=== PATIENT | female | born 1960 | race Two or more races ===

== ENCOUNTER 2020-04-14 13:29 | Outpatient (REF) | payer OTHER, SELFPAY ==
--- NOTE | 2020-04-14 13:35 | XR_ITS ---
EXAMINATION: XR LUMBOSACRAL SPINE WITH OBLIQUES CLINICAL INFORMATION: Low back pain COMPARISON: None TECHNIQUE: AP, both oblique, and lateral views of the lumbar spine. Lateral view of the lumbosacral junction. FINDINGS: There is mild 3 mm anterior subluxation of L4 with respect L5. Bone alignment is otherwise normal. No fracture or dislocation is seen. Disc spaces are normal. There is lower lumbar spine facet arthritis. No pars defect is seen. There is a gastric lap band. There is a 4 x 5 mm calcification that projects to the right of the L1 vertebral body superior endplate. This is superior to the right kidney. XR/XR lumbar spine 4V min IMPRESSION: Mild anterior subluxation of L4 with respect L5 and lower lumbar spine facet arthritis.
== END 2020-04-14 13:30 | disposition home or self-care (01) ==
LOC: HO.XRAY 13:29
PROVIDERS: PCP Internal Medicine Geriatric Medicine; Visit Provider Internal Medicine Geriatric Medicine
DX: M54.5 Low back pain (principal)
CPT/HCPCS: 72110

== ENCOUNTER 2020-04-14 14:25 | Outpatient (REF) | payer OTHER, SELFPAY | END 2020-04-14 14:26 | disposition home or self-care (01) | LOC: HO.LAB 14:25 | PROVIDERS: Visit Provider Internal Medicine | DX: Z20.828 Contact with and (suspected) exposure to other viral communicable diseases (principal) | CPT/HCPCS: 87635 ==

== ENCOUNTER 2020-10-12 12:47 | Emergency (ER) | payer BC, SELFPAY ==
--- NOTE | 2020-10-12 | ECG_ITS ---
Test Reason : DISSINESS Blood Pressure : / mmHG Vent. Rate : 075 BPM Atrial Rate : 075 BPM P-R Int : 174 ms QRS Dur : 100 ms QT Int : 432 ms P-R-T Axes : 027 020 017 degrees QTc Int : 482 ms Normal sinus rhythm Nonspecific ST abnormality Prolonged QT Abnormal ECG When compared with ECG of 16-DEC-2009 13:25, No significant change was found Referred By: Generic ED Physician Electronically Signed By:CYNDI EASLEY MD
--- NOTE | ~2020-10-12 | CT_ITS ---
EXAMINATION: CT HEAD WITHOUT CONTRAST CLINICAL INFORMATION: Sudden onset of dizziness. Rule out stroke. COMPARISON: None TECHNIQUE: Contiguous axial imaging was performed from the skull base to vertex without intravenous administration of contrast. This CT examination was performed using dose optimization techniques as appropriate, variously including the following: *Automated exposure control *Adjustment of mA and/or kV according to patient size (this includes techniques or standardized protocols for targeted exams where dose is matched to indication/reason for exam; i.e. extremities or head) *Use of iterative reconstruction technique DLP: 627 mGy-cm FINDINGS: There is no evidence of acute intracranial hemorrhage or territorial infarction. No abnormal mass effect or midline shift is seen. Moore to white matter differentiation is well preserved. No extra-axial fluid collections are identified. The ventricles are normal in size. There is no abnormal attenuation within the brain parenchyma. The osseous structures and soft tissues are normal. The mastoid air cells and visualized portions of the paranasal sinuses are well aerated. There is a small 1.3 cm polyp or retention cyst right nasal cavity. There are bilateral paradoxical middle turbinates CT/CT head/brain wo con IMPRESSION: Small polyp or retention cyst right nasal cavity. No acute intracranial process seen
--- NOTE | ~2020-10-12 | XR_ITS ---
EXAMINATION: XR CHEST CLINICAL INFORMATION: Hypoxia COMPARISON: June 19, 2018 TECHNIQUE: AP portable view of the chest was obtained. FINDINGS: There are small lung volumes. There is elevation of the right hemidiaphragm. There is some increased markings bilaterally but likely related to small lung volume rather than confluent disease. Heart normal size. No evidence of pulmonary edema. No pneumothorax or significant pleural effusion Lap band in place. XR/XR chest 1V IMPRESSION: Small lung volumes without definite confluent parenchymal disease.
[2020-10-12 12:58] VITALS: BP 149/77; PULSE 79; RESP 24; TEMP 36.5; O2SAT 92; BMI 32.5
[2020-10-12 13:08] VITALS: O2SAT 96
--- NOTE | 2020-10-12 13:09 | PC.NURSE ---
Pt diaphoretic, minimally verbally responsive, spo2 91-92% on room air, placed on 2.5L via NC. No arm drift or facial droop noted, PERRL, pt able to follow commands. EKG and POC obtained.
[2020-10-12 13:10] LABS: Glucose, Whole Blood 205 mg/dL (60-115)
[2020-10-12 13:35] LABS: MANUAL DIFF FLAG NO
[2020-10-12] MEDS: ondansetron HCL 4 MG/2 ML VIAL IVPUSH (13:37)
[2020-10-12] MEDS: 0.9 % Sodium Chloride 1,000 ML 999 ML IV (13:37)
[2020-10-12] MEDS: LORazepam 2 MG/ML VIAL 1 MG IVPUSH (13:37)
[2020-10-12 13:42] LABS: INTERNATIONAL NORM RATIO 1.1 (0.9-1.1); Prothrombin Time 13.5 SEC (10.8-13.0)
[2020-10-12 13:43] LABS: Basophils Absolute Auto 0.1 X10*3/uL (0.0-0.2); Basophils Percent Auto 0.5 % (0-2); Eosinophils Absolute Auto 0.3 X10*3/uL (0.0-0.4); Eosinophils Percent Auto 2.1 % (0-4); Hematocrit 45.1 % (37-47); Hemoglobin 14.3 g/dl (12.0-16.0); Imm Gran Abs Auto 0.09 X10*3/uL (0.00-0.03); Imm Gran Pct Auto 0.8 % (0.0-0.4); Lymphocytes Absolute Auto 1.8 X10*3/uL (1.2-4.9); Lymphocytes Percent Auto 15.7 % (20-40); Mean Corpuscular HGB Conc 31.7 g/dl (31.0-35.0); Mean Corpuscular Hemoglobin 27.8 pg (27.0-33.0); Mean Corpuscular Volume 87.6 fL (80-98); Mean Platelet Volume 11.8 fL (9.4-12.3); Monocytes Absolute Auto 0.7 X10*3/uL (0.1-1.2); Monocytes Percent Auto 6.1 % (2-11); Neutrophils Absolute Auto 8.7 X10*3/uL (2.0-8.3); Neutrophils Percent Auto 74.8 % (45-73); Platelet Count 210 X10*3/uL (160-400); Red Blood Count 5.15 X10*6/uL (4.20-5.50); Red Cell Distribution Width 12.6 % (11.0-16.0); White Blood Count 11.6 X10*3/uL (4.8-10.8)
[2020-10-12 13:45] LABS: Partial Thromboplastin Time 29.4 SEC (24.1-38.0)
[2020-10-12 14:09] LABS: Alanine Aminotransferase 36 U/L (0-31); Albumin Level 4.5 g/dL (3.5-5.0); Alkaline Phosphatase 106 U/L (39-117); Anion Gap 16 (12-20); Aspartate Amino Transferase 44 U/L (5-31); Bilirubin Total 0.4 mg/dL (0.0-1.0); Blood Urea Nitrogen 12 mg/dL (9-16); Calcium 9.7 mg/dL (8.4-10.2); Carbon Dioxide 24 mmol/L (22-29); Chloride 103 mmol/L (96-108); Creatinine Clr Calc Pharmacy 72.8; Estimated Glomerular Filt Rate > 60; Glucose Random 239 mg/dL (60-115); Potassium 3.2 mmol/L (3.3-5.1); Sodium 140 mmol/L (135-145); Total Protein 7.8 g/dL (6.5-8.0)
[2020-10-12 14:14] LABS: Troponin-I High Sensitivity < 3.5 ng/L (<3.5-17.0)
[2020-10-12] MEDS: Meclizine HCl 25 MG TABLET PO (14:50)
--- NOTE | 2020-10-12 14:51 | PC.NURSE ---
Pt reports she feels better, no longer diaphoretic. Medicated with meclizine as charted. Oxygen shut off to eval spo2 on room air.
[2020-10-12 14:52] VITALS: BP 110/66; PULSE 89; RESP 20; O2SAT 93
--- NOTE | 2020-10-12 14:54 | PC.NURSE ---
Spo2 dropped to 91-92% on room air. Oxygen increased to 1.5 liters with no change, oxygen adjusted to 2.5L with good effect, spo2 up to 94-95%
--- NOTE | 2020-10-12 15:01 | PC.NURSE ---
MD aware of pt inability to maintain spo2 on room air. Plan for Covid swab and CXR.
--- NOTE | 2020-10-12 15:04 | PC.NURSE ---
Pt getting a CXR done at this time
--- NOTE | 2020-10-12 15:29 | PC.NURSE ---
COVID swab was obtained and sent to the lab. Patient reports the dizziness has improved.
[2020-10-12 15:48] LABS: COVID-19 Test Negative (Negative); IDNOW Serial# 9DD0AD1C
--- NOTE | 2020-10-12 16:44 | ED.GENADULT ---
HPI - General Adult General Chief complaint: Dizziness Stated complaint: mult complaints Time Seen by Provider: 10/12/20 13:10 Source: patient and family (Daughter, Rae) Mode of arrival: EMS Limitations: language barrier (Patient speaks St Helenian and Nauruan) History of Present Illness HPI narrative: 59-year-old female who presents emergency department for evaluation of sudden onset of dizziness. The patient was driving to [employer] to visit her sister. She states that she had a sudden onset of dizziness. She describes the sensation as a room spinning sensation. She states that it was worse any time she moved her head. She had nausea and vomiting. She denied headache, change in her vision, numbness or weakness, difficulty talking. According to her daughter, patient had a similar presentation 2 years prior. At that time, it was felt to be secondary to dehydration or Lyme disease. Patient denied being ill in any way prior to the onset of her dizziness. She denied fever, chills, chest pain, shortness of breath, abdominal pain, change in bowel movements, frequency, urgency, dysuria or increased thirst. Related Data Previous Rx's Medication Instructions Recorded meclizine [Dramamine Less Drowsy] 25 mg PO TID PRN #30 tab 10/12/20 ondansetron 4 mg PO Q6-8H PRN #14 tab 10/12/20 Allergies Allergy/AdvReac Type Severity Reaction Status Date / Time No Known Allergies Allergy Mild NOT Unverified 03/03/20 15:08 [No Known Allergies*] APPLICABLE Review of Systems Review of Systems: Yes all other systems are reviewed and are negative [facility] Past Medical History [facility] Narrative: Patient has a history of hypertension, anxiety, obstructive sleep apnea and wears CPAP at night, history of seizures. Patient denies tobacco use, she rarely drinks alcohol, she does not use drugs. Social History Social History Alcohol intake: never Smoking Status: Never smoker Use of substances other than those prescribed or required for medical reasons: No Advance Directives: No Advance Directives Information Provided: Yes Physical Exam Vital Signs: Vital Signs: Last Vital Signs Temp 97.7 F 10/12/20 12:58 Pulse 89 10/12/20 14:52 Resp 20 10/12/20 14:52 BP 110/66 10/12/20 14:52 Pulse Ox 93 10/12/20 14:52 Body Mass Index 32.5 Const: General: cooperative Orientation/consciousness: oriented to person and oriented to place Limitations: no limitations HENMT: Head: Yes normal to inspection, Yes normocephalic and Yes atraumatic Ears: external ears normal General nose exam: Normal external nose present Face and sinus: Yes normal facial exam Mouth: Normal oral and palatal mucosa present Throat: Yes posterior oropharynx normal Eyes: Periorbital: periorbital findings normal Eyelids: Yes eyelids normal Conjunctivae: conjunctivae normal Sclerae: sclerae normal Corneas: corneas normal Pupils: Equal, round and reactive pupils present EOM: EOMs intact bilaterally and Nystagmus present Direct Ophthalmoscopy: normal light reflex Neck: Neck: Yes full ROM, Yes no lymphadenopathy, Yes no meningeal signs, Yes trachea midline and Yes supple Chest: Chest palpation & inspection: normal inspection of the chest and normal palpation of entire chest wall Resp: Effort & Inspection: normal respiratory effort and able to speak in complete sentences Auscultation: clear to auscultation bilaterally Cardio: Rate: regular rate Rhythm: regular rhythm Heart sounds: S1 normal heart sound present, S2 normal heart sound present and no murmurs GI: Inspection: Yes normal to inspection Palpation (GI): Soft to palpation, nontender, no guarding, not rigid and No hepatosplenomegaly present : General: Yes no CVA tenderness Back/Spine/Pelvis: Back: no CVA tenderness Cervical Spine: normal cervical lordosis Thoracic/Lumbar Spine: thoracic and lumbar spine normal to inspection Skin: Lesions: no lesions Rashes: no rashes Wounds: no wounds Neuro: General: oriented to person, oriented to place and no meningeal signs Cranial nerves: Yes CN's II-XII intact bilaterally, Yes Equal, round and reactive pupils present and Yes Nystagmus present Cognition (Neuro): normal cognition Motor exam (neuro): 5/5 motor strength present throughout Sensory Exam: other (Normal light touch bilaterally) Extrem: General: Yes normal to inspection and Yes full ROM Psych: Appearance: well kempt Mental Status: mental status grossly normal Speech and movement: Normal speech and movement present Affect: normal affect Attitude: cooperative Thought process: Normal thought process present Thought content: Normal thought content present Course Course Course Narrative: 59-year-old female who presents emergency department for evaluation of sudden onset of dizziness. Vital signs revealed an elevated blood pressure of 149/77, elevated respiratory rate of 24 . O2 saturation was 92% on room air. Physical examination did reveal lateral nystagmus with a nonfocal neurologic exam. The patient was treated with Ativan 1 mg IV, Zofran 4 mg IV and meclizine 25 mg IV. She also received normal saline IV x1 L. 1650: Patient's laboratory evaluation revealed slightly low potassium at 3.2. Patient has an elevated glucose of 239, she does not have history of diabetes mellitus. The patient's COVID-19 test was negative. Chest x-ray was unremarkable. CT scan of the head revealed no acute process to explain her dizziness. At this time, I suspect that her dizziness is secondary to positional vertigo. She did feel significantly better after the above treatment. I did discuss the elevated glucose with the patient, she has not been symptomatic-no increased thirst, increased frequency or visual change. It is possible at this increased glucose may be a stress reaction secondary to the sudden onset of vertigo. The patient will need to follow-up with PCP for further evaluation for possible diabetes mellitus splint further treatment of her positional vertigo. She was discharged home with a prescription for meclizine and Zofran. She was given verbal and printed instructions prior to discharge. Medical Decision Making Lab Data Result diagrams: 10/12/20 13:31 10/12/20 13:31 Labs: Lab Results 10/12/20 10/12/20 10/12/20 Range/Units 13:05 13:31 13:31 WBC 11.6 H (4.8-10.8) X10*3/uL RBC 5.15 (4.20-5.50) X10*6/uL Hgb 14.3 (12.0-16.0) g/dl Hct 45.1 (37-47) % MCV 87.6 (80-98) fL MCH 27.8 (27.0-33.0) pg MCHC 31.7 (31.0-35.0) g/dl RDW 12.6 (11.0-16.0) % Plt Count 210 (160-400) X10*3/uL MPV 11.8 (9.4-12.3) fL Immature Gran % (Auto) 0.8 H (0.0-0.4) % Neut % (Auto) 74.8 H (45-73) % Lymph % (Auto) 15.7 L (20-40) % Cascade % (Auto) 6.1 (2-11) % Eos % (Auto) 2.1 (0-4) % Baso % (Auto) 0.5 (0-2) % Lymph # (Auto) 1.8 (1.2-4.9) X10*3/uL Cascade # (Auto) 0.7 (0.1-1.2) X10*3/uL Eos # (Auto) 0.3 (0.0-0.4) X10*3/uL Baso # (Auto) 0.1 (0.0-0.2) X10*3/uL Abs Immat Gran (auto) 0.09 H (0.00-0.03) X10*3/uL Absolute Neuts (auto) 8.7 H (2.0-8.3) X10*3/uL Absolute Nucleated RBC 0.000 (0.0-0.012) X10*3/uL Nucleated RBC % (auto) 0.0 (0.0-0.2) /100WBC PT 13.5 H (10.8-13.0) SEC INR 1.1 (0.9-1.1) APTT 29.4 (24.1-38.0) SEC Sodium (135-145) mmol/L Potassium (3.3-5.1) mmol/L Chloride (96-108) mmol/L Carbon Dioxide (22-29) mmol/L Anion Gap (12-20) BUN (9-16) mg/dL Creatinine (0.5-1.4) mg/dL Estim Creat Clear Calc Estimated GFR POC Glucose 205 H (60-115) mg/dL Random Glucose (60-115) mg/dL Calcium (8.4-10.2) mg/dL Total Bilirubin (0.0-1.0) mg/dL AST (5-31) U/L ALT (0-31) U/L Alkaline Phosphatase (39-117) U/L Troponin I High Sens (<3.5-17.0) ng/L Total Protein (6.5-8.0) g/dL Albumin (3.5-5.0) g/dL COVID-19 (JULIA) (Negative) COVID-19 Clin Com 10/12/20 10/12/20 10/12/20 Range/Units 13:31 13:31 15:25 WBC (4.8-10.8) X10*3/uL RBC (4.20-5.50) X10*6/uL Hgb (12.0-16.0) g/dl Hct (37-47) % MCV (80-98) fL MCH (27.0-33.0) pg MCHC (31.0-35.0) g/dl RDW (11.0-16.0) % Plt Count (160-400) X10*3/uL MPV (9.4-12.3) fL Immature Gran % (Auto) (0.0-0.4) % Neut % (Auto) (45-73) % Lymph % (Auto) (20-40) % Cascade % (Auto) (2-11) % Eos % (Auto) (0-4) % Baso % (Auto) (0-2) % Lymph # (Auto) (1.2-4.9) X10*3/uL Cascade # (Auto) (0.1-1.2) X10*3/uL Eos # (Auto) (0.0-0.4) X10*3/uL Baso # (Auto) (0.0-0.2) X10*3/uL Abs Immat Gran (auto) (0.00-0.03) X10*3/uL Absolute Neuts (auto) (2.0-8.3) X10*3/uL Absolute Nucleated RBC (0.0-0.012) X10*3/uL Nucleated RBC % (auto) (0.0-0.2) /100WBC PT (10.8-13.0) SEC INR (0.9-1.1) APTT (24.1-38.0) SEC Sodium 140 (135-145) mmol/L Potassium 3.2 L (3.3-5.1) mmol/L Chloride 103 (96-108) mmol/L Carbon Dioxide 24 (22-29) mmol/L Anion Gap 16 (12-20) BUN 12 (9-16) mg/dL Creatinine 0.84 (0.5-1.4) mg/dL Estim Creat Clear Calc 72.8 Estimated GFR > 60 POC Glucose (60-115) mg/dL Random Glucose 239 H (60-115) mg/dL Calcium 9.7 (8.4-10.2) mg/dL Total Bilirubin 0.4 (0.0-1.0) mg/dL AST 44 H (5-31) U/L ALT 36 H (0-31) U/L Alkaline Phosphatase 106 (39-117) U/L Troponin I High Sens < 3.5 (<3.5-17.0) ng/L Total Protein 7.8 (6.5-8.0) g/dL Albumin 4.5 (3.5-5.0) g/dL COVID-19 (JULIA) Negative (Negative) COVID-19 Clin Com See Note ECG Data Attestation: I personally reviewed and interpreted this ECG as follows: Interpretation: 1655: Normal sinus rhythm rate of 75, normal NH, prolonged QRS of 100 milliseconds, prolonged QTC of 482 milliseconds, no ST segment elevation, no ST segment depression, no significant T-wave abnormalities, no old EKG for comparison Discharge Plan Discharge Clinical Impression: Acute hyperglycemia Benign paroxysmal positional vertigo Qualifiers: Laterality: unspecified laterality Qualified Code(s): H81.10 - Benign paroxysmal vertigo, unspecified ear Patient Disposition: Home, Self-Care Instructions: Benign Paroxysmal Positional Vertigo (ED) Additional Instructions: Your laboratory evaluation did reveal an elevated glucose (sugar) of 239, normal is 60-115. Sometimes and elevated glucose can be secondary to a stressful illness like vertigo. You will need to follow-up with your doctor to have a repeat fasting blood sugar and further testing for possible diabetes. Increase your fluid intake to prevent dehydration. Cut sugar out of your diet. Your CT scan of the head revealed no evidence of bleeding in the brain, stroke or large tumors. Your chest x-ray was normal with no evidence of pneumonia Your COVID-19 test was negative. Your dizziness is consistent with benign positional vertigo most likely caused by dysfunction of your balance mechanism in the inner ear. Take meclizine 25 mg 3 times a day for the next 4 days then as needed for dizziness. Take Zofran (ondansetron) oral dissolvable tablets, 4 mg 1 tablet dissolved in your mouth every 6-8 hours as needed for nausea and vomiting. Follow-up with your doctor in 2 days. Please return to the emergency department if your symptoms get worse or if you develop any symptoms that are concerning to you. Prescriptions: New meclizine [Dramamine Less Drowsy] 25 mg tablet 25 mg PO TID PRN (Reason: dizziness) Qty: 30 RF: 0 ondansetron 4 mg tablet,disintegrating 4 mg PO Q6-8H PRN (Reason: nausea and vomiting) Qty: 14 RF: 0 Interventions: ED Discharge Assessment Last Done: 10/12/20 16:45 Print Language: [place]ian
== END 2020-10-12 17:06 | disposition home or self-care (01) ==
PROVIDERS: Emergency Provider Emergency Medicine Emergency Medical Services
DX: H81.10 Benign paroxysmal vertigo, unspecified ear (principal); R73.9 Hyperglycemia, unspecified; R09.02 Hypoxemia; Z20.822 Contact with and (suspected) exposure to COVID-19; Z79.899 Other long term (current) drug therapy
CPT/HCPCS: 36415; 70450; 71045; 80053; 82947; 84484; 85025; 85610; 85730; 87635; 93005; 96365; 96375; 99285; J2060; J2405

== ENCOUNTER 2021-02-02 14:51 | Outpatient (REF) | payer BC, SELFPAY ==
--- NOTE | ~2021-02-02 | MM_ITS ---
EXAMINATION: MM SCREENING DIGITAL BREAST TOMOSYNTHESIS, BILATERAL CLINICAL INFORMATION: Screening. Asymptomatic. The lifetime risk of breast cancer based on the Tyrer-Cuzick Model is 6%. COMPARISON: Mammography: 07/09/2019, 07/02/2018, 06/19/2018, 12/10/2016; outside mammography 01/25/2016 ([facility]). TECHNIQUE: Digital breast tomosynthesis is performed in both the craniocaudal and mediolateral oblique views along with computer-aided detection (CAD). Synthesized 2D images are generated from the tomosynthesis. FINDINGS: There are scattered areas of fibroglandular density (ACR BI-RADS breast composition Category b). Breast tissue composition borders on heterogeneously dense. Parenchymal pattern is similar to prior studies. There is no interval mass or architectural abnormality. The axilla and skin contours are unremarkable. The right MLO view has oval parenchymal asymmetry just superior to posterior nipple line, 12 cm from nipple, identical to prior MLO view 2016 and suggesting shifting fibroglandular tissue. Again, there are numerous bilateral scattered punctate round calcifications. MM/MM tomosynthesis screening BI IMPRESSION: No significant changes from prior exams. ASSESSMENT: BI-RADS 2: Benign RECOMMENDATION: Routine annual mammography screening. This patient's information was entered into a reminder system with a target due date for their next mammogram.
== END 2021-02-02 14:52 | disposition home or self-care (01) ==
LOC: HO.MAMMO 14:51
PROVIDERS: Visit Provider Internal Medicine Geriatric Medicine
DX: Z12.31 Encounter for screening mammogram for malignant neoplasm of breast (principal)
CPT/HCPCS: 77063; 77067

== ENCOUNTER → 2021-02-07 12:32 | Outpatient (BNVA) | payer BC, SELFPAY | PROVIDERS: Visit Provider Dietitian, Registered | DX: E66.9 Obesity, unspecified (principal); Z68.35 Body mass index [BMI] 35.0-35.9, adult; Z71.3 Dietary counseling and surveillance | CPT/HCPCS: 97802 ==

== ENCOUNTER → 2021-03-21 13:50 | Outpatient (BNVA) | payer BC, SELFPAY | PROVIDERS: PCP Internal Medicine Geriatric Medicine; Visit Provider Dietitian, Registered | DX: E66.9 Obesity, unspecified (principal); Z68.34 Body mass index [BMI] 34.0-34.9, adult; Z71.3 Dietary counseling and surveillance; Z98.84 Bariatric surgery status | CPT/HCPCS: 97803 ==

== ENCOUNTER 2021-05-02 13:22 | Outpatient (REF) | payer BC, SELFPAY ==
--- NOTE | ~2021-05-02 | XR_ITS ---
EXAMINATION: XR LUMBOSACRAL SPINE CLINICAL INFORMATION: Low back pain. Pain in the right leg. COMPARISON: Lumbar spine 04/14/2020 TECHNIQUE: Three views of the lumbosacral spine. FINDINGS: Lumbar vertebrae have normal height and alignment. No fracture or bone destruction. Minor degenerative lipping at the anterior endplates of lumbar vertebrae. There are moderate bone spurs at the anterior endplates of lower thoracic vertebral bodies. Lumbar disc heights are maintained. There is moderate facet joint arthrosis at the lower 3 lumbar discs levels, most significant at the lumbosacral junction. Stable mild anterolisthesis of L4 and L5. Sacroiliac joint is normal. Gastric banding in place. XR/XR lumbar spine 2-3V IMPRESSION: 1. No acute abnormality. No change since prior study 04/14/2020. 2. Mild degenerative changes of lumbar spine. Stable minimal anterolisthesis of L4 on L5 due to facet joint disease. No spondylolysis.
== END 2021-05-02 13:23 | disposition home or self-care (01) ==
LOC: HO.XRAY 13:22
PROVIDERS: PCP Internal Medicine Geriatric Medicine; Visit Provider Internal Medicine Geriatric Medicine
DX: M54.50 Low back pain, unspecified (principal); M79.604 Pain in right leg
CPT/HCPCS: 72100

== ENCOUNTER → 2021-05-25 10:50 | Outpatient (BNVA) | payer BC, SELFPAY | PROVIDERS: PCP Internal Medicine Geriatric Medicine; Visit Provider Dietitian, Registered | DX: E66.9 Obesity, unspecified (principal); Z68.35 Body mass index [BMI] 35.0-35.9, adult; Z98.84 Bariatric surgery status; Z71.3 Dietary counseling and surveillance | CPT/HCPCS: 97803 ==

== ENCOUNTER 2021-10-05 14:43 | Outpatient (REF) | payer BC, SELFPAY ==
--- NOTE | ~2021-10-05 | MM_ITS ---
EXAMINATION: BONE DENSITOMETRY CLINICAL INDICATION: Encounter for screening for osteoporosis. Postmenopausal. COMPARISON: This is the patient's baseline examination. TECHNIQUE: Using a [employer] DXA System (software version: 13.1) manufactured by [employer], dual-energy x-ray absorptiometry was performed of the lumbar spine and left hip. The images are of good technical quality. Summary results are attached. FINDINGS: AP SPINE L1-L4: BMD 0.945 g/cm2, Z-score -1.6, T-score -2.0, osteopenia. LEFT FEMUR, NECK: BMD 0.788 g/cm2, Z-score -1.1, T-score -1.8, osteopenia. LEFT FEMUR, TOTAL: BMD 0.914 g/cm2, Z-score -0.4, T-score -0.7, normal. IDENTIFIED RISK FACTORS: Menopause. Secondary osteoporosis, (intestinal or bowel disease). HISTORY OF FRACTURE: None listed. MEDICATIONS: None listed. MM/XR DEXA axial skeleton IMPRESSION: 1. DIAGNOSIS: Osteopenia based on the lowest T-score value of -2.0 in the lumbar spine applying World Health Organization criteria. 2. 10-YEAR FRACTURE RISK PREDICTION, FRAX: Major osteoporotic fracture (clinical spine, forearm, hip or shoulder) 4.3%. Hip fracture 0.4%. 3. Treatment Recommendations: NOF guidelines recommend consideration for treatment in postmenopausal women and men age 50 and older presenting with the following: -A hip or vertebral (clinical or morphometric) fracture. -T-score less than or equal to -2.5 at the femoral neck or spine after appropriate evaluation to exclude secondary causes. -Low bone mass at the hip or spine and a 10-year fracture probability by FRAX of greater than or equal to 3% for hip fracture or greater than or equal to 20% for major osteoporotic fracture based on the [place] adapted WHO algorithm. 4. Other Recommendations: All treatment decisions require clinical judgment and consideration of individual patient factors, including patient preferences, comorbidities, previous drug use, risk factors not captured in the FRAX model (e.g. frailty, falls, vitamin D deficiency, increased bone turnover, interval significant decline in bone density) and possible under or overestimation of fracture risk by FRAX. Additional medical evaluation for secondary cause of low bone mineral density may be appropriate. FUTURE SCAN RECOMMENDATION: People with diagnosed cases of osteoporosis or at high risk for fracture should have regular bone mineral density tests. For patients eligible for Medicare, routine testing is allowed once every 2 years. The testing frequency can be increased to one year for patients who have rapidly progressing disease, those who are receiving or discontinuing medical therapy to restore bone mass, or have additional risk factors.
== END 2021-10-05 14:44 | disposition home or self-care (01) ==
LOC: HO.MAMMO 14:43
PROVIDERS: PCP Internal Medicine Geriatric Medicine; Visit Provider Advanced Practice Midwife
DX: Z13.820 Encounter for screening for osteoporosis (principal); Z78.0 Asymptomatic menopausal state; M85.80 Other specified disorders of bone density and structure, unspecified site
CPT/HCPCS: 77080

== ENCOUNTER 2022-03-28 15:55 | Outpatient (REF) | payer BC, SELFPAY ==
--- NOTE | ~2022-03-28 | XR_ITS ---
EXAMINATION: XR CHEST CLINICAL INFORMATION: Chronic cough and wheezing COMPARISON: None TECHNIQUE: 2 views of the chest were obtained. FINDINGS: No significant abnormality is noted involving the heart, lungs, mediastinum, bony thorax or soft tissues. XR/XR chest 2V IMPRESSION: Unremarkable chest examination.
== END 2022-03-28 15:56 | disposition home or self-care (01) ==
LOC: HO.XRAY 15:55
PROVIDERS: PCP Internal Medicine Geriatric Medicine; Visit Provider Internal Medicine Geriatric Medicine
DX: R05.3 Chronic cough (principal); R06.2 Wheezing
CPT/HCPCS: 71046

== ENCOUNTER 2022-10-20 08:18 | Outpatient (REF) | payer OTHER, SELFPAY ==
--- NOTE | ~2022-10-20 | MM_ITS ---
EXAMINATION: MM SCREENING DIGITAL BREAST TOMOSYNTHESIS, BILATERAL CLINICAL INFORMATION: Screening. Asymptomatic. The lifetime risk of breast cancer based on the Tyrer-Cuzick Model is 6%. COMPARISON: Mammography: 02/02/2021, 07/09/2019, 07/02/2018, 06/19/2018, 12/10/2016; outside mammography 01/25/2016 ([facility]). TECHNIQUE: Digital breast tomosynthesis is performed in both the craniocaudal and mediolateral oblique views along with computer-aided detection (CAD). Synthesized 2D images are generated from the tomosynthesis. FINDINGS: There are scattered areas of fibroglandular density (ACR BI-RADS breast composition Category b). Breast tissue composition borders on heterogeneously dense. Parenchymal pattern is similar to prior studies and there is no developing density or interval mass or architectural abnormality. Parenchymal asymmetry posterior outer left breast on CC view is similar to decreased from multiple prior exams. Again, there are numerous random scattered punctate round calcifications in both breasts. The axilla and skin contours are unremarkable. No significant changes from prior studies. MM/MM tomosynthesis screening BI IMPRESSION: No mammographic evidence of malignancy. ASSESSMENT: BI-RADS 2: Benign RECOMMENDATION: Routine annual mammography screening. This patient's information was entered into a reminder system with a target due date for their next mammogram.
== END 2022-10-20 08:19 | disposition home or self-care (01) ==
LOC: HO.MAMMO 08:18
PROVIDERS: PCP Internal Medicine Geriatric Medicine; Visit Provider Internal Medicine Geriatric Medicine
DX: Z12.31 Encounter for screening mammogram for malignant neoplasm of breast (principal)
CPT/HCPCS: 77063; 77067

== ENCOUNTER → 2022-12-20 15:30 | Outpatient (BNVA) | payer OTHER, SELFPAY | PROVIDERS: PCP Internal Medicine Geriatric Medicine; Visit Provider Nurse Practitioner ==

== ENCOUNTER 2023-04-20 07:40 | Outpatient (REF) | payer OTHER, SELFPAY ==
[2023-04-20 09:16] LABS: Alanine Aminotransferase 48 U/L (0-31); Alkaline Phosphatase 98 U/L (39-117); Anion Gap 12 (12-20); Aspartate Amino Transferase 41 U/L (5-31); Bilirubin Total 0.4 mg/dL (0.0-1.0); Blood Urea Nitrogen 10 mg/dL (9-16); Carbon Dioxide 29 mmol/L (22-29); Chloride 106 mmol/L (96-108); Cholesterol 140 mg/dL (<200); Estimated Glomerular Filt Rate > 60; Glucose Random 99 mg/dL (60-115); HDL Cholesterol 31 mg/dL (>40); LDL Cholesterol Calculated 91 mg/dL (<100); Potassium 4.5 mmol/L (3.3-5.1); Sodium 142 mmol/L (135-145); Total Protein 7.1 g/dL (6.5-8.0); Triglycerides 93 mg/dL (<150)
== END 2023-04-20 07:41 | disposition home or self-care (01) ==
LOC: HO.LAB 07:40
PROVIDERS: PCP Internal Medicine Geriatric Medicine; Visit Provider Internal Medicine Geriatric Medicine
DX: F51.01 Primary insomnia (principal); E78.00 Pure hypercholesterolemia, unspecified
CPT/HCPCS: 36415; 80053; 80061

== ENCOUNTER 2023-09-30 08:34 | Outpatient (REF) | payer OTHER, SELFPAY ==
[2023-09-30 09:04] LABS: MANUAL DIFF FLAG NO
[2023-09-30 09:13] LABS: Basophils Absolute Auto 0.1 X10*3/uL (0.0-0.2); Eosinophils Absolute Auto 0.2 X10*3/uL (0.0-0.4); Eosinophils Percent Auto 4.1 % (0-4); Hemoglobin 13.1 g/dl (12.0-16.0); Imm Gran Abs Auto 0.02 X10*3/uL (0.00-0.03); Imm Gran Pct Auto 0.3 % (0.0-0.4); Lymphocytes Absolute Auto 1.5 X10*3/uL (1.2-4.9); Lymphocytes Percent Auto 25.2 % (20-40); Mean Corpuscular HGB Conc 31.2 g/dl (31.0-35.0); Mean Corpuscular Hemoglobin 26.5 pg (27.0-33.0); Mean Corpuscular Volume 84.8 fL (80.0-98.0); Mean Platelet Volume 12.1 fL (9.4-12.3); Monocytes Absolute Auto 0.6 X10*3/uL (0.1-1.2); Monocytes Percent Auto 9.7 % (2-11); Neutrophils Absolute Auto 3.5 x10*3/uL (2.0-8.3); Neutrophils Percent Auto 59.7 % (45-73); Platelet Count 181 X10*3/uL (160-400); Red Blood Count 4.95 X10*6/uL (4.20-5.50); Red Cell Distribution Width 13.6 % (11.0-16.0); White Blood Count 5.8 X10*3/uL (4.8-10.8)
[2023-09-30 09:47] LABS: Alanine Aminotransferase 46 U/L (0-31); Alkaline Phosphatase 110 U/L (39-117); Anion Gap 12 (12-20); Aspartate Amino Transferase 44 U/L (5-31); Bilirubin Total 0.4 mg/dL (0.0-1.0); Blood Urea Nitrogen 16 mg/dL (9-16); Calcium 9.4 mg/dL (8.4-10.2); Carbon Dioxide 29 mmol/L (22-29); Chloride 106 mmol/L (96-108); Cholesterol 153 mg/dL (<200); Estimated Glomerular Filt Rate > 60; Glucose Random 106 mg/dL (60-115); HDL Cholesterol 37 mg/dL (>40); LDL Cholesterol Calculated 90 mg/dL (<100); Potassium 4.1 mmol/L (3.3-5.1); Sodium 143 mmol/L (135-145); Triglycerides 133 mg/dL (<150)
== END 2023-09-30 08:35 | disposition home or self-care (01) ==
LOC: HO.LAB 08:34
PROVIDERS: PCP Internal Medicine Geriatric Medicine; Visit Provider Internal Medicine Geriatric Medicine
DX: Z00.00 Encounter for general adult medical examination without abnormal findings (principal); Z13.6 Encounter for screening for cardiovascular disorders; G40.909 Epilepsy, unspecified, not intractable, without status epilepticus
CPT/HCPCS: 36415; 80053; 80061; 85025

== ENCOUNTER 2023-10-11 07:25 | Day surgery (SDC) | payer OTHER, SELFPAY ==
--- NOTE | 2023-10-11 07:09 | MHC.SHP ---
Pre-Procedural Eval Section A - 24 Hr Update-Section A only Date of Service: 10/11/23 The patient is an INPATIENT: No The patient has been examined within 24 hours of the surgical procedure. The History & Physical has been completed within 30 days and I have reviewed it.: No Section B - Complete if H&P > 30 days Chief Complaint: screening, FH of colon ca, rectal bleeding Relevant Family History (Specify if Yes): Yes Relevant Social History: None Present Medications: see Short Stay Collaborative assessment Medical History: Significant History (Obesity Hypertension Seizure disorder Depression Chronic low back pain with right-sided sciatica Family history of colon cancer-brother Tubular adenomas ) History of Previous Operations: Relevant previous surgery/procedure and date(s) (Lap band surgery Tubal ligation COlonoscopy 10 years ago) Allergies: Allergies Allergy/AdvReac Type Severity Reaction Status Date / Time No Known Allergies Allergy Mild NOT Verified 12/20/22 15:38 [No Known Allergies*] APPLICABLE Review of Systems Sugical H&P ROS: Negative: Constitution, Cardiovascular, Respiratory and Gastrointestinal Exam Surgical H&P Exam: Normal: Heart, Normal: Lungs, Normal: Extremities and Normal: Abdomen Plan Diagnosis/Plan: Unchanged I have reviewed the history and physical and performed a pertinent physical examination on my patient. No changes have occurred unless specified. Time Spent With Patient Time: Total time managing care of this patient today ____ minutes.
[2023-10-11 07:40] VITALS: BP 121/80; PULSE 93; RESP 18; TEMP 36.8; O2SAT 95; BMI 33.2
--- NOTE | 2023-10-11 07:59 | HO.ANESPROP2 ---
[facility] Active Problems Active Problems: All Active Problems Pre-op examination (Acute) Tubular adenoma of colon (Acute) Family history of colon cancer (Acute) Chronic low back pain with right-sided sciatica (Acute) Depression (Acute) Seizure disorder (Acute) Hypertension (Acute) Personal history of gastric banding (Acute) Obesity (Acute) Family History Family history of problems with anesthesia: No Surgical History Surgical History (Updated 12/20/22 @ 16:23 by LEATHA Romero) History of tubal ligation Personal history of gastric banding History of Problems with Anesthesia: No Social History Social History Alcohol intake: never Advance Directives: No Advance Directives Information Provided: Yes Meds Allergies Allergy/AdvReac Type Severity Reaction Status Date / Time No Known Allergies Allergy Mild NOT Verified 12/20/22 15:38 [No Known Allergies*] APPLICABLE Active Medications: Current Medications Lactated Ringer's (Lr) 1,000 mls @ 999 mls/hr IV .Q1H1M TORI Stop: 10/11/23 08:45 Home Medications ?Medication ?Instructions ?Recorded ?Confirmed ?Last Taken ?Type clobetasol 0.05 % topical ointment 1 appl topical BID 12/20/22 Unknown History divalproex 500 mg tablet,delayed 500 mg PO BID 12/20/22 Unknown History release gabapentin 100 mg capsule 100 mg PO DAILY 12/20/22 Unknown History lisinopril 20 1 tab PO DAILY 12/20/22 Unknown History mg-hydrochlorothiazide 25 mg tablet multivitamin 1 tab PO DAILY 12/20/22 Unknown History paroxetine HCl 25 mg 50 mg PO DAILY 12/20/22 Unknown History tablet,extended release 24 hr Exam Airway Mallampati Class: II (missing a couple, denies anythung loose) TM Dist: >3cm Neck ROM: Full Heart: rrr Lungs: cta Assessment and Plan Assessment Anesthesia Assessment: Anesthesia Plan Discussed and Chart Reviewed Final Anesthetic Review Family History of Problems with Anesthesia: No History of Problems with Anesthesia: No NPO: Yes ASA Class: II Final Preanesthetic Review: No Changes in Pt Med Stat, Meds/Allgs Chart Reviewed and Consent Obtained/Reviewed Patient Risk: Low Procedure Risk: Low Anesthetic Plan Anesthetic Plan: MAC: Disposition: Standard PACU
[2023-10-11] MEDS: Lactated Ringers 1,000 ML 999 ML IV (08:02)
--- NOTE | 2023-10-11 09:27 | P.OP_ITS ---
Operative Note Operative Note Date of Service: 10/11/23 Narrative: COLONOSCOPY TILL CECUM WITH SNARE POLYPECTOMY Pre-op diagnosis: Surveillance for colon polyps. Post-op diagnosis:? colon polyp, Diverticulosis, hemorrhoids Endoscopist:? Syed Irvin MD Anesthesia:?MAC Consent: Indications for the procedure and potential complications of bleeding, perforation, reaction to medications and missed diagnosis were discussed with the patient and informed consent was obtained. Instrument: Olympus PCF H 190 L variable stiffness pediatric colonoscope Monitoring: Vital signs and clinical assessment, intermittent blood pressure monitoring, continuous EKG monitoring, Pulse oximetry and Carbon Dioxide monitoring were done throughout the procedure. Please see anesthesia flowsheet. Colon withdrawl time was 20 minutes. Procedure: The patient was placed in the left lateral decubitis position and pre-procedure medications were administered. After a digital rectal examination of the ano-rectum, the video colonoscope was inserted into the rectum and advanced through the colon to the ICV. The colonoscope was slowly withdrawn in a retrograde panoramic fashion and the colon mucosa was carefully examined including a retroflexed view of the rectum. Findings and interventions are described below. Procedure Difficulty: Colon was long and tortuous and there was recurrent loop formation. Patient was placed in the supine position and LLQ pressure was applied to intubate the ascending colon Findings: Terminal Ileum: Not evaluated Cecum: Not evaluated Ascending Colon: Partially evaluated due to suboptimal prep Moderate diverticulosis throughout the entire colon Transverse Colon: Moderate diverticulosis throughout the entire colon Descending Colon: Moderate diverticulosis throughout the entire colon Sigmoid Colon: A 8-9 mm diminutive appearing polyp - removed with a cold snare. Moderate diverticulosis Rectum: Normal Ano-rectum: Moderate internal hemorrhoids Colon preparation: Fair after copious irrigation and poor in the right colon. [place] Bowel Preparation Scale Right colon; 1 Transverse colon: 2 Left colon; 2 (0 = Unprepared colon segment with mucosa not seen due to solid stool that cannot be cleared. 1 = Portion of mucosa of the colon segment seen, but other areas of the colon segment not well seen due to staining, residual stool and/or opaque liquid. 2 = Minor amount of residual staining, small fragments of stool and/or opaque liquid, but mucosa of colon segment seen well. 3 = Entire mucosa of colon segment seen well with no residual staining, small fragments of stool or opaque liquid) Impression and Post Procedure Diagnosis: Colonoscopy Findings: One small polyp was removed Moderate diverticulosis seen in the entire colon Moderate hemorrhoids on retroflexed exam. Plan: Repeat Colonoscopy in 1-2 years if polyp is adenomatous and due to suboptimal prep (Dulcolax 10 mg daily x 5 days before colon appt and adult colonoscope for future colonoscopies). Above findings were reviewed with the patient and relevant handouts were given and the discharge area.
[2023-10-11 09:30] VITALS: BP 100/58; PULSE 74; RESP 16; TEMP 36.1; O2SAT 100
[2023-10-11 09:45] VITALS: BP 119/68; PULSE 88; RESP 16; TEMP 36.1; O2SAT 99
== END 2023-10-11 10:17 | disposition home or self-care (01) ==
PROVIDERS: PCP Internal Medicine Geriatric Medicine; Visit Provider Internal Medicine Gastroenterology
PROC: 0DJD8ZZ Inspection of Lower Intestinal Tract, Via Natural or Artificial Opening Endoscopic (ICD-10-PCS; CPT 45378; principal; 2023-10-11 08:30)
DX: Z12.11 Encounter for screening for malignant neoplasm of colon (principal); Z80.0 Family history of malignant neoplasm of digestive organs; Z86.010 Personal history of colon polyps; K63.5 Polyp of colon; K57.30 Diverticulosis of large intestine without perforation or abscess without bleeding; K64.8 Other hemorrhoids; K59.04 Chronic idiopathic constipation; G40.909 Epilepsy, unspecified, not intractable, without status epilepticus; I10 Essential (primary) hypertension; F32.A Depression, unspecified; E66.9 Obesity, unspecified; Z68.33 Body mass index [BMI] 33.0-33.9, adult; Z79.899 Other long term (current) drug therapy; Z98.84 Bariatric surgery status; Z98.51 Tubal ligation status
CPT/HCPCS: 45385; 88305; J2704

== ENCOUNTER → 2023-10-11 07:25 | Outpatient (BNV) | payer OTHER, SELFPAY | PROVIDERS: PCP Internal Medicine Geriatric Medicine; Visit Provider Internal Medicine Gastroenterology | DX: Z12.11 Encounter for screening for malignant neoplasm of colon (principal); Z86.010 Personal history of colon polyps; K63.5 Polyp of colon; K57.90 Diverticulosis of intestine, part unspecified, without perforation or abscess without bleeding; Z91.199 Patient's noncompliance with other medical treatment and regimen due to unspecified reason; K64.8 Other hemorrhoids | CPT/HCPCS: 45385 ==

== ENCOUNTER 2023-10-11 19:15 | Emergency (ER) | payer OTHER, SELFPAY ==
--- NOTE | ~2023-10-11 | CT_ITS ---
EXAMINATION: CT ABDOMEN AND PELVIS WITHOUT CONTRAST CLINICAL INFORMATION: Abdominal pain post colonoscopy and biopsy COMPARISON: None available. TECHNIQUE: Multidetector volumetric imaging was performed from the superior aspect of the liver through the pubic symphysis. Sagittal and coronal reformatted images were obtained on the technologist's workstation. This CT examination was performed using dose optimization techniques as appropriate, variously including the following: *Automated exposure control *Adjustment of mA and/or kV according to patient size (this includes techniques or standardized protocols for targeted exams where dose is matched to indication/reason for exam; i.e. extremities or head) *Use of iterative reconstruction technique DLP: 692 mGy-cm FINDINGS: LUNG BASES: The visualized lung bases are unremarkable. LIVER, GALLBLADDER, AND BILIARY TREE: The liver is normal in size, shape, and attenuation. No focal hepatic lesion or biliary ductal dilatation is present. The gallbladder is unremarkable with no evidence of radiopaque gallstones, gallbladder wall thickening, or obvious pericholecystic inflammatory changes. PANCREAS: Unremarkable. SPLEEN: Unremarkable. ADRENAL GLANDS: Unremarkable. KIDNEYS AND URETERS: The kidneys are normal in size, shape, and attenuation. No hydronephrosis, hydroureter, or calculi seen. No perinephric stranding. BLADDER: Unremarkable. GASTROINTESTINAL TRACT: Status post gastric banding. There is associated dilatation of the distal esophagus. No acute abnormality of the bowel. There are a few diverticula of the sigmoid and descending colon but no evidence for diverticulitis. No bowel wall thickening or edema. No bowel obstruction. Small volume of stool scattered in the colon. The appendix is not identified. MESENTERY: Moderate volume of abdominal ascites. No free air. ABDOMINAL WALL: No significant hernia is appreciated. LYMPH NODES: Normal. VASCULAR: Unremarkable. PELVIC VISCERA: Unremarkable. OSSEOUS STRUCTURES: No acute osteoporotic. Multilevel degenerative spondylosis of the thoracolumbar spine. CT/CT abdomen pelvis wo IV con IMPRESSION: 1. Moderate volume of abdominal ascites. 2. Status post gastric banding. No acute abnormality of the bowel. 3. No free air. Fleischner guidelines were followed.
[2023-10-11 19:49] VITALS: BP 98/63; PULSE 106; RESP 20; TEMP 36.6; O2SAT 97; BMI 33.2
--- NOTE | 2023-10-11 19:52 | ED.GENADULT ---
HPI - General Adult General Chief complaint: General Medical Stated complaint: Disorientated post colonoscopy Time Seen by Provider: 10/11/23 20:23 Source: patient Mode of arrival: ambulatory Limitations: no limitations History of Present Illness HPI narrative: Patient had routine colonoscopy done earlier today discharge at 12:00 o'clock had a polyp removed came home since procedure done patient has been feeling uncomfortable upper abdominal pain wrapping up to the back with increased gas and nausea no vomiting no diarrhea at bowel movement prior to arrival no fever or chills patient's colonoscopy before but never had similar pain in the past no history of cirrhosis no alcohol use patient had near-syncope episode earlier prior to arrival Related Data Home Medications ?Medication ?Instructions ?Recorded ?Confirmed clobetasol 0.05 % topical ointment 1 appl topical BID 12/20/22 divalproex 500 mg tablet,delayed 500 mg PO BID 12/20/22 release gabapentin 100 mg capsule 100 mg PO DAILY 12/20/22 lisinopril 20 1 tab PO DAILY 12/20/22 mg-hydrochlorothiazide 25 mg tablet multivitamin 1 tab PO DAILY 12/20/22 paroxetine HCl 25 mg 50 mg PO DAILY 12/20/22 tablet,extended release 24 hr Previous Rx's ?Medication ?Instructions ?Recorded meclizine 25 mg tablet (Dramamine 25 mg PO TID PRN dizziness #30 tabs 10/12/20 Less Drowsy) ondansetron 4 mg disintegrating 4 mg PO Q6-8H PRN nausea and 10/12/20 tablet vomiting #14 tabs morphine 15 mg immediate release 15 mg PO Q8H PRN pain #15 tabs 10/12/23 tablet ondansetron 4 mg disintegrating 4 mg PO Q6-8H PRN nausea and 10/12/23 tablet vomiting #10 tabs pantoprazole 40 mg tablet,delayed 40 mg PO DAILY #30 tabs 10/12/23 release (Protonix) Allergies Allergy/AdvReac Type Severity Reaction Status Date / Time No Known Allergies Allergy Mild NOT Verified 10/11/23 19:51 [No Known Allergies*] APPLICABLE Review of Systems Review of Systems: Yes all other systems are reviewed and are negative PMFSH Past Medical History Surgical History History of tubal ligation Personal history of gastric banding Social History Social History Alcohol intake: never Patient Tobacco Use Status: Never used Tobacco Smoked in Last 30 Days: No Use of substances other than those prescribed or required for medical reasons: No Advance Directives: No Advance Directives Information Provided: No Do you have a plan to hurt others: No Plan Patient : No Physical Exam ED Vital Signs: Vital Signs - 24 hr 10/11/23 19:49 10/11/23 20:16 10/11/23 22:00 Temperature 97.9 F 97.7 F 98.1 F Pulse Rate 106 H 97 94 Respiratory Rate 20 20 16 Blood Pressure 98/63 152/74 H 101/57 L Pulse Oximetry 97 94 97 Oxygen Delivery Method Room Air Room Air Room Air 10/12/23 00:04 10/12/23 01:21 10/12/23 01:25 Temperature 98.7 F Pulse Rate 91 98 102 H Respiratory Rate 16 Blood Pressure 107/61 100/72 90/57 L Pulse Oximetry 97 Oxygen Delivery Method Room Air 10/12/23 01:25 10/12/23 01:27 10/12/23 01:49 Temperature 97.1 F 97.1 F Pulse Rate 109 H 95 95 Respiratory Rate 16 16 Blood Pressure 97/68 166/96 H 166/96 H Pulse Oximetry 95 95 Oxygen Delivery Method Room Air Room Air BMI result Body Mass Index 33.2 Appearance: Alert. Oriented X3. No acute distress. Eyes: PERRLA, No Nystagmus no icterus slightly pale+ ENT: Pharynx normal. Oral Mucosa moist Neck: Normal inspection. Neck supple. CVS: Normal heart rate and rhythm. Pulses normal. Respiratory: No respiratory distress. Equal air entry bilateral, no wheezing/rales/rhonchi Abdomen: Soft tenderness in epigastric and upper abdominal area bowel sounds are sluggish no rebound tenderness or guarding Bowel sounds are present, no mass palpable, no CVA tenderness Skin: Skin warm and dry. Normal skin color. Normal skin turgor. Extremities: No lower extremity edema. No calf tenderness Neuro: Oriented X 3. Course Course Course Narrative: RME performed by Jada Mar PA-C. Patient is a 62 year old assigned female at presenting to the emergency department with abdominal pain after her colonoscopy today and weakness. Detailed physical exam and review of systems are deferred to the tick eradicator. Labs, imaging, and swabs ordered. Charge nurse made aware. Medications Administered Discontinued Medications Generic Name Dose Route Start Last Admin Trade Name Kristine PRN Reason Stop Dose Admin Sodium Chloride 1,000 mls @ 999 mls/hr 10/11/23 20:48 10/11/23 23:51 Ns IV 10/11/23 21:48 Infused .Q1H1M ONE Infusion Morphine Sulfate 4 mg 10/11/23 20:51 10/11/23 21:22 Morphine Sulfate 4 Mg/Ml Cartridge IVPUSH 10/11/23 20:52 4 mg ONCE ONE Administration Protocol Ondansetron HCl 4 mg 10/11/23 20:51 10/11/23 21:22 Ondansetron Hcl 4 Mg/2 Ml Vial IVPUSH 10/11/23 20:52 4 mg ONCE ONE Administration Medical Decision Making Medical Decision Making [facility] Narrative: Patient with abdominal pain post colonoscopy on polyps CT scan done which showed ascites and cirrhotic liver does not have any history of cirrhosis in the past non alcoholic likely CLEMENTS no free air likely complication of colonoscopy patient had orthostatic hypotension responded to IV fluid was abdomen ambulatory without much discomfort Differential Diagnosis Differential Diagnoses: The differential diagnosis associated with the presentation includes Small bowel obstruction/perforation/earlier/bowel perforation Admission/Observation Consideration of admission/observation: Escalation of care including admission/observation considered Lab Data [facility] Lab Attestation statement: I reviewed the patient's lab results. 10/11/23 20:22 10/11/23 20:22 Labs: Lab Results 10/11/23 10/12/23 Range/Units 20:22 00:16 WBC 16.5 H (4.8-10.8) X10*3/uL RBC 3.94 L D (4.20-5.50) X10*6/uL Hgb 10.6 L (12.0-16.0) g/dl Hct 32.9 L D (37.0-47.0) % MCV 83.5 (80.0-98.0) fL MCH 26.9 L (27.0-33.0) pg MCHC 32.2 (31.0-35.0) g/dl RDW 13.5 (11.0-16.0) % Plt Count 261 D (160-400) X10*3/uL MPV 12.0 (9.4-12.3) fL Immature Gran % (Auto) 0.6 H (0.0-0.4) % Neut % (Auto) 86.6 H (45-73) % Lymph % (Auto) 8.7 L (20-40) % [place] % (Auto) 3.6 (2-11) % Eos % (Auto) 0.1 (0-4) % Baso % (Auto) 0.4 (0-2) % Lymph # (Auto) 1.4 (1.2-4.9) X10*3/uL [place] # (Auto) 0.6 (0.1-1.2) X10*3/uL Eos # (Auto) 0.0 (0.0-0.4) X10*3/uL Baso # (Auto) 0.1 (0.0-0.2) X10*3/uL Abs Immat Gran (auto) 0.10 H (0.00-0.03) X10*3/uL Absolute Neuts (auto) 14.3 H (2.0-8.3) x10*3/uL Absolute Nucleated RBC 0.000 (0.0-0.012) X10*3/uL Nucleated RBC % (auto) 0.0 (0.0-0.2) /100WBC PT 14.1 H (11.1-13.3) SEC INR 1.2 H (0.9-1.1) Sodium 141 (135-145) mmol/L Potassium 3.7 (3.3-5.1) mmol/L Chloride 102 (96-108) mmol/L Carbon Dioxide 25 (22-29) mmol/L Anion Gap 18 (12-20) BUN 17 H (9-16) mg/dL Creatinine 1.10 (0.5-1.4) mg/dL Estim Creat Clear Calc 49.9 Estimated GFR 51 Random Glucose 209 H (60-115) mg/dL Calcium 8.5 D (8.4-10.2) mg/dL Total Bilirubin 0.4 (0.0-1.0) mg/dL AST 45 H (5-31) U/L ALT 50 H (0-31) U/L Alkaline Phosphatase 103 (39-117) U/L Ammonia 39 (13-55) umol/L Total Protein 6.7 (6.5-8.0) g/dL Albumin 3.8 (3.5-5.0) g/dL Urine Color Yellow Urine Appearance Cloudy Urine pH 5.0 (5.0-9.0) Ur Specific [place] 1.025 (1.005-1.025) Urine Protein Trace (Neg-Trace) mg/dL Urine Glucose (UA) Negative (Negative) mg/dL Urine Ketones Negative (Negative) mg/dL Urine Blood Negative (Negative) Urine Nitrite Negative (Negative) Ur Leukocyte Esterase Negative (Negative) Discharge Plan Discharge Clinical Impression: 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 ondansetron 4 mg tablet,disintegrating 4 mg PO Q6-8H PRN (Reason: nausea and vomiting) Qty: 10 0RF No Action meclizine [Dramamine Less Drowsy] 25 mg tablet 25 mg PO TID PRN (Reason: dizziness) Qty: 30 0RF ondansetron 4 mg tablet,disintegrating 4 mg PO Q6-8H PRN (Reason: nausea and vomiting) Qty: 14 0RF paroxetine HCl 25 mg tablet extended release 24 hr 50 mg PO DAILY gabapentin 100 mg capsule 100 mg PO DAILY lisinopril-hydrochlorothiazide 20-25 mg tablet 1 tab PO DAILY clobetasol 0.05 % ointment 1 appl topical BID divalproex 500 mg tablet,delayed release (DR/EC) 500 mg PO BID multivitamin Tablet 1 tab PO DAILY Referrals: Syed Irvin MD [Physician] - Interventions: ED Discharge Assessment Last Done: 10/12/23 01:49 Discharge Date/Time: 10/12/23 01:50 Print Language: [place]
[2023-10-11 20:16] VITALS: BP 152/74; PULSE 97; RESP 20; TEMP 36.5; O2SAT 94
[2023-10-11 20:25] LABS: MANUAL DIFF FLAG NO
[2023-10-11 20:32] LABS: Basophils Absolute Auto 0.1 X10*3/uL (0.0-0.2); Basophils Percent Auto 0.4 % (0-2); Eosinophils Percent Auto 0.1 % (0-4); Hematocrit 32.9 % (37.0-47.0); Hemoglobin 10.6 g/dl (12.0-16.0); Imm Gran Pct Auto 0.6 % (0.0-0.4); Lymphocytes Absolute Auto 1.4 X10*3/uL (1.2-4.9); Lymphocytes Percent Auto 8.7 % (20-40); Mean Corpuscular HGB Conc 32.2 g/dl (31.0-35.0); Mean Corpuscular Hemoglobin 26.9 pg (27.0-33.0); Mean Corpuscular Volume 83.5 fL (80.0-98.0); Monocytes Absolute Auto 0.6 X10*3/uL (0.1-1.2); Monocytes Percent Auto 3.6 % (2-11); Neutrophils Absolute Auto 14.3 x10*3/uL (2.0-8.3); Neutrophils Percent Auto 86.6 % (45-73); Platelet Count 261 X10*3/uL (160-400); Red Blood Count 3.94 X10*6/uL (4.20-5.50); Red Cell Distribution Width 13.5 % (11.0-16.0); White Blood Count 16.5 X10*3/uL (4.8-10.8)
[2023-10-11 20:44] LABS: Alanine Aminotransferase 50 U/L (0-31); Albumin Level 3.8 g/dL (3.5-5.0); Alkaline Phosphatase 103 U/L (39-117); Anion Gap 18 (12-20); Aspartate Amino Transferase 45 U/L (5-31); Bilirubin Total 0.4 mg/dL (0.0-1.0); Blood Urea Nitrogen 17 mg/dL (9-16); Calcium 8.5 mg/dL (8.4-10.2); Carbon Dioxide 25 mmol/L (22-29); Chloride 102 mmol/L (96-108); Creatinine Clr Calc Pharmacy 49.9; Estimated Glomerular Filt Rate 51; Glucose Random 209 mg/dL (60-115); Potassium 3.7 mmol/L (3.3-5.1); Sodium 141 mmol/L (135-145); Total Protein 6.7 g/dL (6.5-8.0)
--- NOTE | 2023-10-11 20:53 | ED.ABDPAIN ---
HPI - Abdominal Pain General Chief Complaint: General Medical Stated Complaint: Disorientated post colonoscopy Time Seen by Provider: 10/11/23 20:23 Related Data Home Medications ?Medication ?Instructions ?Recorded ?Confirmed clobetasol 0.05 % topical ointment 1 appl topical BID 12/20/22 divalproex 500 mg tablet,delayed 500 mg PO BID 12/20/22 release gabapentin 100 mg capsule 100 mg PO DAILY 12/20/22 lisinopril 20 1 tab PO DAILY 12/20/22 mg-hydrochlorothiazide 25 mg tablet multivitamin 1 tab PO DAILY 12/20/22 paroxetine HCl 25 mg 50 mg PO DAILY 12/20/22 tablet,extended release 24 hr Previous Rx's ?Medication ?Instructions ?Recorded meclizine 25 mg tablet (Dramamine 25 mg PO TID PRN dizziness #30 tabs 10/12/20 Less Drowsy) ondansetron 4 mg disintegrating 4 mg PO Q6-8H PRN nausea and 10/12/20 tablet vomiting #14 tabs morphine 15 mg immediate release 15 mg PO Q8H PRN pain #15 tabs 10/12/23 tablet ondansetron 4 mg disintegrating 4 mg PO Q6-8H PRN nausea and 10/12/23 tablet vomiting #10 tabs pantoprazole 40 mg tablet,delayed 40 mg PO DAILY #30 tabs 10/12/23 release (Protonix) Allergies Allergy/AdvReac Type Severity Reaction Status Date / Time No Known Allergies Allergy Mild NOT Verified 10/11/23 19:51 [No Known Allergies*] APPLICABLE [facility] Past Medical History Surgical History (Updated 12/20/22 @ 16:23 by LEATHA Romero) History of tubal ligation Personal history of gastric banding Social History Social History Alcohol intake: never Patient Tobacco Use Status: Never used Tobacco Smoked in Last 30 Days: No Use of substances other than those prescribed or required for medical reasons: No Advance Directives: No Advance Directives Information Provided: No Do you have a plan to hurt others: No Plan Patient : No Physical Exam ED Vital Signs: Vital Signs - 24 hr 10/11/23 19:49 10/11/23 20:16 10/11/23 22:00 Temperature 97.9 F 97.7 F 98.1 F Pulse Rate 106 H 97 94 Respiratory Rate 20 20 16 Blood Pressure 98/63 152/74 H 101/57 L Pulse Oximetry 97 94 97 Oxygen Delivery Method Room Air Room Air Room Air 10/12/23 00:04 10/12/23 01:21 10/12/23 01:25 Temperature 98.7 F Pulse Rate 91 98 102 H Respiratory Rate 16 Blood Pressure 107/61 100/72 90/57 L Pulse Oximetry 97 Oxygen Delivery Method Room Air 10/12/23 01:25 10/12/23 01:27 10/12/23 01:49 Temperature 97.1 F 97.1 F Pulse Rate 109 H 95 95 Respiratory Rate 16 16 Blood Pressure 97/68 166/96 H 166/96 H Pulse Oximetry 95 95 Oxygen Delivery Method Room Air Room Air BMI result Body Mass Index 33.2 Medical Decision Making Lab Data 10/11/23 20:22 10/11/23 20:22 Labs: Lab Results 10/11/23 10/12/23 Range/Units 20:22 00:16 WBC 16.5 H (4.8-10.8) X10*3/uL RBC 3.94 L D (4.20-5.50) X10*6/uL Hgb 10.6 L (12.0-16.0) g/dl Hct 32.9 L D (37.0-47.0) % MCV 83.5 (80.0-98.0) fL MCH 26.9 L (27.0-33.0) pg MCHC 32.2 (31.0-35.0) g/dl RDW 13.5 (11.0-16.0) % Plt Count 261 D (160-400) X10*3/uL MPV 12.0 (9.4-12.3) fL Immature Gran % (Auto) 0.6 H (0.0-0.4) % Neut % (Auto) 86.6 H (45-73) % Lymph % (Auto) 8.7 L (20-40) % [place] % (Auto) 3.6 (2-11) % Eos % (Auto) 0.1 (0-4) % Baso % (Auto) 0.4 (0-2) % Lymph # (Auto) 1.4 (1.2-4.9) X10*3/uL [place] # (Auto) 0.6 (0.1-1.2) X10*3/uL Eos # (Auto) 0.0 (0.0-0.4) X10*3/uL Baso # (Auto) 0.1 (0.0-0.2) X10*3/uL Abs Immat Gran (auto) 0.10 H (0.00-0.03) X10*3/uL Absolute Neuts (auto) 14.3 H (2.0-8.3) x10*3/uL Absolute Nucleated RBC 0.000 (0.0-0.012) X10*3/uL Nucleated RBC % (auto) 0.0 (0.0-0.2) /100WBC PT 14.1 H (11.1-13.3) SEC INR 1.2 H (0.9-1.1) Sodium 141 (135-145) mmol/L Potassium 3.7 (3.3-5.1) mmol/L Chloride 102 (96-108) mmol/L Carbon Dioxide 25 (22-29) mmol/L Anion Gap 18 (12-20) BUN 17 H (9-16) mg/dL Creatinine 1.10 (0.5-1.4) mg/dL Estim Creat Clear Calc 49.9 Estimated GFR 51 Random Glucose 209 H (60-115) mg/dL Calcium 8.5 D (8.4-10.2) mg/dL Total Bilirubin 0.4 (0.0-1.0) mg/dL AST 45 H (5-31) U/L ALT 50 H (0-31) U/L Alkaline Phosphatase 103 (39-117) U/L Ammonia 39 (13-55) umol/L Total Protein 6.7 (6.5-8.0) g/dL Albumin 3.8 (3.5-5.0) g/dL Urine Color Yellow Urine Appearance Cloudy Urine pH 5.0 (5.0-9.0) Ur Specific [place] 1.025 (1.005-1.025) Urine Protein Trace (Neg-Trace) mg/dL Urine Glucose (UA) Negative (Negative) mg/dL Urine Ketones Negative (Negative) mg/dL Urine Blood Negative (Negative) Urine Nitrite Negative (Negative) Ur Leukocyte Esterase Negative (Negative) Medications Administered Discontinued Medications Generic Name Dose Route Start Last Admin Trade Name Freq PRN Reason Stop Dose Admin Sodium Chloride 1,000 mls @ 999 mls/hr 10/11/23 20:48 10/11/23 23:51 Ns IV 10/11/23 21:48 Infused .Q1H1M ONE Infusion Morphine Sulfate 4 mg 10/11/23 20:51 10/11/23 21:22 Morphine Sulfate 4 Mg/Ml Cartridge IVPUSH 10/11/23 20:52 4 mg ONCE ONE Administration Protocol Ondansetron HCl 4 mg 10/11/23 20:51 10/11/23 21:22 Ondansetron Hcl 4 Mg/2 Ml Vial IVPUSH 10/11/23 20:52 4 mg ONCE ONE Administration Discharge Plan Discharge Clinical Impression: 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 ondansetron 4 mg tablet,disintegrating 4 mg PO Q6-8H PRN (Reason: nausea and vomiting) Qty: 10 0RF No Action meclizine [Dramamine Less Drowsy] 25 mg tablet 25 mg PO TID PRN (Reason: dizziness) Qty: 30 0RF ondansetron 4 mg tablet,disintegrating 4 mg PO Q6-8H PRN (Reason: nausea and vomiting) Qty: 14 0RF paroxetine HCl 25 mg tablet extended release 24 hr 50 mg PO DAILY gabapentin 100 mg capsule 100 mg PO DAILY lisinopril-hydrochlorothiazide 20-25 mg tablet 1 tab PO DAILY clobetasol 0.05 % ointment 1 appl topical BID divalproex 500 mg tablet,delayed release (DR/EC) 500 mg PO BID multivitamin Tablet 1 tab PO DAILY Referrals: Syed Irvin MD [Physician] - Interventions: ED Discharge Assessment Last Done: 10/12/23 01:49 Discharge Date/Time: 10/12/23 01:50 Print Language: Citizen Of [place]
[2023-10-11] MEDS: ondansetron HCL 4 MG/2 ML VIAL IVPUSH (21:22)
[2023-10-11] MEDS: 0.9 % Sodium Chloride 1,000 ML 999 ML IV (21:22)
[2023-10-11] MEDS: Morphine Sulfate 4 MG/ML CARTRIDGE IVPUSH (21:22)
--- NOTE | 2023-10-11 21:23 | PC.NURSE ---
pt medicated per mar for 10/10 abdominal pain, pt tolerated well.
--- NOTE | 2023-10-11 21:36 | PC.NURSE ---
pt from home, a&ox4, respirations even and unlabored, reports getting colon[facility] this morning [place] [facility] and reports 10/10 abdominal pain and weakness. pt reports this is not her first colonoscopy and reports she has not felt like this before. pt denies blood in bowel movement but reports diarrhea. pt reports she has not passed gas. pt denies nausea and vomiting. pt normal sinus on tele 76-80bpm.
[2023-10-11 22:00] VITALS: BP 101/57; PULSE 94; RESP 16; TEMP 36.7; O2SAT 97
[2023-10-12 00:04] VITALS: BP 107/61; PULSE 91; RESP 16; TEMP 37.1; O2SAT 97
--- NOTE | 2023-10-12 00:19 | MHC.EDTECH ---
0000 ROUNDING DONE ,VITALS TAKEN ,BLOOD DRAWN AND SENT TO LAB ,PATIENT RESTING QUIETLY IN BED ,PATIENT DAUGHTER AT BEDSIDE .
[2023-10-12 00:22] LABS: Appearance Urine Cloudy; Color Urine Yellow; Glucose Urine UA Negative (Negative); Leukocyte Esterase Urine Negative (Negative); Nitrite Urine Negative (Negative); Specific Gravity - Urine 1.025 (1.005-1.025); Urine Blood Negative (Negative); Urine Ketones Negative (Negative); Urine Protein Trace mg/dL (Neg-Trace)
[2023-10-12 00:29] LABS: INTERNATIONAL NORM RATIO 1.2 (0.9-1.1); Prothrombin Time 14.1 SEC (11.1-13.3)
[2023-10-12 00:33] LABS: Ammonia 39 umol/L (13-55)
[2023-10-12 01:21] VITALS: BP 100/72; PULSE 98
[2023-10-12 01:25] VITALS: BP 90/57; BP 97/68; PULSE 102; PULSE 109
[2023-10-12 01:27] VITALS: BP 166/96; PULSE 95; RESP 16; TEMP 36.2; O2SAT 95
[2023-10-12 01:49] VITALS: BP 166/96; PULSE 95; RESP 16; TEMP 36.2; O2SAT 95
== END 2023-10-12 01:50 | disposition home or self-care (01) ==
PROVIDERS: Emergency Provider Internal Medicine; PCP Internal Medicine Geriatric Medicine
DX: K74.69 Other cirrhosis of liver (principal); K75.81 Nonalcoholic steatohepatitis (NASH); I10 Essential (primary) hypertension; Z98.84 Bariatric surgery status; Z79.899 Other long term (current) drug therapy
CPT/HCPCS: 36415; 74176; 80053; 81003; 82140; 85025; 85610; 96361; 96374; 96375; 99284; J2270; J2405

== ENCOUNTER 2023-10-14 13:52 | Inpatient (IN) | payer OTHER, SELFPAY ==
--- NOTE | ~2023-10-14 | CT_ITS ---
EXAMINATION: CT ABDOMEN AND PELVIS WITH AND WITHOUT CONTRAST: CT GI BLEEDING STUDY CLINICAL INFORMATION: Suspected injury with bleeding. COMPARISON: CT abdomen/pelvis 10/11/2023. TECHNIQUE: Multidetector volumetric imaging was performed from the lung bases to the pubic symphysis before and after the administration of: Intravenous contrast: 85 mL Omnipaque 350 No contrast reaction reported MIP coronal, sagittal and coronal reformatted images were obtained on the technologist workstation. This CT examination was performed using dose optimization techniques as appropriate, variously including the following: *Automated exposure control *Adjustment of mA and/or kV according to patient size (this includes techniques or standardized protocols for targeted exams where dose is matched to indication/reason for exam; i.e. extremities or head) *Use of iterative reconstruction technique Total exam dose-length product 476 and 467 mGy-cm FINDINGS: STOMACH: Gastric lap band with redemonstration of a patulous lower esophagus with wall thickening. Increased attenuation in the lumen of the lower esophagus, gastroesophageal junction in the stomach antrum that could represent blood products (for example image 68 series 5 in the stomach antrum). Complex fluid abutting the greater curvature of the stomach for example measuring 9 x 6.3 x 10.7 cm (4:29 and 8:55) with attenuation of 54 Hounsfield units on precontrast images, highly concerning for hemoperitoneum and hematoma. Additional complex fluid in the pelvis approximately 7.5 x 6.7 x 4 cm (4:67 and 8:122) measuring 49 Hounsfield units on precontrast images, highly suspicious for hemoperitoneum. Additional hemoperitoneum around the liver and a few smaller pockets of hemoperitoneum noted in the right paracolic gutter. SMALL BOWEL: No abnormal wall thickening or dilation. No intraluminal contrast accumulation to suggest hemorrhage. COLON: No intraluminal contrast accumulation to suggest hemorrhage. No colonic wall thickening or pericolonic inflammatory changes. Diverticulosis without evidence of diverticulitis. LUNG BASES: Bronchiectasis in the right lower lobe with bronchial wall thickening and scarring. No dense consolidation or pleural effusion. LIVER, GALLBLADDER, AND BILIARY TREE: The liver is normal in size, shape, and attenuation. No focal hepatic lesion or biliary ductal dilatation is present. The gallbladder is unremarkable with no evidence of radiopaque gallstones, gallbladder wall thickening, or obvious pericholecystic inflammatory changes. PANCREAS: Normal; no mass or surrounding fluid. SPLEEN: Normal size. No focal lesion. ADRENAL GLANDS: Normal; no mass. KIDNEYS AND URETERS: Cortical deformity and thinning the upper right kidney, possibly related with prior partial nephrectomy or sequela of scarring. No hydronephrosis or nephrolithiasis. No significant perinephric fat stranding. No solid renal lesion. ABDOMINAL WALL: No hernia seen. LYMPHOVASCULAR STRUCTURES: No lymphadenopathy. Atherosclerotic disease. Normal caliber of the abdominal aorta. BLADDER: No focal mass or wall thickening seen. No bladder calculi. PELVIC VISCERA: Suspect endometrial thickening, although the endometrium is not well delineated. The left ovary is not well visualized due to overlying loops of small bowel. Normal right ovary. OSSEOUS STRUCTURES: No acute or suspicious osseous abnormality. CT/CT gi bleed abd pel wo/w IVcon IMPRESSION: Large volume of hemoperitoneum, largest pockets centered adjacent to the greater curvature of the stomach and pelvis. On the initial postcontrast images, there is suggestion of high density material in the lumen of the stomach that could represent blood products. The esophagus is patulous and demonstrates wall thickening. The etiology of the hemoperitoneum could be of upper GI origin, recommend urgent GI evaluation. Colonic diverticulosis without significant inflammatory changes to suspect acute diverticulitis. Equivocal endometrial thickening, recommend evaluation with nonemergent pelvic ultrasound. Right lower lobe bronchiectasis with bronchial wall thickening and scarring. This critical result was discussed with Mell CHOWDARY at 10/15/2023 12:06 AM and it was ascertained that the content and urgency of the report was understood at the time of direct communication.
--- NOTE | 2023-10-14 14:06 | ED_ITS ---
HPI - General Adult General Chief complaint: Abdominal Pain Stated complaint: Fluid in abd Time Seen by Provider: 10/14/23 17:40 Source: patient Mode of arrival: ambulatory History of Present Illness HPI narrative: 63-year-old female with presentation for fluid within the abdomen, this is never happened previously, and she has no history liver cirrhosis to her knowledge and denies any history of alcohol use but underwent a colonoscopy on 10/10, denies any bowel movements that have been bloody but states she has not had any bowel movements and otherwise denies any nausea, vomiting, fever, chills and still has her gallbladder. Related Data Home Medications ?Medication ?Instructions ?Recorded ?Confirmed divalproex 500 mg tablet,delayed 500 mg PO BID 12/20/22 10/14/23 release lisinopril 20 1 tab PO DAILY 12/20/22 10/14/23 mg-hydrochlorothiazide 25 mg tablet multivitamin 1 tab PO DAILY 12/20/22 10/14/23 paroxetine HCl 25 mg 50 mg PO DAILY 12/20/22 10/14/23 tablet,extended release 24 hr atorvastatin 20 mg tablet 20 mg PO QAM 10/14/23 10/14/23 cyanocobalamin (vitamin B-12) 1,000 mcg PO DAILY 10/14/23 10/14/23 1,000 mcg tablet phentermine 30 mg capsule 30 mg PO QAM 10/14/23 10/14/23 Previous Rx's ?Medication ?Instructions ?Recorded ondansetron 4 mg disintegrating 4 mg PO Q6-8H PRN nausea and 10/12/23 tablet vomiting #10 tabs pantoprazole 40 mg tablet,delayed 40 mg PO DAILY #30 tabs 10/12/23 release (Protonix) Allergies Allergy/AdvReac Type Severity Reaction Status Date / Time No Known Allergies Allergy Mild NOT Verified 10/14/23 14:10 [No Known Allergies*] APPLICABLE Review of Systems 2 Review of Systems: Pertinent positives and negatives as stated in HPI [facility] Past Medical History Source: nursing notes reviewed Surgical History History of tubal ligation Personal history of gastric banding Social History Social History Alcohol intake: never Patient Tobacco Use Status: Never used Tobacco Smoked in Last 30 Days: No Use of substances other than those prescribed or required for medical reasons: No Advance Directives: No Advance Directives Information Provided: No Do you have a plan to hurt others: No Plan Physical Exam ED Vital Signs: Vital Signs - 24 hr 10/14/23 14:07 10/14/23 17:43 10/14/23 19:12 Temperature 97.2 F 97.5 F 98.1 F Pulse Rate 86 85 87 Respiratory Rate 16 16 18 Blood Pressure 100/43 L 141/77 H 125/66 Pulse Oximetry 97 99 97 Oxygen Delivery Method Room Air Room Air Room Air 10/14/23 21:39 10/14/23 21:55 10/14/23 22:24 Temperature 98.1 F 98.2 F 97.5 F Pulse Rate 82 82 89 Respiratory Rate 16 16 17 Blood Pressure 121/73 121/61 122/66 Pulse Oximetry 96 Oxygen Delivery Method Room Air BMI result Body Mass Index 34.2 VITAL SIGNS: Reviewed. GENERAL: Well developed, well nourished, in no acute distress. HEAD: Normocephalic/atraumatic EYES: PERRLA, EOMI EARS: Ext canals without abnormality NOSE: Nares patent bilateral OROPHARYNX: no oral lesions noted, posterior pharynx clear NECK: Supple, no adenopathy LUNGS: Normal breath sounds. No adventitious sounds or accessory muscle use. SpO2<99> CARDIOVASCULAR: Regular rate and rhythm without noted murmurs, no JVD or lower extremity edema. ABDOMEN: Soft, tenderness in right upper quadrant extending down into right lower quadrant, non-distended with bowel sounds. MUSCULOSKELETAL: No tenderness, deformities, or effusions noted on gross inspection. EXTREMITIES: No cyanosis, clubbing or edema. SKIN: Inspection of the skin reveals no rashes NEUROLOGIC: Alert and oriented x 4. Strength and sensation to light touch were grossly intact x 4. Course Course Course Narrative: This is an RME: Additional HPI, ROS, PE not included below will be deferred to primary provider. 63 yo f with pmhx of HTN presents with RUQ pain since Saturday. HAs been seen for this before, unclear what was causing pain. Denies nausea, vomiting, diarrhea. Colonoscopy was last Saturday. Reevaluation(s) Reevaluation #1: I have discussed findings on CT scan 1202 with radiology and currently VS stable no severe pain being transfused surgery is aware and plan is being put in place for further management pending final decision 107am Medications Administered Discontinued Medications Generic Name Dose Route Start Last Admin Trade Name Kristine PRN Reason Stop Dose Admin Sodium Chloride 100 mls @ 100 mls/hr 10/14/23 20:34 10/15/23 00:51 Ns IV 10/14/23 21:33 100 mls/hr ONCE ONE Administration Iohexol 100 ml 10/14/23 19:25 10/14/23 19:25 Iohexol 350 Mg/Ml 100 Ml Infus..Btl IV 10/14/23 19:26 80 ml ONCE ONE Administration Medical Decision Making Medical Decision Making MDM Narrative: 63-year-old female with history and clinical presentation, DDX: The ascites are inconsistent with patient's medical history and do not suspect liver cirrhosis in etiology especially given recent colonoscopy and patient having these symptoms starting afterwards. Will proceed with CT scan with GI bleeding protocol. I reviewed all investigations and hematologic indices are negative for leukocytosis there is a worsening anemia, no thrombocytopenia. Coagulation studies are within normal limits. Chemistry indices are negative for NOA/electrolyte derangements and transaminases are chronically detectable. Urinalysis negative for UTI or hematuria. CT scan for GI bleed is pending and patient remains stable. Patient receiving 1 unit of PRBCs. I discussed the case with Dr. Skelton who agrees with no p.o. contrast, patient is not a candidate for repeat endoscopy if suspicion for bowel injury. Agrees with blood transfusion and recommends consultation with General surgery in the event that patient becomes unstable. Differential Diagnosis Differential Diagnoses: The differential diagnosis associated with the presentation includes Please see the discussion above Admission/Observation Consideration of admission/observation: Escalation of care including admission/observation considered Please see the discussion above Consult Healthcare Provider Management of the patient was discussed with: Hospitalist and Pig Conveyor Operator Please see the discussion above Lab Data MDM Lab Attestation statement: I reviewed the patient's lab results. Please see the discussion above 10/14/23 16:22 10/14/23 16:22 Labs: Lab Results 10/14/23 10/14/23 10/14/23 Range/Units 16:22 18:19 22:26 WBC 6.8 (4.8-10.8) X10*3/uL RBC 2.81 L D (4.20-5.50) X10*6/uL Hgb 7.5 L D (12.0-16.0) g/dl Hct 23.8 L D (37.0-47.0) % MCV 84.7 (80.0-98.0) fL MCH 26.7 L (27.0-33.0) pg MCHC 31.5 (31.0-35.0) g/dl RDW 13.7 (11.0-16.0) % Plt Count 200 (160-400) X10*3/uL MPV 11.4 (9.4-12.3) fL Immature Gran % (Auto) 0.6 H (0.0-0.4) % Neut % (Auto) 61.7 (45-73) % Lymph % (Auto) 26.3 (20-40) % [place] % (Auto) 7.8 (2-11) % Eos % (Auto) 2.9 (0-4) % Baso % (Auto) 0.7 (0-2) % Lymph # (Auto) 1.8 (1.2-4.9) X10*3/uL [place] # (Auto) 0.5 (0.1-1.2) X10*3/uL Eos # (Auto) 0.2 (0.0-0.4) X10*3/uL Baso # (Auto) 0.1 (0.0-0.2) X10*3/uL Abs Immat Gran (auto) 0.04 H (0.00-0.03) X10*3/uL Absolute Neuts (auto) 4.2 (2.0-8.3) x10*3/uL Absolute Nucleated RBC 0.000 (0.0-0.012) X10*3/uL Nucleated RBC % (auto) 0.0 (0.0-0.2) /100WBC PT 12.3 (11.1-13.3) SEC INR 1.0 (0.9-1.1) Sodium 139 (135-145) mmol/L Potassium 3.9 (3.3-5.1) mmol/L Chloride 99 (96-108) mmol/L Carbon Dioxide 31 H (22-29) mmol/L Anion Gap 13 (12-20) BUN 13 (9-16) mg/dL Creatinine 0.85 (0.5-1.4) mg/dL Estim Creat Clear Calc 64.8 Estimated GFR > 60 Random Glucose 108 (60-115) mg/dL Calcium 9.3 D (8.4-10.2) mg/dL Magnesium 2.1 (1.6-2.6) mg/dL Total Bilirubin 0.5 (0.0-1.0) mg/dL AST 38 H (5-31) U/L ALT 36 H (0-31) U/L Alkaline Phosphatase 103 (39-117) U/L Total Protein 7.0 (6.5-8.0) g/dL Albumin 3.9 (3.5-5.0) g/dL Lipase 33 (8-78) U/L Urine Color Yellow Urine Appearance Clear Urine pH 8.0 (5.0-9.0) Ur Specific [place] >= 1.030 H (1.005-1.025) Urine Protein Negative (Neg-Trace) mg/dL Urine Glucose (UA) Negative (Negative) mg/dL Urine Ketones Negative (Negative) mg/dL Urine Blood Negative (Negative) Urine Nitrite Negative (Negative) Ur Leukocyte Esterase Negative (Negative) Blood Type O Positive Antibody Screen NEGATIVE Crossmatch See Detail Radiology Impression Discussion of test interpretation with radiology: I have reviewed the radiologist's reading. Radiologist Impression: Please see the discussion above External Record Review External record reviewed: Outpatient record, Prior outpatient labs and Prior outpatient radiology Chronic Conditions Patient?s care impacted by: Hypertension Critical Care Time Critical Care Time Critical Care Time: Yes Total Critical Care Time: 90 Attestation: I personally attest to this time spent taking care of the patient. Discharge Plan Discharge Clinical Impression: Abdominal pain, ABLA (acute blood loss anemia) Patient Disposition: Admitted As Inpatient Print Language: Togolese
[2023-10-14 14:07] VITALS: BP 100/43; PULSE 86; RESP 16; TEMP 36.2; O2SAT 97; BMI 34.2
[2023-10-14 16:32] LABS: MANUAL DIFF FLAG NO
[2023-10-14 16:41] LABS: Basophils Absolute Auto 0.1 X10*3/uL (0.0-0.2); Basophils Percent Auto 0.7 % (0-2); Eosinophils Absolute Auto 0.2 X10*3/uL (0.0-0.4); Eosinophils Percent Auto 2.9 % (0-4); Hematocrit 23.8 % (37.0-47.0); Hemoglobin 7.5 g/dl (12.0-16.0); Imm Gran Abs Auto 0.04 X10*3/uL (0.00-0.03); Imm Gran Pct Auto 0.6 % (0.0-0.4); Lymphocytes Absolute Auto 1.8 X10*3/uL (1.2-4.9); Lymphocytes Percent Auto 26.3 % (20-40); Mean Corpuscular HGB Conc 31.5 g/dl (31.0-35.0); Mean Corpuscular Hemoglobin 26.7 pg (27.0-33.0); Mean Corpuscular Volume 84.7 fL (80.0-98.0); Mean Platelet Volume 11.4 fL (9.4-12.3); Monocytes Absolute Auto 0.5 X10*3/uL (0.1-1.2); Monocytes Percent Auto 7.8 % (2-11); Neutrophils Absolute Auto 4.2 x10*3/uL (2.0-8.3); Neutrophils Percent Auto 61.7 % (45-73); Platelet Count 200 X10*3/uL (160-400); Red Blood Count 2.81 X10*6/uL (4.20-5.50); Red Cell Distribution Width 13.7 % (11.0-16.0); White Blood Count 6.8 X10*3/uL (4.8-10.8)
[2023-10-14 16:55] LABS: Alanine Aminotransferase 36 U/L (0-31); Albumin Level 3.9 g/dL (3.5-5.0); Alkaline Phosphatase 103 U/L (39-117); Anion Gap 13 (12-20); Aspartate Amino Transferase 38 U/L (5-31); Bilirubin Total 0.5 mg/dL (0.0-1.0); Blood Urea Nitrogen 13 mg/dL (9-16); Calcium 9.3 mg/dL (8.4-10.2); Carbon Dioxide 31 mmol/L (22-29); Chloride 99 mmol/L (96-108); Creatinine Clr Calc Pharmacy 64.8; Estimated Glomerular Filt Rate > 60; Glucose Random 108 mg/dL (60-115); Lipase 33 U/L (8-78); Magnesium 2.1 mg/dL (1.6-2.6); Potassium 3.9 mmol/L (3.3-5.1); Sodium 139 mmol/L (135-145)
[2023-10-14 17:43] VITALS: BP 141/77; PULSE 85; RESP 16; TEMP 36.4; O2SAT 99
[2023-10-14 18:31] LABS: Prothrombin Time 12.3 SEC (11.1-13.3)
--- NOTE | 2023-10-14 18:32 | PC.NURSE ---
Pt presents to ED from home, reports RUQ ABD pain since this past Saturday, describes as sharp, 03/26. Pt reports she had an outpatient routine colonscopy on Saturday and since then she has had this pain. Pt denies CP, SOB, N/V/D or trouble urinating. Pt is alert and oriented, breathing even and unlabored, skin slighly pale. VSS. Pt placed on bedside case monitor, NSR.
--- NOTE | 2023-10-14 18:59 | MHC.EDTECH ---
This tech took over care as PCT at 1900
[2023-10-14 19:12] VITALS: BP 125/66; PULSE 87; RESP 18; TEMP 36.7; O2SAT 97
[2023-10-14] MEDS: iohexoL 350 MG/ML 100 ML INFUS..BTL IV (19:25)
[2023-10-14 21:39] VITALS: BP 121/73; PULSE 82; RESP 16; TEMP 36.7
--- NOTE | 2023-10-14 21:44 | PC.NURSE ---
VSS, transfusion of 1 unit of PRBCs started and infusing w/o issues via 20 G IV line in R AC, patient tolerating transfusion well, no adverse reactions noted.
--- NOTE | 2023-10-14 21:46 | PHA.MEDREC ---
Pharmacy Consult ? Medication Reconciliation Pharmacy has completed the medication reconciliation. Patient confirmed medications based on claim history. Patient reports she has bupropion but does not take it. Patient reports not takign recently prescribed morphine or zofran. Esthela Roman, TomD
[2023-10-14 21:55] VITALS: BP 121/61; PULSE 82; RESP 16; TEMP 36.8
[2023-10-14 22:24] VITALS: BP 122/66; PULSE 89; RESP 17; TEMP 36.4; O2SAT 96
[2023-10-14 22:36] LABS: Appearance Urine Clear; Color Urine Yellow; Glucose Urine UA Negative (Negative); Leukocyte Esterase Urine Negative (Negative); Nitrite Urine Negative (Negative); Specific Gravity - Urine >= 1.030 (1.005-1.025); Urine Blood Negative (Negative); Urine Ketones Negative (Negative); Urine Protein Negative (Neg-Trace)
[2023-10-15] VITALS (9 sets, daily range): BP systolic 103–130; BP diastolic 38–80; PULSE 79–100; RESP 12–20; TEMP 36.2–36.9; O2SAT 95–98
[2023-10-15 01:18] LABS: Hematocrit 26.9 % (37.0-47.0); Hemoglobin 8.9 g/dl (12.0-16.0); Mean Corpuscular HGB Conc 33.1 g/dl (31.0-35.0); Mean Corpuscular Hemoglobin 27.1 pg (27.0-33.0); Mean Corpuscular Volume 81.8 fL (80.0-98.0); Mean Platelet Volume 10.8 fL (9.4-12.3); Platelet Count 180 X10*3/uL (160-400); Red Blood Count 3.29 X10*6/uL (4.20-5.50); Red Cell Distribution Width 13.7 % (11.0-16.0); White Blood Count 6.7 X10*3/uL (4.8-10.8)
--- NOTE | 2023-10-15 02:24 | P.HPGS_ITS ---
History of Present Illness History of Present Illness Date of Service: 10/15/23 Chief complaint: Fluid in abd Narrative: Leanne Carey is a 63 year old female who underwent colonoscopy 4 days ago with a difficult scope and this required getting the patient positioned under back and abdominal compression. One polyp was seen in the sigmoid colon and was removed. Postprocedure the patient was discharged but then returned to the emergency room with abdominal pain. She had a CT scan of her abdomen and pelvis which showed fluid in the peritoneal cavity no free air question ascites. Her hemoglobin had dropped somewhat. She was discharged home and over the course of the last few days started having more abdominal pain and as a result came in today. Today her hemoglobin hematocrit are lower than before she is little tachycardic in her blood pressure was lower. Her abdomen was tender. Repeat CT scan carried out revealed significant hematoma in the left upper quadrant with some dependent moderate hematoma as well down in the pelvic area. She has some scattered blood in areas around the liver as well. She denies any nausea vomiting she has not had a bowel movements in the colonoscopy in his not really sure if she has been passing gas or not. She has not lightheaded etc.. Secondary to the findings of the CT scan surgery was consulted. At this point her hemodynamics are stable. In the emergency room she received 1 unit of packed red blood cell. On Saturday her hemoglobin was 10.6, today in the emergency room was 7.5 and after the 1 unit of packed red blood cells it is 8.9 Review of Systems Review of Systems: Yes all other systems are reviewed and are negative [facility] Surgical History Surgical History History of tubal ligation Personal history of gastric banding Social History Social History Alcohol intake: never Patient Tobacco Use Status: Never used Tobacco Smoked in Last 30 Days: No Use of substances other than those prescribed or required for medical reasons: No Advance Directives: No Advance Directives Information Provided: No Do you have a plan to hurt others: No Plan Meds Allergies Allergy/AdvReac Type Severity Reaction Status Date / Time No Known Allergies Allergy Mild NOT Verified 10/14/23 14:10 [No Known Allergies*] APPLICABLE Home Medications ?Medication ?Instructions ?Recorded ?Confirmed ?Last Taken ?Type divalproex 500 mg tablet,delayed 500 mg PO BID 12/20/22 10/14/23 10/14/23 History release lisinopril 20 1 tab PO DAILY 12/20/22 10/14/23 10/14/23 History mg-hydrochlorothiazide 25 mg tablet multivitamin 1 tab PO DAILY 12/20/22 10/14/23 10/14/23 History paroxetine HCl 25 mg 50 mg PO DAILY 12/20/22 10/14/23 10/14/23 History tablet,extended release 24 hr atorvastatin 20 mg tablet 20 mg PO QAM 10/14/23 10/14/23 10/14/23 History cyanocobalamin (vitamin B-12) 1,000 mcg PO DAILY 10/14/23 10/14/23 10/14/23 History 1,000 mcg tablet phentermine 30 mg capsule 30 mg PO QAM 10/14/23 10/14/23 10/14/23 History Physical Exam Vital Signs: Vital Signs: Last Vital Signs Temp 98.3 F 10/15/23 01:05 Pulse 80 10/15/23 01:05 Resp 19 10/15/23 01:05 BP 111/66 10/15/23 01:05 Pulse Ox 96 10/14/23 22:24 O2 Del Method Room Air 10/14/23 22:24 BMI result Body Mass Index 34.2 Const: General: cooperative, healthy appearing, comfortable and no acute distress Orientation/consciousness: patient oriented x3 Resp: Effort & Inspection: normal respiratory effort Auscultation: clear to auscultation bilaterally Cardio: Rate: regular rate Rhythm: regular rhythm GI: Other: Abdomen is soft mildly distended tender more in the right upper quadrant epigastric area and maybe a little bit then in the left upper quadrant area mild guarding no rebound no peritoneal signs lower abdomen is okay. Neuro: General: patient oriented x3 Extrem: General: Yes normal to inspection Psych: Appearance: grossly normal Mental Status: mental status grossly normal Speech and movement: Normal speech and movement present Affect: normal affect Attitude: cooperative Thought process: Normal thought process present Thought content: Normal thought content present Insight: Good insight present (Psych) Judgement: Good judgement present (Psych) Results Results Labs: Short CBC 10/14/23 10/15/23 Range/Units 16:22 01:14 WBC 6.8 6.7 (4.8-10.8) X10*3/uL Hgb 7.5 L D 8.9 L (12.0-16.0) g/dl Hct 23.8 L D 26.9 L (37.0-47.0) % Plt Count 200 180 (160-400) X10*3/uL BMP 10/14/23 16:22 Sodium 139 Potassium 3.9 Chloride 99 Carbon Dioxide 31 H BUN 13 Creatinine 0.85 Calcium 9.3 D Liver Function 10/14/23 Range/Units 16:22 Total Bilirubin 0.5 (0.0-1.0) mg/dL AST 38 H (5-31) U/L ALT 36 H (0-31) U/L Alkaline Phosphatase 103 (39-117) U/L Albumin 3.9 (3.5-5.0) g/dL Urine 10/14/23 Range/Units 22:26 Urine Color Yellow Urine Appearance Clear Urine pH 8.0 (5.0-9.0) Ur Specific [place] >= 1.030 H (1.005-1.025) Urine Protein Negative (Neg-Trace) mg/dL Urine Glucose (UA) Negative (Negative) mg/dL Abdomen CT scan report/results: report reviewed and image reviewed CT scan - pelvis: report reviewed and image reviewed Additional studies: CT scan today showing large fluid collection in the left upper quadrant area adjacent to the greater curvature of the stomach that is separate from the spleen as well as in the pelvis and some in the right upper quadrant around the liver but no active extravasation and fluid somewhat similar as to CT scan on . No free air. No other significant pathology. XAMINATION: CT ABDOMEN AND PELVIS WITH AND WITHOUT CONTRAST: CT GI BLEEDING STUDY CLINICAL INFORMATION: Suspected injury with bleeding. COMPARISON: CT abdomen/pelvis 10/11/2023. TECHNIQUE: Multidetector volumetric imaging was performed from the lung bases to the pubic symphysis before and after the administration of: Intravenous contrast: 85 mL Omnipaque 350 No contrast reaction reported MIP coronal, sagittal and coronal reformatted images were obtained on the technologist workstation. This CT examination was performed using dose optimization techniques as appropriate, variously including the following: *Automated exposure control *Adjustment of mA and/or kV according to patient size (this includes techniques or standardized protocols for targeted exams where dose is matched to indication/reason for exam; i.e. extremities or head) *Use of iterative reconstruction technique Total exam dose-length product 476 and 467 mGy-cm FINDINGS: STOMACH: Gastric lap band with redemonstration of a patulous lower esophagus with wall thickening. Increased attenuation in the lumen of the lower esophagus, gastroesophageal junction in the stomach antrum that could represent blood products (for example image 68 series 5 in the stomach antrum). Complex fluid abutting the greater curvature of the stomach for example measuring 9 x 6.3 x 10.7 cm (4:29 and 8:55) with attenuation of 54 Hounsfield units on precontrast images, highly concerning for hemoperitoneum and hematoma. Additional complex fluid in the pelvis approximately 7.5 x 6.7 x 4 cm (4:67 and 8:122) measuring 49 Hounsfield units on precontrast images, highly suspicious for hemoperitoneum. Additional hemoperitoneum around the liver and a few smaller pockets of hemoperitoneum noted in the right paracolic gutter. SMALL BOWEL: No abnormal wall thickening or dilation. No intraluminal contrast accumulation to suggest hemorrhage. COLON: No intraluminal contrast accumulation to suggest hemorrhage. No colonic wall thickening or pericolonic inflammatory changes. Diverticulosis without evidence of diverticulitis. LUNG BASES: Bronchiectasis in the right lower lobe with bronchial wall thickening and scarring. No dense consolidation or pleural effusion. LIVER, GALLBLADDER, AND BILIARY TREE: The liver is normal in size, shape, and attenuation. No focal hepatic lesion or biliary ductal dilatation is present. The gallbladder is unremarkable with no evidence of radiopaque gallstones, gallbladder wall thickening, or obvious pericholecystic inflammatory changes. PANCREAS: Normal; no mass or surrounding fluid. SPLEEN: Normal size. No focal lesion. ADRENAL GLANDS: Normal; no mass. KIDNEYS AND URETERS: Cortical deformity and thinning the upper right kidney, possibly related with prior partial nephrectomy or sequela of scarring. No hydronephrosis or nephrolithiasis. No significant perinephric fat stranding. No solid renal lesion. ABDOMINAL WALL: No hernia seen. LYMPHOVASCULAR STRUCTURES: No lymphadenopathy. Atherosclerotic disease. Normal caliber of the abdominal aorta. BLADDER: No focal mass or wall thickening seen. No bladder calculi. PELVIC VISCERA: Suspect endometrial thickening, although the endometrium is not well delineated. The left ovary is not well visualized due to overlying loops of small bowel. Normal right ovary. OSSEOUS STRUCTURES: No acute or suspicious osseous abnormality. CT/CT gi bleed abd pel wo/w IVcon IMPRESSION: Large volume of hemoperitoneum, largest pockets centered adjacent to the greater curvature of the stomach and pelvis. On the initial postcontrast images, there is suggestion of high density material in the lumen of the stomach that could represent blood products. The esophagus is patulous and demonstrates wall thickening. The etiology of the hemoperitoneum could be of upper GI origin, recommend urgent GI evaluation. Colonic diverticulosis without significant inflammatory changes to suspect acute diverticulitis. Equivocal endometrial thickening, recommend evaluation with nonemergent pelvic ultrasound. Right lower lobe bronchiectasis with bronchial wall thickening and scarring. This critical result was discussed with Mell CHOWDARY at 10/15/2023 12:06 AM and it was ascertained that the content and urgency of the report was understood at the time of direct communication. Dictated By: Shannon Cee Assessment and Plan (1) ABLA (acute blood loss anemia): Status: Acute Plan Patient is a 63-year-old female who is status post colonoscopy 3 4 days ago probably had a difficult scope with looping in the abdominal compression and maybe some mesenteric tear of some vessels which created this bleeding and hematoma. I think that whatever bleeding happened mainly happened on Saturday and little bit over the weekend and there was no evidence of any active extravasation. She was w resuscitated with 1 unit of packed red blood cells with improvement of her vitals and her H&H responded appropriately. She has no peritoneal signs. This point there is no indication for any surgical intervention and would just evaluate conservatively. We will [place] [facility] [place] deeper NPO and have Gastroenterology see her tomorrow. Patient and her daughter understand plan and are agreement. Quality Stroke Does the patient have a stroke diagnosis?: No VTE Prior VTE?: No VTE Risk Level:: Medical - low VTE Device Contraindication: Procedure Contraindicated VTE Drug Contraindication: Treatment Not Indicated Procedures Date of Service Date of Service: 10/15/23
--- NOTE | 2023-10-15 02:32 | PC.NURSE ---
1 unit of PRBs transfused, VSS. Patient reports RUQ abdominal pain 08/24 at present. Patient assisted to bedside commode, voided approximately 350 mL of yellow, clear urine.
[2023-10-15] MEDS: Pantoprazole Sodium 40 MG/10 ML VIAL IVPUSH (03:02)
[2023-10-15] MEDS: 0.9 % Sodium Chloride 1,000 ML 50 ML IVCONT (03:02)
--- NOTE | 2023-10-15 07:39 | PC.NURSE ---
Pt reporting high level of pain, no orders for medication at this time. MD Cueto made aware, stated will order pain medication.
[2023-10-15] MEDS: 0.9 % Sodium Chloride Flush 3 ML SYRINGE IVFLUSH ×2 (07:43→16:22)
--- NOTE | 2023-10-15 08:23 | PM.PNGS ---
Subjective Subjective Date of Service: 10/15/23 Interval history: history reviewed currently she says she is comfortable hungry and wants to eat denies SOB, lightheadedness stable VS overnight Physical Exam Vital Signs: Vital Signs: Last Vital Signs Temp 98.4 F 10/15/23 06:16 Pulse 83 10/15/23 07:33 Resp 16 10/15/23 07:33 BP 123/38 L 10/15/23 07:33 Pulse Ox 98 10/15/23 07:33 O2 Del Method Room Air 10/15/23 07:33 BMI result Body Mass Index 34.2 Const: General: comfortable and no acute distress Resp: Effort & Inspection: normal respiratory effort Cardio: Rate: regular rate GI: Other: mild tenderness mostly on left side Palpation (GI): Soft to palpation, not firm and no guarding Extrem: Other: pulses palpable Objective Data Active Medications Sodium Chloride (Ns) 1,000 mls @ 50 mls/hr IVCONT .Q20H [facility] Last Admin: 10/15/23 03:02 Dose: 50 mls/hr Documented By: JEM Sodium Chloride (0.9 % Sodium Chloride Flush 3 Ml Syringe) 3 ml IVFLUSH QSHIFT [facility] Last Admin: 10/15/23 07:43 Dose: 3 ml Documented By: MARISOL Labs 10/15/23 12:02 10/14/23 16:22 Labs: Laboratory Results - last 24 hr 10/14/23 10/14/23 10/14/23 16:22 18:19 22:26 MCV 84.7 MCH 26.7 L MCHC 31.5 RDW 13.7 Plt Count 200 MPV 11.4 Immature Gran % (Auto) 0.6 H Neut % (Auto) 61.7 Lymph % (Auto) 26.3 [place] % (Auto) 7.8 Eos % (Auto) 2.9 Baso % (Auto) 0.7 Lymph # (Auto) 1.8 [place] # (Auto) 0.5 Eos # (Auto) 0.2 Baso # (Auto) 0.1 Abs Immat Gran (auto) 0.04 H Absolute Neuts (auto) 4.2 Absolute Nucleated RBC 0.000 Nucleated RBC % (auto) 0.0 PT 12.3 INR 1.0 Anion Gap 13 Estim Creat Clear Calc 64.8 Estimated GFR > 60 Random Glucose 108 Calcium 9.3 D Magnesium 2.1 Total Bilirubin 0.5 AST 38 H ALT 36 H Alkaline Phosphatase 103 Total Protein 7.0 Albumin 3.9 Lipase 33 Urine Color Yellow Urine Appearance Clear Urine pH 8.0 Ur Specific [place] >= 1.030 H Urine Protein Negative Urine Glucose (UA) Negative Urine Ketones Negative Urine Blood Negative Urine Nitrite Negative Ur Leukocyte Esterase Negative Blood Type O Positive Antibody Screen NEGATIVE Crossmatch See Detail 10/15/23 01:14 MCV 81.8 MCH 27.1 MCHC 33.1 RDW 13.7 Plt Count 180 MPV 10.8 Immature Gran % (Auto) Neut % (Auto) Lymph % (Auto) [place] % (Auto) Eos % (Auto) Baso % (Auto) Lymph # (Auto) [place] # (Auto) Eos # (Auto) Baso # (Auto) Abs Immat Gran (auto) Absolute Neuts (auto) Absolute Nucleated RBC 0.000 Nucleated RBC % (auto) 0.0 PT INR Anion Gap Estim Creat Clear Calc Estimated GFR Random Glucose Calcium Magnesium Total Bilirubin AST ALT Alkaline Phosphatase Total Protein Albumin Lipase Urine Color Urine Appearance Urine pH Ur Specific [place] Urine Protein Urine Glucose (UA) Urine Ketones Urine Blood Urine Nitrite Ur Leukocyte Esterase Blood Type Antibody Screen Crossmatch Procedures Date of Service Date of Service: 10/15/23 Progress Note: A&P Assessment and plan (1) Hemoperitoneum: Status: Acute Assessment and Plan: CT reviewed - pockets of hematoma in abdomen likely from vessel tears in mesentery or omentum with tractioning during colonoscopy last October 10 has been hemodynamically stable exam benign clinically looks well Hg 8.9 from 7.5 after 1 unit check Hg later today ok to start diet looks well explained plan to pt Time Spent With Patient Time: Total time managing care of this patient today ____ minutes. Quality Stroke Does the patient have a stroke diagnosis?: No VTE Prior VTE?: No VTE Risk Level:: Medical - low VTE Device Contraindication: Procedure Contraindicated VTE Drug Contraindication: Treatment Not Indicated
[2023-10-15] MEDS: Morphine Sulfate 4 MG/ML CARTRIDGE 3 MG IVPUSH (09:06)
[2023-10-15 09:42] LABS: MANUAL DIFF FLAG NO
[2023-10-15 09:44] LABS: Basophils Absolute Auto 0.1 X10*3/uL (0.0-0.2); Basophils Percent Auto 0.9 % (0-2); Eosinophils Absolute Auto 0.2 X10*3/uL (0.0-0.4); Eosinophils Percent Auto 3.4 % (0-4); Imm Gran Abs Auto 0.03 X10*3/uL (0.00-0.03); Imm Gran Pct Auto 0.5 % (0.0-0.4); Lymphocytes Absolute Auto 1.2 X10*3/uL (1.2-4.9); Lymphocytes Percent Auto 20.4 % (20-40); Mean Corpuscular HGB Conc 33.3 g/dl (31.0-35.0); Mean Corpuscular Hemoglobin 27.9 pg (27.0-33.0); Mean Corpuscular Volume 83.6 fL (80.0-98.0); Mean Platelet Volume 11.2 fL (9.4-12.3); Monocytes Absolute Auto 0.4 X10*3/uL (0.1-1.2); Monocytes Percent Auto 7.1 % (2-11); Neutrophils Absolute Auto 3.8 x10*3/uL (2.0-8.3); Neutrophils Percent Auto 67.7 % (45-73); Platelet Count 177 X10*3/uL (160-400); Red Blood Count 3.23 X10*6/uL (4.20-5.50); Red Cell Distribution Width 14.4 % (11.0-16.0); White Blood Count 5.6 X10*3/uL (4.8-10.8)
[2023-10-15 12:27] LABS: Hematocrit 29.3 % (37.0-47.0); Hemoglobin 9.6 g/dl (12.0-16.0)
--- NOTE | 2023-10-15 14:02 | MHC.CM.PN ---
Pt is independent, no home health services, for DME she has a CPAP machine. She is able to get transportation home at [place]. HCP was discussed, she would like the form with the information to review, CM will provide. CM will follow for DC needs.
--- NOTE | 2023-10-15 14:25 | PM.GICN ---
History of Present Illness Data of Consult Service Date: 10/15/23 Primary Care Provider: Erick Zhou MD HPI Reason for consult: post colonoscopy pain 63 year old female w/ hx of depression, seizure d/o, gastric band and HTn who I am seeing for assessment for pain Patient had a colonoscopy 5 d ago. The ccolon was noted to be tortuous and required compression for completion. After leaving the hospital the patient developed 10/10 abdominal pain and went to ED where she had CT revealing no free air but possible fluid in peritoneum. She went home but came back due to persisitent 10/10 general diffuse crampy abdominal pain mostly in the upper abdomen. denies nausea, no vomiting, not passed gas, but feels v hungry and been tolerating clears ok. She denies melena, rectal bleeding. She did have drop in HGB so given 1 unit of PRBC --HGB went from 7.5 g to 9 g/dl. Repeat Ct scan with fluid collections in mid and lower abdomen. Review of Systems Review of Systems: Constitutional : No Weight loss, No Fever, No Chills ENT/Mouth : No sore throat, No Rhinorrhea Eyes: No Swelling, No Redness Cardiovascular : No Chest Pain, No SOB, No Edema Respiratory : No Cough, No Sputum, No Wheezing Gastrointestinal : see HPI Genitourinary : NO Dysuria, No Urinary Frequency, No Hematuria, No Urgency Musculoskeletal :no joint pain, No Myalgias, No Joint Swelling Skin : No Skin Lesions, No rash Neuro : No Weakness, No Numbness, No Dizziness, No Headache Psych : No Anxiety/Panic, No Depression Heme/Lymph: No Bruising, No Lymphadenopathy Endocrine : No Polyuria, No Polydipsia All other systems reviewed and are negative. [facility] Past Medical History Medical History (Updated 10/15/23 @ 08:25 by Yaron Koch MD) Hemoperitoneum Family History Pertinent family history: no Fh of splenic disease pos FH of CRC Surgical History Surgical History History of tubal ligation Personal history of gastric banding Social History Social History Alcohol intake: never Patient Tobacco Use Status: Never used Tobacco Smoked in Last 30 Days: No Use of substances other than those prescribed or required for medical reasons: No Advance Directives: No Advance Directives Information Provided: No Do you have a plan to hurt others: No Plan service: No Meds Allergies Allergy/AdvReac Type Severity Reaction Status Date / Time No Known Allergies Allergy Mild NOT Verified 10/14/23 14:10 [No Known Allergies*] APPLICABLE Active Medications: Current Medications Sodium Chloride (Ns) 1,000 mls @ 50 mls/hr IVCONT .Q20H [facility] Last Admin: 10/15/23 03:02 Dose: 50 mls/hr Morphine Sulfate (Morphine Sulfate 4 Mg/Ml Cartridge) 3 mg IVPUSH Q3H PRN; Protocol PRN Reason: Pain, Severe (Pain Scale 7-10) Last Admin: 10/15/23 09:06 Dose: 3 mg Sodium Chloride (0.9 % Sodium Chloride Flush 3 Ml Syringe) 3 ml IVFLUSH QSHIFT [facility] Last Admin: 10/15/23 07:43 Dose: 3 ml Home Medications ?Medication ?Instructions ?Recorded ?Confirmed ?Last Taken ?Type divalproex 500 mg tablet,delayed 500 mg PO BID 12/20/22 10/14/23 10/14/23 History release lisinopril 20 1 tab PO DAILY 12/20/22 10/14/23 10/14/23 History mg-hydrochlorothiazide 25 mg tablet multivitamin 1 tab PO DAILY 12/20/22 10/14/23 10/14/23 History paroxetine HCl 25 mg 50 mg PO DAILY 12/20/22 10/14/23 10/14/23 History tablet,extended release 24 hr atorvastatin 20 mg tablet 20 mg PO QAM 10/14/23 10/14/23 10/14/23 History cyanocobalamin (vitamin B-12) 1,000 mcg PO DAILY 10/14/23 10/14/23 10/14/23 History 1,000 mcg tablet phentermine 30 mg capsule 30 mg PO QAM 10/14/23 10/14/23 10/14/23 History Physical Exam Vital Signs: Vital Signs: Last Vital Signs Temp 97.8 F 10/15/23 12:34 Pulse 81 10/15/23 12:34 Resp 13 10/15/23 12:34 BP 114/74 10/15/23 12:34 Pulse Ox 98 10/15/23 12:34 O2 Del Method Room Air 10/15/23 12:34 BMI result Body Mass Index 34.2 EXAM: GENERAL: The patient is well developed and nontoxic. VITAL SIGNS:see workflow HEENT: Nonicteric sclerae, PERRLA, EOMI. Oropharynx clear. Moist mucous membranes. Conjunctivae appear well perfused. No thyroid mass. CHEST: Chest wall is nontender. HEART: Regular rate and rhythm without murmurs. LUNGS: Clear to auscultation bilaterally. ABDOMEN: slightly tense, positive bowel sounds, mildly tender upper abdomen, no organomegaly.no flank tenderness SKIN: No rash, no excessive bruising, petechiae, or purpura. NEUROLOGIC: Cranial nerves II-XII intact without motor/sensory deficit. Psych: normal affect Results Labs 10/15/23 12:02 10/14/23 16:22 Labs: Short CBC 10/14/23 10/15/23 10/15/23 Range/Units 16:22 01:14 09:29 WBC 6.8 6.7 5.6 (4.8-10.8) X10*3/uL Hgb 7.5 L D 8.9 L 9.0 L (12.0-16.0) g/dl Hct 23.8 L D 26.9 L 27.0 L (37.0-47.0) % Plt Count 200 180 177 (160-400) X10*3/uL 10/15/23 Range/Units 12:02 WBC (4.8-10.8) X10*3/uL Hgb 9.6 L (12.0-16.0) g/dl Hct 29.3 L (37.0-47.0) % Plt Count (160-400) X10*3/uL BMP 10/14/23 16:22 Sodium 139 Potassium 3.9 Chloride 99 Carbon Dioxide 31 H BUN 13 Creatinine 0.85 Calcium 9.3 D Liver Function 10/14/23 Range/Units 16:22 Total Bilirubin 0.5 (0.0-1.0) mg/dL AST 38 H (5-31) U/L ALT 36 H (0-31) U/L Alkaline Phosphatase 103 (39-117) U/L Albumin 3.9 (3.5-5.0) g/dL Urine 10/14/23 Range/Units 22:26 Urine Color Yellow Urine Appearance Clear Urine pH 8.0 (5.0-9.0) Ur Specific [place] >= 1.030 H (1.005-1.025) Urine Protein Negative (Neg-Trace) mg/dL Urine Glucose (UA) Negative (Negative) mg/dL Imaging CT scan - abdomen: Attestation: I personally reviewed and interpreted this imaging study as follows: (hemoperitoneum noted ) Assessment and Plan (1) Hemoperitoneum: Status: Acute Plan 1/ hematoperitoneum s/p tortuous colonoscopy likely from splenic injury, which seems to have stabilized. PLAN: 1/ Agree with monitoring HGB, transfuse as needed for HGB<7 g/dl 2/ Surgery following, advance diet as tolerated Procedures Date of Service Date of Service: 10/15/23
--- NOTE | 2023-10-15 15:21 | PM.EVENT ---
Event Note Date of Service: 10/15/23 Event Note: Patient seen on afternoon rounds Follow-up hemoglobin has remained stable She is comfortable Abdomen remained soft and benign Stable vital signs Looks well Will advance diet Repeat H and H tomorrow possible DC home Daughter at bedside as well Time Spent With Patient Time: Total time managing care of this patient today ____ minutes.
--- NOTE | 2023-10-15 15:29 | PC.NURSE ---
pt resting quietly at this time, dtr at bedside- plan is for admission to [facility]
[2023-10-16 04:00] VITALS: BP 119/60; PULSE 80; RESP 19; TEMP 36.3; O2SAT 96
[2023-10-16] MEDS: 0.9 % Sodium Chloride 1,000 ML 50 ML IVCONT (04:48)
[2023-10-16] MEDS: 0.9 % Sodium Chloride Flush 3 ML SYRINGE IVFLUSH (04:52)
[2023-10-16 06:37] LABS: Hematocrit 28.4 % (37.0-47.0); Hemoglobin 9.3 g/dl (12.0-16.0)
[2023-10-16 07:53] VITALS: BP 162/88; PULSE 78; RESP 18; TEMP 36.1; O2SAT 99
--- NOTE | 2023-10-16 08:22 | PM.PNGS ---
Subjective Subjective Date of Service: 10/16/23 <Renee Rollins PA-C - Last Filed: 10/16/23 08:25> 10/16/23 <Yaron Koch MD - Last Filed: 10/16/23 08:27> Interval history: Feels well. Abdominal pain resolved. Tolerating diet. Wants to go home. <Renee Rollins PA-C - Last Filed: 10/16/23 08:25> Physical Exam Vital Signs: Vital Signs: Last Vital Signs Temp 96.9 F 10/16/23 07:53 Pulse 78 10/16/23 07:53 Resp 18 10/16/23 07:53 BP 162/88 H 10/16/23 07:53 Pulse Ox 99 10/16/23 07:53 O2 Del Method Room Air 10/16/23 07:53 BMI result Body Mass Index 34.2 <BEVERLY Shepard Last Filed: 10/16/23 08:25> Const: General: comfortable, no acute distress and alert <Renee Rollins PA-C - Last Filed: 10/16/23 08:25> Orientation/consciousness: patient oriented x3 <BEVERLY Shepard Last Filed: 10/16/23 08:25> Resp: Effort & Inspection: normal respiratory effort <BEVERLY Shepard Last Filed: 10/16/23 08:25> GI: Inspection: No distended <BEVERLY Shepard Last Filed: 10/16/23 08:25> Palpation (GI): Soft to palpation, Tenderness to palpation present (GI) (very mild upper abd discomfort to deep palpation) and no guarding <Renee Rollins PA-C - Last Filed: 10/16/23 08:25> Skin: General skin exam: no rashes or lesions noted <BEVERLY Shepard Last Filed: 10/16/23 08:25> Neuro: General: patient oriented x3 <BEVERLY Shepard Last Filed: 10/16/23 08:25> Objective Data Active Medications Acetaminophen (Acetaminophen 325 Mg Tablet) 650 mg PO Q4H PRN PRN Reason: Pain, Moderate(Pain Scale 4-6) Sodium Chloride (Ns) 1,000 mls @ 50 mls/hr IVCONT .Q20H [facility] Last Admin: 10/16/23 04:48 Dose: 50 mls/hr Documented By: FALLON Morphine Sulfate (Morphine Sulfate 4 Mg/Ml Cartridge) 3 mg IVPUSH Q3H PRN; Protocol PRN Reason: Pain, Severe (Pain Scale 7-10) Last Admin: 10/15/23 09:06 Dose: 3 mg Documented By: MARISOL Sodium Chloride (0.9 % Sodium Chloride Flush 3 Ml Syringe) 3 ml IVFLUSH QSHIFT [facility] Last Admin: 10/16/23 04:52 Dose: 3 ml Documented By: FALLON <Renee Rollins PA-C - Last Filed: 10/16/23 08:25> Labs CBC & Chem 7: 10/16/23 06:03 10/14/23 16:22 <Renee Rollins PA-C - Last Filed: 10/16/23 08:25> Labs: Laboratory Results - last 24 hr 10/15/23 09:29 MCV 83.6 MCH 27.9 MCHC 33.3 RDW 14.4 Plt Count 177 MPV 11.2 Immature Gran % (Auto) 0.5 H Neut % (Auto) 67.7 Lymph % (Auto) 20.4 [place] % (Auto) 7.1 Eos % (Auto) 3.4 Baso % (Auto) 0.9 Lymph # (Auto) 1.2 [place] # (Auto) 0.4 Eos # (Auto) 0.2 Baso # (Auto) 0.1 Abs Immat Gran (auto) 0.03 Absolute Neuts (auto) 3.8 Absolute Nucleated RBC 0.000 Nucleated RBC % (auto) 0.0 <Renee Rollins PA-C - Last Filed: 10/16/23 08:25> Procedures Date of Service Date of Service: 10/16/23 <Renee Rollins PA-C - Last Filed: 10/16/23 08:25> 10/16/23 <Yaron Koch MD - Last Filed: 10/16/23 08:27> Progress Note: A&P Assessment and plan (1) Hemoperitoneum: Status: Acute <Renee Rollins PA-C - Last Filed: 10/16/23 08:25> Assessment and Plan: Feels well Denies significant pain Tolerating diet Has BMs Hemoglobin stable She says she is ready to be discharged Follow-up with PCP Seen and examined independently <Yaron Koch MD - Last Filed: 10/16/23 08:27> (2) ABLA (acute blood loss anemia): Status: Acute <Renee Rollins PA-C - Last Filed: 10/16/23 08:25> Assessment and Plan: Admitted with hemoperitoneum following colonoscopy. She has remained hemodynamically stable and H/H virtually unchanged this morning. Abd very benign. Tolerating diet, abd pain resolved. Feels ready to go home. Stable for dc to home today. F/u with PCP. <Renee Rollins PA-C - Last Filed: 10/16/23 08:25> Time Spent With Patient Time: Total time managing care of this patient today ____ minutes. <Renee Rollins PA-C - Last Filed: 10/16/23 08:25> Quality Stroke Does the patient have a stroke diagnosis?: No <Renee Rollins PA-C - Last Filed: 10/16/23 08:25> VTE Prior VTE?: No <Renee Rollins PA-C - Last Filed: 10/16/23 08:25> VTE Risk Level:: Medical - low <Renee Rollins PA-C - Last Filed: 10/16/23 08:25> VTE Device Contraindication: Procedure Contraindicated <Renee Rollins PA-C - Last Filed: 10/16/23 08:25> VTE Drug Contraindication: Treatment Not Indicated <Renee Rollins PA-C - Last Filed: 10/16/23 08:25>
--- NOTE | 2023-10-16 08:49 | MHC.CM.PN ---
Patient has been medically cleared for dc to home today, self care.
--- NOTE | 2023-10-16 10:27 | PM.DS ---
DS: Providers Provider Date of Service: 10/16/23 Date of admission: 10/15/23 02:32 Date of discharge: 10/16/23 Primary care physician: Erick Zhou MD Attending physician on admission: Rach Cueto Attending physician on discharge: Yaron Koch DS: Diagnosis Discharge Diagnosis (1) Hemoperitoneum: Status: Acute (2) ABLA (acute blood loss anemia): Status: Acute DS: Summary Hospital Course Hospital Course: HPI AT ADMISSION: Leanne Carey is a 63 year old female who underwent colonoscopy 4 days ago with a difficult scope and this required getting the patient positioned under back and abdominal compression. One polyp was seen in the sigmoid colon and was removed. Postprocedure the patient was discharged but then returned to the emergency room with abdominal pain. She had a CT scan of her abdomen and pelvis which showed fluid in the peritoneal cavity no free air question ascites. Her hemoglobin had dropped somewhat. She was discharged home and over the course of the last few days started having more abdominal pain and as a result came in today. Today her hemoglobin hematocrit are lower than before she is little tachycardic in her blood pressure was lower. Her abdomen was tender. Repeat CT scan carried out revealed significant hematoma in the left upper quadrant with some dependent moderate hematoma as well down in the pelvic area. She has some scattered blood in areas around the liver as well. She denies any nausea vomiting she has not had a bowel movements in the colonoscopy in his not really sure if she has been passing gas or not. She has not lightheaded etc.. Secondary to the findings of the CT scan surgery was consulted. At this point her hemodynamics are stable. In the emergency room she received 1 unit of packed red blood cell. On Saturday her hemoglobin was 10.6, today in the emergency room was 7.5 and after the 1 unit of packed red blood cells it is 8.9. HOSPITAL COURSE: She was admitted to the surgical service for further observation of the hemoperitoneum. This was likely secondary to vessel tears in mesentery or omentum with traction during colonoscopy and majority of bleeding likely happened on Saturday and over the weekend as there was no evidence of any active extravasation. She was clinically appearing well with a benign abdomen and no peritoneal signs and was hemodynamically improved following transfusion so conservative measures were continued. She was kept NPO. Her H/H was serially monitored. It remained stable post transfusion and began to trend up. Her abdominal pain resolved. Her diet was advanced. On the day of discharge, she was asymptomatic without any abdominal pain and was tolerating a solid diet. Her vitals were stable. Her abdomen was benign. Her H/H remained stable. She was discharged to home on 10/16/23 in staBle condition. She is to follow up with her PCP. Status at Discharge Functional status at discharge: independent ambulation Overall status at discharge: patient is back to baseline Time Attestation Discharge Coordination Time (in mins): 30 Quality: Safe Use of Opioids Does Pt have an Active Cancer Diagnosis on the Problem List?: No Quality: Stroke Does the patient have a stroke diagnosis?: No Physical Exam Vital Signs: Vital Signs: Last Vital Signs Temp 96.9 F 10/16/23 07:53 Pulse 78 10/16/23 07:53 Resp 18 10/16/23 07:53 BP 162/88 H 10/16/23 07:53 Pulse Ox 99 10/16/23 07:53 O2 Del Method Room Air 10/16/23 07:53 BMI result Body Mass Index 34.2 Const: General: comfortable, no acute distress and alert Resp: Effort & Inspection: normal respiratory effort GI: Inspection: No distended Palpation (GI): Soft to palpation, Tenderness to palpation present (GI) (very mild upper abdominal discomfort ) and no guarding Skin: General skin exam: no rashes or lesions noted DS: Data Data Completed and Pending Labs on day of discharge: Laboratory Results - last 24 hr 10/15/23 10/16/23 12:02 06:03 Hgb 9.6 L 9.3 L Hct 29.3 L 28.4 L Discharge Plan Discharge Anticipated Discharge Date/Time: 10/16/23 08:25 Patient Disposition: Home, Self-Care Discharge Diagnosis: hemoperitoneum, anemia Referrals: Name,MD Erick [Primary Care Provider] - 1 Week Discharge Medications: Continued pantoprazole [Protonix] 40 mg tablet,delayed release (DR/EC) 40 mg PO DAILY Qty: 30 0RF ondansetron 4 mg tablet,disintegrating 4 mg PO Q6-8H PRN (Reason: nausea and vomiting) Qty: 10 0RF atorvastatin 20 mg tablet 20 mg PO QAM phentermine 30 mg capsule 30 mg PO QAM cyanocobalamin (vitamin B-12) 1,000 mcg Tablet 1,000 mcg PO DAILY paroxetine HCl 25 mg tablet extended release 24 hr 50 mg PO DAILY lisinopril-hydrochlorothiazide 20-25 mg tablet 1 tab PO DAILY divalproex 500 mg tablet,delayed release (DR/EC) 500 mg PO BID multivitamin Tablet 1 tab PO DAILY Discharge Orders: Discharge Order (Routine); Ordered 10/16/23 Ordered By: Renee Rollins Diet: Advance to usual diet Activity on Discharge: As tolerated Stand Alone Forms: Patient Portal Discharge page, Work/School Release Print Language: Hong Konger Activity Restrictions/Additional Instructions: Follow up with your primary care provider upon discharge. Call Your Doctor If: ? ? -Your temperature exceeds 101.5? F? ? ? -You experience excessive pain or swelling, chest pain, dizziness ? ? -You experience continued vomiting/nausea Care Plan Goals: Return to baseline health and resume normal activities. Health Concerns: hemoperitoneum following colonoscopy Plan of Treatment: transfused 1U PRBC observation, serial H/H Assessment: Improved
== END 2023-10-16 10:41 | disposition home or self-care (01) | DRG 810 ==
LOC: HO.ED 21:30 → HO.EDOVER 10-15 02:39 → HO.IMC 10-15 15:39
PROVIDERS: Emergency Medicine; Physician Assistant; Surgery; Admitting Provider Surgery; Emergency Provider Student in an Organized Health Care Education/Training Program; PCP Internal Medicine Geriatric Medicine; Visit Provider Surgery
DX: K91.840 Postprocedural hemorrhage of a digestive system organ or structure following a digestive system procedure (principal); K66.1 Hemoperitoneum; G40.909 Epilepsy, unspecified, not intractable, without status epilepticus; D62 Acute posthemorrhagic anemia; I10 Essential (primary) hypertension; Z98.84 Bariatric surgery status; Z79.899 Other long term (current) drug therapy
CPT/HCPCS: 36415; 74178; 80053; 81003; 83690; 83735; 85014; 85018; 85025; 85027; 85610; 86850; 86900; 86901; 86923; 99285; C9113; J2270; P9016; Q9967

== ENCOUNTER → 2023-10-14 16:17 | Outpatient (BNV) | payer OTHER, SELFPAY | PROVIDERS: Emergency Provider Student in an Organized Health Care Education/Training Program; PCP Internal Medicine Geriatric Medicine; Visit Provider Surgery | DX: K66.1 Hemoperitoneum (principal); D62 Acute posthemorrhagic anemia | CPT/HCPCS: 99024; 99222; 99238; 99499 ==

== ENCOUNTER → 2023-10-15 02:32 | Outpatient (BNV) | payer OTHER, SELFPAY | PROVIDERS: Admitting Provider Surgery; Emergency Provider Student in an Organized Health Care Education/Training Program; PCP Internal Medicine Geriatric Medicine; Visit Provider Internal Medicine Gastroenterology | DX: K66.1 Hemoperitoneum (principal) | CPT/HCPCS: 99222 ==

== ENCOUNTER 2023-10-24 16:03 | Outpatient (REF) | payer OTHER, SELFPAY | END 2023-10-24 16:04 | disposition home or self-care (01) | LOC: HO.HHCL 16:03 | PROVIDERS: Visit Provider Internal Medicine Geriatric Medicine | DX: Z13.89 Encounter for screening for other disorder (principal) ==

== ENCOUNTER 2023-10-25 13:51 | Outpatient (REF) | payer OTHER, SELFPAY ==
[2023-10-25 15:59] LABS: MANUAL DIFF FLAG NO
[2023-10-25 16:02] LABS: Basophils Absolute Auto 0.1 X10*3/uL (0.0-0.2); Basophils Percent Auto 0.7 % (0-2); Eosinophils Absolute Auto 0.2 X10*3/uL (0.0-0.4); Eosinophils Percent Auto 2.9 % (0-4); Hematocrit 36.2 % (37.0-47.0); Hemoglobin 11.4 g/dl (12.0-16.0); Imm Gran Abs Auto 0.05 X10*3/uL (0.00-0.03); Imm Gran Pct Auto 0.7 % (0.0-0.4); Lymphocytes Absolute Auto 0.9 X10*3/uL (1.2-4.9); Mean Corpuscular HGB Conc 31.5 g/dl (31.0-35.0); Mean Corpuscular Volume 85.8 fL (80.0-98.0); Mean Platelet Volume 11.7 fL (9.4-12.3); Monocytes Absolute Auto 0.6 X10*3/uL (0.1-1.2); Monocytes Percent Auto 8.8 % (2-11); Neutrophils Percent Auto 73.9 % (45-73); Platelet Count 255 X10*3/uL (160-400); Red Blood Count 4.22 X10*6/uL (4.20-5.50); Red Cell Distribution Width 15.4 % (11.0-16.0); White Blood Count 6.8 X10*3/uL (4.8-10.8)
[2023-10-25 16:20] LABS: Alanine Aminotransferase 28 U/L (0-31); Albumin Level 3.9 g/dL (3.5-5.0); Alkaline Phosphatase 116 U/L (39-117); Aspartate Amino Transferase 37 U/L (5-31); Bilirubin Direct 0.3 mg/dL (0.0-0.5); Bilirubin Total 0.6 mg/dL (0.0-1.0); Total Protein 7.3 g/dL (6.5-8.0)
[2023-10-26 10:23] LABS: Hepatitis B Surface Ab Qnt <5 mIU/mL (> OR = 10)
[2023-10-28 08:45] LABS: HBS Num1 1.54 mIU/mL (0-7.99); HBc Num1 0.18 S/CO (0.00-0.79); Hepatitis B Core Antibody Nonreactive (Nonreactive); ~HepC Num1 0.42 S/CO (0.00-0.79); ~Hepatitis B Surface Antibody NONREACTIVE (Nonreactive); ~Hepatitis C Antibody Nonreactive (Nonreactive)
[2023-11-06 18:14] LABS: FIB-ALT 25 U/L (6-29); FIB-Alpha-2-Macroglobulin 289 mg/dL (106-279); FIB-Apolipoprotein A1 92 mg/dL (101-198); FIB-GGT 45 U/L (3-65); FIB-Haptoglobin <8 mg/dL (43-212); FIB-Total Bilirubin 0.6 mg/dL (0.2-1.2); Liver Fibrosis Score 0.89; Liver Fibrosis Stage F4; Nec Inflam Act Grade A0-A1; Nec Inflam Act Score 0.24
== END 2023-10-25 13:52 | disposition home or self-care (01) ==
LOC: HO.HHCL 13:51
PROVIDERS: Visit Provider Internal Medicine Geriatric Medicine
DX: K74.69 Other cirrhosis of liver (principal); R18.8 Other ascites; D64.9 Anemia, unspecified
CPT/HCPCS: 36415; 80076; 81596; 85025; 86317; 86704; 86706; 86803

== ENCOUNTER 2023-11-22 15:37 | Outpatient (REF) | payer OTHER, SELFPAY ==
[2023-11-22 16:01] LABS: MANUAL DIFF FLAG NO
[2023-11-22 16:10] LABS: Basophils Absolute Auto 0.1 X10*3/uL (0.0-0.2); Basophils Percent Auto 1.1 % (0-2); Eosinophils Absolute Auto 0.2 X10*3/uL (0.0-0.4); Eosinophils Percent Auto 3.9 % (0-4); Hematocrit 40.2 % (37.0-47.0); Hemoglobin 12.6 g/dl (12.0-16.0); Imm Gran Abs Auto 0.01 X10*3/uL (0.00-0.03); Imm Gran Pct Auto 0.2 % (0.0-0.4); Lymphocytes Absolute Auto 1.5 X10*3/uL (1.2-4.9); Lymphocytes Percent Auto 24.6 % (20-40); Mean Corpuscular HGB Conc 31.3 g/dl (31.0-35.0); Mean Corpuscular Hemoglobin 26.8 pg (27.0-33.0); Mean Corpuscular Volume 85.5 fL (80.0-98.0); Mean Platelet Volume 11.5 fL (9.4-12.3); Monocytes Absolute Auto 0.5 X10*3/uL (0.1-1.2); Monocytes Percent Auto 8.5 % (2-11); Neutrophils Absolute Auto 3.8 x10*3/uL (2.0-8.3); Neutrophils Percent Auto 61.7 % (45-73); Platelet Count 227 X10*3/uL (160-400); Red Cell Distribution Width 14.9 % (11.0-16.0); White Blood Count 6.2 X10*3/uL (4.8-10.8)
== END 2023-11-22 15:38 | disposition home or self-care (01) ==
LOC: HO.HHCL 15:37
PROVIDERS: Visit Provider Nurse Practitioner Family
DX: D64.9 Anemia, unspecified (principal)
CPT/HCPCS: 36415; 85025

== ENCOUNTER 2024-08-24 17:06 | Outpatient (REF) | payer OTHER, SELFPAY ==
--- OUTSIDE RECORDS SUMMARY | 2024-08-24 18:24 | XMS_ITS | Encounter Summary ---
Author Organization [employer] Address [address] [facility] 7 [place] [address] Care Team Providers Care Bagging Machine Operator Name Role Phone Name, Erick CHOWDARY Primary Care Provider [phone] Reason for Visit * Reason Comments Med Refill Encounter Details Date Type Department Care Team ([facility] st Contact Info) Description 08/20/2024 Refill [facility] [address] [place] [address] Nasima Alaniz MD [address] [place] [address] Social History Tobacco Use Types Packs/Day Years Used Date Smoking Tobacco: Never Passive Smoke Exposure: Never Smokeless Tobacco: Never Alcohol Use Standard Drinks/Week Comments Never 0 (1 standard drink = 0.6 oz pur e alcohol) Alcohol Answer Date Recorded Frequency of Alcohol Consumption Not on file 01/22/2024 Average Number of Drinks Not on file 024 Frequency of Binge Drinking Not on file 12/2023 Score 0 01/22/2024 Depression Answer Date Recorded Patient Health Questionnaire-9 Score 18 09/16/2023 Patient Health Questionnaire-9 Score 18 09/16/2023 Last PHQ-9: Questionnaire Data Not on file 0 09/16/2023 Housing Stability Answer Date Recorded What is your housing situation today? I have sammy bingham 10/24/[address] you li ve. Do you have problems with any of the following? None of the above 10/24/2023 Food Insecurity Answer Date Recorded Within the past 12 months, y ou worried that your food would run out before you got money to buy more: Never True 10/24/2023 Within the past 12 months,th e food you bought just didn't last and you didn't have enough money to get more: Never True 02/2024 Transportation Answer Date Recorded In the past 12 months, has l ack of transportation kept you from medical appts, meetings, work or from getting things needed for daily living? No 10/24/2023 Utilities Answer Date Recorded In the past 12 months, has t he electric, gas, oil or water company threatened to shut off services in your home? No 10/24/2023 Depression Answer Date Recorded Patient Health Questionnaire-2 Score 3 09/16/2023 Comments Unknown Sex and Gender Information Value Date Recorded Sex Assigned at Female 04/16/2022 10:31 AM EDT Legal Sex Female 10:31 AM EDT Gender Identity Female 04/16/2022 10:31 AM EDT Sexual Orientation Straight 04/16/2022 10 :31 AM EDT documented as of this encounter Plan of Treatment Upcoming Encounters Date Type Department Care Team (Late st Contact Info) Description 10/15/2024 9:45 AM EDT Office Visit [facility] [address] [place] [address] Name, MD Erick [address] [place] [address] 01/13/2025 3:00 PM EDT Office Visit [facility] [address] [place] [address] Alejandro, Lucy, OD [address] [place] [address] documented as of this encounter Visit Diagnoses Not on filedocumented in this encounter Additional Health Concerns Assessment Noted Time PHQ-9 Depression Total Score: 18 024 2:25 PM EDT documented as of this encounter Care Teams Bagging Machine Operator Relationship Specialty Start Date End Date NameErick MD [address] [place] [address] PCP - General Family Medicine 11/29/16 documented as of this encounter
--- OUTSIDE RECORDS SUMMARY | 2024-08-24 18:24 | XMS_ITS | Encounter Summary ---
Author Organization [facility] Address [address] [place] [id number] Care Team Providers Care Grinding Machine Operator Portable Name Role Phone Name, Erick CHOWDARY Primary Care Provider [phone] Reason for Visit * Reason Comments Follow-up Encounter Details Date Type Department Care Team (Late st Contact Info) Description 07/28/2024 4:00 PM EST Office Visit Bariatric Surgery - [place] [address] [facility] [address] [place] [phone] Gonzalez Williamson MD [address] [facility] [address] [place] [address] Class 1 obesity due to excess calories with serious comorbidity and body mass index (BMI) of 33.0 to 33.9 in adult (Primary Dx) Social History Tobacco Use Types Packs/Day Years Used Date Smoking Tobacco: Never Smokeless Tobacco: Never Alcohol Use Standard Drinks/Week Comments Yes 0 (1 standard drink = 0.6 oz pur e alcohol) Comments Unknown Sex and Gender Information Value Date Recorded Sex Assigned at Not on file Legal Sex Female 12:52 PM EST Gender Identity Not on file Sexual Orientation Not on file documented as of this encounter Last Filed Vital Signs Vital Sign Reading Time Taken Comments Blood Pressure 113/57 07/28/2024 3:57 PM EST Pulse 96 07/28/2024 3:57 PM EST Temperature 36.8 ??C (98.2 ??F) 07/28/2024 3:57 PM ES T Respiratory Rate - - Oxygen Saturation - - Inhaled Oxygen Concentration - - Weight 76.7 kg (169 lb) 07/28/2024 3:57 PM EST Height 152.4 cm (5') 07/28/2024 3:57 PM EST Body Mass Index 33.01 07/28/2024 3:57 PM EST documented in this encounter Ordered Prescriptions Prescription Sig Dispense Quantity Refills Last Filled Start Date End Date tirzepatide, weight loss, (Zepbound) 2.5 mg/0.5 mL injectionIndicatio ns:Class 1 obesity due to excess calories with serious comorbidity and body mass index (BMI) of 33.0 to 33.9 in adult Inject 0.5 mL (2.5 mg total) under the skin every 7 (seven) days for 4 doses. 2 mL 07/28/2024 08/19/2024 documented in this encounter Progress Notes * Gonzalez Williamson MD - 07/28/2024 4:00 PM EST Ms. Carey is a 63 y.o. year old female who presents for surgical follow up regarding obesity. HPI: Ms. Carey has been using phentermine and topiramate. Has lost 10% of TBW since 2021. She has not lost weight since last year. HTN, on lisinopril. HLD, on atorvastatin. IVA. S/P Lap Band. BMI is 33.01. ROS: GENERAL: No malaise, significant unintentional weight loss, fever, chills or night sweats. HEENT: No changes in hearing or vision, no nose bleeds or other nasal problems. NECK: No lumps, goiter, pain or significant neck swelling RESPIRATORY: No cough, wheezing or shortness of breath CARDIOVASCULAR: No chest pain, leg swelling or palpitations. GI: No abdominal discomfort, nausea, vomiting, or change in bowel habits. : No dysuria, frequency or incontinence. SKIN: No lesions, rash or itching. HEMATOLOGY: No prolonged bleeding, easy bruisability. LYMPHOLOGY No swollen nodes. MUSCULOSKELETAL: No abnormalities. NEURO: No abnormalities. All other systems reviewed which are negative. PAST MEDICAL HISTORY: Patient Active Problem List Diagnosis Date Noted Date Diagnosed Other complications of gastric band procedure 08/13/2019 Shoulder pain, bilateral 02/12/2011 IVA (obstructive sleep apnea) 04/05/2010 Edema 11/30/2009 Hypercholesteremia 09/08/2008 Iron deficiency anemia 12/20/2006 Class 1 obesity with body mass index (BMI) of 33.0 to 33.9 in adult 12/20/2006 Essential hypertension, benign 10/22/2006 PAST SURGICAL HISTORY: Past Surgical History: Procedure Laterality Date LAPAROSCOPIC GASTRIC BANDING 02/2011 PROCEDURE: LAP ADJUSTABLE GASTRIC BAND; COMMENT: for weight loss ORTHOPEDIC SURGERY 2008 PROCEDURE: HISTORICAL ORTHOPEDIC SURGERY; COMMENT: rotator cuff surgery bilateral TUBAL LIGATION PROCEDURE: HISTORICAL TUBAL LIGATION SOCIAL HISTORY: Social History Tobacco Use Smoking status: Never Smokeless tobacco: Never Substance Use Topics Alcohol use: Yes FAMILY HISTORY: Family History Problem Relation Name Age of Onset Heart attack Mother Arthritis Sister Breast cancer Sister 56.00 diabetes Diabetes Sister Lung cancer Sister Dementia Sister Arthritis Brother ? RA, diabetes Stomach cancer Brother Diabetes Brother Uterine cancer Other niece 36.00 Other (Other: lupus) Other niece 3 nieces Colon cancer Neg Hx Ovarian cancer Neg Hx Prostate cancer Neg Hx Family Status Relation Name Status Mother diabetes Sister (Not Specified) Sister Alive Sister Sister Alive Brother Other niece Alive Neg Hx (Not Specified) Father Alive Sister Alive No partnership data on file MEDICATIONS: There are no discontinued medications. ACTIVE MEDICATIONS: No outpatient medications have been marked as taking for the 07/28/24 encounter (Office Visit) with Gonzalez Williamson MD. ALLERGIES: No Known Allergies PHYSICAL EXAM: Visit Vitals BP 113/57 Pulse 96 Temp 36.8 ??C (98.2 ??F) (Oral) Ht 1.524 m (60 ) Wt 76.7 kg (169 lb) BMI 33.01 kg/m?? Smoking Status Never BSA 1.74 m?? APPEARANCE: Alert and oriented and in no acute distress EYES: Conjunctiva normal and sclera normal and anicteric. NECK: Neck supple with no adenopathy. HEART: RRR with normal S 1 and S 2, no murmurs, no gallops. LUNG: Clear to auscultation LYMPH NODES: No gross cervical or clavicular lymphadenopathy. ABDOMEN: Bowel sounds normoactive, soft, non-tender, non-distended, EXTREMITIES: Extremities warm and well perfused without clubbing, cyanosis, or edema. SKIN: Skin color and texture normal. No rashes or lesions. NEUROLOGIC: Alert and oriented ??3. No motor or sensory deficits in the extremities. LABS/IMAGING: ASSESSMENT: 1. Class 1 obesity due to excess calories with serious comorbidity and body mass index (BMI) of 33.0 to 33.9 in adult PLAN: 1. The patient is a good candidate for medical weight management given a BMI of 33.01 and has been struggling with obesity for years. 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 The patient has the following comorbid conditions: essential hypertension, h yperlipidemia and obstructive sleep apnea. They remain dedicated to improving their health and quality of life as well as remaining physicallyactive. I have had a long discussion with the patient regarding medical weight management which includes both oral medications including stimulants/appetite suppressants versus injectable GLP-1 medications. At this time, patient does not qualify for oral medication due to the following reasons - Has not been effective residential. In addition to this, oral stimulant suppressants are meant to be used short-term and studies have shown that obesity needs to be treated as a chronic condition. We have decided to proceed with injectable GIP/GLP-1 medication - tirzepatide. The risks and benefits of this medication were discussed in length with the patient. Benefits include weight loss and overall healthier lifestyle with he hopes of improving any co morbid conditions. Risks include nausea/vomiting, diarrhea, injection site reaction, gastroparesis. We have also discussed the potential for thyroid cancer and multiple endocrine neoplasia; patient denies family history of either condition. We discussed that this medication should be used long-term and that obesity will be treated as a chronic condition. If and when patient stops this medication weight may come back. The patient will follow-up in the office every 4 weeks for a weight check and potential dose titration The patient will also continue to follow-up with the dietitian to ensure that they are working on proper eating habits in addition to using the medication. 2. The patient will let us know in few weeks if the medication is being effective or if the patientis having side effects. The dose will be adjusted depending upon the response and the presence of side effects. Follow-up in 4 months. 3. Will walk 30 min, 4-5 days a week. She walks a lot at work. 4. She will wean off the medications over a week once she gets tirzepatide. documented in this encounter Plan of Treatment Upcoming Encounters Date Type Department Care Team ([facility] st Contact Info) Description 11/26/2024 4:15 PM EDT Office Visit Bariatric Surgery - [address] [place] [phone] Gonzalez Williamson MD [address] [address] 01/05/2025 8:45 AM EDT Office Visit Obstetrics [facility]necology [place] [address] [place] [phone] Renee Hargrove, PETR [address] [place] [address] documented as of this encounter Visit Diagnoses Diagnosis Class 1 obesity due to excess calories with serious comorbidity and body mass index (BMI) of 33.0 to 33.9 in adult- Primary documented in this encounter Discontinued Medications Medication Sig Discontinue Reason Start Date End Da te phentermine 30 mg capsule TAKE 1 CAPSULE BY MOUTH EVERY DAY IN THE MORNING 03/18/2024 07/28/2024 documented as of this encounter Care Teams Grinding Machine Operator Portable Relationship Specialty Start Date End Date Name, MD Erick [address] [place], [place] PCP - General Internal Medicine 05/28/19 documented as of this encounter
--- OUTSIDE RECORDS SUMMARY | 2024-08-24 18:24 | XMS_ITS | Encounter Summary ---
Author Organization [employer] Address [address] [place] [address] [address] [place] [address] Care Team Providers Care Regional Office Coordinator Name Role Phone Name, Erick CHOWDARY Primary Care Provider [phone] Reason for Referral * Imaging (Routine) - Authorized Specialty Diagnoses / Procedures Referred By Contac t Referred To Contact Radiology Diagnoses Pain of upper abdomen Procedures CT Abdomen Pelvis w/ Contrast Delvis Leon MD [address] [place] [address] Phone: tel: fax: [address] Phone: tel: fax: Referral ID Status Reason Start Date Expiration Date V isits Requested Visits Authorized [id number] Authorized 08/24/2024 08/24/2025 1 1 Reason for Visit * Reason Comments uti symptoms Encounter Details Date Type Department Care Team (Late st Contact Info) Description 08/24/2024 11:20 AM EDT Office Visit [facility] [address] [place] [id number] Delvis Leon MD [address] [place] [address] [phone] UTI symptoms (Primary Dx); Pain of upper abdomen Social History Tobacco Use Types Packs/Day Years [...] AM EDT documented as of this encounter Last Filed Vital Signs Vital Sign Reading Time Taken Comments Blood Pressure 123/82 08/24/2024 11:00 AM EDT Pulse 92 08/24/2024 11:00 AM EDT Temperature 35.9 ??C (96.7 ??F) 08/24/2024 1 1:00 AM EDT Respiratory Rate 18 08/24/2024 11:0 0 AM EDT Oxygen Saturation 98% 08/24/2024 11: 00 AM EDT Inhaled Oxygen Concentration - - Weight 75.2 kg (165 lb 12.8 oz) 025 11:00 AM EDT Height - - Body Mass Index 32.38 06/12/2024 12:53 PM EST documented in this encounter Progress Notes * Delvis Leon MD - 08/24/2024 11:20 AM EDT Subjective Patient ID: Leanne Carey is a 63 y.o. female. HPI Leanne had onset this morning of burning on urination. Denies fever, chills, n/v/d, vaginal discharge, or flank pain. She also has 4-day history of pain across the upper abdomen that was initially intermittent and hasbecome constant over the past couple of days. Has never had similar pain in past. Denies reflux symptoms. Past abdominal surgery: gastric bypass. Lives with daughter. Works in [employer]. Never smoked. LMP= years ago. 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 Respiratory: Negative for shortness of breath. Cardiovascular: Negative for chest pain. Gastrointestinal: Positive for abdominal pain. Genitourinary: Positive for dysuria. Negative for flank pain. Skin: Negative for rash. Neurological: Negative for headaches. Objective Physical Exam Constitutional: Appearance: Normal appearance. HENT: Right Ear: Tympanic membrane, ear canal and external ear normal. Left Ear: Tympanic membrane, ear canal and external ear normal. Nose: Nose normal. Mouth/Throat: Mouth: Mucous membranes are moist. Pharynx: Oropharynx is clear. Eyes: Conjunctiva/sclera: Conjunctivae normal. Pupils: Pupils are equal, round, and reactive to light. Cardiovascular: Rate and Rhythm: Normal rate and regular rhythm. Heart sounds: No murmur heard. Pulmonary: Effort: Pulmonary effort is normal. Breath sounds: Normal breath sounds. Abdominal: General: Abdomen is flat. Palpations: Abdomen is soft. Tenderness: There is abdominal tenderness (of RUQ, epigastrium, LUQ). There is no right CVA tenderness, left CVA tenderness, guarding or rebound. Musculoskeletal: General: Normal range of motion. Cervical back: No tenderness. Skin: Findings: No rash. Neurological: Mental Status: She is alert. Gait: Gait is intact. Psychiatric: Mood and Affect: Mood normal. Behavior: Behavior normal. Procedures Assessment/Plan Diagnoses and all orders for this visit: UTI symptoms Urine C&S pending. Will call patient with results. Prescribed Macrobid. Return to clinic if not improving. - POCT urinalysis dipstick manually resulted - Culture, Urine, Routine Pain of upper abdomen Discussed going to the ED now for further evaluation, but patient declined. H. pylori stool antigenand CT scan of abdomen and pelvis ordered. Will call patient with results. Go to ED if pain persists or worsens. - Helicobacter pylori Antigen, EIA, Stool; Future Other orders - nitrofurantoin, macrocrystal-monohydrate, (Macrobid) 100 MG capsule; Take 1 capsule (100 mg) by mouth 2 times daily for 5 days. documented in this encounter Plan of Treatment Upcoming Encounters Date Type Department Care Team (Late st Contact Info) Description 10/15/2024 9:45 AM EDT Office Visit [facility] [address] [place] [address] Name, MD Erick [address] [place] [address] 01/13/2025 3:00 PM EDT Office Visit [facility] [address] [place] [address] Lucy Allen, OD [address] [place] [address] Scheduled Orders Name Type Priority Associated Diagnoses Orde r Schedule Helicobacter pylori??Antigen, EIA, Stool Lab Routine Pain of upper abdomen Expected: 08/24/2024 (Approximate), Expires: 08/24/2025 Culture, Urine, Routine Microbiology Routine UTI symptoms Ordered: 08/24/2024 CT Abdomen Pelvis w/ Contrast Imaging Routine Pain of upper abdomen Expected: 08/24/2024, Expires: 08/24/2025 documented as of this encounter Procedures Procedure Name Priority Date/Time Associated Diagnosis Comments POCT URINALYSIS DIPSTICK Routine 08/24/2024 11:18 AM EDT UTI symptoms documented in this encounter Results * (ABNORMAL) POCT urinalysis dipstick manually resulted (08/24/2024 11:18 AM EDT) Color, UA Yellow Clarity, UA Clear Glucose, UA Negative Bilirubin, UA Few 15 Comment:small Ketones, UA Positive Comment:15 mg/dL Spec Grav, UA 1.030 Blood, UA Negative Negative, None Detected pH, UA 5.5 Protein, UA Few 15 Comment:30 mg/dL Urobilinogen, UA 1.0 Leukocytes, UA Few 15(A) Negative, Rare, Trace Comment:small Nitrite, UA Negative Negative, None Detected Urine 08/24/2024 11:1 8 AM EDT Delvis Leon MD POINT OF CARE TEST ENTER/EDIT OR DERABLES Final Result documented in this encounter Visit Diagnoses Diagnosis UTI symptoms- Primary Pain of upper abdomen documented in this encounter Additional Health Concerns Assessment Noted Time PHQ-9 Depression Total Score: 18 024 2:25 PM EDT documented as of this encounter Care Teams Regional Office Coordinator Relationship Specialty Start Date End Date Name, MD Erick [address] [place] [address] PCP - General Family Medicine 11/29/16 documented as of this encounter
--- OUTSIDE RECORDS SUMMARY | 2024-08-24 18:24 | XMS_ITS | Continuity of Care Document ---
Author Organization [facility] Address [address] [place] [phone] Care Team Providers Care Corporate Account Executive Name Role Phone Name Erick CHOWDARY Primary Care Physician [phone] [id number] Date(s): 06/25/24 - 07/25/24 [facility] [address] [place] [address]- Attending Physician: Cassandra Hedrick Admitting Physician: Cassandra Hedrick Referring Physician: Cassandra Hedrick Encounter Type: Triage Allergies, Adverse Reactions, Alerts No Known Allergies Medications Adipex-P 37.5 mg oral capsule 1 capsule, By Mouth, Daily, 0 Refills, Maintenance, 02/08/11 1:16:50 PM EDT, Capsule Start Date: 02/08/11 Status: Ordered Repeat number: 1 Aleve Caplet = 220 mg, By Mouth, Every 8 hours, PRN as needed for pain, 0 Refills, Maintenance, 02/08/11 1:16:00 PM EDT Start Date: 02/08/11 Status: Ordered Repeat number: 1 buPROPion 150 mg/24 hours (XL) oral tablet, extended release TAKE 1 TABLET BY MOUTH EVERY DAY IN THE MORNING Start Date: 10/25/23 Status: Ordered Repeat number: 1 divalproex sodium 500 mg oral enteric coated tablet TAKE 1 TABLET BY MOUTH TWICE DAILY Start Date: 10/25/23 Status: Ordered Repeat number: 1 Ferrous Sulfate = 325 mg, By Mouth, Daily, 0 Refills, Maintenance, 02/08/11 1:16:11 PM EDT Start Date: 02/08/11 Status: Ordered Repeat number: 1 hydrochlorothiazide-lisinopril 25 mg-20 mg oral tablet TAKE 1 TABLET BY MOUTH EVERY DAY Start Date: 10/25/23 Status: Ordered Repeat number: 1 PARoxetine 25 mg oral tablet, extended release 1 tablet = 25 mg, By Mouth, Daily in AM, # 30 tablet, 0 Refills, Maintenance, 10/25/23 8:37:00 PM EDT, ER Tablet, Partial fill upon patient request if the prescription is for a schedule II opioid drug. Start Date: 10/25/23 Status: Ordered Quantity: 30.0 Unit: tablet Repeat number: 1 simvastatin 40 mg oral tablet 1 tablet, By Mouth, Daily at bedtime, # 30 tablet, 0 Refills, Maintenance, 02/08/11 1:16:25 PM EDT, Tablet Start Date: 02/08/11 Status: Ordered Quantity: 30.0 Unit: tablet Repeat number: 1 Problem List Condition Confirmation Course Effective Dates Status Health St [facility] Informant Obese class I Confirmed Active Syphilis titer test positive 1 Confirmed Active 1late latent syphilis, 3 weekly IM injections of sally PCN started 04/03/2011 Social History Social History Type Response Smoking Status Never (less than 100 in lifetime) entered on: 10/25/23 Sex Sex Representation Female (finding) Patient Care team information Care Team Personnel Name: Som PRICE, Clarissa Rodriguez Position: [facility] SN Wind Energy Technician Member Role: Primary Care Nurse Name: Erick Zhou MD Position: [facility] Outreach Member Role: PCP Address: [address] [place] [address] Telecom: Care Team Related Persons Name: KANE HARRINGTON Insurance Providers Guarantor name: BARBARA BOSS [facility] Plan Information #: 1 Payer: [employer] Member Number: NA Policy Number: NA Group Number: [id number]
--- OUTSIDE RECORDS SUMMARY | 2024-08-24 18:24 | XMS_ITS | Encounter Summary ---
Author Organization [employer] [facility] Address [address] [place] [id number] Care Team Providers Care Toppiece Cutter Name Role Phone Name, Erick CHOWDARY Primary Care Provider [phone] Encounter Details Date Type Department Care Team (Latest Contact Info) Description 12/20/2020 Abstract [facility] CONVERSION[facility] Dental, Provider, DDS Social History Tobacco Use Types Packs/Day Years Used Date Smoking Tobacco: Never Assessed Comments Unknown Sex and Gender Information Value Date Recorded Sex Assigned at Female 04/16/2022 10:31 AM EDT Legal Sex Female 10:31 AM EDT Gender Identity Female 04/16/2022 10:31 AM EDT Sexual Orientation Straight 04/16/2022 10 :31 AM EDT documented as of this encounter Plan of Treatment Upcoming Encounters Date Type Department Care Team ( st Contact Info) Description 10/15/2024 9:45 AM EDT Office Visit [facility] [address] [place] [address] Name, MD Erick [address] [place] [address] 01/13/2025 3:00 PM EDT Office Visit [facility] [address] [place] [address] Lucy Allen, OD [address] [place] [address] documented as of this encounter Visit Diagnoses Not on filedocumented in this encounter Care Teams Toppiece Cutter Relationship Specialty Start Date End Date Name, MD Erick [address] [place] [address] PCP - General Family Medicine 11/29/16 documented as of this encounter
--- OUTSIDE RECORDS SUMMARY | 2024-08-24 18:24 | XMS_ITS | Encounter Summary ---
Author Organization [facility] Address [address] [place] [id number] Care Team Providers Care Intellectual Property Counsel Name Role Phone Name, Erick CHOWDARY Primary Care Provider [phone] Reason for Visit * Reason Onset Date Comments prior auth 08/06/2024 Prior auth Encounter Details Date Type Department Care Team (Late Contact Info) Description 08/06/2024 Telephone Bariatric Surgery - [place] [address] [phone] Gonzalez Williamson MD [address] [address] prior auth (Prior auth) Social History Tobacco Use Types Packs/Day Years [...] on file documented as of this encounter Progress Notes * Caitlyn Trotter - 08/06/2024 3:43 PM EST Patient needs a PA documented in this encounter Plan of Treatment Upcoming Encounters Date Type Department Care Team (Late Contact Info) Description 11/26/2024 4:15 PM EDT Office Visit [facility] [place] [address] [phone] Gonzalez Williamson MD [address] [address] 01/05/2025 8:45 AM EDT Office Visit [facility] [place] [address] [place], [place] [phone] Renee Hargrove, JOSTIN [address] [place] [address] documented as of this encounter Visit Diagnoses Not on filedocumented in this encounter Care Teams Intellectual Property Counsel Relationship Specialty Start Date End Date Name, MD Erick [address] [place], [place] PCP - General Internal Medicine 05/28/19 documented as of this encounter
--- OUTSIDE RECORDS SUMMARY | 2024-08-24 18:24 | XMS_ITS | Encounter Summary ---
Author Organization [employer] Address [address] [facility] 7 [place] [address] Care Team Providers Care Interior Design Assistant Name Role Phone Name, Erick CHOWDARY Primary Care Provider [phone] Reason for Visit * Reason Comments Glaucoma Suspect Encounter Details Date Type Department Care Team ([facility] st Contact Info) Description 08/12/2024 3:30 PM EST Office Visit [facility] OPTOMETRY [address] [place] [address] Alejandro, Lucy, OD [address] [place] [address] 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 Dx) Social History Tobacco Use Types [...] the past 12 months, has t he [employer], gas, oil or water company threatened to [...] AM EDT documented as of this encounter Progress Notes * Lucy Allen, OD - 08/12/2024 3:30 PM EST Eye Care Progress Note Patient ID: Leanne Carey is a 63 y.o. female. Chief Complaint Glaucoma Suspect HPI Here for a repeat visual field test. She is a glaucoma suspect in the right eye secondary to asymmetric optic nerve cupping right eye (OD)>left eye (OS). Today she denies any new vision complaints. Her last visit was here in 04/2024. Last edited by Lucy Allen, OD on 08/13/2024 2:45 PM. Current Outpatient Medications Medication Sig Dispense Refill clotrimazole (Lotrimin) 1 % cream APPLY TO THE AFFECTED AREA(S) TWICE DAILY FOR 28 DAYS Zepbound 2.5 MG/0.5ML solution auto-injector Inject 2.5 mg under the skin every 7 (seven) days. albuterol 108 (90 Base) MCG/ACT inhaler Inhale 2 puffs every 4 (four) hours if needed for wheezing or shortness of breath. 18 g 3 atorvastatin (Lipitor) 20 MG tablet TAKE 1 TABLET BY MOUTH DAILY IN THE MORNING 30 tablet 11 azithromycin (Zithromax Z-Alejandro) 250 MG tablet Take 2 tablets once on day 1, then 1 tablet 1x/day for4 days. 6 tablet 0 baclofen (Lioresal) 20 MG tablet Take 1 tablet (20 mg) by mouth 2 times daily. 60 tablet 0 buPROPion XL (Wellbutrin XL) 150 MG 24 hr tablet Take 150 mg by mouth in the morning. clobetasol (Temovate) 0.05 % ointment Apply topically in the morning and at bedtime. 30 g 2 divalproex (Depakote) 500 MG EC tablet TAKE 1 TABLET BY MOUTH TWICE DAILY 60 tablet 5 ferrous sulfate (Fe Tabs) 325 (65 Fe) MG EC tablet Take 1 tablet (325 mg) by mouth with breakfast. Do not crush, chew, or split. 30 tablet 11 gabapentin (Neurontin) 100 MG capsule TAKE 1 CAPSULE BY MOUTH AT BEDTIME 30 capsule 0 GaviLyte-G 236 g solution DRINK 8 OUNCES OF LIQUID EVERY 10 MINUTES DIRECTED AFTER MIXING WITH WATER. DRINK UNTIL FECAL EFFLUENT IS CLEAR. DO NOT EXCEED 2,000 ML. lisinopril-hydroCHLOROthiazide 20-25 MG tablet Take 1 tablet by mouth Once per day. 30 tablet 3 melatonin 5 MG tablet TAKE 1 TABLET BY MOUTH IN THE EVENING NEEDED 30 tablet 3 mometasone (Elocon) 0.1 % ointment Apply topically Once per day. 45 g 2 Multiple Vitamin (multivitamin) capsule Take 1 capsule by mouth Once per day. 30 capsule 11 naltrexone (Depade) 50 MG tablet Take 25 mg by mouth in the morning. Nirmatrelvir&Ritonavir 300/100 (Paxlovid, 300/100,) 20 x 150 MG & 10 x 100MG tablet therapypack Take 1 Dose by mouth 2 times daily. Do not take atorvastatin while you are taking this medication. Resume taking atorvastatin 3 days after you finish this medication (around June 21, 2024.) 1 each 0 ondansetron ODT (Zofran-ODT) 4 MG disintegrating tablet TAKE 1 TAB ORALLY EVERY 6 TO 8 HOURS NEEDED FOR NAUSEA AND VOMITING pantoprazole (ProtoNix) 40 MG EC tablet Take 40 mg by mouth Once per day. PARoxetine CR (Paxil-CR) 25 MG 24 hr tablet TAKE 2 TABLETS BY MOUTH EVERY DAY 60 tablet 0 phentermine 30 MG capsule TAKE 1 CAPSULE BY MOUTH EVERY DAY IN THE MORNING Spacer/Aero-Holding Chambers (OptiChamber Randa) misc 1 each every 4 (four) hours if needed (asthma). 1 each 0 tacrolimus (Protopic) 0.1 % ointment Apply topically in the morning and at bedtime. 30 g 2 tiZANidine (Zanaflex) 2 MG tablet Take 1 tablet (2 mg) by mouth every 6 (six) hours if needed for muscle spasms for up to 10 days. 30 tablet 0 topiramate 50 MG tablet Take 1 tablet by mouth in the morning. No current facility-administered medications for this visit. 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) (CMS/HCC) 10/31/2023 Obstructive sleep apnea syndrome 02/04/2018 Other cirrhosis of liver (CMS/HCC) 10/24/2023 Seizure disorder (CMS/HCC) Past Surgical History: Procedure Laterality Date LAPAROSCOPIC GASTRIC BANDING LIPOSUCTION SHOULDER SURGERY Family History Problem Relation Name Age of Onset Diabetes Mother Diabetes Sister Glaucoma Sister Cancer Brother Gastric Cancer Social History Socioeconomic History Marital status: Spouse name: Not on file Number of children: Not on file Years of education: Not on file Highest education level: Not on file Occupational History Not on file Tobacco Use Smoking status: Never Passive exposure: Never Smokeless tobacco: Never Vaping Use Vaping status: Unknown Substance and Sexual Activity Alcohol use: Never Drug use: Never Sexual activity: Defer Other Topics Concern Not on file Social History Narrative Not on file Social Drivers of Health Food Insecurity: Low Risk (10/24/2023) Food Insecurity Within the past 12 months, you worried that your food would run out before you got money to buy more:: Never True Within the past 12 months,the food you bought just didn't last and you didn't have enough money to get more: : Never True Transportation Needs: Low Risk (10/24/2023) Transportation In the past 12 months, has lack of transportation kept you from medical appts, meetings, work or from getting things needed for daily living? : No Intimate Partner Violence: Not on file Housing Stability: Low Risk (10/24/2023) Housing Stability What is your housing situation today?: I have housing Think about the place you live. Do you have problems with any of the following? : None of the above No Known Allergies ROS Negative for: Constitutional, Gastrointestinal, Neurological, Skin, Genitourinary, Musculoskeletal,HENT, Endocrine, Cardiovascular, Eyes, Respiratory, Psychiatric, Allergic/Imm, Heme/Lymph Last edited by Lucy Allen, OD on 08/13/2024 2:45 PM. Base Eye Exam Visual Acuity (Snellen - Linear) Right Left Dist cc 20/20 -2 20/20 -1 Correction: Glasses Tonometry ([facility] , 3:50 PM) Right Left Pressure 14 13 Pachymetry (05/26/2020) Right Left Thickness 555 572 Pupils Pupils APD Right PERRL None Left PERRL None Visual Velazquez See visual field report Extraocular Movement Right Left Full Full Neuro/Psych Oriented x3: Yes Mood/Affect: Normal Dilation Not necessary for exam Slit Lamp and Fundus Exam External Exam Right Left External Normal Normal Slit Lamp Exam Right Left Lids/Lashes Normal Normal Conjunctiva/Sclera White and quiet White and quiet Cornea Clear Clear Anterior Chamber Deep and quiet Deep and quiet Iris Flat Flat Lens 1+ NS 1+ NS Refraction Wearing Rx Sphere Cylinder [place] Add Right Camino -1.75 030 +2.50 Left -1.00 -0.50 180 +2.50 Assessment/plan: Diagnoses and all orders for this visit: Glaucoma suspect of both eyes The patient is a glaucoma suspect right eye > left eye. She has asymmetric cupping, right eye > left eye. She has a history of fatiguing while performing visual field testing the second eye. Her over all findings will be dictated off of her 04/2024 right eye and today's left eye. Her right eye's visual field test showed no glaucomatous defects in the right eye. Today's visual field test showed no glaucomatous defects in the left eye. The patient was educated on the exam findings. I do notfeel she has glaucoma at this time. She was reeducated on the risk for glaucoma and that glaucoma can lead to permanent vision loss. She was educated we will monitor her vision frequently to determine whether she is developing glaucoma. Will have her return in 12/2024 for a complete, dilated eye exam and updated OCT. Last DFE: 01/10/2024 Last Gonio: 03/05/2019 Last Photos: 01/10/2024 Last optic nerve OCT: 01/10/2024 Last Visual Field: 08/13/2024 Max intraocular pressure (IOP): 21/22 Today's intraocular pressure (IOP): 14/13 Target intraocular pressure (IOP): N/A Pachymetry: 555/572 (05/26/2020) Today's Orders: - Automated Visual Field, Extended - OU - Both Eyes Lucy Allen, OD 08/13/2024, 2:46 PM Student Name: Marisol Donato I attest that I was physically present with the optometry student. I personally saw and evaluated the patient and performed my own history and examination. I have reviewed, verified, and revised the documented findings as necessary and agree with the content and plan as written. Client Manager Source: ___ None _X__ Bilingual Staff (Nayana Thomas) ___ Qualified Staff Supervisor [employer] ___ Telephone Client Manager; ID# ___ Client Manager brought by patient (family member, friend, BOAT AND PLANT UTILITY SUPERVISOR, etc) ___ In person industrial maintenance repairer helper ___ Ipad Client Manager; ID#: Language Spoken During Exam: __Spanish documented in this encounter Plan of Treatment Upcoming Encounters Date Type Department Care Team (Late st Contact Info) Description 10/15/2024 9:45 AM EDT Office Visit [facility] MEDICINE [address] [place], [place] [phone] Name, MD Erick [address] [place], [place] [phone] 01/13/2025 3:00 PM EDT Office Visit [facility] OPTOMETRY [address] [place], [place] [phone] Lucy Allen, OD [address] [place] [address] documented as of this encounter Procedures Procedure Name Priority Date/Time Associated Diagnosis Comments AUTOMATED VISUAL FIELD, EXTENDED - OU - BOTH EYES Routine 08/12/2024 3:30 PM EST Glaucoma suspect of both eyes documented in this encounter Results * Automated Visual Field, Extended - OU - Both Eyes (08/12/2024 3:30 PM EST) Lucy Dickinson, OD - 08/13/2024 2:59 PM EST VISUAL FIELD INTERPRETATION Visual Field Interpretation Test Details: Octopus: G P Pulsar/200/TOP Reliability Indices: False positive errors OD: 0/8 OS: 0/7 False negative errors OD: 0/8 OS: 0/7 Statistical Indices: MS [src]: OD: 15.2 OS: 18.7 MD [< 2.0 src]: OD: 6.4 OS: 3.0 sLV [< 2.5 src]: OD: 3.7 OS: 2.4 Impression: Reason for testing: Repeat field testing, glaucoma suspect right eye (OD)>left eye (OS), defects on previous field tests. Test Reliability: Reliable left eye (OS), borderline reliability due to fatigue observed left eye (OS) Impression: Right eye (OD): overall shallow depression, dense superior arcuate defect worse nasally Left eye (OS): Mild overall shallow depression, no glaucomatous defects Progression: Right eye (OD): New defects today secondary to fatigue. Left eye (OS): Improved from last exam. No glaucomatous defects today. Management Plan: Patient's eye that is tested first is most reliable. Overall findings are deduced from 04/2024 right eye test and today's left eye test. No suspicion for glaucoma today. Will monitor with a complete eye exam and updated OCT in 12/2024. Lucy Allen OD OPHTH VISUAL FIELD Edited Res ult - Final documented in this encounter Visit Diagnoses Diagnosis Glaucoma suspect of both eyes- Primary Unspecified preglaucoma documented in this encounter Additional Health Concerns Assessment Noted Time PHQ-9 Depression Total Score: 18 024 2:25 PM EDT documented as of this encounter Care Teams Interior Design Assistant Relationship Specialty Start Date End Date Name, MD Erick [address] [place] [address] PCP - General Family Medicine 11/29/16 documented as of this encounter
--- OUTSIDE RECORDS SUMMARY | 2024-08-24 18:24 | XMS_ITS | Clinical Summary ---
Author Organization [address] [place] [address] Address [address] [place] [address] Phone Care Team Providers Care Houseperson Name Role Phone Name, Erick CHOWDARY Primary Care Provider [phone] Allergies No known active allergies Medications atorvastatin (LIPITOR) 20 mg tablet TAKE 1 TABLET BY MOUTH DAILY IN THE MORNING 3 Active cholecalciferol (VITAMIN D-3) 50 mcg (2,000 unit) capsule TAKE 1 CAPSULE EVERY DAY 8 Active divalproex (DEPAKOTE) [address] tablet TAKE 1 TABLET BY MOUTH TWICE DAILY 1 Active ferrous sulfate 325 mg (65 mg elemental iron) tablet Take 1 tablet by mouth 2 times daily. 3 Active lisinopriL (PRINIVIL,ZESTR IL) 2.5 mg tablet Take 1 Tab by mouth daily. 3 Active lisinopril-hydr oCHLOROthiazide (PRINZIDE,ZESTO RETIC) 20-25 mg per tablet Take 1 tablet by mouth daily. 1 Active PARoxetine (PAXIL) 40 mg tablet TAKE 1 TABLET BY MOUTH AT BEDTIME 1 Active topiramate (TOPAMAX) 50 mg tablet TAKE 2 TABLETS BY MOUTH EVERY DAY 4 Active phentermine 30 mg capsule TAKE 1 CAPSULE BY MOUTH EVERY DAY IN THE MORNING 4 025 Discontinued tirzepatide, weight loss, (Zepbound) 2.5 mg/0.5 mL injectionIndica tions:Class 1 obesity due to excess calories with serious comorbidity and body mass index (BMI) of 33.0 to 33.9 in adult Inject 0.5 mL (2.5 mg total) under the skin every 7 (seven) days for 4 doses. 2 mL 5 025 Active Problems Problem Noted Date Diagnosed Date Other complications of gastric band procedure Shoulder pain, bilateral 02/12/2011 IVA (obstructive sleep apnea) 04/05/2010 Edema 11/30/2009 Hypercholesteremia 09/08/2008 Iron deficiency anemia 12/20/2006 Class 1 obesity with body ma ss index (BMI) of 33.0 to 33.9 in adult 12/20/2006 Essential hypertension, benign 10/22/2006 Encounters Date Type Department Care Team Description 08/06/2024 Telephone Bariatric Surgery - [address] [phone] Gonzalez Williamson MD prior auth (Prior auth) 07/28/2024 4:00 PM EST Office Visit Bariatric Surgery [address] [place] [phone] Gonzalez Williamson MD Class 1 obesity due to excess calories with serious comorbidity and body mass index (BMI) of 33.0 to 33.9 in adult (Primary Dx) from Last 3 Months Immunizations Name Administration Dates Next Due Hepatitis B (Vzsyuxf-S-Mmimj , Recombivax HB-Adult) 19yo and older 07/03/2017,02/26/2017,12/24/2016 Td Tetanus diptheria (Tdvax) 7yo and older 11/02 Surgical History Surgery Date Site/Laterality Comments ORTHOPEDIC SURGERY 2008 PROCEDURE: HISTORICAL ORTHOPEDIC SURGERY; COMMENT: rotator cuff surgery bilateral LAPAROSCOPIC GASTRIC BANDING 02/2011 PROCEDURE: LAP ADJUSTABLE GASTRIC BAND; COMMENT: for weight loss TUBAL LIGATION PROCEDURE: HISTORICAL TUBAL LIGATION Medical History Medical History Date Comments Obesity, unspecified 12/20/2006 DX:Obesity, unspecified Iron deficiency anemia, unspecified 12/20/2006 DX:Iron deficiency anemia, unspecified Anemia, unspecified 10/08/2006 DX:Anemia, u nspecified Heart disease, unspecified 10/08/2006 DX:He art disease, unspecified Essential hypertension, benign D X:Essential hypertension, benign Latent syphilis 11/15/2011 DX:Latent syphil is IVA (obstructive sleep apnea) 04/05/2010 DX :IVA (obstructive sleep apnea) Family History Medical History Relation Name Comments Arthritis Brother ? RA, diabetes Diabetes Brother Stomach cancer Brother Heart attack Mother Other: lupus Other niece 3 nieces Uterine cancer Other niece Arthritis Sister 1 Breast cancer Sister 2 diabetes Diabetes Sister 2 Lung cancer Sister 3 Dementia Sister 4 Colon cancer Neg Hx Ovarian cancer Neg Hx Prostate cancer Neg Hx Relation Name Status Comments Brother Father Alive Mother diabetes Other niece Alive Sister 1 Sister 2 Alive Sister 3 Sister 4 Alive Sister 5 Alive Social History Tobacco Use Types Packs/Day Years Used Date Smoking Tobacco: Never Smokeless Tobacco: Never Alcohol Use Standard Drinks/Week Comments Yes 0 (1 standard drink = 0.6 oz pur e alcohol) Comments Unknown Sex and Gender Information Value Date Recorded Sex Assigned at Not on file Legal Sex Female 12:52 PM EST Gender Identity Not on file Sexual Orientation Not on file Obstetrics History Last Filed Vital Signs Vital Sign Reading [...] Mass Index 33.01 07/28/2024 3:57 PM EST Plan of Treatment Upcoming Encounters Date Type Department Care Team (Late st Contact Info) Description 11/26/2024 4:15 PM EDT Office Visit Bariatric Surgery - [place] [address] [facility] [address] [place] [phone] Gonzalez Williamson MD [address] [address] 01/05/2025 8:45 AM EDT Office Visit Obstetrics and Gynecology - [facility] [address] [place] [phone] Renee Hargrove, CNM [address] [place] [address] Health Maintenance Due Date Last Done Comments Social Influencers of Health Screening 05/15/2022 Hypertension/CHF/CAD Annual BMP Blood Test 05/24/2022 02/16/2012 RSV Immunization Patients 60+ Years Old (1 - Risk 60-74 years 1-dose series) 2022 COVID-19 Vaccine (5 - season) 2024 06/05/2022, 05/03/2021, 07/23/2020, Additional history exists Hepatitis A Vaccines (2 of 2 - Risk 2-dose series) 07/24/2024 01/22/2024 Depression Screening 09/15/2024 09/16/2023, 06/27/19 Breast Cancer Screening 10/20/2024 10/20/2022 Cholesterol Screening (Lipid Panel) 09/29/2028 09/30/2023, 02/16/2012 Cervical Cancer Screening: HPV 12/15/2028 12/16/2023 DTaP,Tdap,and Td Vaccines (3 - Td or Tdap) 08/01/2031 08/01/2021, 11/02/2002 Colorectal Cancer Screening: Colonoscopy 10/10/2033 10/11/2023 HIV Screening Completed 12/17/2016 Zoster Vaccines Completed 10/12/2021, 08/01/2021 Hepatitis C Screening Completed 10/25/2023, 017 Hepatitis B Vaccines Completed 01/22/2024, 07/03/2017, 02/26/2017, Additional history exists Influenza Vaccine Completed 03/10/2024, , 04/25/2021, Additional history exists Pneumococcal Vaccine: 50+ Years Completed 04/22/2024 Pneumococcal Vaccine: Pediatrics (0 to 5 Years) and At-Risk Patients (6 to 64 Years) Aged Out 04/22/2024 No longer eligible based on patient's age to complete this topic HIB Vaccines Aged Out No longer eligi ble based on patient's age to complete this topic HPV Vaccines Aged Out No longer eligi ble based on patient's age to complete this topic IPV Vaccines Aged Out No longer eligi ble based on patient's age to complete this topic MMR Vaccines Aged Out No longer eligi ble based on patient's age to complete this topic Meningococcal ACWY Vaccine Aged Out N o longer eligible based on patient's age to complete this topic Meningococcal B Vacine Aged Out No lo nger eligible based on patient's age to complete this topic RSV Immunization Patients Under 20 months Aged Out No longer eligible based on patient's age to complete this topic Varicella Vaccines Aged Out No longer eligible based on patient's age to complete this topic Procedures Procedure Name Priority Date/Time Associated Diagnosis Comments HPV Routine 12/16/2023 COLONOSCOPY Routine 10/11/2023 DEPRESSION SCREENING Routine 06/27/2023 HEPATITIS C SCREENING Routine 12/17/2016 HIV SCREENING Routine 12/17/2016 ANNUAL BMP BLOOD TEST Routine 02/16/2012 LIPID PANEL Routine 02/16/2012 from Last 3 Months or Most Recently Relevant to Health Maintenance Results * Cervical Cancer Screening: HPV (12/16/2023) [facility] Cervical Cancer Screening: HPV Negative, Abstracted Result [facility] Provider HEALTH MAINTENANCE Final Result * Colonoscopy (10/11/2023) [facility] Colonoscopy No Interpretation , Abstracted Anatomical Region Laterality Modality Other [facility] Provider HEALTH MAINTENANCE Final Result * Depression Screening (06/27/2023) [facility] Depression Screening Abstracted [facility] Provider HEALTH MAINTENANCE Final Result * HIV Screening (12/17/2016) [facility] HIV Screening Abstracted [facility] Provider HEALTH MAINTENANCE Final Result * Hepatitis C Screening (12/17/2016) [facility] Hepatitis C Screening Abstracted [facility] Provider HEALTH MAINTENANCE Final Result * Annual BMP Blood Test (02/16/2012) [facility] Annual BMP Blood Test Abstracted Historical Provider HEALTH MAINTENANCE Final Result * (ABNORMAL) Lipid panel (02/16/2012) Pathologist [facility] LDL/HDL Ratio 4 0 - 4 Triglycerides 82 0 - 150 mg/dL Cholesterol 187 0 - 200 mg/dL HDL 53 >=40 mg/dL LDL Cholesterol 118(A) 0 - 100 mg/dL Blood Venous blood specimen / Unknown Historical Provider LAB BLOOD ORDERABLES Lorrei l Result from Last 3 Months or Most Recently Relevant to Health Maintenance Insurance [facility] Care Teams Houseperson Relationship Specialty Start Date End Date Name, MD Erick [address] [place], [place] PCP - General Internal Medicine 05/28/19
--- OUTSIDE RECORDS SUMMARY | 2024-08-24 18:24 | XMS_ITS | Encounter Summary ---
Author Organization [employer] [facility] Address [address] [place] [address] Care Team Providers Care Loan And Credit Manager Name Role Phone Name, Erick CHOWDARY Primary Care Provider [phone] Encounter Details Date Type Department Care Team (Late st Contact Info) Description 11/02/2022 Abstract [facility] MEDICINE [address] [place] [phone] NameErick MD [address] [place] [phone] Social History Tobacco Use Types Packs/Day Years Used Date Smoking Tobacco: Never Passive Smoke Exposure: Never Smokeless Tobacco: Never Depression Answer Date Recorded Patient Health Questionnaire-9 Score 14 09/05/2022 Depression Answer Date Recorded Patient Health Questionnaire-2 Score 3 09/05/2022 Comments Unknown Sex and Gender Information Value [...] Description 10/15/2024 9:45 AM EDT Office Visit [facility] MEDICINE [address] [place] [phone] NameErick MD [address] [place] [phone] 01/13/2025 3:00 PM EDT Office Visit [facility] OPTOMETRY [address] [place], [place] [phone] Alejandro, Lucy, OD [address] [place] [address] documented as of this encounter Procedures Procedure Name Priority Date/Time Associated Diagnosis Comments MAMMOGRAPHY Routine 10/20/2022 11:30 AM EDT COLONOSCOPY Routine 04/04/2016 10:44 AM EDT documented in this encounter Results * Mammography (10/20/2022 11:30 AM EDT) HM Mammogram Birads-2 Anatomical Region Laterality Modality Other Historical Provider HEALTH MAINTENANCE Final Result * Colonoscopy (04/04/2016 10:44 AM EDT) Colonoscopy Normal Normal Narrative Jyotsna Mann - 04/04/2016 10:44 AM EDT Recommended 7 year follow up Historical Provider HEALTH MAINTENANCE Final Result documented in this encounter Visit Diagnoses Not on filedocumented in this encounter Additional Health Concerns Assessment Noted Time PHQ-9 Depression Total Score: 14 023 9:49 AM EDT documented as of this encounter Care Teams Loan And Credit Manager Relationship Specialty Start Date End Date Name, MD Erick [address] [place] [address] PCP - General Family Medicine 11/29/16 documented as of this encounter
--- OUTSIDE RECORDS SUMMARY | 2024-08-24 18:24 | XMS_ITS | Encounter Summary ---
Author Organization [employer] [facility] Address [address] [place] [address] Care Team Providers Care Lead Developer Name Role Phone Name, Erick CHOWDARY Primary Care Provider [phone] Reason for Visit * Reason Comments Med Refill Encounter Details Date Type Department Care Team (Late st Contact Info) Description 03/17/2023 Refill [facility] MEDICINE [address] [place] [id number] NameErick MD [address] [place] [id number] Social History Tobacco Use Types Packs/Day Years Used Date Smoking Tobacco: Never Passive Smoke Exposure: Never Smokeless Tobacco: Never Alcohol Use Standard Drinks/Week Comments Never 0 (1 standard drink = 0.6 oz pur e alcohol) Depression Answer Date Recorded Patient Health Questionnaire-9 [...] Description 10/15/2024 9:45 AM EDT Office Visit [facility] MEDICINE [address] [place] [phone] Erick Zhou MD [address] [place] [id number] 01/13/2025 3:00 PM EDT Office Visit [facility] OPTOMETRY [address] [place], [place] [id number] Lucy Allen, OD [address] [place] [address] documented as of this encounter Visit Diagnoses Not on filedocumented in this encounter Additional Health Concerns Assessment Noted Time PHQ-9 Depression Total Score: 14 023 9:49 AM EDT documented as of this encounter Care Teams Lead Developer Relationship Specialty Start Date End Date Name, MD Erick [address] [place] [address] PCP - General Family Medicine 11/29/16 documented as of this encounter
--- OUTSIDE RECORDS SUMMARY | 2024-08-24 18:24 | XMS_ITS | Encounter Summary ---
Author Organization [employer] Address [address] [facility] [address] [place] [address] Care Team Providers Care Fuse Spooler Name Role Phone Name, Erick CHOWDARY Primary Care Provider [phone] Encounter Details Date Type Department Care Team (Latest Contact Info) Description 08/12/2024 Travel Social History Tobacco Use Types Packs/Day Years [...] Description 10/15/2024 9:45 AM EDT Office Visit [facility] MEDICINE [address] [place] [address] NameErick MD [address] [place] [address] 01/13/2025 3:00 PM EDT Office Visit [facility] OPTOMETRY [address] [place] [address] Alejandro, Lucy, OD [address] [place] [address] documented as of this encounter Visit Diagnoses Not on filedocumented in this encounter Additional Health Concerns Assessment Noted Time PHQ-9 Depression Total Score: 18 024 2:25 PM EDT documented as of this encounter Care Teams Fuse Spooler Relationship Specialty Start Date End Date NameErick MD [address] [place] [phone] PCP - General Family Medicine 11/29/16 documented as of this encounter
--- OUTSIDE RECORDS SUMMARY | 2024-08-24 18:24 | XMS_ITS | Clinical Summary ---
Author Organization [employer] Address [address] [place] [address] [place] [address] Care Team Providers Care Quality Analyst/Technical Writer Name Role Phone Name, Erick CHOWDARY Primary Care Provider [phone] Allergies No known active allergies Medications clobetasol (Temovate) 0.05 % ointmentIndicatio ns:Lichen sclerosus Apply topically in the morning and at bedtime. 30 g 2 022 Active tacrolimus (Protopic) 0.1 % ointmentIndicatio ns:Lichen sclerosus Apply topically in the morning and at bedtime. 30 g 2 022 Active gabapentin (Neurontin) 100 MG capsuleIndication s:Chronic back pain, unspecified back location, unspecified back pain laterality TAKE 1 CAPSULE BY MOUTH AT BEDTIME 30 capsule 023 Active GaviLyte-G 236 g solution DRINK 8 OUNCES OF LIQUID EVERY 10 MINUTES DIRECTED AFTER MIXING WITH WATER. DRINK UNTIL FECAL EFFLUENT IS CLEAR. DO NOT EXCEED 2,000 ML. 023 Active buPROPion XL (Wellbutrin XL) 150 MG 24 hr tablet Take 150 mg by mouth in the morning. 024 Active naltrexone (Depade) 50 MG tablet Take 25 mg by mouth in the morning. 024 Active phentermine 30 MG capsule TAKE 1 CAPSULE BY MOUTH EVERY DAY IN THE MORNING 024 Active topiramate 50 MG tablet Take 1 tablet by mouth in the morning. 024 Active ondansetron ODT (Zofran-ODT) 4 MG disintegrating tablet TAKE 1 TAB ORALLY EVERY 6 TO 8 HOURS NEEDED FOR NAUSEA AND VOMITING Active ferrous sulfate (Fe Tabs) 325 (65 Fe) MG EC tablet Take 1 tablet (325 mg) by mouth with breakfast. Do not crush, chew, or split. 30 tablet 11 024 2024 Active Multiple Vitamin (multivitamin) capsule Take 1 capsule by mouth Once per day. 30 capsule 024 2024 Active mometasone (Elocon) 0.1 % ointmentIndicatio ns:Allergic contact dermatitis due to other agents Apply topically Once per day. 45 g 2 024 2024 Active divalproex (Depakote) 500 MG EC tablet TAKE 1 TABLET BY MOUTH TWICE DAILY 60 tablet 5 024 Active melatonin 5 MG tablet TAKE 1 TABLET BY MOUTH IN THE EVENING NEEDED 30 tablet 3 024 Active atorvastatin (Lipitor) 20 MG tablet TAKE 1 TABLET BY MOUTH DAILY IN THE MORNING 30 tablet 024 Active tiZANidine (Zanaflex) 2 MG tabletIndications :Left sided sciatica Take 1 tablet (2 mg) by mouth every 6 (six) hours if needed for muscle spasms for up to 10 days. 30 tablet 024 Active baclofen (Lioresal) 20 MG tablet Take 1 tablet (20 mg) by mouth 2 times daily. 60 tablet 024 Active Nirmatrelvir&Trent navir 300/100 (Paxlovid, 300/100,) 20 x 150 MG & 10 x 100MG tablet therapy packIndications:Franklin wiley COVID-19 Take 1 Dose by mouth 2 times daily. Do not take atorvastatin while you are taking this medication. Resume taking atorvastatin 3 days after you finish this medication (around June 21, 2024.) 1 each 024 Active lisinopril-hydroC HLOROthiazide 20-25 MG tabletIndications :Essential hypertension Take 1 tablet by mouth Once per day. 30 tablet 3 025 Active albuterol 108 (90 Base) MCG/ACT inhaler Inhale 2 puffs every 4 (four) hours if needed for wheezing or shortness of breath. 18 g 3 01/22/2 025 Active Spacer/Aero-Holdi ng Chambers (OptiChamber Randa) misc 1 each every 4 (four) hours if needed (asthma). 1 each Active azithromycin (Zithromax Z-Alejandro) 250 MG tablet Take 2 tablets once on day 1, then 1 tablet 1x/day for 4 days. 6 tablet Active clotrimazole (Lotrimin) 1 % cream APPLY TO THE AFFECTED AREA(S) TWICE DAILY FOR 28 DAYS Active PARoxetine CR (Paxil-CR) 25 MG 24 hr tablet TAKE 2 TABLETS BY MOUTH EVERY DAY 60 tablet Active nitrofurantoin, macrocrystal-mono hydrate, (Macrobid) 100 MG capsule Take 1 capsule (100 mg) by mouth 2 times daily for 5 days. 10 capsule 025 2024 Active pantoprazole (ProtoNix) 40 MG EC tablet Take 40 mg by mouth Once per day. 024 2024 Discontinued(T herapy completed) PARoxetine CR (Paxil-CR) 25 MG 24 hr tablet TAKE 2 TABLETS BY MOUTH EVERY DAY 60 tablet 024 2024 Discontinued Zepbound 2.5 MG/0.5ML solution auto-injector Inject 2.5 mg under the skin every 7 (seven) days. 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, 3 weekly IM injections of sally PCN started 04/03/2011 Pre-op examination 10/31/2023 Tubular adenoma of colon 10/31/2023 Hypertension 10/31/2023 Liver cirrhosis secondary to CLEMENTS (nonalcoholic steatohepatitis) 10/31/2023 Other cirrhosis of liver 10/24/2023 High cholesterol 06/24/2023 Severe dental caries 09/13/2022 Dental abscess 09/13/2022 Seizure disorder 05/22/2022 Obstructive sleep apnea syndrome 02/04/2018 LFT elevation 10/16/2017 Essential hypertension 12/04/2016 Recurrent major depression in partial remission 12/04/2016 Resolved Problems Problem Noted Date Diagnosed Date Resolved Date ABLA (acute blood loss anemia) 10/31/2023 01/23/2024 Acute hyperglycemia 10/31/2023 01/23/20 Other ascites 10/24/2023 01/22/2024 Shoulder pain 02/07/2018 09/17/2023 Encounters Date Type Department Care Team Description 08/24/2024 11:20 AM EDT Office Visit [facility] [address] [place] [phone] Delvis Leon MD UTI symptoms (Primary Dx); Pain of upper abdomen 08/20/2024 Refill [facility] [address] [place] [phone] Nasima Alaniz MD 08/12/2024 3:30 PM EST Office Visit [facility] [address] [place] [address] Alejandro, Lucy, OD 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 Dx) 08/12/2024 Travel 07/08/2024 4:00 PM EST Office Visit [facility] [address] [address] Delvis Leon MD Subacute cough (Primary Dx); Essential hypertension; Viral URI 06/25/2024 Telephone [facility] [address] [place] [phone] Prince Liz MA feb recalls 06/12/2024 1:20 PM EST Office Visit [facility] [address] [place] [phone] Jenni Orr MD Acute COVID-19 (Primary Dx); Cough in adult patient from Last 3 Months Immunizations Name Administration Dates Next Due Hep A, Adult 01/22/2024 Hep B, adult 01/22/2024, 8,02/26/2017,2016 Influenza injectable quadriv alent preservative free 04/01/2023,04/25/2021,03/17/2020 Influenza, IIV3, injectable 03/24/2021 Influenza, seasonal, injecta ble, preservative free 03/10/2024 Influenza, trivalent, adjuvanted 03/24/2021 Moderna Covid-19 Vaccine 12+ 07/23/2020 Pfizer Covid-19 Vaccine 12+ 05/03/2021, Pfizer Covid-19 Vaccine 12+ Bivalent 06/05/2022 Pneumococcal Conjugate PCV 20 04/22/2024 TD (adult), 2 Lf tetanus tox oid, preservative free, adsorbed 11/02/2002 Td (adult), unspecified 11/02/2002 Tdap 08/01/2021 Zoster, Recombinant 10/12/2021,08/01/2021 Family History Medical History Relation Name Comments Cancer Brother Gastric Cancer Diabetes Mother Diabetes Sister Glaucoma Sister Relation Name Status Comments Brother Mother Sister Social History Tobacco Use Types Packs/Day Years Used Date Smoking Tobacco: Never Passive Smoke Exposure: Never Smokeless Tobacco: Never Tobacco Cessation:Counseling Given: Not Answered Alcohol Use Standard Drinks/Week Comments Never 0 [...] Orientation Straight 04/16/2022 10 :31 AM EDT Last Filed Vital Signs Vital Sign Reading [...] 12.8 oz) 025 11:00 AM EDT Height 152.4 cm (5') 06/12/2024 12:53 PM EST Body Mass Index 32.38 06/12/2024 12:53 PM EST Plan of Treatment Upcoming Encounters Date Type Department Care Team (Late st Contact Info) Description 10/15/2024 9:45 AM EDT Office Visit [facility] [address] [place] [address] Name, MD Erick [address] [place] [address] 01/13/2025 3:00 PM EDT Office Visit [facility] [address] [place] [address] Lucy Allen, OD [address] [place] [address] Health Maintenance Due Date Last Done Comments CT Colonography 1960 Dental X-Ray: Full Mouth 1960 FIT DNA/Cologuard 1960 FIT 1960 FOBT 1960 HIV Screening 1960 Sigmoidoscopy 1960 RSV Patients and Patients Aged 60 years or older (1 - Risk 60-74 years 1-dose series) 2022 COVID-19 Vaccine ( season) 2024 06/05/2022, 05/03/2021, 07/23/2020, Additional history exists Depression Monitoring (PHQ-9) 03/17/2024 09/16/2023, 09/16/2023 Dental Oral Exam 05/23/2024 11/21/2023 Dental Prophylaxis 05/23/2024 11/21/2023 Hepatitis A Vaccines (2 of 2 - Risk 2-dose series) 07/24/2024 01/22/2024 Depression Screening 09/15/2024 09/16/2023, 09/16/19 24 Colonoscopy 10/10/2024 10/11/2023, 04/04/2016 Colorectal Cancer Screening 10/10/2024 Mammogram 10/20/2024 10/20/2022, 11/2022, 02/02/2021, Additional history exists SDOH Screening 10/23/2024 10/24/2023 Dental X-Ray: Bitewings 11/21/2024 11/21/2023 Alcohol/Substance Use Screening 01/21/2025 01/22/2024 Tobacco Screening 08/24/2025 08/24/2024 Cervical Cancer Screening 08/23/2026 HPV/Cotest 08/23/2026 08/23/2021 Pap Smear 08/23/2026 08/23/2021, 08/23/2021 Lipid Panel 09/29/2028 09/30/2023, 11/0 09/2022, 09/10/2022, Additional history exists DTaP/Tdap/Td Vaccines (2 - Td or Tdap) 08/01/2031 08/01/2021, 11/02/2002, 11/02/2002 Zoster Vaccines Completed 10/12/2021, 08/01/2021 Hepatitis C Screening Completed 10/25/2023, 018 Hepatitis B Vaccines Completed 01/22/2024, 07/03/2017, 02/26/2017, Additional history exists Influenza Vaccine Completed 03/10/2024, , 04/25/2021, Additional history exists Pneumococcal Vaccine: 50+ Years Completed 04/22/2024 HIB Vaccines Aged Out No longer eligi ble based on patient's age to complete this topic HPV Vaccines Aged Out No longer eligi ble based on patient's age to complete this topic IPV Vaccines Aged Out No longer eligi ble based on patient's age to complete this topic Meningococcal Vaccine Aged Out No rashad jo ann eligible based on patient's age to complete this topic RSV under 20 months Aged Out No longe r eligible based on patient's age to complete this topic Rotavirus Vaccines Aged Out No longer eligible based on patient's age to complete this topic Procedures Procedure Name Priority Date/Time Associated Diagnosis Comments POCT URINALYSIS DIPSTICK Routine 08/24/2024 11:18 AM EDT UTI symptoms AUTOMATED VISUAL FIELD, EXTENDED - OU - BOTH EYES Routine 08/12/2024 3:30 PM EST Glaucoma suspect of both eyes POCT INFLUENZA B (ID NOW RAPID MOLECULAR) Routine 07/08/2024 4:04 PM EST Viral URI POCT INFLUENZA A (ID NOW RAPID MOLECULAR) Routine 07/08/2024 4:04 PM EST Viral URI POCT RAPID COVID ANTIGEN Routine 07/08/2024 4:04 PM EST Viral URI POCT INFLUENZA B (ID NOW RAPID MOLECULAR) Routine 06/12/2024 1:18 PM EST Cough in adult patient POCT INFLUENZA A (ID NOW RAPID MOLECULAR) Routine 06/12/2024 1:17 PM EST Cough in adult patient POCT COVID-19 AG ORR ID NOW Routine 06/12/2024 1:10 PM EST Cough in adult patient Full PROPHYLAXIS - ADULT Routine 11/21/2023 1:00 PM EDT Dental plaque Dental calculus BITEWINGS - 4 RADIOGRAPHIC IMAGES Routine 11/21/2023 1:00 PM EDT PERIODIC ORAL EVALUATION - ESTABLISHED PATIENT Routine 11/21/2023 1:00 PM EDT Dental plaque Dental calculus Encounter for dental examination Dental caries HEPATITIS C AB W/REFL TO HCV RNA, QN, PCR Routine 10/25/2023 2:05 PM EDT Other cirrhosis of liver (CMS/HCC) Other ascites Acute anemia COLONOSCOPY Routine 10/11/2023 LIPID PANEL, STANDARD Routine 09/30/2023 9:01 AM EDT PE (physical exam), annual BI MAMMOGRAM SCREENING TOMOSYNTHESIS BILATERAL Routine 10/20/2022 9:00 AM EDT THINPREP IMAGING PAP AND HPV MRNA E6/E7 WITH REFLEX TO HPV 16,18/45 Routine 08/23/2021 3:53 PM EST PAP/HPV Routine 08/23/2021 from Last 3 Months or Most Recently Relevant to Health Maintenance Results * (ABNORMAL) POCT urinalysis dipstick manually [...] CARE TEST ENTER/EDIT OR DERABLES Final Result * Automated Visual Field, Extended - OU - Both Eyes (08/12/2024 3:30 PM EST) Narrative Lucy Allen, OD - 08/13/2024 2:59 PM EST VISUAL [...] VISUAL FIELD Edited Res ult - Final * Influenza B (ID NOW Rapid Molecular) (07/08/2024 4:04 PM EST) Only the most recent of2 resultswithin the time period is included. Influenza B Negative Negative, Indeterminate [facility] Swab 07/08/2024 4:04 PM EST Delvis Leon MD POINT OF CARE TEST ENTER/EDIT OR DERABLES Final Result [facility] [address] [place] [phone] * Influenza A (ID NOW Rapid Molecular) (07/08/2024 4:04 PM EST) Only the most recent of2 resultswithin the time period is included. [facility] Influenza A Negative Negative, Indeterminate [facility] Swab 07/08/2024 4:04 PM EST Delvis Leon MD POINT OF CARE TEST ENTER/EDIT OR DERABLES Final Result Performing Organization Address [facility]/ZIP Co de Phone Number [facility] [address] [place] [address] [phone] * POCT Rapid COVID Ag (07/08/2024 4:04 PM EST) [facility] Rapid COVID Ag Negative [facility] Swab 07/08/2024 4:04 PM EST Delvis Leon MD POINT OF CARE TEST ENTER/EDIT OR DERABLES Final Result Performing Organization Address [facility] de Phone Number [facility] [address] [place] [address] [phone] * (ABNORMAL) POCT Rapid Covid-19 ORR ID NOW (06/12/2024 1:10 PM EST) [facility] Coronavirus Antigen PCR Positive (A) Negative, Indeterminate, None Detected, Invalid, Specimen unsatisfactory for evaluation, Weakly Positive QC Media Lot # [id number] Lot# Expiration Date 6 Swab 06/12/2024 1:10 PM EST Jenni Orr MD POINT OF CARE TEST ENTER/EDIT ORDERABLES Final Result * Hepatitis C Antibody with Reflex to HCV, RNA, Quantitative, Real-Time PCR (10/25/2023 2:05 PM EDT) [facility] Hepatitis C Antibody Nonreactive Nonreactive [facility] Comment:Antibodies to HCV no t detected; does not exclude early acuteHCV infection. Blood Venous blood specimen / Unknown 10/25/2023 2:05 PM EDT 10/25/2023 3:55 PM EDT us Erick Zhou MD LAB BLOOD ORDERABLES Final Resul t Performing Organization Address City/[facility]/ZIP Co de Phone Number [facility] [address] [place] [address] [phone] * (ABNORMAL) Hm Colonoscopy (10/11/2023) Colonoscopy Abnormal(A ) Normal us Erick Zhou MD HEALTH MAINTENANCE Final Result * (ABNORMAL) Lipid Panel, Standard (09/30/2023 9:01 AM EDT) Triglycerides 133 <150 mg/dL [facility] Comment:Desirable Triglyceri de: less than 150 mg/dLBorderline High Triglyceride 150-199 mg/dLHigh Triglyceride: 200-499 mg/dLVery High Triglyceride: greater than or equal to 5OO mg/dL Cholesterol 153 <200 mg/dL [facility] Comment:Desirable Cholestero l: less than 200 mg/dLBorderline High Cholesterol: 200-239 mg/dLHigh Cholesterol: greater than 239 mg/dL LDL Cholesterol Calculated 90 <100 mg/dL [facility] Comment:Desirable LDL: less than 100 mg/dLNear Optimal/Above Optimal LDL: 110- 129 mg/dLBorderline High LDL: 130-159 mg/dLHigh LDL: 160-189 mg/dLVery High LDL: greater than or equal to 190 mg/dL HDL Cholesterol 37(L) >40 mg/dL [facility] Comment:Desirable HDL: great er than 40 mg/dL Note: This HDL assay may give artificially low results in patients with liver disease. Blood Venous blood specimen / Unknown 09/30/2023 9:01 AM EDT 09/30/2023 9:01 AM EDT us Erick Zhou MD LAB BLOOD ORDERABLES Final Resul t [facility] [address] [place] [address] [phone] * BI Mammogram Screening Tomosynthesis Bilateral (10/20/2022 9:00 AM EDT) Anatomical Region Laterality Modality Breast Bilateral Mammography 10/20/2022 9:00 AM EDT Narrative 10/23/2022 12:44 PM EDT ? [facility] [place] ? [address] ?[place] [address] ? Mammography Report ? Signed ? Patient: Leanne Carey ?MR#: [id number] ?? [id number] ? : 1960 ?Acct:[id number] ? Age/Sex: 62 / F ?ADM Date: 10/20/22 ? Loc: HO.MAMMO ? Attending Dr: Erick Name MD ? Ordering Physician: Name,Erick MD ?Results: 2Benign Fi ?? ndings ? Date of Service: 10/20/22 ?Follow Up: 1 Year From Orig ?? inal Mammogram ? Procedure(s): MM tomosynthesis screening BI ?? Accession Number(s): [id number] ? cc: Name,Erick CHOWDARY ? EXAMINATION: ?? MM SCREENING DIGITAL BREAST TOMOSYNTHESIS, BILATERAL ? CLINICAL INFORMATION: ? Screening. Asymptomatic. ? The lifetime risk of breast cancer based on the Tyrer-Cuzick Model is ?? 6%. ? COMPARISON: ?? Mammography: 02/02/2021, 07/09/2019, 07/02/2018, 06/19/2018, ?? 12/10/2016; outside mammography 01/25/2016 ([facility]). ? TECHNIQUE: ?? Digital breast tomosynthesis is performed in both the craniocaudal and ?? mediolateral oblique views along with computer-aided detection (CAD). ?? Synthesized 2D images are generated from the tomosynthesis. ? FINDINGS: ?? There are scattered areas of fibroglandular density (ACR BI-RADS breast ?? composition Category b). ? Breast tissue composition borders on heterogeneously dense. Parenchymal ?? pattern is similar to prior studies and there is no developing density ?? or interval mass or architectural abnormality. Parenchymal asymmetry ?? posterior outer left breast on CC view is similar to decreased from ?? multiple prior exams. Again, there are numerous random scattered ?? punctate round calcifications in both breasts. The axilla and skin ?? contours are unremarkable. No significant changes from prior studies. ? MM/MM tomosynthesis screening BI ?? IMPRESSION: ?? No mammographic evidence of malignancy. ? ASSESSMENT: ? BI-RADS 2: Benign ? RECOMMENDATION: ?? Routine annual mammography screening. ? This patient's information was entered into a reminder system with a ?? target due date for their next mammogram. ? Dictated By: ?Devendra Stiles MD ? Signed By: ?<Electronically signed by Devendra Stiles MD in OV> ?10/23/22 1242 ? DD/ 0900 ? TD/TT: ? Florist Manager: ZAPATA ? Procedure Note Dez, Image - 12/13/2022 [facility] [address] [place] [address] [place] [address] Mammography Report Signed Patient: Leanne Carey [facility]#: [id number] : 1960Acct:[id number] Age/Sex: 62 / FADM Date: 10/20/22 Loc: [place] Attending Dr: Erick Zhou MD Ordering Physician: Erick Zhouesults: 2Benign Fi ndings Date of Service: 10/20/22Follow Up: 1 Year From Orig inal Mammogram Procedure(s): MM tomosynthesis screening BI Accession Number(s): [id number] cc: Erick Zhou MD EXAMINATION: MM SCREENING DIGITAL BREAST TOMOSYNTHESIS, BILATERAL CLINICAL INFORMATION: Screening. Asymptomatic. The lifetime risk of breast cancer based on the Tyrer-Cuzick Model is 6%. COMPARISON: Mammography: 02/02/2021, 07/09/2019, 07/02/2018, 06/19/2018, 12/10/2016; outside mammography 01/25/2016 ([facility]). TECHNIQUE: Digital breast tomosynthesis is performed in both the craniocaudal and mediolateral oblique views along with computer-aided detection (CAD). Synthesized 2D images are generated from the tomosynthesis. FINDINGS: There are scattered areas of fibroglandular density (ACR BI-RADS breast composition Category b). Breast tissue composition borders on heterogeneously dense. Parenchymal pattern is similar to prior studies and there is no developing density or interval mass or architectural abnormality. Parenchymal asymmetry posterior outer left breast on CC view is similar to decreased from multiple prior exams. Again, there are numerous random scattered punctate round calcifications in both breasts. The axilla and skin contours are unremarkable. No significant changes from prior studies. MM/MM tomosynthesis screening BI IMPRESSION: No mammographic evidence of malignancy. ASSESSMENT: BI-RADS 2: Benign RECOMMENDATION: Routine annual mammography screening. This patient's information was entered into a reminder system with a target due date for their next mammogram. Dictated By: Devendra Stiles MD Signed By: <Electronically signed by Devendra Stiles MD in OV> 10/23/22 1242 DD/ 0900 TD/TT: Florist Manager: ZAPATA [facility] External Provider IMG BI PROCEDURES Final Result * THINPREP TIS PAP AND HPV mRNA E6/E7 WITH REFLEX TO HPV 16,18/45 (08/23/2021 3:53 PM EST) Clinical Information: None given [facility] COMMENT SEE COMMENT [facility] Comment: EXPLANATORY NOTE: ? The Pap is a screening test for cervical cancer. It is ?? not a diagnostic test and is subject to false negative ?? and false positive results. It is most reliable when a ?? satisfactory sample, regularly obtained, is submitted ?? with relevant clinical findings and history, and when ?? the Pap result is evaluated along with historic and ?? current clinical information. ?? COMMENT: This Pap test has been evaluated with computer assisted technology. [facility] Correction Officer Head: SEE COMMENT [facility] Comment: YP, CT(ASCP) CT screening location: [address] ??[address] HPV nRNA E6/E7 Not Detected Not Detected [facility] Comment: Methodology: Building Trades Teacher-Mediated Amplification This assay detects E6/E7 viral messenger RNA (mRNA) from 14 high-risk HPV types (16,18,31,33,35,39,45,51,52,56,58,59,66,68). ? The analytical performance characteristics of this assay have been determined by [employer]. The modifications have not been cleared or approved by the FDA. This assay has been validated pursuant to the CLIA regulations and is used for clinical purposes. ?? For additional information, please refer to http://education.SocialThreader/faq/JGZ630d4 (This link if provided for information/ educational purposes only.) Infection Shift in vaginal gina suggestive of bacterial vaginosis. [facility] Interpretation/Re sult: Negative for intraepithelial lesion or malignancy. [facility] LMP: 50 YRS OLD [facility] Prev. BX: NONE GIVEN [facility] Prev. PAP: NONE GIVEN [facility] SOURCE: None given [facility] Statement Of Adequacy: SEE COMMENT [facility] Comment: Satisfactory for evaluation. Endocervical/transformation zone component absent. 08/23/2021 3:53 PM EST us Ashley Ogelsby CNM LAB PATHOLOGY ORDERABLES Final Result [facility] [address] * Hm Pap Smear (08/23/2021) HM Pap smear Preformed us Historical Provider HEALTH MAINTENANCE Final Result from Last 3 Months or Most Recently Relevant to Health Maintenance Insurance [facility] , [address] [place] [address] DENTAL - [facility] Care Teams Quality Analyst/Technical Writer Relationship Specialty Start Date End Date Name, MD Erick [address] [place] [phone] PCP - General Family Medicine 11/29/16
== END 2024-08-24 17:07 | disposition home or self-care (01) ==
LOC: HO.LNP 17:06
PROVIDERS: Visit Provider Emergency Medicine
DX: R39.9 Unspecified symptoms and signs involving the genitourinary system (principal)
CPT/HCPCS: 87086

== ENCOUNTER 2024-08-27 11:26 | Outpatient (REF) | payer OTHER, SELFPAY ==
[2024-08-27 13:54] LABS: Alanine Aminotransferase 42 U/L (0-31); Albumin Level 4.1 g/dL (3.5-5.0); Alkaline Phosphatase 125 U/L (39-117); Anion Gap 12 (12-20); Aspartate Amino Transferase 42 U/L (5-31); Bilirubin Total 0.3 mg/dL (0.0-1.0); Blood Urea Nitrogen 18 mg/dL (9-16); Carbon Dioxide 32 mmol/L (22-29); Chloride 101 mmol/L (96-108); Estimated Glomerular Filt Rate > 60; Glucose Random 120 mg/dL (60-115); Potassium 3.8 mmol/L (3.3-5.1); Sodium 141 mmol/L (135-145); Total Protein 7.3 g/dL (6.5-8.0)
--- OUTSIDE RECORDS SUMMARY | 2024-08-27 14:45 | XMS_ITS | Encounter Summary ---
Author Organization [employer] [facility] Address [address] [place] [address] Care Team Providers Care Bleach Plant Operator Name Role Phone Name, Erick CHOWDARY Primary Care Provider [phone] Reason for Visit * Reason Comments Med Refill Encounter Details Date Type Department Care Team (Late st Contact Info) Description 03/17/2023 Refill [facility] [address] [place] [address] NameErick MD [address] [place] [address] Social History Tobacco Use Types Packs/Day Years [...] Description 10/15/2024 9:45 AM EDT Office Visit [facility] [address] [place] [address] Erick Zhou MD [address] [place] [address] 01/13/2025 3:00 PM EDT Office Visit [facility] OPT[facility] [address] [place], [place] [phone] Lucy Allen, OD [address] [place] [address] documented as of this encounter Visit Diagnoses Not on filedocumented in this encounter Additional Health Concerns Assessment Noted Time PHQ-9 Depression Total Score: 14 023 9:49 AM EDT documented as of this encounter Care Teams Bleach Plant Operator Relationship Specialty Start Date End Date Name, MD Erick [address] [place] [address] PCP - General Family Medicine 11/29/16 documented as of this encounter
--- OUTSIDE RECORDS SUMMARY | 2024-08-27 14:45 | XMS_ITS | Encounter Summary ---
Author Organization [employer] Address [address] [facility] 7t [place] [address] Care Team Providers Care Kindergarten Aide Name Role Phone Name, Erick CHOWDARY Primary Care Provider [phone] Encounter Details Date Type Department Care Team [...] Description 10/15/2024 9:45 AM EDT Office Visit [facility] MED[facility] [address] [place] [address] NameErick MD [address] [place] [address] 01/13/2025 3:00 PM EDT Office Visit [facility] OPTOMETRY [address] [place] [address] Alejandro, Lucy, OD [address] [place] [address] documented as of this encounter Visit Diagnoses Not on filedocumented in this encounter Additional Health Concerns Assessment Noted Time PHQ-9 Depression Total Score: 18 024 2:25 PM EDT documented as of this encounter Care Teams Kindergarten Aide Relationship Specialty Start Date End Date NameErick MD [address] [place] [address] PCP - General Family Medicine 11/29/16 documented as of this encounter
--- OUTSIDE RECORDS SUMMARY | 2024-08-27 14:45 | XMS_ITS | Clinical Summary ---
Author Organization [employer] Address [address] [place] [address] [place] [address] Care Team Providers Care Handkerchief Folder Name Role Phone Name, Erick CHOWDARY Primary Care Provider [phone] Allergies No known active allergies Medications clobetasol [...] or shortness of breath. 18 g 3 025 Active Spacer/Aero-Holdi ng Chambers (OptiChamber Randa) [...] 5 days. 10 capsule 025 2024 Active barium sulfate (Readi-Cat 2) 2 % suspension Take 450 mL by mouth every 1 (one) hour. Take 1 bottle [address] scan and the 2nd bottle [address] scan. 900 mL Active pantoprazole (ProtoNix) 40 MG EC tablet [...] Encounters Date Type Department Care Team Description 08/27/2024 Orders Only [facility] [address] [place] [address] Delvis Leon MD 08/27/2024 Telephone [facility] [address] [place] [phone] Erick Zhou MD 08/26/2024 Orders Only [facility] [address] [address] Delvis Leon MD Pain of upper abdomen (Primary Dx) 08/24/2024 11:20 AM EDT Office Visit [facility] [address] [address] Delvis Leon MD UTI symptoms (Primary Dx); Pain of upper abdomen 08/20/2024 Refill [facility] [address] [place] [address] Nasima Alaniz MD 08/12/2024 3:30 PM EST Office Visit [facility] OPTOM[facility] [address] [place] [address] Alejandro, Lucy, OD 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 Dx) 08/12/2024 Travel 07/08/2024 4:00 PM EST Office Visit [facility] [address] [place] [address] Delvis Leon MD Subacute cough (Primary Dx); Essential hypertension; Viral URI 06/25/2024 Telephone [facility] [address] [place] [address] Prince Liz MA fe recalls 06/12/2024 1:20 PM EST Office Visit [facility] [address] [place] [address] Jenni Orr MD Acute COVID-19 (Primary Dx); [...] Description 10/15/2024 9:45 AM EDT Office Visit [facility] [address] [place], [place] [phone] Name, MD Erick [address] [place], [place] [phone] 01/13/2025 3:00 PM EDT Office Visit [facility] [address] [place], [place] [phone] Alejandro, Lucy, OD [address] [place], [place] [phone] Health Maintenance Due Date Last Done Comments [...] Colorectal Cancer Screening 10/10/2024 Mammogram 10/20/2024 10/20/2022, 05/0 11/2022, 02/02/2021, Additional history exists SDOH Screening 10/23/2024 10/24/2023 Dental X-Ray: Bitewings 11/21/2024 11/21/2023 Alcohol/Substance Use Screening 01/21/2025 01/22/2024 Tobacco Screening 08/24/2025 08/24/2024 Cervical Cancer Screening 08/23/2026 HPV/Cotest 08/23/2026 08/23/2021 Pap Smear 08/23/2026 08/23/2021, 08/23/2021 Lipid Panel 09/29/2028 09/30/2023, 1109/2022, 09/10/2022, Additional history exists DTaP/Tdap/Td Vaccines (2 [...] Procedure Name Priority Date/Time Associated Diagnosis Comments COMPREHENSIVE METABOLIC PANEL Routine 08/27/2024 11:28 AM EDT Other cirrhosis of liver (CMS/HCC) CULTURE, URINE, ROUTINE Routine 08/24/2024 12:42 PM EDT UTI symptoms POCT URINALYSIS DIPSTICK Routine 08/24/2024 11:18 AM [...] of liver (CMS/HCC) Other ascites Acute anemia HM COLONOSCOPY Routine 10/11/2023 LIPID PANEL, STANDARD Routine 09/30/2023 9:01 AM EDT PE (physical exam), annual BI MAMMOGRAM SCREENING TOMOSYNTHESIS BILATERAL Routine 10/20/2022 9:00 AM EDT THINPREP IMAGING PAP AND HPV MRNA E6/E7 WITH REFLEX TO HPV 16,18/45 Routine 08/23/2021 3:53 PM EST HM PAP/HPV Routine 08/23/2021 from Last 3 Months or Most Recently Relevant to Health Maintenance Results * (ABNORMAL) Comprehensive Metabolic Panel (08/27/2024 11:28 AM EDT) Sodium 141 135 - 145 mmol/L [facility] Potassium 3.8 3.3 - 5.1 mmol/L [facility] Chloride 101 96 - 108 mmol/L [facility] Carbon Dioxide 32(H) 22 - 29 mmol/L [facility] Anion Gap 12 12 - 20 [facility] Urea Nitrogen (BUN) 18(H) 9 - 16 mg/dL [facility] Creatinine, Serum 0.83 0.5 - 1.4 mg/dL [facility] Estimated Glomerular Filt Rate >60 [facility] Comment:Chronic Kidney Disea se: Estimated GFR < 60 mL/min/1.52c1Pxjdhm Kidney Disease: Estimated GFR < 15 mL/min/1.73m2 Glucose 120(H) 60 - 115 mg/dL [facility] Calcium 9.0 8.4 - 10.2 mg/dL [facility] Bilirubin, Total 0.3 0.0 - 1.0 mg/dL [facility] Aspartate Amino Transferase 42(H) 5 - 31 U/L [facility] Alanine Aminotransferase 42(H) 0 - 31 U/L [facility] Total Protein 7.3 6.5 - 8.0 g/dL [facility] Albumin Level 4.1 3.5 - 5.0 g/dL [facility] Alkaline Phosphatase 125(H) 39 - 117 U/L [facility] Blood Venous blood specimen / Unknown 08/27/2024 11:28 AM EDT 08/27/2024 1:25 PM EDT us Erick Zhou MD LAB BLOOD ORDERABLES Final Resul t [facility] [address] [place] [phone] * Culture, Urine, Routine (08/24/2024 12:42 PM EDT) Urine Urine specimen obtained by clean catch procedure / Unknown 08/24/2024 12:42 PM EDT 08/24/2024 5:07 PM EDT Comment:UACC Narrative [facility] - 08/26/2024 10:35 AM EDT Urine Culture Report Result Urine Culture 10,000 to 50,000 cfu/ml Urine Culture Mixed bacterial gina characteristic of Urine Culture urogenital contamination. Specimen Source: Urine clean catch us Delvis Leon MD LAB MICROBIOLOGY - GENERAL ORDER OMAR Final Result [facility] [address] [place] [phone] * (ABNORMAL) POCT urinalysis dipstick manually resulted [...] Detected Urine 08/24/2024 11:1 8 AM EDT us Delvis Leon MD POINT OF CARE TEST [...] eye exam and updated OCT in 12/2024. Result Isabella Allen OD OPHTH VISUAL FIELD Edited Res ult - Final * Influenza B (ID NOW Rapid Molecular) (07/08/2024 4:04 PM EST) Only the most recent of2 resultswithin the time period is included. Influenza B Negative Negative, Indeterminate [facility] Swab 07/08/2024 4:04 PM EST Result Isabella Leon MD POINT OF CARE TEST ENTER/EDIT OR DERABLES Final Result [facility] [address] [place] [phone] * Influenza A (ID NOW Rapid Molecular) (07/08/2024 4:04 PM EST) Only the most recent of2 resultswithin the time period is included. Influenza A Negative Negative, Indeterminate [facility] Swab 07/08/2024 4:04 PM EST Result Isabella Leon MD POINT OF CARE TEST ENTER/EDIT OR DERABLES Final Result Performing Organization Address [facility] [place] [facility]/ZIP Co de Phone Number [facility] [address] [place] [phone] * POCT Rapid COVID Ag (07/08/2024 4:04 PM EST) Rapid COVID Ag Negative [facility] Swab 07/08/2024 4:04 PM EST Delvis Leon MD POINT OF CARE TEST ENTER/EDIT OR DERABLES Final Result Performing Organization Address [facility] [place] [facility] Co de Phone Number [facility] [address] [place] [phone] * (ABNORMAL) POCT Rapid Covid-19 ORR ID NOW (06/12/2024 1:10 PM EST) [facility] Coronavirus Antigen PCR Positive (A) Negative, Indeterminate, None Detected, Invalid, Specimen unsatisfactory for evaluation, Weakly Positive QC Media Lot # [id number] Lot# Expiration Date Swab 06/12/2024 1:10 PM EST Jenni Orr MD POINT OF CARE TEST ENTER/EDIT ORDERABLES Final Result * Hepatitis C Antibody with Reflex to HCV, RNA, Quantitative, Real-Time PCR (10/25/2023 2:05 PM EDT) [facility] Hepatitis C Antibody Nonreactive Nonreactive [facility] Comment:Antibodies to HCV no t detected; does not exclude early acuteHCV infection. Blood Venous blood specimen / Unknown 10/25/2023 2:05 PM EDT 10/25/2023 3:55 PM EDT Erick Zhou MD LAB BLOOD ORDERABLES Final Resul t Performing Organization Address [facility] [place] [facility] Co de Phone Number [facility] [address] [place] [phone] * (ABNORMAL) Colonoscopy (10/11/2023) Colonoscopy Abnormal(A ) Normal us Erick Zhou MD HEALTH MAINTENANCE Final Result * (ABNORMAL) Lipid Panel, Standard (09/30/2023 9:01 AM EDT) Triglycerides 133 <150 mg/dL [facility] Comment:Desirable Triglyceri de: less than 150 mg/dLBorderline High Triglyceride 150-199 mg/dLHigh Triglyceride: 200-499 mg/dLVery High Triglyceride: greater than or equal to 5OO mg/dL Cholesterol 153 <200 mg/dL [facility] Comment:Desirable Cholestero l: less than 200 mg/dLBorderline High Cholesterol: 200-239 mg/dLHigh Cholesterol: greater than 239 mg/dL LDL Cholesterol Calculated 90 <100 mg/dL [facility] Comment:Desirable LDL: less than 100 mg/dLNear Optimal/Above Optimal LDL: 110- 129 mg/dLBorderline High LDL: 130-159 mg/dLHigh LDL: 160-189 mg/dLVery High LDL: greater than or equal to 190 mg/dL HDL Cholesterol 37(L) >40 mg/dL [facility] Comment:Desirable HDL: great er than 40 mg/dL Note: This HDL assay may give artificially low results in patients with liver disease. Blood Venous blood specimen / Unknown 09/30/2023 9:01 AM EDT 09/30/2023 9:01 AM EDT us Erick Zhou MD LAB BLOOD ORDERABLES Final Resul t [facility] [address] [place] [phone] * BI Mammogram Screening Tomosynthesis Bilateral (10/20/2022 9:00 AM EDT) Anatomical Region Laterality Modality Breast Bilateral Mammography 10/20/2022 9:00 AM EDT Narrative 10/23/2022 12:44 PM EDT ? [facility] ? [address] ?[place] [address] ? Mammography Report ? Signed ? Patient: Carey,Muriel ?MR#: [id number] ?? [id number] ? : 1960 ?Acct:[id number] ? Age/Sex: 62 / F ?ADM Date: 10/20/22 ? Loc: HO.MAMMO ? Attending Dr: Erick Zhou MD ? Ordering Physician: Erick Zhou MD ?Results: 2Benign Fi ?? ndings ? Date of Service: 10/20/22 ?Follow Up: 1 Year From Orig ?? inal Mammogram ? Procedure(s): MM tomosynthesis screening BI ?? Accession Number(s): [id number] ? cc: Erick Zhou MD ? EXAMINATION: ?? MM SCREENING DIGITAL BREAST TOMOSYNTHESIS, BILATERAL ? CLINICAL INFORMATION: ? Screening. Asymptomatic. ? The lifetime risk of breast cancer based on the Tyrer-Cuzick Model is ?? 6%. ? COMPARISON: ?? Mammography: 02/02/2021, 07/09/2019, 07/02/2018, 06/19/2018, ?? 12/10/2016; outside mammography 01/25/2016 ([facility]). ? TECHNIQUE: ?? Digital breast tomosynthesis is [...] 1242 ? DD/ 0900 ? TD/TT: ? Voicer: ZAPATA ? Procedure Note Dez, Image - 12/13/2022 [facility] [address] [place] [address] Mammography Report Signed Patient: Leanne Carey MMR#: [id number] : 1960Acct:[id number] Age/Sex: 62 / FADM Date: 10/20/22 Loc: [place] Attending Dr: Erick Zhou MD Ordering Physician: Erick Zhou MDResults: 2Benign Fi ndings Date of Service: 10/20/22Follow Up: 1 Year From Orig inal Mammogram Procedure(s): MM tomosynthesis screening BI Accession Number(s): [id number] cc: Erick Zhou MD EXAMINATION: MM SCREENING DIGITAL BREAST TOMOSYNTHESIS, BILATERAL CLINICAL INFORMATION: Screening. Asymptomatic. The lifetime risk of breast cancer based on the Tyrer-Cuzick Model is 6%. COMPARISON: Mammography: 02/02/2021, 07/09/2019, 07/02/2018, 06/19/2018, 12/10/2016; outside mammography 01/25/2016 ([facility]). TECHNIQUE: Digital breast tomosynthesis is performed in [...] in OV> 10/23/22 1242 DD/ 0900 TD/TT: Voicer: ZAPATA [facility] External Provider IMG BI PROCEDURES Final Result * THINPREP TIS PAP AND HPV mRNA E6/E7 WITH REFLEX TO HPV 16,18/45 (08/23/2021 3:53 PM EST) Clinical Information: None given [facility] COMMENT SEE COMMENT [facility] ON [...] has been evaluated with computer assisted technology. [facility] Laster Hand: SEE COMMENT [facility] Comment: YP, CT(ASCP) CT screening location: [address] ??[address] HPV nRNA E6/E7 Not Detected Not Detected [facility] Comment: Methodology: Supervisor Cold Rolling-Mediated Amplification This assay detects E6/E7 viral messenger RNA (mRNA) from 14 high-risk HPV types (16,18,31,33,35,39,45,51,52,56,58,59,66,68). ? The analytical performance characteristics of this assay have been determined by [employer]. The modifications have not been cleared or approved by the FDA. This assay has been validated pursuant to the CLIA regulations and is used for clinical purposes. ?? For additional information, please refer to http://education.testbirds/faq/TMU398l0 (This link if provided for information/ educational purposes only.) Infection Shift in vaginal gina suggestive of bacterial vaginosis. [facility] Interpretation/Re sult: Negative for intraepithelial lesion or malignancy. [facility] LMP: 48 YRS OLD [facility] Prev. BX: NONE GIVEN [facility] Prev. PAP: NONE GIVEN [facility] SOURCE: None given [facility] Statement Of Adequacy: SEE COMMENT [facility] Comment: Satisfactory for evaluation. Endocervical/transformation zone component absent. 08/23/2021 3:53 PM EST Ashley Oglesby CNM LAB PATHOLOGY ORDERABLES Final Result [facility] [address] * Pap Smear (08/23/2021) HM Pap smear Preformed Historical Provider HEALTH MAINTENANCE Final Result from Last 3 Months or Most Recently Relevant to Health Maintenance Insurance [facility] , [address] [place] [address] [place], [place] [facility] * Guarantor: Leanne Carey Account Type Relation to Patient Date of Phone Billing Address Personal/Family Self [place], [place] Care Teams Handkerchief Folder Relationship Specialty Start Date End Date Name, MD Erick [address] [place] [address] PCP - General Family Medicine 11/29/16
--- OUTSIDE RECORDS SUMMARY | 2024-08-27 14:45 | XMS_ITS | Encounter Summary ---
Author Organization [employer] Address [address] [facility] 7 [place] [address] Care Team Providers Care Physical Education Instructor Name Role Phone Name, Erick CHOWDARY Primary Care Provider [phone] Reason for Visit * Reason Comments Glaucoma Suspect Encounter Details Date Type Department Care Team ([facility] st Contact Info) Description 08/12/2024 3:30 PM EST Office Visit [facility] [address] [place] [address] Alejandro, Lucy, OD [address] [place] [address] 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 Dx) [...] the past 12 months, has t he [employer], gas, oil or water company threatened to [...] 1+ NS Refraction Wearing Rx Sphere Cylinder [place] Add Right Virgil -1.75 030 +2.50 Left -1.00 -0.50 180 [...] with the content and plan as written. Organizational Development Manager Source: ___ None _X__ Bilingual Staff (Nayana Thomas) ___ Qualified Staff Helper Coordinator ___ Telephone Organizational Development Manager; ID# ___ Organizational Development Manager brought by patient (family member, friend, PAVING MACHINE OPERATOR, etc) ___ In person deaf interpreter ___ Ipad Organizational Development Manager; ID#: Language Spoken During Exam: __Spanish documented in this encounter Plan of Treatment Upcoming Encounters Date Type Department Care Team (Late st Contact Info) Description 10/15/2024 9:45 AM EDT Office Visit [facility] [address] [place], [place] [phone] Name, MD Erick [address] [place], [place] [phone] 01/13/2025 3:00 PM EDT Office Visit [facility] [address] [place], [place] [phone] Lucy Allen, OD [address] [place] [address] documented as of this encounter Procedures Procedure [...] documented as of this encounter Care Teams Physical Education Instructor Relationship Specialty Start Date End Date Name, MD Erick [address] [place] [address] PCP - General Family Medicine 11/29/16 documented as of this encounter
--- OUTSIDE RECORDS SUMMARY | 2024-08-27 14:46 | XMS_ITS | Encounter Summary ---
Author Organization [employer] Address [address] [place] [address] 7 [place] [address] Care Team Providers Care General Service Technician Name Role Phone Name, Erick CHOWDARY Primary Care Provider [phone] Reason for Visit * Reason Comments uti symptoms Encounter Details Date Type Department Care Team ([facility] st Contact Info) Description 08/24/2024 11:20 AM EDT Office Visit [facility] [address] [place] [address] Delvis Leon MD [address] [place] [address] UTI symptoms (Primary Dx); Pain of upper [...] the past 12 months, has t he [employer], gas, oil or water company threatened to [...] gastric bypass. Lives with daughter. Works in [facility] [employer] [facility]. Never smoked. LMP= years [...] Description 10/15/2024 9:45 AM EDT Office Visit [facility] [address] [place] [address] Name, MD Erick [address] [place] [address] 01/13/2025 3:00 PM EDT Office Visit [facility] [address] [place] [address] Alejandro, Lucy, OD [address] [place] [address] Scheduled Orders Name Type Priority Associated Diagnoses Orde r Schedule Helicobacter pylori??Antigen, EIA, Stool Lab Routine Pain of upper abdomen Expected: 08/24/2024 (Approximate), Expires: 08/24/2025 documented as of this encounter Procedures Procedure Name Priority Date/Time Associated Diagnosis Comments CULTURE, URINE, ROUTINE Routine 08/24/2024 12:42 PM EDT UTI symptoms POCT URINALYSIS DIPSTICK Routine 08/24/2024 11:18 AM EDT UTI symptoms documented in this encounter Results * Culture, Urine, Routine (08/24/2024 12:42 PM EDT) Urine Urine specimen obtained by clean catch procedure / Unknown 08/24/2024 12:42 PM EDT 08/24/2024 5:07 PM EDT Comment:UACC Narrative [facility] - 08/26/2024 10:35 AM EDT Urine Culture Report Result Urine Culture 10,000 to 50,000 cfu/ml Urine Culture Mixed bacterial gina characteristic of Urine Culture urogenital contamination. Specimen Source: Urine clean catch us Delvis Leon MD LAB MICROBIOLOGY - GENERAL ORDER OMAR Final Result [facility] [address] [place] [address] [phone] * (ABNORMAL) POCT urinalysis dipstick manually [...] documented as of this encounter Care Teams General Service Technician Relationship Specialty Start Date End Date Name, MD Erick [address] [place] [phone] PCP - General Family Medicine 11/29/16 documented as of this encounter
--- OUTSIDE RECORDS SUMMARY | 2024-08-27 14:46 | XMS_ITS | Encounter Summary ---
Author Organization [employer] [facility] Address [address] [place] [address] Care Team Providers Care World Renowned Chef And Restaurant Owner Name Role Phone Name, Erick CHOWDARY Primary Care Provider [phone] Encounter Details Date Type Department Care Team (Latest Contact Info) Description 12/20/2020 Abstract [facility] Dental, Provider, DDS Social History Tobacco [...] Description 10/15/2024 9:45 AM EDT Office Visit [facility] [address] [place] [address] Name, MD Erick [address] [place] [address] 01/13/2025 3:00 PM EDT Office Visit [facility] [address] [place] [address] Lucy Allen, OD [address] [place] [address] documented as of this encounter Visit Diagnoses Not on filedocumented in this encounter Care Teams World Renowned Chef And Restaurant Owner Relationship Specialty Start Date End Date Name, MD Erick [address] [place] [address] PCP - General Family Medicine 11/29/16 documented as of this encounter
--- OUTSIDE RECORDS SUMMARY | 2024-08-27 14:46 | XMS_ITS | Encounter Summary ---
Author Organization [employer] [facility] Address [address] [place] [address] Care Team Providers Care Grip Boss Name Role Phone Name, Erick CHOWDARY Primary Care Provider [phone] Encounter Details Date Type Department Care Team (Late st Contact Info) Description 11/02/2022 Abstract [facility] [address] [place] [phone] NameErick MD [address] [place] [address] Social History Tobacco Use Types Packs/Day Years [...] Description 10/15/2024 9:45 AM EDT Office Visit [facility] [address] [place] [address] NameErick MD [address] [place] [address] 01/13/2025 3:00 PM EDT Office Visit [facility] [address] [place], [place] [phone] Alejandro, Lucy, OD [address] [place] [address] documented as of this encounter Procedures Procedure [...] documented as of this encounter Care Teams Grip Boss Relationship Specialty Start Date End Date Name, MD Erick [address] [place] [address] PCP - General Family Medicine 11/29/16 documented as of this encounter
--- OUTSIDE RECORDS SUMMARY | 2024-08-27 14:46 | XMS_ITS | Encounter Summary ---
Author Organization [facility] Address [address] [place] [phone] Care Team Providers Care Financial Manager Name Role Phone Name, Erick CHOWDARY Primary Care Provider [phone] Reason for Visit * Reason Comments Follow-up Encounter Details Date Type Department Care Team (Late st Contact Info) Description 07/28/2024 4:00 PM EST Office Visit Bariatric Surgery - [place] [address] [facility] [address] [place] [phone] Gonzalez Williamson MD [address] [facility] [address] 120 [place] [address] Class 1 obesity due to excess calories [...] 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 The patient has the following comorbid conditions: [...] following reasons - Has not been effective retirement. In addition to this, oral stimulant suppressants [...] Upcoming Encounters Date Type Department Care Team ([facility] st Contact Info) Description 11/26/2024 4:15 PM EDT Office Visit Bariatric Surgery - [address] 120 [place] [phone] Gonzalez Williamson MD [address] [address] 01/05/2025 8:45 AM EDT Office Visit Obstetrics and Gynecology - [place] [address] [place] [address] Renee Hargrove, PETR [address] [place] [address] documented as of this encounter Visit Diagnoses [...] documented as of this encounter Care Teams Financial Manager Relationship Specialty Start Date End Date Name, MD Erick [address] [place], [place] PCP - General Internal Medicine 05/28/19 documented as of this encounter
--- OUTSIDE RECORDS SUMMARY | 2024-08-27 14:46 | XMS_ITS | Encounter Summary ---
Author Organization [employer] Address [address] [place] [address] Care Team Providers Care Client Server Programmer Name Role Phone Name, Erick CHOWDARY Primary Care Provider [phone] Reason for Visit * Reason Comments Med Refill Encounter Details Date Type Department Care Team ([facility] st Contact Info) Description 08/20/2024 Refill [facility] [address] [place] [address] Nasima Alaniz MD 230 [place] [address] Social History Tobacco Use Types Packs/Day Years [...] Description 10/15/2024 9:45 AM EDT Office Visit [facility] MEDICINE 230 [place] [address] Name, MD Erick 230 [place] [address] 01/13/2025 3:00 PM EDT Office Visit [facility] OPTOMETRY [address] [place] [address] Alejandro, Lucy, OD 230 [place] [address] documented as of this encounter Visit Diagnoses Not on filedocumented in this encounter Additional Health Concerns Assessment Noted Time PHQ-9 Depression Total Score: 18 024 2:25 PM EDT documented as of this encounter Care Teams Client Server Programmer Relationship Specialty Start Date End Date NameErick MD 230 [place] [address] PCP - General Family Medicine 11/29/16 documented as of this encounter
--- OUTSIDE RECORDS SUMMARY | 2024-08-27 14:46 | XMS_ITS | Encounter Summary ---
Author Organization [facility] Address [address] [place] [address] Care Team Providers Care Firer Kiln Name Role Phone Name, Erick CHOWDARY Primary Care Provider [phone] Reason for Visit * Reason Onset Date Comments prior auth 08/06/2024 Prior auth Encounter Details Date Type Department Care Team (Late Contact Info) Description 08/06/2024 Telephone Bariatric Surgery - [place] [address] [phone] Gonzalez Williamson MD [address] [address] prior auth (Prior auth) Social History Tobacco [...] PM EDT Office Visit Bariatric Surgery - [place] [address] [phone] Gonzalez Williamson MD [address] [address] 01/05/2025 8:45 AM EDT Office Visit Obstetrics and Gynecology - [place] [address] [place], [place] [phone] Renee Hargrove, JOSTIN [address] [place] [address] documented as of this encounter Visit Diagnoses Not on filedocumented in this encounter Care Teams Firer Kiln Relationship Specialty Start Date End Date Name, MD Erick [address] [place], [place] PCP - General Internal Medicine 05/28/19 documented as of this encounter
--- OUTSIDE RECORDS SUMMARY | 2024-08-27 14:46 | XMS_ITS | Clinical Summary ---
Author Organization [address] [place] [address] Address 175 [place] [address] Phone Care Team Providers Care Digital Marketing Consultant Name Role Phone Name, Erick CHOWDARY Primary Care Provider [phone] Allergies No known active allergies Medications atorvastatin [...] mouth 2 times daily. 3 Active lisinopriL (PRINIVIL,ZESTRI L) 2.5 mg tablet Take 1 Tab by mouth daily. 3 Active lisinopril-hydro CHLOROthiazide (PRINZIDE,ZESTOR ETIC) 20-25 mg per tablet Take 1 tablet by mouth daily. 1 Active PARoxetine (PAXIL) 40 mg tablet TAKE 1 TABLET BY MOUTH AT BEDTIME 1 Active topiramate (TOPAMAX) 50 mg tablet TAKE 2 TABLETS BY MOUTH EVERY DAY 4 Active tirzepatide, weight loss, (Zepbound) 2.5 mg/0.5 mL injectionIndicat ions:Class 1 obesity due to excess calories with serious comorbidity and body mass index (BMI) of 33.0 to 33.9 in adult Inject 0.5 mL (2.5 mg total) under the skin every 7 (seven) days for 4 doses. 2 mL 5 08/20/19 25 Active Problems Problem Noted Date Diagnosed Date Other complications of gastric band procedure Shoulder pain, bilateral 02/12/2011 IVA (obstructive sleep apnea) 04/05/2010 Edema 11/30/2009 Hypercholesteremia 09/08/2008 Iron deficiency anemia 12/20/2006 Class 1 obesity with body ma ss index (BMI) of 33.0 to 33.9 in adult 12/20/2006 Essential hypertension, benign 10/22/2006 Encounters Date Type Department Care Team Description 08/06/2024 Telephone Bariatric Surgery - [address] 120 [place] [address] Gonzalez Williamson MD prior auth (Prior auth) 07/28/2024 4:00 PM EST Office Visit Bariatric Surgery [address] 120 [place] [address] Gonzalez Williamson MD Class 1 obesity due to excess calories with serious comorbidity and body mass index (BMI) of 33.0 to 33.9 in adult (Primary Dx) from Last 3 Months Immunizations Name Administration Dates Next Due Hepatitis B (Wcqmbqc-K-Agktk , Recombivax HB-Adult) 19yo and older 07/03/2017,02/26/2017,12/24/2016 [...] PM EDT Office Visit Bariatric Surgery - [place] [address] [phone] Gonzalez Williamson MD [address] [address] 01/05/2025 8:45 AM EDT Office Visit Obstetrics [facility]necology - [facility] [address] [place] [address] Renee Hargrove, CNM [address] [place] [address] Health Maintenance Due Date Last Done Comments [...] Results * Cervical Cancer Screening: HPV (12/16/2023) [facility] Cervical Cancer Screening: HPV Negative, Abstracted [facility] HEALTH MAINTENANCE Final Result * Colonoscopy (10/11/2023) [facility] Colonoscopy No Interpretation , Abstracted Anatomical Region Laterality Modality Other Result [facility] HEALTH MAINTENANCE Final Result * Depression Screening (06/27/2023) [facility] Depression Screening Abstracted [facility] Provider HEALTH MAINTENANCE Final Result * HIV Screening (12/17/2016) [facility] HIV Screening Abstracted Result [facility] Provider HEALTH MAINTENANCE Final Result * Hepatitis C Screening (12/17/2016) [facility] Hepatitis C Screening Abstracted Result [facility] Provider HEALTH MAINTENANCE Final Result * Annual BMP Blood Test (02/16/2012) [facility] Annual BMP Blood Test Abstracted [facility] Provider HEALTH MAINTENANCE Final Result * (ABNORMAL) Lipid panel (02/16/2012) LDL/HDL Ratio 4 0 - 4 Triglycerides 82 0 - 150 mg/dL Cholesterol 187 0 - 200 mg/dL HDL 53 >=40 mg/dL LDL Cholesterol 118(A) 0 - 100 mg/dL Blood Venous blood specimen / Unknown us Historical Provider LAB BLOOD ORDERABLES Lorrie l Result from Last 3 Months or Most Recently Relevant to Health Maintenance Insurance [facility] Care Teams Digital Marketing Consultant Relationship Specialty Start Date End Date Name, MD Erick [address] [place] [address] PCP - General Internal Medicine 05/28/19
--- OUTSIDE RECORDS SUMMARY | 2024-08-27 14:46 | XMS_ITS | Encounter Summary ---
Author Organization [employer] Address 75 [facility] 7t [place] [address] Care Team Providers Care Coremaker Floor Name Role Phone Name, Erick CHOWDARY Primary Care Provider [phone] Encounter Details Date Type Department Care Team ([facility] st Contact Info) Description 08/27/2024 Orders Only [facility] 230 [place] [address] Delvis Leon MD 230 [place] [address] Social History Tobacco Use Types Packs/Day Years [...] Description 10/15/2024 9:45 AM EDT Office Visit [facility] MEDICINE 230 [place] [address] NameErick MD 230 [place] [address] 01/13/2025 3:00 PM EDT Office Visit [facility] OPTOMETRY [address] [place] [address] Alejandro, Lucy, OD 230 [place] [address] documented as of this encounter Visit Diagnoses Not on filedocumented in this encounter Additional Health Concerns Assessment Noted Time PHQ-9 Depression Total Score: 18 024 2:25 PM EDT documented as of this encounter Care Teams Coremaker Floor Relationship Specialty Start Date End Date NameErick MD [address] [place] [address] PCP - General Family Medicine 11/29/16 documented as of this encounter
--- OUTSIDE RECORDS SUMMARY | 2024-08-27 14:46 | XMS_ITS | Encounter Summary ---
Author Organization [employer] Address [address] [place] [address] Care Team Providers Care Customs Brokerage Manager Name Role Phone Name, Erick CHOWDARY Primary Care Provider [phone] Encounter Details Date Type Department Care Team ([facility] st Contact Info) Description 08/27/2024 Telephone [facility] 230 [place] [address] Name, MD Erick 230 [place] [address] Social History Tobacco Use Types Packs/Day Years [...] AM EDT documented as of this encounter Miscellaneous Notes * Telephone Encounter - Tiffany Ly RN - 08/27/2024 11:32 AM EDT Call received from Dr. Leon who states he will order contrast for patient's CT. * Telephone Encounter - Gus Kathleen - 08/27/2024 10:42 AM EDT Patient has a Ct scan schedule for tomorrow at 8:00 am and the hospital is requesting for provider to prescribe Readi-CAT 2 oral contrast prior to patient exam. Please advise ! documented in this encounter Plan of Treatment Upcoming Encounters Date Type Department Care Team (Late st Contact Info) Description 10/15/2024 9:45 AM EDT Office Visit [facility] MEDICINE 230 [place] [address] Name, MD Erick 230 [place] [address] 01/13/2025 3:00 PM EDT Office Visit [facility] OPTOMETRY [address] [place] [address] Lucy Allen, OD 230 [place] [address] documented as of this encounter Visit Diagnoses Not on filedocumented in this encounter Additional Health Concerns Assessment Noted Time PHQ-9 Depression Total Score: 18 024 2:25 PM EDT documented as of this encounter Care Teams Customs Brokerage Manager Relationship Specialty Start Date End Date Name, MD Erick 230 [place] [address] PCP - General Family Medicine 11/29/16 documented as of this encounter
--- OUTSIDE RECORDS SUMMARY | 2024-08-27 14:46 | XMS_ITS | Encounter Summary ---
Author Organization [employer] Address [address] [place] [address] 7t [place] [address] Care Team Providers Care Supervisor Electronics Processing Name Role Phone Name, Erick CHOWDARY Primary Care Provider [phone] Reason for Referral * Imaging (STAT) - Authorized Specialty Diagnoses / Procedures Referred By Contac t Referred To Contact Radiology Diagnoses Pain of upper abdomen Procedures CT Abdomen Pelvis w/ Contrast Dlevis Leon MD [address] [place] [address] Phone: tel: fax: [address] Phone: tel: fax: Referral ID Status Reason Start Date Expiration Date V isits Requested Visits Authorized [id number] Authorized 08/26/2024 08/26/2025 1 1 Encounter Details Date Type Department Care Team (Late st Contact Info) Description 08/26/2024 Orders Only [facility] [address] [place] [address] Delvis Leon MD [address] [place] [phone] Pain of upper abdomen (Primary Dx) Social History Tobacco Use Types [...] your housing situation today? I have sammy otilia 10/24/[address] you li [...] Office Visit [facility] MEDICINE 230 [place] [address] Name, MD Erick 230 [place] [address] 01/13/2025 3:00 PM EDT Office Visit [facility] OPTOMETRY 267 [place] [address] Lucy Allen, OD 230 [place] [address] Scheduled Orders Name Type Priority Associated Diagnoses Orde r Schedule CT Abdomen Pelvis w/ Contrast Imaging STAT Pain of upper abdomen Expected: 08/26/2024, Expires: 08/26/2025 Basic Metabolic Panel Lab Routine Pain of upper abdomen Expected: 08/26/2024 (Approximate), Expires: 08/26/2025 documented as of this encounter Visit Diagnoses Diagnosis Pain of upper abdomen- Primary documented in this encounter Additional Health Concerns Assessment Noted Time PHQ-9 Depression Total Score: 18 024 2:25 PM EDT documented as of this encounter Care Teams Supervisor Electronics Processing Relationship Specialty Start Date End Date Name, MD Erick 230 [place] [address] PCP - General Family Medicine 11/29/16 documented as of this encounter
== END 2024-08-27 11:27 | disposition home or self-care (01) ==
LOC: HO.HHCL 11:26
PROVIDERS: Visit Provider Emergency Medicine
DX: K74.69 Other cirrhosis of liver (principal); R10.10 Upper abdominal pain, unspecified
CPT/HCPCS: 36415; 80053

== ENCOUNTER 2024-08-28 08:12 | Outpatient (REF) | payer OTHER, SELFPAY ==
--- NOTE | ~2024-08-28 | CT_ITS ---
EXAMINATION: CT ABDOMEN PELVIS WITH IV CONTRAST HISTORY: LUQ ABD PAIN COMPARISON: Comparison is made with the prior examination dated 10/14/2023. TECHNIQUE: CT scan of the abdomen and pelvis was performed following administration of 85 mL Omnipaque 350 using standard departmental protocol. Coronal and sagittal reformatted images were generated and reviewed. The patient received oral contrast material. This CT exam was performed with one or more of the following dose reduction techniques: automated exposure control, adjustment of the mA and/or kV according to patient size, use of iterative reconstruction technique. DLP: 395 mGy-cm FINDINGS: LOWER CHEST: There is mild bronchiectasis and scarring at the right lung base. The visualized left lung base is clear. There is no pleural effusion. CARDIOVASCULATURE: The heart is normal in size. There is no pericardial effusion. LIVER: The liver is normal in size and contour. No liver mass is identified. The hepatic and portal veins are patent. GALLBLADDER / BILE DUCTS: The gallbladder is unremarkable. There is no intra or extrahepatic biliary ductal dilatation. SPLEEN: The spleen is normal in size. No focal splenic lesion is identified. PANCREAS: The pancreas is unremarkable in appearance. ADRENAL GLANDS: Within normal limits. KIDNEYS/RETROPERITONEUM: Again seen is extensive right renal scarring. No renal calculi are identified. There is no hydronephrosis. No renal masses are identified. LYMPH NODES: No abdominal or pelvic lymphadenopathy. VASCULATURE: The abdominal aorta is normal in caliber. MESENTERY/PERITONEUM: No free fluid. No masses. There is no free intraperitoneal gas. STOMACH: The patient is status post laparoscopic gastric banding. There is a moderate hiatal hernia. There is a diverticulum off the gastric body. SMALL BOWEL: The small bowel is normal in caliber. COLON: There is a moderate amount of stool throughout the colon. There are scattered diverticuli of the sigmoid colon, without evidence of diverticulitis. APPENDIX: Normal. URINARY BLADDER/PELVIC ORGANS: The urinary bladder is collapsed, limiting evaluation. There are multiple uterine fibroids measuring up to 2.0 cm in size. BONES / SOFT TISSUES: No suspicious bony or soft tissue abnormalities. CT/CT abdomen pelvis w IV con IMPRESSION: 1. Diverticulosis of the sigmoid colon without evidence of diverticulitis. Moderate amount of stool throughout the colon. 2. Extensive right renal scarring. 3. Fibroid uterus. Electronically signed by: Toi Felipe MD 08/28/2024 09:20 AM EDT RP
--- OUTSIDE RECORDS SUMMARY | 2024-08-28 08:19 | XMS_ITS | Encounter Summary ---
Author Organization [facility] Address [address] [place] [address] Care Team Providers Care Copier Operator Name Role Phone Name, Erick CHOWDARY Primary Care Provider [phone] Reason for Visit * Reason Comments Med Refill Encounter Details Date Type Department Care Team (Late st Contact Info) Description 03/17/2023 Refill [facility] MEDICINE [address] [place] [address] NameErick MD [address] [place] [address] Social History Tobacco Use Types Packs/Day Years [...] Description 10/15/2024 9:45 AM EDT Office Visit [facility] MEDICINE [address] [place] [address] Erick Zhou MD [address] [place] [address] 01/13/2025 3:00 PM EDT Office Visit [facility] OPTOMETRY [address] [place], [place] [phone] Lucy Allen, OD 230 [place] [address] documented as of this encounter Visit Diagnoses Not on filedocumented in this encounter Additional Health Concerns Assessment Noted Time PHQ-9 Depression Total Score: 14 023 9:49 AM EDT documented as of this encounter Care Teams Copier Operator Relationship Specialty Start Date End Date Name, MD Erick 230 [place] [address] PCP - General Family Medicine 11/29/16 documented as of this encounter
--- OUTSIDE RECORDS SUMMARY | 2024-08-28 08:19 | XMS_ITS | Encounter Summary ---
Author Organization [employer] Address 75 [facility] 7 [place] [address] Care Team Providers Care Risk Management Director Name Role Phone Name, Erick CHOWDARY Primary Care Provider [phone] Reason for Visit * Reason Comments Glaucoma Suspect Encounter Details Date Type Department Care Team ([facility] st Contact Info) Description 08/12/2024 3:30 PM EST Office Visit [facility] OPTOMETRY [address] [place] [address] Alejandro, Lucy, OD [address] [place] [address] 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 Dx) [...] the past 12 months, has t he [employer], gas, oil or water company threatened to [...] 1+ NS Refraction Wearing Rx Sphere Cylinder [place] Add Right [place] -1.75 030 +2.50 Left -1.00 -0.50 180 [...] with the content and plan as written. Mds Coordinator Source: ___ None _X__ Bilingual Staff (Nayana Thomas) ___ Qualified Staff Transporter Radiology ___ Telephone Mds Coordinator; ID# ___ Mds Coordinator brought by patient (family member, friend, ALARM INVESTIGATOR, etc) ___ In person box hinge and lock attacher ___ Ipad Mds Coordinator; ID#: Language Spoken During Exam: __Spanish documented in this encounter Plan of Treatment Upcoming Encounters Date Type Department Care Team (Late st Contact Info) Description 10/15/2024 9:45 AM EDT Office Visit [facility] 230 [place], [place] [phone] Name, MD Erick 230 [place], [place] [phone] 01/13/2025 3:00 PM EDT Office Visit [facility] OPTOMETRY [address] [place], [place] [phone] Lucy Allen, OD 230 [place] [address] documented as of this encounter Procedures Procedure [...] documented as of this encounter Care Teams Risk Management Director Relationship Specialty Start Date End Date Name, MD Erick 230 [place] [address] PCP - General Family Medicine 11/29/16 documented as of this encounter
--- OUTSIDE RECORDS SUMMARY | 2024-08-28 08:20 | XMS_ITS | Encounter Summary ---
Author Organization [employer] Address 75 [facility] 7t [place] [address] Care Team Providers Care Clinical Systems Educator Name Role Phone Name, Erick CHOWDARY Primary Care Provider [phone] Encounter Details Date Type Department Care Team [...] Visit [facility] MEDICINE 230 [place] [address] NameErick MD 230 [place] [address] 01/13/2025 3:00 PM EDT Office Visit [facility] OPTOMETRY [address] [place] [address] Alejandro, Lucy, OD 230 [place] [address] documented as of this encounter Visit Diagnoses Not on filedocumented in this encounter Additional Health Concerns Assessment Noted Time PHQ-9 Depression Total Score: 18 024 2:25 PM EDT documented as of this encounter Care Teams Clinical Systems Educator Relationship Specialty Start Date End Date NameErick MD [address] [place] [address] PCP - General Family Medicine 11/29/16 documented as of this encounter
--- OUTSIDE RECORDS SUMMARY | 2024-08-28 08:20 | XMS_ITS | Encounter Summary ---
Author Organization [employer] Address [address] [place] [address] 7 [place] [address] Care Team Providers Care Freelance Interpreter/Translator Name Role Phone Name, Erick CHOWDARY Primary Care Provider [phone] Reason for Visit * Reason Comments uti symptoms Encounter Details Date Type Department Care Team ([facility] st Contact Info) Description 08/24/2024 11:20 AM EDT Office Visit [facility] [address] [place] [address] Delvis Leon MD 230 [place] [address] UTI symptoms (Primary Dx); Pain of upper [...] the past 12 months, has t he [employer], gas, oil or water company threatened to [...] gastric bypass. Lives with daughter. Works in [facility] [employer]. Never smoked. LMP= years ago. [...] Description 10/15/2024 9:45 AM EDT Office Visit [facility] MEDICINE 230 [place] [address] Name, MD Erick 230 [place] [address] 01/13/2025 3:00 PM EDT Office Visit [facility] OPTOMETRY [address] [place] [address] Alejandro, Lucy, OD 230 [place] [address] Scheduled Orders Name Type Priority Associated Diagnoses [...] EDT 08/24/2024 5:07 PM EDT Comment:UACC Narrative [facility] - 08/26/2024 10:35 AM EDT Urine Culture Report Result Urine Culture 10,000 to 50,000 cfu/ml Urine Culture Mixed bacterial gina characteristic of Urine Culture urogenital contamination. Specimen Source: Urine clean catch us Delvis Leon MD LAB MICROBIOLOGY - GENERAL ORDER OMAR Final Result [facility] [address] [place] [phone] [phone] * (ABNORMAL) POCT urinalysis dipstick manually [...] documented as of this encounter Care Teams Freelance Interpreter/Translator Relationship Specialty Start Date End Date Name, MD Erick [address] [place] [address] PCP - General Family Medicine 11/29/16 documented as of this encounter
--- OUTSIDE RECORDS SUMMARY | 2024-08-28 08:20 | XMS_ITS | Encounter Summary ---
Author Organization [employer] Address [address] [place] [address] Care Team Providers Care Relief Docking Master Name Role Phone Name, Erick CHOWDARY Primary Care Provider [phone] Reason for Visit * Reason Comments Med Refill Encounter Details Date Type Department Care Team ([facility] st Contact Info) Description 08/20/2024 Refill [facility] 230 [place] [address] Nasima Alaniz MD 230 [place] [address] Social History Tobacco Use Types Packs/Day Years [...] Description 10/15/2024 9:45 AM EDT Office Visit [facility] MEDICINE 230 [place] [address] Name, MD Erick [address] [place] [address] 01/13/2025 3:00 PM EDT Office Visit [facility] OPTOMETRY [address] [place] [address] Alejandro, Lucy, OD 230 [place] [address] documented as of this encounter Visit Diagnoses Not on filedocumented in this encounter Additional Health Concerns Assessment Noted Time PHQ-9 Depression Total Score: 18 024 2:25 PM EDT documented as of this encounter Care Teams Relief Docking Master Relationship Specialty Start Date End Date NameErick MD [address] [place] [address] PCP - General Family Medicine 11/29/16 documented as of this encounter
--- OUTSIDE RECORDS SUMMARY | 2024-08-28 08:20 | XMS_ITS | Encounter Summary ---
Author Organization [facility] Address [address] [place] [address] Care Team Providers Care Blocker And Sewer Name Role Phone Name, Erick CHOWDARY Primary Care Provider [phone] Reason for Visit * Reason Onset Date Comments prior auth 08/06/2024 Prior auth Encounter Details Date Type Department Care Team (Late Contact Info) Description 08/06/2024 Telephone Bariatric Surgery - [place] [address] [phone] Gonzalez Williamson MD [address] [address] prior auth (Prior auth) Social History Tobacco [...] PM EDT Office Visit Bariatric Surgery - [place] [address] [phone] Gonzalez Williamson MD [address] [address] 01/05/2025 8:45 AM EDT Office Visit [facility] [place] [address] [place], [place] [phone] Renee Hargrove, JOSTIN [address] [place] [address] documented as of this encounter Visit Diagnoses Not on filedocumented in this encounter Care Teams Blocker And Sewer Relationship Specialty Start Date End Date Name, MD Erick [address] [place], [place] PCP - General Internal Medicine 05/28/19 documented as of this encounter
--- OUTSIDE RECORDS SUMMARY | 2024-08-28 08:20 | XMS_ITS | Clinical Summary ---
Author Organization [employer] Address [address] [place] [address] [place] [address] Care Team Providers Care Trouble Locator Test Desk Name Role Phone Name, Erick CHOWDARY Primary Care Provider [phone] Allergies No known active allergies Medications clobetasol [...] Department Care Team Description 08/27/2024 Orders Only [facility] [address] [place] [address] Delvis Leon MD 08/27/2024 Telephone [facility] [address] [place] [address] Erick Zhou MD 08/26/2024 Orders Only [facility] [address] [address] Delvis Leon MD Pain of upper abdomen (Primary Dx) 08/24/2024 11:20 AM EDT Office Visit [facility] [address] [address] Delvis Leon MD UTI symptoms (Primary Dx); Pain of upper abdomen 08/20/2024 Refill [facility] [address] [place] [address] Nasima Alaniz MD 08/12/2024 3:30 PM EST Office Visit [facility] [address] [place] [address] Alejandro, Lucy, OD 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 Dx) 08/12/2024 Travel 07/08/2024 4:00 PM EST Office Visit [facility] [address] [place] [address] Delvis Leon MD Subacute cough (Primary Dx); Essential hypertension; Viral URI 06/25/2024 Telephone [facility] [address] [place] [address] Prince Liz MA fe recalls 06/12/2024 1:20 PM EST Office Visit [facility] [address] [place] [address] Jenni Orr MD Acute COVID-19 (Primary Dx); [...] Description 10/15/2024 9:45 AM EDT Office Visit [facility] [address] [place], [place] [phone] Name, MD Erick [address] [place], [place] [phone] 01/13/2025 3:00 PM EDT Office Visit [facility] [address] [place], [place] [phone] Alejandro, Lucy, OD [address] [place], [place] [phone] Health Maintenance Due Date Last Done Comments [...] EDT) Sodium 141 135 - 145 mmol/L [facility] Potassium 3.8 3.3 - 5.1 mmol/L [facility] Chloride 101 96 - 108 mmol/L [facility] Carbon Dioxide 32(H) 22 - 29 mmol/L [facility] Anion Gap 12 12 - 20 [facility] Urea Nitrogen (BUN) 18(H) 9 - 16 mg/dL [facility] Creatinine, Serum 0.83 0.5 - 1.4 mg/dL [facility] Estimated Glomerular Filt Rate >60 [facility] Comment:Chronic Kidney Disea se: Estimated GFR < 60 mL/min/[id number] Kidney Disease: Estimated GFR < 15 mL/min/1.73m2 Glucose 120(H) 60 - 115 mg/dL [facility] Calcium 9.0 8.4 - 10.2 mg/dL [facility] Bilirubin, Total 0.3 0.0 - 1.0 mg/dL [facility] Aspartate Amino Transferase 42(H) 5 - 31 U/L [facility] Alanine Aminotransferase 42(H) 0 - 31 U/L [facility] Total Protein 7.3 6.5 - 8.0 g/dL [facility] Albumin Level 4.1 3.5 - 5.0 g/dL [facility] Alkaline Phosphatase 125(H) 39 - 117 U/L [facility] Blood Venous blood specimen / Unknown 08/27/2024 11:28 AM EDT 08/27/2024 1:25 PM EDT us Erick Zhou MD LAB BLOOD ORDERABLES Final Resul t [facility] [address] [place] [phone] * Culture, Urine, Routine (08/24/2024 12:42 PM EDT) Urine Urine specimen obtained by clean catch procedure / Unknown 08/24/2024 12:42 PM EDT 08/24/2024 5:07 PM EDT Comment:UACC Narrative [facility] - 08/26/2024 10:35 AM EDT Urine Culture Report Result Urine Culture 10,000 to 50,000 cfu/ml Urine Culture Mixed bacterial gina characteristic of Urine Culture urogenital contamination. Specimen Source: Urine clean catch us Delvis Leon MD LAB MICROBIOLOGY - GENERAL ORDER OMAR Final Result [facility] [address] [place] [phone] * (ABNORMAL) POCT urinalysis dipstick manually [...] is included. Influenza B Negative Negative, Indeterminate [facility] Swab 07/08/2024 4:04 PM EST Result Isabella Leon MD POINT OF CARE TEST ENTER/EDIT OR DERABLES Final Result [facility] [address] [place] [phone] * Influenza A (ID NOW Rapid Molecular) (07/08/2024 4:04 PM EST) Only the most recent of2 resultswithin the time period is included. Influenza A Negative Negative, Indeterminate [facility] Swab 07/08/2024 4:04 PM EST Result Isabella Leon MD POINT OF CARE TEST ENTER/EDIT OR DERABLES Final Result Performing Organization Address [facility]/ZIP Co de Phone Number [facility] [address] [place] [phone] * POCT Rapid COVID Ag (07/08/2024 4:04 PM EST) Rapid COVID Ag Negative [facility] Swab 07/08/2024 4:04 PM EST Delvis Leon MD POINT OF CARE TEST ENTER/EDIT OR DERABLES Final Result Performing Organization Address [facility] Co de Phone Number [facility] [address] [place] [phone] * (ABNORMAL) POCT Rapid Covid-19 ORR ID NOW (06/12/2024 1:10 PM EST) [facility] Coronavirus Antigen PCR Positive (A) Negative, Indeterminate, None Detected, Invalid, Specimen unsatisfactory for evaluation, Weakly Positive QC Media Lot # [id number] Lot# Expiration Date Swab 06/12/2024 1:10 PM EST Jenni Orr MD POINT OF CARE TEST ENTER/EDIT ORDERABLES Final Result * Hepatitis C Antibody with Reflex to HCV, RNA, Quantitative, Real-Time PCR (10/25/2023 2:05 PM EDT) [facility] Hepatitis C Antibody Nonreactive Nonreactive [facility] Comment:Antibodies to HCV no t detected; does not exclude early acuteHCV infection. Blood Venous blood specimen / Unknown 10/25/2023 2:05 PM EDT 10/25/2023 3:55 PM EDT Erick Zhou MD LAB BLOOD ORDERABLES Final Resul t Performing Organization Address [facility] Co de Phone Number [facility] [address] [place] [phone] * (ABNORMAL) Colonoscopy (10/11/2023) Colonoscopy Abnormal(A ) Normal us Erick Zhou MD HEALTH MAINTENANCE Final Result * (ABNORMAL) Lipid Panel, Standard (09/30/2023 9:01 AM EDT) Triglycerides 133 <150 mg/dL [facility] Comment:Desirable Triglyceri de: less than 150 mg/dLBorderline High Triglyceride 150-199 mg/dLHigh Triglyceride: 200-499 mg/dLVery High Triglyceride: greater than or equal to 5OO mg/dL Cholesterol 153 <200 mg/dL [facility] Comment:Desirable Cholestero l: less than 200 mg/dLBorderline High Cholesterol: 200-239 mg/dLHigh Cholesterol: greater than 239 mg/dL LDL Cholesterol Calculated 90 <100 mg/dL [facility] Comment:Desirable LDL: less than 100 mg/dLNear Optimal/Above Optimal LDL: 110- 129 mg/dLBorderline High LDL: 130-159 mg/dLHigh LDL: 160-189 mg/dLVery High LDL: greater than or equal to 190 mg/dL HDL Cholesterol 37(L) >40 mg/dL [facility] Comment:Desirable HDL: great er than 40 mg/dL Note: This HDL assay may give artificially low results in patients with liver disease. Blood Venous blood specimen / Unknown 09/30/2023 9:01 AM EDT 09/30/2023 9:01 AM EDT us Erick Zhou MD LAB BLOOD ORDERABLES Final Resul t [facility] [address] [place] [phone] * BI Mammogram Screening Tomosynthesis Bilateral (10/20/2022 9:00 AM EDT) Anatomical Region Laterality Modality Breast Bilateral Mammography 10/20/2022 9:00 AM EDT Narrative 10/23/2022 12:44 PM EDT ? [facility] ? [address] ?[place] [address] ? Mammography Report ? Signed ? Patient: Carey,Muriel ?MR#: [id number] ?? [id number] ? : 1960 ?Acct:[id number] ? Age/Sex: 62 / F ?ADM Date: 10/20/22 ? Loc: HO.MAMMO ? Attending Dr: Erick Zhou MD ? Ordering Physician: Erick Zhou MD ?Results: 2Benign Fi ?? ndings ? Date of Service: 10/20/22 ?Follow Up: 1 Year From Orig ?? inal Mammogram ? Procedure(s): MM tomosynthesis screening BI ?? Accession Number(s): [id number] ? cc: Erick Zhou MD ? EXAMINATION: ?? MM SCREENING DIGITAL BREAST TOMOSYNTHESIS, BILATERAL ? CLINICAL INFORMATION: ? Screening. Asymptomatic. ? The lifetime risk of breast cancer based on the Tyrer-Cuzick Model is ?? 6%. ? COMPARISON: ?? Mammography: 02/02/2021, 07/09/2019, 07/02/2018, 06/19/2018, ?? 12/10/2016; outside mammography 01/25/2016 ([facility]). ? TECHNIQUE: ?? Digital breast tomosynthesis [...] 1242 ? DD/ 0900 ? TD/TT: ? Water Main Pipe Layer: ZAPATA ? Procedure Note Dez, Image - 12/13/2022 [facility] [address] [place] [address] Mammography Report Signed Patient: Leanne Carey MMR#: [id number] : 1960Acct:[id number] Age/Sex: 62 / FADM Date: 10/20/22 Loc: [place] Attending Dr: Erick Zhou MD Ordering Physician: Erick Zhou MDResults: 2Benign Fi ndings Date of Service: 10/20/22Follow Up: 1 Year From Orig inal Mammogram Procedure(s): MM tomosynthesis screening BI Accession Number(s): [id number] cc: Erick Zhou MD EXAMINATION: MM SCREENING DIGITAL BREAST TOMOSYNTHESIS, BILATERAL CLINICAL INFORMATION: Screening. Asymptomatic. The lifetime risk of breast cancer based on the Tyrer-Cuzick Model is 6%. COMPARISON: Mammography: 02/02/2021, 07/09/2019, 07/02/2018, 06/19/2018, 12/10/2016; outside mammography 01/25/2016 ([facility]). TECHNIQUE: Digital breast tomosynthesis is performed [...] in OV> 10/23/22 1242 DD/ 0900 TD/TT: Water Main Pipe Layer: ZAPATA [facility] External Provider IMG BI PROCEDURES Final Result * THINPREP TIS PAP AND HPV mRNA E6/E7 WITH REFLEX TO HPV 16,18/45 (08/23/2021 3:53 PM EST) Clinical Information: None given [facility] COMMENT SEE COMMENT FOUNDAT[facility] ON [...] has been evaluated with computer assisted technology. [facility] Director Statistical Programming: SEE COMMENT [facility] Comment: YP, CT(ASCP) CT screening location: [address] ??[address] HPV nRNA E6/E7 Not Detected Not Detected [facility] Comment: Methodology: Leather Heel Breaster-Mediated Amplification This assay detects E6/E7 viral messenger RNA (mRNA) from 14 high-risk HPV types (16,18,31,33,35,39,45,51,52,56,58,59,66,68). ? The analytical performance characteristics of this assay have been determined by [employer]. The modifications have not been cleared or approved by the FDA. This assay has been validated pursuant to the CLIA regulations and is used for clinical purposes. ?? For additional information, please refer to http://education.AwayFind/faq/INV334c0 (This link if provided for information/ educational purposes only.) Infection Shift in vaginal gina suggestive of bacterial vaginosis. [facility] Interpretation/Re sult: Negative for intraepithelial lesion or malignancy. [facility] LMP: 48 YRS OLD [facility] Prev. BX: NONE GIVEN [facility] Prev. PAP: NONE GIVEN [facility] SOURCE: None given [facility] Statement Of Adequacy: SEE COMMENT [facility] Comment: Satisfactory for evaluation. Endocervical/transformation zone component absent. 08/23/2021 3:53 PM EST Ashley Oglesby CNM LAB PATHOLOGY ORDERABLES Final Result [facility] [address] * Pap Smear (08/23/2021) HM Pap smear Preformed Historical Provider HEALTH MAINTENANCE Final Result from Last 3 Months or Most Recently Relevant to Health Maintenance Insurance [facility] , [address] [place] [address] [place], [place] DENTAL - [facility] * Guarantor: Leanne Carey Account Type Relation to Patient Date of Phone Billing Address Personal/Family Self [place], [place] Care Teams Trouble Locator Test Desk Relationship Specialty Start Date End Date Name, MD Erick [address] [place] [address] PCP - General Family Medicine 11/29/16
--- OUTSIDE RECORDS SUMMARY | 2024-08-28 08:21 | XMS_ITS | Clinical Summary ---
Author Organization [address] [place] [address] Address [address] [place] [address] Phone Care Team Providers Care Geomagnetist Name Role Phone Name, Erick CHOWDARY Primary Care Provider [phone] Allergies No known active allergies Medications atorvastatin [...] Team Description 08/06/2024 Telephone Bariatric Surgery - [address] [place] [address] Gonzalez Williamson MD prior auth (Prior auth) 07/28/2024 4:00 PM EST Office Visit Bariatric Surgery [address] [place] [address] Gonzalez Williamson MD Class 1 obesity due to excess calories with serious comorbidity and body mass index (BMI) of 33.0 to 33.9 in adult (Primary Dx) from Last 3 Months Immunizations Name Administration Dates Next Due Hepatitis B (Cvnkqbd-C-Mgmqv , Recombivax HB-Adult) 19yo and older 07/03/2017,02/26/2017,12/24/2016 [...] PM EDT Office Visit Bariatric Surgery - [place] [address] [phone] Gonzalez Williamson MD [address] [address] 01/05/2025 8:45 AM EDT [facility] [address] [place] [address] Renee Hargrove, CNM [address] [place] [address] Health Maintenance Due Date Last Done Comments [...] Results * Cervical Cancer Screening: HPV (12/16/2023) [facility] Cervical Cancer Screening: HPV Negative, Abstracted [facility] HEALTH MAINTENANCE Final Result * Colonoscopy (10/11/2023) [facility] Colonoscopy No Interpretation , Abstracted Anatomical Region Laterality Modality Other Result [facility] HEALTH MAINTENANCE Final Result * Depression Screening (06/27/2023) [facility] Depression Screening Abstracted [facility] Provider HEALTH MAINTENANCE Final Result * HIV Screening (12/17/2016) [facility] HIV Screening Abstracted Result [facility] Provider HEALTH MAINTENANCE Final Result * Hepatitis C Screening (12/17/2016) [facility] Hepatitis C Screening Abstracted Result [facility] Provider HEALTH MAINTENANCE Final Result * Annual BMP Blood Test (02/16/2012) [facility] Annual BMP Blood Test Abstracted [facility] Provider HEALTH MAINTENANCE Final Result [...] Recently Relevant to Health Maintenance Insurance [facility] Care Teams Geomagnetist Relationship Specialty Start Date End Date Name, MD Erick [address] [place] [address] PCP - General Internal Medicine 05/28/19
--- OUTSIDE RECORDS SUMMARY | 2024-08-28 08:21 | XMS_ITS | Encounter Summary ---
Author Organization [facility] Address [address] [place] [address] 7t [place] [address] Care Team Providers Care Sales Support Administrator Name Role Phone Name, Erick CHOWDARY Primary Care Provider [phone] Reason for Referral * Imaging (STAT) - Authorized Specialty Diagnoses / Procedures Referred By Contac t Referred To Contact Radiology Diagnoses Pain of upper abdomen Procedures CT Abdomen Pelvis w/ Contrast Delvis Leon MD [address] [place] [address] Phone: tel: fax: [address] Phone: tel: fax: Referral ID Status Reason Start Date Expiration Date V isits Requested Visits Authorized [id number] Authorized 08/26/2024 08/26/2025 1 1 Encounter Details Date Type Department Care Team (Late st Contact Info) Description 08/26/2024 Orders Only [facility] [address] [place] [phone] Delvis Leon MD [address] [place] [phone] Pain of upper abdomen (Primary Dx) Social [...] 9:45 AM EDT Office Visit [facility] MEDIC[facility] [address] [place] [address] Name, MD Erick [address] [place] [address] 01/13/2025 3:00 PM EDT Office Visit [facility] [address] [place] [address] Lucy Allen, OD [address] [place] [address] Scheduled Orders Name Type Priority Associated Diagnoses [...] documented as of this encounter Care Teams Sales Support Administrator Relationship Specialty Start Date End Date Name, MD Erick [address] [place] [address] PCP - General Family Medicine 11/29/16 documented as of this encounter
--- OUTSIDE RECORDS SUMMARY | 2024-08-28 08:21 | XMS_ITS | Encounter Summary ---
Author Organization [employer] Address [address] [place] [address] Care Team Providers Care Sap Bw Consultant Name Role Phone Name, Erick CHOWDARY Primary Care Provider [phone] Encounter Details Date Type Department Care Team ([facility] st Contact Info) Description 08/27/2024 Telephone [employer] [facility] [address] [place] [address] Name, MD Erick [address] [place] [address] Social History Tobacco Use Types Packs/Day Years [...] 10/15/2024 9:45 AM EDT Office Visit [facility] MEDIC[facility] [address] [place] [address] Name, MD Erick [address] [place] [address] 01/13/2025 3:00 PM EDT Office Visit [facility] OPT[facility] [address] [place] [address] Lucy Allen, OD [address] [place] [address] documented as of this encounter Visit Diagnoses Not on filedocumented in this encounter Additional Health Concerns Assessment Noted Time PHQ-9 Depression Total Score: 18 024 2:25 PM EDT documented as of this encounter Care Teams Sap Bw Consultant Relationship Specialty Start Date End Date Name, MD Erick [address] [place] [address] PCP - General Family Medicine 11/29/16 documented as of this encounter
--- OUTSIDE RECORDS SUMMARY | 2024-08-28 08:21 | XMS_ITS | Encounter Summary ---
Author Organization [employer] [facility] Address [address] [place] [address] Care Team Providers Care Human Resources Representative Name Role Phone Name, Erick CHOWDARY Primary Care Provider [phone] Encounter Details Date Type Department Care Team (Late st Contact Info) Description 11/02/2022 Abstract [facility] MEDICINE [address] [place] [phone] NameErick MD [address] [place] [address] Social History Tobacco Use Types Packs/Day Years [...] Office Visit [facility] [address] [place] [address] NameErick MD [address] [place] [address] 01/13/2025 3:00 PM EDT Office Visit [facility] [address] [place], [place] [phone] Alejandro, Lucy, OD [address] [place] [address] documented as of this encounter Procedures Procedure [...] documented as of this encounter Care Teams Human Resources Representative Relationship Specialty Start Date End Date Name, MD Erick [address] [place] [address] PCP - General Family Medicine 11/29/16 documented as of this encounter
--- OUTSIDE RECORDS SUMMARY | 2024-08-28 08:21 | XMS_ITS | Encounter Summary ---
Author Organization [employer] [facility] Address [address] [place] [address] Care Team Providers Care Cable Systems Installer Name Role Phone Name, Erick CHOWDARY Primary Care Provider [phone] Encounter Details Date Type Department Care Team (Latest Contact Info) Description 12/20/2020 Abstract [facility] CONVERSIONS Dental, Provider, DDS Social History [...] 9:45 AM EDT Office Visit [facility] MEDICINE [address] [place] [address] Name, MD Erick [address] [place] [address] 01/13/2025 3:00 PM EDT Office Visit [facility] OPT[facility] [address] [place] [address] Lucy Allen, OD [address] [place] [address] documented as of this encounter Visit Diagnoses Not on filedocumented in this encounter Care Teams Cable Systems Installer Relationship Specialty Start Date End Date Name, MD Erick [address] [place] [address] PCP - General Family Medicine 11/29/16 documented as of this encounter
--- OUTSIDE RECORDS SUMMARY | 2024-08-28 08:21 | XMS_ITS | Encounter Summary ---
Author Organization [employer] Address [address] [facility] 7t [place] [address] Care Team Providers Care Manager Dairy Name Role Phone Name, Erick CHOWDARY Primary Care Provider Encounter Details Date Type Department Care Team ([facility] st Contact Info) Description 08/27/2024 Orders Only [facility] [address] [place] [address] Delvis Leon MD [address] [place] [address] Social History Tobacco Use Types Packs/Day Years [...] Description 10/15/2024 9:45 AM EDT Office Visit [facility] MED[facility] [address] [place] [address] NameErick MD [address] [place] [address] 01/13/2025 3:00 PM EDT Office Visit [facility] OPT[facility] [address] [place] [address] Alejandro, Lucy, OD [address] [place] [address] documented as of this encounter Visit Diagnoses Not on filedocumented in this encounter Additional Health Concerns Assessment Noted Time PHQ-9 Depression Total Score: 18 024 2:25 PM EDT documented as of this encounter Care Teams Manager Dairy Relationship Specialty Start Date End Date NameErick MD [address] [place] [address] PCP - General Family Medicine 11/29/16 documented as of this encounter
[2024-08-28] MEDS: iohexoL 350 MG/ML 100 ML INFUS..BTL 85 ML IV (08:51)
== END 2024-08-28 08:13 | disposition home or self-care (01) ==
LOC: HO.CT 08:12
PROVIDERS: PCP Internal Medicine Geriatric Medicine; Visit Provider Emergency Medicine
DX: R10.10 Upper abdominal pain, unspecified (principal)
CPT/HCPCS: 74177; Q9967

== ENCOUNTER → 2024-08-28 08:14 | Outpatient (BNV) | payer OTHER, SELFPAY | PROVIDERS: PCP Internal Medicine Geriatric Medicine; Visit Provider Radiology Diagnostic Radiology | DX: K57.30 Diverticulosis of large intestine without perforation or abscess without bleeding (principal); D25.9 Leiomyoma of uterus, unspecified | CPT/HCPCS: 74177 ==

== ENCOUNTER 2024-09-01 16:27 | Outpatient (REF) | payer OTHER, SELFPAY | END 2024-09-01 16:28 | disposition home or self-care (01) | LOC: HO.HHCLNP 16:27 | PROVIDERS: Visit Provider Emergency Medicine | DX: R10.10 Upper abdominal pain, unspecified (principal) | CPT/HCPCS: 87338 ==

== ENCOUNTER 2024-09-09 15:28 | Outpatient (AMB) | payer OTHER, SELFPAY ==
--- NOTE | 2024-09-09 15:43 | HO.NEPHOV_ITS ---
Vital Signs 09/09/24 15:44 Height 5 ft Weight 170 lb 2 oz BMI 33.2 BP 100/70 Blood Pressure Location Lt brachial Position Sitting Pulse 74 Pulse Source Pulse Oximeter Pulse Oximetry (%) 97 Oxygen Delivery Method Room Air Intake Visit Reasons: ENP: Renal Scarring-Conf Direct Care Worker Required: No Accompanied by: Self / Same As Patient Allergies No Known Allergies [No Known Allergies*] Allergy (Mild, Verified 09/09/24 15:44) NOT APPLICABLE HPI Comments Details: I had the pleasure of seeing Leanne in consultation for extensive right renal scarring with a recent BUN of 18. She denied any childhood UTI's but had very frequent UTI as well pyelonephritis during her 2nd and 3rd decades of life. She developed hypertension during her fourth decade of life and has been on medication since. She has no H/O small kidney or proteinuria. She is not a diabetic but has CLEMENTS. She denies any hematuria, renal calculus, flank pain or any interventions. Her serum creatinine is normal and did not have any systemic complaints at the time of this office visit. [facility] Medical History (Updated 09/09/24 @ 22:02 by Paresh Fajardo MD) Liver cirrhosis secondary to CLEMENTS (nonalcoholic steatohepatitis) Tubular adenoma of colon Positive serological reaction for syphilis Obesity Family history of colon cancer Depression Chronic low back pain with right-sided sciatica Benign paroxysmal positional vertigo Abdominal pain Other cirrhosis of liver High cholesterol Dental abscess Severe dental caries Seizure disorder Recurrent major depression in partial remission Obstructive sleep apnea syndrome LFT elevation Hypertension Hemoperitoneum Surgical History History of tubal ligation Personal history of gastric banding Social History Household Members: Family Housing: House Do you presently have visiting nurse or other home services: No Alcohol intake: never Patient Tobacco Use Status: Never used Tobacco service: No Review of Systems Const All systems reviewed & are unremarkable except as noted in HPI and below Physical Exam Vital Signs: Last Vital Signs Pulse 74 09/09/24 15:44 BP 100/70 09/09/24 15:44 Pulse Ox 97 09/09/24 15:44 Oxygen Delivery Method Room Air 09/09/24 15:44 BMI result Body Mass Index 33.2 Const General: comfortable and no acute distress Orientation/consciousness: patient oriented x3 HEENT Head: Yes normocephalic Mouth: Normal oral and palatal mucosa present Eyes EOM: EOMs intact bilaterally Neck Neck: Yes supple Resp Auscultation: clear to auscultation bilaterally Cardio Jugular venous distension: no JVD Rate: regular rate GI Palpation (GI): Soft to palpation Auscultation: normal bowel sounds General: Yes no CVA tenderness Back/Spine/Pelvis Back: no CVA tenderness Skin General skin exam: no rashes or lesions noted Neuro General: patient oriented x3 and moves all extremities Results Reviewed Nephrology Results: Hgb 12.6 g/dl (12.0-16.0) 11/22/23 WBC 6.2 X10*3/uL (4.8-10.8) 11/22/23 Plt Count 227 X10*3/uL (160-400) 11/22/23 Sodium 141 mmol/L (135-145) 08/27/24 Potassium 3.8 mmol/L (3.3-5.1) 08/27/24 Chloride 101 mmol/L (96-108) 08/27/24 Carbon Dioxide 32 mmol/L (22-29) H 08/27/24 BUN 18 mg/dL (9-16) H 08/27/24 Creatinine 0.83 mg/dL (0.5-1.4) 08/27/24 Calcium 9.0 mg/dL (8.4-10.2) 08/27/24 Urine Protein Negative mg/dL (Neg-Trace) 10/14/23 Assessment & Plan Assessment & Plan (1) Hypertension: Code(s): I10 - Essential (primary) hypertension Category: Medical Qualifiers: Hypertension type: primary hypertension Qualified Code(s): I10 - Essential (primary) hypertension (2) Renal scarring: Code(s): N28.89 - Other specified disorders of kidney and ureter Category: Medical Plan Renal scarring likely from pyelonephritis in the past. Whether she had any mild reflux nephropathy as child needs to be thought of . Her renal function is normal but has hypertension. She probably has hypertension secondary to her renal insult in the past. She has no proteinuria or hematuria. She should maintain good hydration and avoid excessive NSAID's. She is tolerating ACEI. If her BUN rises, we need to cut back on HCTZ. I did not make any medication changes today but discussed all these possibilities with her. Ordered follow up labs and answered all questions. Orders: Orders Protein Creatinine Ratio, Ur 6 Months I10 - Essential (primary) hypertension UA and rflx microscopic 6 Months I10 - Essential (primary) hypertension Creatinine 6 Months I10 - Essential (primary) hypertension Blood Urea Nitrogen 6 Months I10 - Essential (primary) hypertension Electrolytes 6 Months I10 - Essential (primary) hypertension Calcium 6 Months I10 - Essential (primary) hypertension Uric Acid 6 Months I10 - Essential (primary) hypertension Coding Level of Care Code New Pt Level 4 (64574) Diagnoses Primary hypertension I10 Hypertension type: primary hypertension Renal scarring N28.89
[2024-09-09 15:44] VITALS: BP 100/70; PULSE 74; O2SAT 97; BMI 33.2
--- OUTSIDE RECORDS SUMMARY | 2024-09-09 18:33 | XMS_ITS | Encounter Summary ---
Author Organization [facility] Address [address] [place] [address] Care Team Providers Care Comic Illustrator Name Role Phone Name, Erick CHOWDARY Primary Care Provider [phone] Reason for Visit * Reason Comments Med Refill Encounter Details Date Type Department Care Team (Late st Contact Info) Description 03/17/2023 Refill [facility] [address] [place] [phone] NameErick MD [address] [place] [address] Social History Tobacco Use Types Packs/Day Years [...] Description 10/15/2024 9:45 AM EDT Office Visit [facility] [address] [place] [address] Erick Zhou MD [address] [place] [address] 12/22/2024 2:45 PM EDT Office Visit [facility] [address] [place] [address] Name, MD Erick [address] [place] [address] 01/13/2025 3:00 PM EDT Office Visit [facility] [address] [place], [place] [phone] Alejandro, Lucy, OD [address] [place] [address] documented as of this encounter Visit Diagnoses Not on filedocumented in this encounter Additional Health Concerns Assessment Noted Time PHQ-9 Depression Total Score: 14 023 9:49 AM EDT documented as of this encounter Care Teams Comic Illustrator Relationship Specialty Start Date End Date Name, MD Erick [address] [place] [address] PCP - General Family Medicine 11/29/16 documented as of this encounter
--- OUTSIDE RECORDS SUMMARY | 2024-09-09 18:33 | XMS_ITS | Encounter Summary ---
Author Organization [employer] Address [address] [place] [address] 7 [place] [address] Care Team Providers Care Alum Operator Name Role Phone Name, Erick CHOWDARY Primary Care Provider [phone] Reason for Referral * Imaging (STAT) - Closed Specialty Diagnoses / Procedures Referred By Contting t Referred To Contact Radiology Diagnoses Pain of upper abdomen Procedures CT Abdomen Pelvis w/ Contrast Delvis Lopez MD [address] [place] [address] Phone: tel: fax: [address] Phone: tel: fax: Referral ID Status Reason Start Date Expiration Date Visits Re quested Visits Authorized [id number] Closed 08/26/2024 08/26/2025 1 1 Encounter Details Date Type Department Care Team (Late st Contact Info) Description 08/26/2024 Orders Only [facility] [address] [place] [phone] Delvis Lopez MD [address] [place] [address] [phone] Pain of upper abdomen (Primary Dx) Social [...] AM EDT Office Visit [facility] [address] [place] [address] Name, MD Erick [address] [place] [address] 12/22/2024 2:45 PM EDT Office Visit [facility] [address] [place] [address] Name, MD Erick 230 [place] [address] 01/13/2025 3:00 PM EDT Office Visit [facility] [address] [place] [address] Alejandro, Lucy, OD [address] [facility] [place] [address] Scheduled Orders Name Type Priority Associated Diagnoses Orde r Schedule Basic Metabolic Panel Lab Routine Pain of upper abdomen Expected: 08/26/2024 (Approximate), Expires: 08/26/2025 documented as of this encounter Procedures Procedure Name Priority Date/Time Associated Diagnosis Comments CT ABDOMEN PELVIS W CONTRAST STAT 08/28/2024 8:30 AM EDT Pain of upper abdomen documented in this encounter Results * CT Abdomen Pelvis w/ Contrast (08/28/2024 8:30 AM EDT) Anatomical Region Laterality Modality Body, Pelvis, Abdomen Computed T omography 08/28/2024 8:30 AM EDT Narrative 08/28/2024 9:23 AM EDT ? [facility] ?[address] ?[place] [address] ? CT Scan Report ? Signed ? Patient: Carey,Rosa M ?MR#: [id number] ?? [id number] ? : 1960 ?Acct:[id number] ? Age/Sex: 63 / F ?ADM Date: 08/28/24 ? Loc: HO.CT ? Attending Dr: Delvis Lopez MD ? Ordering Physician: DELVIS LOPEZ MD ?? Date of Service: 08/28/24 ?? Procedure(s): CT abdomen pelvis w IV con ?? Accession Number(s): [id number] ? cc: DELVIS LOPEZ MD; Name,Erick CHOWDARY ? Report Number: ?? [id number]: Total DLP = ??395.00 mGy-cm ?? EXAMINATION: ??CT ABDOMEN PELVIS WITH IV CONTRAST ? HISTORY: LUQ ABD PAIN ? COMPARISON: Comparison is made with the prior examination dated ?? 10/14/2023. ? TECHNIQUE: CT scan of the abdomen and pelvis was performed following ?? administration of 85 mL Omnipaque 350 using standard departmental ?? protocol. ?? Coronal and sagittal reformatted images were generated and ?? reviewed. ??The patient received oral contrast material. ? This CT exam was performed with one or more of the following dose ?? reduction techniques: automated exposure control, adjustment of the mA ?? and/or kV according to patient size, use of iterative reconstruction ?? technique. ? DLP: 395 mGy-cm ? FINDINGS: ? LOWER CHEST: There is mild bronchiectasis and scarring at the right ?? lung base. The visualized left lung base is clear. There is no pleural ?? effusion. ? CARDIOVASCULATURE: The heart is normal in size. ??There is no ?? pericardial effusion. ? LIVER: ??The liver is normal in size and contour. ??No liver mass is ?? identified. ??The hepatic and portal veins are patent. ? GALLBLADDER / BILE DUCTS: ??The gallbladder is unremarkable. There is no ?? intra or extrahepatic biliary ductal dilatation. ? SPLEEN: The spleen is normal in size. No focal splenic lesion is ?? identified. ? PANCREAS: The pancreas is unremarkable in appearance. ? ADRENAL GLANDS: Within normal limits. ? KIDNEYS/RETROPERITONEUM: Again seen is extensive right renal scarring. ?? No renal calculi are identified. There is no hydronephrosis. ??No renal ?? masses are identified. ? LYMPH NODES: ??No abdominal or pelvic lymphadenopathy. ? VASCULATURE: ??The abdominal aorta is normal in caliber. ? MESENTERY/PERITONEUM: No free fluid. No masses. ??There is no free ?? intraperitoneal gas. ? STOMACH: ??The patient is status post laparoscopic gastric banding. ?? There is a moderate hiatal hernia. There is a diverticulum off the ?? gastric body. ? SMALL BOWEL: ?? The small bowel is normal in caliber. ? COLON: ??There is a moderate amount of stool throughout the colon. There ?? are scattered diverticuli of the sigmoid colon, without evidence of ?? diverticulitis. ? APPENDIX: ??Normal. ? URINARY BLADDER/PELVIC ORGANS: The urinary bladder is collapsed, ?? limiting evaluation. ??There are multiple uterine fibroids measuring up ?? to 2.0 cm in size. ? BONES / SOFT TISSUES: ??No suspicious bony or soft tissue abnormalities. ? CT/CT abdomen pelvis w IV con ?? IMPRESSION: ? 1. Diverticulosis of the sigmoid colon without evidence of ?? diverticulitis. Moderate amount of stool throughout the colon. ? 2. Extensive right renal scarring. ? 3. Fibroid uterus. ? Electronically signed by: ??Toi Felipe MD ??08/28/2024 09:20 AM EDT ? Dictated By: ?Toi Felipe MD ? Signed By: ?<Electronically signed by Toi Felipe MD in OV> ?08/28/24 0920 ? DD/ 0830 ? TD/TT: 08/28/24 0845 ? Regulatory Compliance Coordinator: ? Procedure Note Dez, Vida - 08/28/[address] [place] [id number] [address] Scan Report Signed Patient: Leanne Carey MMR#: [id number] : 1960Acct:[id number] Age/Sex: 63 / FADM Date: 08/28/24 Loc: HO.CT Attending Dr: Delvis Lopez MD Ordering Physician: DELVIS LOPEZ MD Date of Service: 08/28/24 Procedure(s): CT abdomen pelvis w IV con Accession Number(s): [id number] cc: DELVIS LOPEZ MD; Name,Erick CHOWDARY Report Number: [id number]: Total DLP = 395.00 mGy-cm EXAMINATION: CT ABDOMEN PELVIS WITH IV CONTRAST HISTORY: LUQ ABD PAIN COMPARISON: Comparison is made with the prior examination dated 10/14/2023. TECHNIQUE: CT scan of the abdomen and pelvis was performed following administration of 85 mL Omnipaque 350 using standard departmental protocol. Coronal and sagittal reformatted images were generated and reviewed. The patient received oral contrast material. This CT exam was performed with one or more of the following dose reduction techniques: automated exposure control, adjustment of the mA and/or kV according to patient size, use of iterative reconstruction technique. DLP: 395 mGy-cm FINDINGS: LOWER CHEST: There is mild bronchiectasis and scarring at the right lung base. The visualized left lung base is clear. There is no pleural effusion. CARDIOVASCULATURE: The heart is normal in size. There is no pericardial effusion. LIVER: The liver is normal in size and contour. No liver mass is identified. The hepatic and portal veins are patent. GALLBLADDER / BILE DUCTS: The gallbladder is unremarkable. There is no intra or extrahepatic biliary ductal dilatation. SPLEEN: The spleen is normal in size. No focal splenic lesion is identified. PANCREAS: The pancreas is unremarkable in appearance. ADRENAL GLANDS: Within normal limits. KIDNEYS/RETROPERITONEUM: Again seen is extensive right renal scarring. No renal calculi are identified. There is no hydronephrosis. No renal masses are identified. LYMPH NODES: No abdominal or pelvic lymphadenopathy. VASCULATURE: The abdominal aorta is normal in caliber. MESENTERY/PERITONEUM: No free fluid. No masses. There is no free intraperitoneal gas. STOMACH: The patient is status post laparoscopic gastric banding. There is a moderate hiatal hernia. There is a diverticulum off the gastric body. SMALL BOWEL: The small bowel is normal in caliber. COLON: There is a moderate amount of stool throughout the colon. There are scattered diverticuli of the sigmoid colon, without evidence of diverticulitis. APPENDIX: Normal. URINARY BLADDER/PELVIC ORGANS: The urinary bladder is collapsed, limiting evaluation. There are multiple uterine fibroids measuring up to 2.0 cm in size. BONES / SOFT TISSUES: No suspicious bony or soft tissue abnormalities. CT/CT abdomen pelvis w IV con IMPRESSION: 1. Diverticulosis of the sigmoid colon without evidence of diverticulitis. Moderate amount of stool throughout the colon. 2. Extensive right renal scarring. 3. Fibroid uterus. Electronically signed by: Toi Felipe MD 08/28/2024 09:20 AM EDT RP Dictated By: Toi Felipe MD Signed By: <Electronically signed by Toi Felipe MD in OV> 08/28/24919 DD/ 9 TD/TT: 08/28/24 0845 Regulatory Compliance Coordinator: Delvis Lopez MD IMG CT PROCEDURES Final Result documented in this encounter Visit Diagnoses Diagnosis Pain of upper abdomen- Primary documented in this encounter Additional Health Concerns Assessment Noted Time PHQ-9 Depression Total Score: 18 024 2:25 PM EDT documented as of this encounter Care Teams Alum Operator Relationship Specialty Start Date End Date Name, MD Erick [address] [place] [address] PCP - General Family Medicine 11/29/16 documented as of this encounter
--- OUTSIDE RECORDS SUMMARY | 2024-09-09 18:33 | XMS_ITS | Encounter Summary ---
Author Organization [employer] [facility] Address [address] [place] [address] Care Team Providers Care Mycologist Name Role Phone Name, Erick CHOWDARY Primary Care Provider [phone] Encounter Details Date Type Department Care Team (Late st Contact Info) Description 11/02/2022 Abstract [facility] [address] [place] [address] NameErick MD [address] [place] [address] Social History Tobacco Use Types Packs/Day Years [...] Office Visit [facility] [address] [place] [address] [phone] Erick Zhou MD [address] [place] [address] 12/22/2024 2:45 PM EDT Office Visit [facility] [address] [place] [address] Name, MD Erick [address] [place] [address] 01/13/2025 3:00 PM EDT Office Visit [facility] [address] [place] [address] Alejandro, Lucy, OD [address] [place] [address] documented as of this encounter Procedures Procedure Name Priority Date/Time Associated Diagnosis Comments MAMMOGRAPHY Routine 10/20/2022 11:30 AM EDT COLONOSCOPY Routine 04/04/2016 10:44 AM EDT documented in this encounter Results * Mammography (10/20/2022 11:30 AM EDT) Mammogram Birads-2 Anatomical Region Laterality Modality Other us Historical Provider HEALTH MAINTENANCE Final Result * Colonoscopy (04/04/2016 10:44 AM EDT) Colonoscopy Normal Normal Narrative Jyotsna Mann - 04/04/2016 10:44 AM EDT Recommended 7 year follow up us Historical Provider HEALTH MAINTENANCE Final Result documented in this encounter Visit Diagnoses Not on filedocumented in this encounter Additional Health Concerns Assessment Noted Time PHQ-9 Depression Total Score: 14 023 9:49 AM EDT documented as of this encounter Care Teams Mycologist Relationship Specialty Start Date End Date Name, MD Erick [address] [place], [place] [phone] PCP - General Family Medicine 11/29/16 documented as of this encounter
--- OUTSIDE RECORDS SUMMARY | 2024-09-09 18:33 | XMS_ITS | Encounter Summary ---
Author Organization [employer] Address [address] [place] [address] Care Team Providers Care Veneer Jointer Offbearer Name Role Phone Name, Erick CHOWDARY Primary Care Provider [phone] Reason for Visit * Reason Comments Med Refill Encounter Details Date Type Department Care Team ([facility] st Contact Info) Description 08/20/2024 Refill [facility] [address] [place] [address] Nasima Alaniz MD [address] [place] [address] Social History Tobacco Use Types Packs/Day Years [...] Description 10/15/2024 9:45 AM EDT Office Visit [facility] [address] [place] [address] Name, MD Erick [address] [place] [address] 12/22/2024 2:45 PM EDT Office Visit [facility] [address] [place] [address] Name, MD Erick [address] [place] [address] 01/13/2025 3:00 PM EDT Office Visit [facility] [address] [place] [address] Lucy Allen, OD [address] [place] [address] documented as of this encounter Visit Diagnoses Not on filedocumented in this encounter Additional Health Concerns Assessment Noted Time PHQ-9 Depression Total Score: 18 024 2:25 PM EDT documented as of this encounter Care Teams Veneer Jointer Offbearer Relationship Specialty Start Date End Date Name, MD Erick [address] [place] [address] PCP - General Family Medicine 11/29/16 documented as of this encounter
--- OUTSIDE RECORDS SUMMARY | 2024-09-09 18:33 | XMS_ITS | Clinical Summary ---
Author Organization [address] [place] [address] Address [address] [place] [address] Phone Care Team Providers Care Fisher Hoop Net Name Role Phone Name, Erick CHOWDARY Primary Care Provider [phone] Allergies No known active allergies Medications atorvastatin (LIPITOR) 20 mg tablet TAKE 1 TABLET BY MOUTH DAILY IN THE MORNING 023 Active cholecalcifero l (VITAMIN D-3) 50 mcg (2,000 unit) capsule TAKE 1 CAPSULE EVERY DAY 018 Active divalproex (DEPAKOTE) [address] tablet TAKE 1 TABLET BY MOUTH TWICE DAILY 021 Active ferrous sulfate 325 mg (65 mg elemental iron) tablet Take 1 tablet by mouth 2 times daily. 013 Active lisinopriL (PRINIVIL,ZEST RIL) 2.5 mg tablet Take 1 Tab by mouth daily. 013 Active lisinopril-hyd roCHLOROthiazi de (PRINZIDE,ZEST ORETIC) 20-25 mg per tablet Take 1 tablet by mouth daily. 021 Active PARoxetine (PAXIL) 40 mg tablet TAKE 1 TABLET BY MOUTH AT BEDTIME 021 Active topiramate (TOPAMAX) 50 mg tablet TAKE 2 TABLETS BY MOUTH EVERY DAY 024 Active Zepbound 2.5 mg/0.5 mL injectionIndic ations:Class 1 obesity due to excess calories with serious comorbidity and body mass index (BMI) of 33.0 to 33.9 in adult INJECT ONE PEN (=2.5MG) SUBCUTANEOUSLY ONCE A WEEK DIRECTED 2 mL 025 Active tirzepatide, weight loss, (Zepbound) 2.5 mg/0.5 mL injectionIndic ations:Class 1 obesity due to excess calories with serious comorbidity and body mass index (BMI) of 33.0 to 33.9 in adult Inject 0.5 mL (2.5 mg total) under the skin every 7 (seven) days for 4 doses. 2 mL 025 2024 Discontinued Active Problems Problem Noted Date Diagnosed Date Other complications of gastric band procedure Shoulder pain, bilateral 02/12/2011 IVA (obstructive sleep apnea) 04/05/2010 Edema 11/30/2009 Hypercholesteremia 09/08/2008 Iron deficiency anemia 12/20/2006 Class 1 obesity with body ma ss index (BMI) of 33.0 to 33.9 in adult 12/20/2006 Essential hypertension, benign 10/22/2006 Encounters Date Type Department Care Team Description 08/06/2024 Telephone Bariatric Surgery [address] [phone] Gonzalez Williamson MD prior auth (Prior auth) 07/28/2024 4:00 PM EST Office Visit Bariatric Surgery [address] [phone] Gonzalez Williamson MD Class 1 obesity due to excess calories with serious comorbidity and body mass index (BMI) of 33.0 to 33.9 in adult (Primary Dx) from Last 3 Months Immunizations Name Administration Dates Next Due Hepatitis B (Yvlqtse-T-Aulam , Recombivax HB-Adult) 19yo and older 07/03/2017,02/26/2017,12/24/2016 [...] PM EDT Office Visit Bariatric Surgery - [place] [address] [phone] Gonzalez Williamson MD 175 [facility] [address] [place] [address] 01/05/2025 8:45 AM EDT [facility] [address] [place] [address] Renee Hargrove, CNM [address] [place] [address] Health Maintenance Due Date Last Done Comments [...] Results * Cervical Cancer Screening: HPV (12/16/2023) [facility] Cervical Cancer Screening: HPV Negative, Abstracted [facility] Provider HEALTH MAINTENANCE Final Result * Colonoscopy (10/11/2023) [facility] Colonoscopy No Interpretation , Abstracted Anatomical Region Laterality Modality Other [facility] Provider HEALTH MAINTENANCE Final Result * Depression Screening (06/27/2023) [facility] Depression Screening Abstracted [facility] Provider HEALTH MAINTENANCE Final Result * HIV Screening (12/17/2016) [facility] HIV Screening Abstracted [facility] Provider HEALTH MAINTENANCE Final Result * Hepatitis C Screening (12/17/2016) [facility] Hepatitis C Screening Abstracted Historical Provider HEALTH MAINTENANCE Final Result * Annual BMP Blood Test (02/16/2012) Annual BMP Blood Test Abstracted Historical Provider HEALTH MAINTENANCE Final Result * (ABNORMAL) Lipid panel (02/16/2012) Pathologist [facility] LDL/HDL Ratio 4 0 - 4 Triglycerides 82 0 - 150 mg/dL Cholesterol 187 0 - 200 mg/dL HDL 53 >=40 mg/dL LDL Cholesterol 118(A) 0 - 100 mg/dL Blood Venous blood specimen / Unknown Historical Provider LAB BLOOD ORDERABLES Lorrie l Result from Last 3 Months or Most Recently Relevant to Health Maintenance Insurance [facility] Care Teams Fisher Hoop Net Relationship Specialty Start Date End Date Name, MD Erick [address] [place] [address] PCP - General Internal Medicine 05/28/19
--- OUTSIDE RECORDS SUMMARY | 2024-09-09 18:33 | XMS_ITS | Encounter Summary ---
Author Organization [employer] Address [address] [place] [address] 7 [place] [address] Care Team Providers Care Sales Specialist Name Role Phone Name, Erick CHOWDARY Primary Care Provider [phone] Reason for Visit * Reason Comments uti symptoms Encounter Details Date Type Department Care Team ([facility] st Contact Info) Description 08/24/2024 11:20 AM EDT Office Visit [facility] [address] [place] [id number] Delvis Leon MD [address] [place] [address] UTI symptoms (Primary Dx); Pain of upper [...] the past 12 months, has t he [employer], gas, oil or water company threatened to [...] gastric bypass. Lives with daughter. Works in [facility] [employer]. Never smoked. LMP= [...] Visit [facility] MEDICINE [address] [place] [phone] Name, MD Erick [address] [place] [address] 12/22/2024 2:45 PM EDT Office Visit [facility] MEDICINE [address] [place] [address] Name, MD Erick [address] [place] [address] 01/13/2025 3:00 PM EDT Office Visit [facility] OPTOMETRY [address] [place] [address] Alejandro, Lucy, OD [address] [place] [address] documented as of this encounter Procedures Procedure Name Priority Date/Time Associated Diagnosis Comments HELICOBACTER PYLORI AG, EIA, STOOL Routine 09/01/2024 3:05 PM EDT Pain of upper abdomen CULTURE, URINE, ROUTINE Routine 08/24/2024 12:42 PM EDT UTI symptoms POCT URINALYSIS DIPSTICK Routine 08/24/2024 11:18 AM EDT UTI symptoms documented in this encounter Results * Helicobacter pylori??Antigen, EIA, Stool (09/01/2024 3:05 PM EDT) H pylori Ag Stool SEE NOTE [facility] Comment:HELICOBACTER PYLORI AG, EIA, STOOL Micro Number: [id number] Test Status: Final Specimen Source: Stool Specimen Quality: Adequate H.pylori Ag: Not Detected Antimicrobials, proton pump inhibitors, and bismuth preparations inhibit H. pylori and ingestion up to two weeks prior to testing may cause false negative results. If clinically indicated the test should be repeated on a new specimen obtained two weeks after discontinuing treatment. Reference Range: Not DetectedTHIS TEST WAS PERFORMED AT:[facility] [place] [id number] PAZ MD Stool Rectal contents / Unknown 09/01/2024 3:05 PM EDT 09/01/2024 4:28 PM EDT us Delvis Leon MD LAB BODY FLUIDS AND STOOLS ORDER OMAR Final Result Performing Organization Address [facility]/ZIP Co de Phone Number [facility] [address] [place] [phone] * Culture, Urine, Routine (08/24/2024 12:42 PM EDT) Urine Urine specimen obtained by clean catch procedure / Unknown 08/24/2024 12:42 PM EDT 08/24/2024 5:07 PM EDT Comment:[facility] Narrative [facility] - 08/26/2024 10:35 AM EDT Urine Culture Report Result Urine Culture 10,000 to 50,000 cfu/ml Urine Culture Mixed bacterial gina characteristic of Urine Culture urogenital contamination. Specimen Source: Urine clean catch us Delvis Leon MD LAB MICROBIOLOGY - GENERAL ORDER OMAR Final Result Performing Organization Address [facility]/ZIP Co de Phone Number [facility] [address] [place] [phone] * (ABNORMAL) POCT urinalysis dipstick manually [...] Noted Time PHQ-9 Depression Total Score: 18 09/15/ 024 2:25 PM EDT documented as of this encounter Care Teams Sales Specialist Relationship Specialty Start Date End Date Name, MD Erick [address] [place] [address] PCP - General Family Medicine 11/29/16 documented as of this encounter
--- OUTSIDE RECORDS SUMMARY | 2024-09-09 18:33 | XMS_ITS | Encounter Summary ---
Author Organization [employer] Address [address] [place] [address] Care Team Providers Care Manager Story Name Role Phone Name, Erick CHOWDARY Primary Care Provider [phone] Reason for Referral * Consultation (Routine) - Authorized Specialty Diagnoses / Procedures Referred By Danisha pereyra Referred To Contact Nephrology Diagnoses Renal scarring Delvis Leon MD [address] [place], [place] Phone: tel: fax: [facility] [address], [address] [place], [place] Phone: tel: fax: Referral ID Status Reason Start Date Expiration Date Visits Requested Visits Authorized [id number] Authorized Specialty Services Required 08/28/2024 08/28/2025 1 1 * Consultation (Routine) - Authorized Specialty Diagnoses / Procedures Referred By Danisha pereyra Referred To Contact Gastroenterology Diagnoses Pain of upper abdomen Delvis Leon MD [address] [place] [address] Phone: tel: fax: [facility] [address] [place], [place] Phone: tel: fax: Referral ID Status Reason Start Date Expiration Date Visits Requested Visits Authorized [id number] Authorized Specialty Services Required 08/28/2024 08/28/2025 1 1 Encounter Details Date Type Department Care Team (Late st Contact Info) Description 08/28/2024 Telephone C W[facility] [address] [place] [address] Delvis Leon MD [address] [place] [address] Social History Tobacco Use Types Packs/Day Years [...] encounter Miscellaneous Notes * Telephone Encounter - Delvis Leon MD - 08/28/2024 12:21 PM EDT I notified Elanne of today's CT scan results. I referred her to GI and nephrology because of the renal scarring seen on CT. Prescribed Pepcid. She has not yet given stool specimen for H. pylori stool antigen [employer], and will sheepskin pickler the stool specimen cups at the lab today. documented in this encounter Plan of Treatment Upcoming Encounters Date Type Department Care Team (Late st Contact Info) Description 10/15/2024 9:45 AM EDT Office Visit [facility] MEDICINE [address] [place] [phone] Name, MD Erick [address] [place] [address] 12/22/2024 2:45 PM EDT Office Visit [facility] MEDICINE [address] [place] [address] Name, MD Erick [address] [place] [address] 01/13/2025 3:00 PM EDT Office Visit [facility] OPTOMETRY [address] [place] [address] Alejandro, Lucy, OD [address] [place] [address] Scheduled Referrals Name Type Priority Associated Diagnoses Order Schedule Referral to Gastroenterology Outpatient Referral Routine Pain of upper abdomen Expected: 08/28/2024 (Approximate), Expires: 08/28/2025 Referral to Nephrology Outpatient Referral Routine Renal scarring Expected: 08/28/2024 (Approximate), Expires: 08/28/2025 documented as of this encounter Visit Diagnoses Diagnosis Pain of upper abdomen- Primary Renal scarring Other specified disorder of kidney and ureter documented in this encounter Additional Health Concerns Assessment Noted Time PHQ-9 Depression Total Score: 18 024 2:25 PM EDT documented as of this encounter Care Teams Manager Story Relationship Specialty Start Date End Date Name, MD Erick [address] [place] [address] PCP - General Family Medicine 11/29/16 documented as of this encounter
--- OUTSIDE RECORDS SUMMARY | 2024-09-09 18:33 | XMS_ITS | Clinical Summary ---
Author Organization [employer] Address [address] [place] [address] [place] [address] Care Team Providers Care Charging Plug Placer Name Role Phone Name, Erick CHOWDARY Primary Care Provider [phone] Allergies No known active allergies Medications clobetasol [...] 150 mg by mouth in the morning. Active naltrexone (Depade) 50 MG tablet Take [...] BY MOUTH EVERY DAY 60 tablet Active barium sulfate (Readi-Cat 2) 2 % suspension Take 450 mL by mouth every 1 (one) hour. Take 1 bottle [address] scan and the 2nd bottle [address] scan. 900 mL Active famotidine (Pepcid) 20 MG tablet Take 1 tablet (20 mg) by mouth 2 times daily. 60 tablet 11 025 2025 Active pantoprazole (ProtoNix) 40 MG EC tablet Take 40 mg by mouth Once per day. 024 2024 Discontinued(T herapy completed) PARoxetine CR (Paxil-CR) 25 MG 24 hr tablet TAKE 2 TABLETS BY MOUTH EVERY DAY 60 tablet 024 2024 Discontinued Zepbound 2.5 MG/0.5ML solution auto-injector Inject 2.5 mg under the skin every 7 (seven) days. 025 2024 nitrofurantoin, macrocrystal-mono hydrate, (Macrobid) 100 MG capsule Take 1 capsule (100 mg) by mouth 2 times daily for 5 days. 10 capsule 025 2024 Active Problems Problem Noted Date [...] 09/13/2022 Dental abscess 09/13/2022 Seizure disorder 05/22/2022 Other complications of gastric band procedure Obstructive sleep apnea syndrome 02/04/2018 LFT elevation 10/16/2017 Essential hypertension 12/04/2016 Recurrent major depression in partial remission 12/04/2016 Shoulder pain, bilateral 02/12/2011 IVA (obstructive sleep apnea) 04/05/2010 Edema 11/30/2009 Hypercholesteremia 09/08/2008 Iron deficiency anemia 12/20/2006 Class 1 obesity with body ma ss index (BMI) of 33.0 to 33.9 in adult 12/20/2006 Essential hypertension, benign 10/22/2006 Resolved Problems Problem Noted Date Diagnosed Date Resolved Date ABLA (acute blood loss anemia) 10/31/2023 01/23/2024 Acute hyperglycemia 10/31/2023 01/23/20 Other ascites 10/24/2023 01/22/2024 Shoulder pain 02/07/2018 09/17/2023 Encounters Date Type Department Care Team Description 09/08/2024 Telephone [facility] [address] [place] [address] Prince Liz [place] November recalls 08/28/2024 Telephone [facility] [address] [place] [address] Delvis Leon MD 08/28/2024 Orders Only [facility] [address] [place] [address] Delvis Leon MD 08/27/2024 Orders Only [facility] [address] [place] [address] Delvis Leon MD 08/27/2024 Telephone [facility] [address] [place] [phone] Name, MD Erick 08/26/2024 Orders Only [facility] [address] [place] [address] Delvis Leon MD Pain of upper abdomen (Primary Dx) 08/24/2024 11:20 AM EDT Office [facility] [address] [address] Delvis Leon MD UTI symptoms (Primary Dx); Pain of upper abdomen 08/20/2024 Refill [facility] [address] [place] [address] Nasima Alaniz MD 08/12/2024 3:30 PM EST Office Visit [facility] [address] [place] [address] Alejandro, Lucy, OD 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 Dx) 08/12/2024 Travel 07/08/2024 4:00 PM EST Office Visit [facility] [address] [address] Delvis Leon MD Subacute cough (Primary Dx); Essential hypertension; Viral URI 06/25/2024 Telephone [facility] [address] [place] [address] Prince Liz [place] fe recalls 06/12/2024 1:20 PM EST Office Visit [facility] [address] [address] Jenni Orr MD Acute COVID-19 (Primary Dx); [...] Description 10/15/2024 9:45 AM EDT Office Visit [facility] [address] [place] [address] NameErick MD [address] [place] [address] 12/22/2024 2:45 PM EDT Office Visit [facility] [address] [place] [address] NameErick MD [address] [place] [address] 01/13/2025 3:00 PM EDT Office Visit [facility] [address] [place] [address] Alejandro, Lucy, OD [address] [place] [address] Health Maintenance Due Date Last Done Comments [...] 3:05 PM EDT Pain of upper abdomen CT ABDOMEN PELVIS W CONTRAST STAT 08/28/2024 8:30 AM EDT Pain of upper abdomen COMPREHENSIVE METABOLIC PANEL Routine 08/27/2024 11:28 AM [...] Recently Relevant to Health Maintenance Results * Helicobacter pylori??Antigen, EIA, Stool (09/01/2024 3:05 PM EDT) H pylori Ag Stool SEE NOTE [facility] Comment:HELICOBACTER PYLORI AG, EIA, STOOL Micro Number: [id number] Test Status: Final Specimen Source: Stool Specimen Quality: Adequate H.pylori Ag: Not Detected Antimicrobials, proton pump inhibitors, and bismuth preparations inhibit H. pylori and ingestion up to two weeks prior to testing may cause false negative results. If clinically indicated the test should be repeated on a new specimen obtained two weeks after discontinuing treatment. Reference Range: Not DetectedTHIS TEST WAS PERFORMED AT:[employer] [address] [phone] PAZ MD Stool Rectal contents / Unknown 09/01/2024 3:05 PM EDT 09/01/2024 4:28 PM EDT us Delvis Leon MD LAB BODY FLUIDS AND STOOLS ORDER OMAR Final Result [facility] [address] [place] [address] [phone] * CT Abdomen Pelvis w/ Contrast (08/28/2024 8:30 AM EDT) Anatomical Region Laterality Modality Body, Pelvis, Abdomen Computed T omography 08/28/2024 8:30 AM EDT Narrative 08/28/2024 9:23 AM EDT ? [facility] ?[address] ?[place] [address] ? CT Scan Report ? Signed ? Patient: Leanne Carey ?MR#: [id number] ?? [id number] ? : 1960 ?Acct:[id number] ? Age/Sex: 63 / F ?ADM Date: 08/28/24 ? Loc: HO.CT ? Attending Dr: Delvis Leon MD ? Ordering Physician: DELVIS LEON MD ?? Date of Service: 08/28/24 ?? Procedure(s): CT abdomen pelvis w IV con ?? Accession Number(s): [id number] ? cc: DELVIS LEON MD; Name,Erick CHOWDARY ? Report Number: ?? [id number]: Total DLP = ??395.00 mGy-cm ?? EXAMINATION: [...] ??Toi Felipe MD ??08/28/2024 09:20 AM EDT ?? RP ? Dictated By: ?Toi Felipe MD ? Signed By: ?<Electronically signed by Toi Felipe MD in OV> ?08/28/24 0920 ? DD/ 0830 ? TD/TT: 08/28/24 0845 ? Configuration Developer: ? Procedure Note Dez, Image - 08/28/[address] [place] [address] [address] Scan Report Signed Patient: Leanne Carey MMR#: [id number] : 1960Acct:[id number] Age/Sex: 63 / FADM Date: 08/28/24 Loc: HO.CT Attending Dr: Delvis Leon MD Ordering Physician: DELVIS LEON MD Date of Service: 08/28/24 Procedure(s): CT abdomen pelvis w IV con Accession Number(s): [id number] cc: DELVIS LEON MD; Name,Erick CHOWDARY Report Number: [id number]: Total DLP = 395.00 mGy-cm EXAMINATION: CT [...] MD in OV> 08/28/24919 DD/ 9 TD/TT: 08/28/24844 Configuration Developer: Delvis Leon MD IMG CT PROCEDURES Final Result * (ABNORMAL) Comprehensive Metabolic Panel (08/27/2024 11:28 AM EDT) Sodium 141 135 - 145 mmol/L [facility] Potassium 3.8 3.3 - 5.1 mmol/L [facility] Chloride 101 96 - 108 mmol/L [facility] Carbon Dioxide 32(H) 22 - 29 mmol/L [facility] Anion Gap 12 12 - 20 [facility] Urea Nitrogen (BUN) 18(H) 9 - 16 mg/dL [facility] Creatinine, Serum 0.83 0.5 - 1.4 mg/dL [facility] Estimated Glomerular Filt Rate >60 [facility] Comment:Chronic Kidney Disea se: Estimated GFR < 60 mL/min/1.58w8Genwwj Kidney Disease: Estimated GFR < 15 mL/min/1.73m2 Glucose 120(H) 60 - 115 mg/dL [facility] Calcium 9.0 8.4 - 10.2 mg/dL [facility] Bilirubin, Total 0.3 0.0 - 1.0 mg/dL [facility] Aspartate Amino Transferase 42(H) 5 - 31 U/L [facility] Alanine Aminotransferase 42(H) 0 - 31 U/L [facility] Total Protein 7.3 6.5 - 8.0 g/dL [facility] Albumin Level 4.1 3.5 - 5.0 g/dL [facility] Alkaline Phosphatase 125(H) 39 - 117 U/L [facility] Blood Venous blood specimen / Unknown 08/27/2024 11:28 AM EDT 08/27/2024 1:25 PM EDT us Erick Zhou MD LAB BLOOD ORDERABLES Final Resul t Performing Organization Address City/[facility]/ZIP Co de Phone Number [facility] [address] [place] [phone] * Culture, Urine, Routine (08/24/2024 12:42 PM EDT) Urine Urine specimen obtained by clean catch procedure / Unknown 08/24/2024 12:42 PM EDT 08/24/2024 5:07 PM EDT Comment:UACC Narrative [facility] - 08/26/2024 10:35 AM EDT Urine Culture Report Result Urine Culture 10,000 to 50,000 cfu/ml Urine Culture Mixed bacterial gina characteristic of Urine Culture urogenital contamination. Specimen Source: Urine clean catch us Delvis Leon MD LAB MICROBIOLOGY - GENERAL ORDER OMAR Final Result Performing Organization Address [facility] Co de Phone Number [facility] [address] [place] [phone] * (ABNORMAL) POCT urinalysis dipstick manually [...] is included. Influenza B Negative Negative, Indeterminate [facility] Swab 07/08/2024 4:04 PM EST Delvis Leon MD POINT OF CARE TEST ENTER/EDIT OR DERABLES Final Result [facility] [address] [place] [phone] * Influenza A (ID NOW Rapid Molecular) (07/08/2024 4:04 PM EST) Only the most recent of2 resultswithin the time period is included. Influenza A Negative Negative, Indeterminate [facility] Swab 07/08/2024 4:04 PM EST Delvis Leon MD POINT OF CARE TEST ENTER/EDIT OR DERABLES Final Result Performing Organization Address [facility] Co de Phone Number [facility] [address] [place] [phone] * POCT Rapid COVID Ag (07/08/2024 4:04 PM EST) Rapid COVID Ag Negative [facility] Swab 07/08/2024 4:04 PM EST Delvis Leon MD POINT OF CARE TEST ENTER/EDIT OR DERABLES Final Result Performing Organization Address [facility] Phone Number [facility] [address] [place] [phone] * (ABNORMAL) POCT Rapid Covid-19 ORR ID NOW (06/12/2024 1:10 PM EST) Pathologist [facility] Coronavirus Antigen PCR Positive (A) Negative, Indeterminate, None Detected, Invalid, Specimen unsatisfactory for evaluation, Weakly Positive QC Media Lot # [id number] Lot# Expiration Date Swab 06/12/2024 1:10 PM EST Jenni Orr MD POINT OF CARE TEST ENTER/EDIT ORDERABLES Final Result * Hepatitis C Antibody with Reflex to HCV, RNA, Quantitative, Real-Time PCR (10/25/2023 2:05 PM EDT) [facility] Hepatitis C Antibody Nonreactive Nonreactive [facility] Comment:Antibodies to HCV no t detected; does not exclude early acuteHCV infection. Blood Venous blood specimen / Unknown 10/25/2023 2:05 PM EDT 10/25/2023 3:55 PM EDT Erick Zhou MD LAB BLOOD ORDERABLES Final Resul t Performing Organization Address [facility] Phone Number [facility] [address] [place] [phone] [phone] * (ABNORMAL) Hm Colonoscopy (10/11/2023) Colonoscopy Abnormal(A ) Normal us Erick Zhou MD HEALTH MAINTENANCE Final Result * (ABNORMAL) Lipid Panel, Standard (09/30/2023 9:01 AM EDT) Triglycerides 133 <150 mg/dL [facility] Comment:Desirable Triglyceri de: less than 150 mg/dLBorderline High Triglyceride 150-199 mg/dLHigh Triglyceride: 200-499 mg/dLVery High Triglyceride: greater than or equal to 5OO mg/dL Cholesterol 153 <200 mg/dL [facility] Comment:Desirable Cholestero l: less than 200 mg/dLBorderline High Cholesterol: 200-239 mg/dLHigh Cholesterol: greater than 239 mg/dL LDL Cholesterol Calculated 90 <100 mg/dL [facility] Comment:Desirable LDL: less than 100 mg/dLNear Optimal/Above Optimal LDL: 110- 129 mg/dLBorderline High LDL: 130-159 mg/dLHigh LDL: 160-189 mg/dLVery High LDL: greater than or equal to 190 mg/dL HDL Cholesterol 37(L) >40 mg/dL [facility] Comment:Desirable HDL: great er than 40 mg/dL Note: This HDL assay may give artificially low results in patients with liver disease. Blood Venous blood specimen / Unknown 09/30/2023 9:01 AM EDT 09/30/2023 9:01 AM EDT us Erick Zhou MD LAB BLOOD ORDERABLES Final Resul t [facility] [address] [place] [phone] * BI Mammogram Screening Tomosynthesis Bilateral (10/20/2022 9:00 AM EDT) Anatomical Region Laterality Modality Breast Bilateral Mammography 10/20/2022 9:00 AM EDT Narrative 10/23/2022 12:44 PM EDT ? [facility] ? [address] ?[place] [address] ? Mammography Report ? Signed ? Patient: Carey,Muriel ?MR#: [id number] ?? [id number] ? : 1960 ?Acct:[id number] ? Age/Sex: 62 / F ?ADM Date: 10/20/22 ? Loc: HO.MAMMO ? Attending : Erick Zohu MD ? Ordering Physician: Name,Erick CHOWDARY ?Results: 2Benign Fi ?? ndings ? Date of Service: 10/20/22 ?Follow Up: 1 Year From Orig ?? inal Mammogram ? Procedure(s): MM tomosynthesis screening BI ?? Accession Number(s): [id number] ? cc: Name,Erick CHOWDARY ? EXAMINATION: ?? MM SCREENING DIGITAL BREAST TOMOSYNTHESIS, BILATERAL ? CLINICAL INFORMATION: ? Screening. Asymptomatic. ? The lifetime risk of breast cancer based on the Tyrer-Cuzick Model is ?? 6%. ? COMPARISON: ?? Mammography: 02/02/2021, 07/09/2019, 07/02/2018, 06/19/2018, ?? 12/10/2016; outside mammography 01/25/2016 ([facility]). ? TECHNIQUE: ?? Digital breast tomosynthesis is [...] 1242 ? DD/ 0900 ? TD/TT: ? Configuration Developer: ZPAATA ? Procedure Note Dondavidter, Image - 12/13/2022 [facility] [address] [place] [address] Mammography Report Signed Patient: Leanne Carey [facility]#: [id number] : 1960Acct:[id number] Age/Sex: 62 / FADM Date: 10/20/22 Loc: [place] Attending Dr: Erick Zhou MD Ordering Physician: Erick Zhouesults: 2Benign Fi ndings Date of Service: 10/20/22Follow Up: 1 Year From Orig inal Mammogram Procedure(s): MM tomosynthesis screening BI Accession Number(s): [id number] cc: Erick Zhou MD EXAMINATION: MM SCREENING DIGITAL BREAST TOMOSYNTHESIS, BILATERAL CLINICAL INFORMATION: Screening. Asymptomatic. The lifetime risk of breast cancer based on the Tyrer-Cuzick Model is 6%. COMPARISON: Mammography: 02/02/2021, 07/09/2019, 07/02/2018, 06/19/2018, 12/10/2016; outside mammography 01/25/2016 ([facility]). TECHNIQUE: Digital breast tomosynthesis is performed in [...] in OV> 10/23/22 1242 DD/ 0900 TD/TT: Configuration Developer: ZAPATA [facility] External Provider IMG BI PROCEDURES Final Result * THINPREP TIS PAP AND HPV mRNA E6/E7 WITH REFLEX TO HPV 16,18/45 (08/23/2021 3:53 PM EST) Clinical Information: None given [facility] COMMENT SEE COMMENT [facility] [...] has been evaluated with computer assisted technology. [facility] Case Manager Specialist: SEE COMMENT [facility] Comment: YP, CT(ASCP) CT screening location: [address] ??[address] HPV nRNA E6/E7 Not Detected Not Detected [facility] Comment: Methodology: Lot Associate-Mediated Amplification This assay detects E6/E7 viral messenger RNA (mRNA) from 14 high-risk HPV types (16,18,31,33,35,39,45,51,52,56,58,59,66,68). ? The analytical performance characteristics of this assay have been determined by [employer]. The modifications have not been cleared or approved by the FDA. This assay has been validated pursuant to the CLIA regulations and is used for clinical purposes. ?? For additional information, please refer to http://education.[employer]/faq/ZGX681s1 (This link if provided for information/ educational purposes only.) Infection Shift in vaginal gina suggestive of bacterial vaginosis. [facility] Interpretation/Re sult: Negative for intraepithelial lesion or malignancy. [facility] LMP: 48 YRS OLD [facility] Prev. BX: NONE GIVEN [facility] Prev. PAP: NONE GIVEN [facility] SOURCE: None given [facility] Statement Of Adequacy: SEE COMMENT [facility] Comment: Satisfactory for evaluation. Endocervical/transformation zone component absent. 08/23/2021 3:53 PM EST Ashley Oglesby CNM LAB PATHOLOGY ORDERABLES Final Result [facility] [address] * Pap Smear (08/23/2021) Pap smear Preformed Historical Provider MD HEALTH MAINTENANCE Final Result from Last 3 Months or Most Recently Relevant to Health Maintenance Insurance [place] [facility] , [address] [place] [address] [place] [facility] [place], [place] * Guarantor: Leanne Carey Account Type Relation to Patient Date of Phone Billing Address Personal/Family Self [place], [place] * Guarantor: Leanne Carey Account Type Relation to Patient Date of Phone Billing Address Personal/Family Self [place], [place] * Guarantor: Leanne Carey Account Type Relation to Patient Date of Phone Billing Address Personal/Family Self [place], [place] Care Teams Charging Plug Placer Relationship Specialty Start Date End Date Name, MD Erick [address] [place] [address] PCP - General Family Medicine 11/29/16
--- OUTSIDE RECORDS SUMMARY | 2024-09-09 18:33 | XMS_ITS | Encounter Summary ---
Author Organization [employer] Address [address] [facility] 7t [place] [address] Care Team Providers Care Asset Protection Assistant Name Role Phone Name, Erick CHOWDARY Primary Care Provider [phone] Encounter Details Date Type Department Care Team ([facility] st Contact Info) Description 08/28/2024 Orders Only [facility] [address] [place] [address] Delvis Leon MD [address] [place] [address] Social History Tobacco Use Types Packs/Day Years [...] Description 10/15/2024 9:45 AM EDT Office Visit [facility] [address] [place] [address] Erick Zhou MD [address] [place] [address] 12/22/2024 2:45 PM EDT Office Visit [facility] [address] [place] [address] Erick Zhou MD [address] [place] [address] 01/13/2025 3:00 PM EDT Office Visit [facility] [address] [place] [address] Alejandro, Lucy, OD [address] [place] [address] documented as of this encounter Visit Diagnoses Not on filedocumented in this encounter Additional Health Concerns Assessment Noted Time PHQ-9 Depression Total Score: 18 024 2:25 PM EDT documented as of this encounter Care Teams Asset Protection Assistant Relationship Specialty Start Date End Date Erick Zhou MD [address] [place] [address] PCP - General Family Medicine 11/29/16 documented as of this encounter
--- OUTSIDE RECORDS SUMMARY | 2024-09-09 18:33 | XMS_ITS | Encounter Summary ---
Author Organization [employer] Address [address] [facility] 7t [place] [address] Care Team Providers Care Caddymaster Name Role Phone Name, Erick CHOWDARY Primary Care Provider Encounter Details Date Type Department Care Team ([facility] st Contact Info) Description 08/27/2024 Orders Only [facility] [address] [place] [address] Delvis Leon MD [address] [place] [address] Social History Tobacco Use Types Packs/Day Years [...] Description 10/15/2024 9:45 AM EDT Office Visit [facility] [address] [place] [address] Erick Zhou MD [address] [place] [address] 12/22/2024 2:45 PM EDT Office Visit [facility] [address] [place] [address] Erick Zhou MD [address] [place] [address] 01/13/2025 3:00 PM EDT Office Visit [facility] [address] [place] [address] Alejandro, Lucy, OD [address] [place] [address] documented as of this encounter Visit Diagnoses Not on filedocumented in this encounter Additional Health Concerns Assessment Noted Time PHQ-9 Depression Total Score: 18 024 2:25 PM EDT documented as of this encounter Care Teams Caddymaster Relationship Specialty Start Date End Date Erick Zhou MD [address] [place] [address] PCP - General Family Medicine 11/29/16 documented as of this encounter
--- OUTSIDE RECORDS SUMMARY | 2024-09-09 18:33 | XMS_ITS | Encounter Summary ---
Author Organization [facility] Address [address] [place] [address] [place] [address] Care Team Providers Care Plant Operator Helper Name Role Phone Name, Erick CHOWDARY Primary Care Provider [phone] Encounter Details Date Type Department Care Team (Latest Contact Info) Description 12/20/2020 Abstract [facility] Dental, Provider, DDS Social History [...] 9:45 AM EDT Office Visit [facility] [address] [place] [address] Erick Zhou MD [address] [place] [address] 12/22/2024 2:45 PM EDT Office Visit [facility] [address] [place] [address] Erick Zhou MD [address] [place] [address] 01/13/2025 3:00 PM EDT Office Visit [facility] [address] [place] [address] Lucy Allen OD [address] [place] [address] documented as of this encounter Visit Diagnoses Not on filedocumented in this encounter Care Teams Plant Operator Helper Relationship Specialty Start Date End Date Name, MD Erick [address] [place] [address] PCP - General Family Medicine 11/29/16 documented as of this encounter
--- OUTSIDE RECORDS SUMMARY | 2024-09-09 18:33 | XMS_ITS | Encounter Summary ---
Author Organization [employer] Address [address] [facility] 7 [place] [address] Care Team Providers Care Race Board Attendant Name Role Phone Name, Erick CHOWDARY Primary Care Provider [phone] Reason for Visit * Reason Comments Glaucoma Suspect Encounter Details Date Type Department Care Team ([facility] st Contact Info) Description 08/12/2024 3:30 PM EST Office Visit [facility] [address] [place] [address] Alejandro, Lucy, OD [address] [place] [address] 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 Dx) [...] the past 12 months, has t he [employer], gas, oil or water company threatened to [...] THE MORNING 30 tablet 11 azithromycin (Zithromax Z-Aeljandro) 250 MG tablet Take 2 tablets once [...] 1+ NS Refraction Wearing Rx Sphere Cylinder Drexel Add Right Brashear -1.75 030 +2.50 Left -1.00 -0.50 180 [...] with the content and plan as written. On Site Nurse Source: ___ None _X__ Bilingual Staff (Nayana Thomas) ___ Qualified Staff Pipe Line Gauger ___ Telephone On Site Nurse; ID# ___ On Site Nurse brought by patient (family member, friend, [employer]AR[employer], etc) ___ In person president college or university ___ Ipad On Site Nurse; ID#: Language Spoken During Exam: __Spanish documented in this encounter Plan of Treatment Upcoming Encounters Date Type Department Care Team (Late st Contact Info) Description 10/15/2024 9:45 AM EDT Office Visit [address] [address] Name, MD Erick [address] [place] [address] 12/22/2024 2:45 PM EDT Office Visit [address] [address] Name, MD Erick [address] [place] [address] 01/13/2025 3:00 PM EDT Office Visit [facility] [address] [place] [address] Lucy Allen, OD [address] [place] [address] documented as of this encounter Procedures Procedure [...] documented as of this encounter Care Teams Race Board Attendant Relationship Specialty Start Date End Date Name, MD Erick [address] [place] [address] PCP - General Family Medicine 11/29/16 documented as of this encounter
--- OUTSIDE RECORDS SUMMARY | 2024-09-09 18:33 | XMS_ITS | Encounter Summary ---
Author Organization [facility] Address [address] [place] [address] Care Team Providers Care Steel Grinder Name Role Phone Name, Erick CHOWDARY Primary Care Provider [phone] Reason for Visit * Reason Onset Date Comments prior auth 08/06/2024 Prior auth Encounter Details Date Type Department Care Team (Late Contact Info) Description 08/06/2024 Telephone Bariatric Surgery - [place] [address] [phone] Gonzalez Williamson MD [address] [address] prior auth (Prior auth) Social History Tobacco [...] PM EDT Office Visit Bariatric Surgery - [place] [address] [phone] Gonzalez Williamson MD [address] [address] 01/05/2025 8:45 AM EDT Office Visit [facility] [place] [address] [place], [place] [phone] Renee Hargrove, JOSTIN [address] [place] [address] documented as of this encounter Visit Diagnoses Not on filedocumented in this encounter Care Teams Steel Grinder Relationship Specialty Start Date End Date Name, MD Erick [address] [place], [place] PCP - General Internal Medicine 05/28/19 documented as of this encounter
--- OUTSIDE RECORDS SUMMARY | 2024-09-09 18:33 | XMS_ITS | Encounter Summary ---
Author Organization [employer] Address [address] [address] Care Team Providers Care Drilling Superintendent Name Role Phone Name, Erick CHOWDARY Primary Care Provider [phone] Reason for Visit * Reason Onset Date Comments November recalls 09/08/2024 Encounter Details Date Type Department Care Team ([facility] st Contact Info) Description 09/08/2024 Telephone [facility] [address] [place] [address] Prince Liz NE November recalls Social History Tobacco Use Types Packs/Day Years [...] encounter Miscellaneous Notes * Telephone Encounter - Prince Liz MA - 09/08/2024 2:02 PM EDT Telephone call to patient to schedule the following recall: Visit type: Physical Appointment notes: Physical Patient agree to appointment on 12/22/24 at 2:45 PM with Name. documented in this encounter Plan of Treatment Upcoming Encounters Date Type Department Care Team ([facility] st Contact Info) Description 10/15/2024 9:45 AM EDT Office Visit [facility] [address] [place] [address] NameErick MD [address] [place] [address] 12/22/2024 2:45 PM EDT Office Visit [facility] [address] [place] [address] Erick Zhou MD [address] [place] [address] 01/13/2025 3:00 PM EDT Office Visit [facility] [address] [place] [address] Lucy Allen, OD [address] [place] [address] documented as of this encounter Visit Diagnoses Not on filedocumented in this encounter Additional Health Concerns Assessment Noted Time PHQ-9 Depression Total Score: 18 024 2:25 PM EDT documented as of this encounter Care Teams Drilling Superintendent Relationship Specialty Start Date End Date Name, MD Erick [address] [place] [address] PCP - General Family Medicine 11/29/16 documented as of this encounter
--- OUTSIDE RECORDS SUMMARY | 2024-09-09 18:33 | XMS_ITS | Encounter Summary ---
Author Organization [employer] Address 75 [facility] 7t [place] [address] Care Team Providers Care Auto Body Worker Name Role Phone Name, Erick CHOWDARY Primary Care Provider [phone] Encounter Details Date Type Department Care Team [...] Description 10/15/2024 9:45 AM EDT Office Visit [facility] MEDICINE [address] [place] [phone] NameErick MD [address] [place] [address] 12/22/2024 2:45 PM EDT Office Visit [facility] MEDICINE [address] [place] [address] Name, MD Erick [address] [place] [address] 01/13/2025 3:00 PM EDT Office Visit [facility] OPTOMETRY [address] [place] [address] Alejandro, Lucy, OD [address] [place] [address] documented as of this encounter Visit Diagnoses Not on filedocumented in this encounter Additional Health Concerns Assessment Noted Time PHQ-9 Depression Total Score: 18 024 2:25 PM EDT documented as of this encounter Care Teams Auto Body Worker Relationship Specialty Start Date End Date NameErick MD [address] [place] [address] PCP - General Family Medicine 11/29/16 documented as of this encounter
--- OUTSIDE RECORDS SUMMARY | 2024-09-09 18:33 | XMS_ITS | Encounter Summary ---
Author Organization [employer] Address [address] [address] Care Team Providers Care Lining Machine Tender Name Role Phone Name, Erick CHOWDARY Primary Care Provider [phone] Encounter Details Date Type Department Care Team ([facility] st Contact Info) Description 08/27/2024 Telephone [facility] [address] [place] [address] Name, MD Erick [address] [place] [address] Social History Tobacco Use Types Packs/Day Years [...] 10/15/2024 9:45 AM EDT Office Visit [facility] MEDICINE [address] [place] [address] Name, MD Erick [address] [place] [address] 12/22/2024 2:45 PM EDT Office Visit [facility] MED[facility]INE [address] [place] [address] Name, MD Erick [address] [place], [place] [phone] 01/13/2025 3:00 PM EDT Office Visit [facility] OPTOMETRY [address] [place], [place] [phone] Alejandro, Lucy, OD [address] [place], [place] [phone] documented as of this encounter Visit Diagnoses Not on filedocumented in this encounter Additional Health Concerns Assessment Noted Time PHQ-9 Depression Total Score: 18 024 2:25 PM EDT documented as of this encounter Care Teams Lining Machine Tender Relationship Specialty Start Date End Date Name, MD Erick [address] [place], [place] [phone] PCP - General Family Medicine 11/29/16 documented as of this encounter
== END 2024-09-09 16:10 | disposition home or self-care (01) ==
LOC: HO.HKA 15:29
PROVIDERS: PCP Internal Medicine Geriatric Medicine; Referring Provider Emergency Medicine; Visit Provider Internal Medicine Nephrology
DX: I10 Essential (primary) hypertension (principal); N28.89 Other specified disorders of kidney and ureter
CPT/HCPCS: 99204

== ENCOUNTER → 2024-09-09 15:28 | Outpatient (BNVA) | payer OTHER, SELFPAY | PROVIDERS: PCP Internal Medicine Geriatric Medicine; Referring Provider Emergency Medicine; Visit Provider Internal Medicine Nephrology ==

== ENCOUNTER 2024-10-15 16:07 | Outpatient (REF) | payer OTHER, SELFPAY ==
--- OUTSIDE RECORDS SUMMARY | 2024-10-15 17:29 | XMS_ITS | Encounter Summary ---
Author Organization [employer] [facility] Address [address] [place] [address] Care Team Providers Care Photoengraving Retoucher Name Role Phone Name, Erick CHOWDARY Primary Care Provider [phone] Encounter Details Date Type Department Care Team (Late Contact Info) Description 11/02/2022 Abstract [facility] MEDICINE [address] [place] [address] Name, MD Erick [address] [place] [address] Social History Tobacco Use Types Packs/Day Years [...] Care Team (Late st Contact Info) Description 01/13/2025 3:00 PM EDT Office Visit [facility] OPTOMETRY [address] [place] [address] AlejandroLucy dawson, OD [address] [place] [address] documented as of this encounter Procedures Procedure [...] Noted Time PHQ-9 Depression Total Score: 14 09/05/ 023 9:49 AM EDT documented as of this encounter Care Teams Photoengraving Retoucher Relationship Specialty Start Date End Date Name, MD Erick [address] [place] [address] PCP - General Family Medicine 11/29/16 documented as of this encounter
--- OUTSIDE RECORDS SUMMARY | 2024-10-15 17:29 | XMS_ITS | Clinical Summary ---
Author Organization [address] [facility] Address 175 [place] [address] Phone Care Team Providers Care Cuff Knitter Name Role Phone Name, Erick CHOWDARY Primary Care Provider [phone] Allergies No known active allergies Medications atorvastatin (LIPITOR) 20 mg tablet TAKE 1 TABLET BY MOUTH DAILY IN THE MORNING 06/14/20 23 Active cholecalciferol (VITAMIN D-3) 50 mcg (2,000 unit) capsule TAKE 1 CAPSULE EVERY DAY 01/15/20 18 Active divalproex (DEPAKOTE) [address] tablet TAKE 1 TABLET BY MOUTH TWICE DAILY 05/08/20 21 Active ferrous sulfate 325 mg (65 mg elemental iron) tablet Take 1 tablet by mouth 2 times daily. 09/03/19 13 Active lisinopriL (PRINIVIL,ZESTR IL) 2.5 mg tablet Take 1 Tab by mouth daily. 11/13/19 13 Active lisinopril-hydr oCHLOROthiazide (PRINZIDE,ZESTO RETIC) 20-25 mg per tablet Take 1 tablet by mouth daily. 05/08/20 21 Active PARoxetine (PAXIL) 40 mg tablet TAKE 1 TABLET BY MOUTH AT BEDTIME 05/08/20 21 Active topiramate (TOPAMAX) 50 mg tablet TAKE 2 TABLETS BY MOUTH EVERY DAY 02/24/20 24 Active Zepbound 2.5 mg/0.5 mL injectionIndica tions:Class 1 obesity due to excess calories with serious comorbidity and body mass index (BMI) of 33.0 to 33.9 in adult INJECT ONE PEN (=2.5MG) SUBCUTANEOUSLY ONCE A WEEK DIRECTED 2 mL 09/10/19 25 Active Active Problems Problem Noted Date Diagnosed Date Other complications of gastric band procedure Shoulder pain, bilateral 02/12/2011 IVA (obstructive sleep apnea) 04/05/2010 Edema 11/30/2009 Hypercholesteremia 09/08/2008 Iron deficiency anemia 12/20/2006 Class 1 obesity with body ma ss index (BMI) of 33.0 to 33.9 in adult 12/20/2006 Essential hypertension, benign 10/22/2006 Encounters Date Type Department Care Team Description 08/06/2024 Telephone Bariatric Surgery - [place] 175 [facility] [address] [place] [address] Gonzalez Williamson MD prior auth (Prior auth) 07/28/2024 4:00 PM EST Office Visit Bariatric Surgery - [place] [address] [facility] [address] [place] [address] Gonzalez Williamson MD Class 1 obesity due to excess calories with serious comorbidity and body mass index (BMI) of 33.0 to 33.9 in adult (Primary Dx) from Last 3 Months Immunizations Name Administration Dates Next Due Hepatitis B (Nyduhwg-F-Fxklw , Recombivax HB-Adult) 19yo and older 07/03/2017,02/26/2017,12/24/2016 [...] PM EDT Office Visit Bariatric Surgery - [place] 175 [facility] [address] [place] [phone] Gonzalez Williamson MD 175 [facility] [place] [address] [place] [address] 01/05/2025 8:45 AM EDT Office Visit Obstetrics [facility]necology [facility] [place] [address] [place] [address] Renee Hargrove, JOSTIN [address] [place] [address] Health Maintenance Due Date Last Done Comments Social Influencers of Health Screening 05/15/2022 Hypertension/CHF/CAD Annual BMP Blood Test 05/24/2022 02/16/2012 RSV Immunization Adult Patients (1 - Risk 60-74 years 1-dose series) [...] age to complete this topic Meningococcal B Vaccine Aged Out No l onger eligible based on patient's age to complete [...] Results * Cervical Cancer Screening: HPV (12/16/2023) [facility] Cervical Cancer Screening: HPV Negative, Abstracted Result [facility] Provider HEALTH MAINTENANCE Final Result * Colonoscopy (10/11/2023) [facility] Colonoscopy No Interpretation , Abstracted Anatomical Region Laterality Modality Other Result [facility] Provider HEALTH MAINTENANCE Final Result * Depression Screening (06/27/2023) [facility] Depression Screening Abstracted Result [facility] Provider HEALTH MAINTENANCE Final Result * HIV Screening (12/17/2016) [facility] HIV Screening Abstracted Result [facility] Provider HEALTH MAINTENANCE Final Result * Hepatitis C Screening (12/17/2016) [facility] Hepatitis C Screening Abstracted Result [facility] Provider HEALTH MAINTENANCE Final Result * Annual BMP Blood Test (02/16/2012) [facility] Annual BMP Blood Test Abstracted [facility] Provider HEALTH MAINTENANCE Final Result * (ABNORMAL) Lipid panel (02/16/2012) [facility] LDL/HDL Ratio 4 0 - 4 Triglycerides 82 0 - 150 mg/dL Cholesterol 187 0 - 200 mg/dL HDL 53 >=40 mg/dL LDL Cholesterol 118(A) 0 - 100 mg/dL Blood Venous blood specimen / Unknown us Historical Provider LAB BLOOD ORDERABLES Lorrie l Result from Last 3 Months or Most Recently Relevant to Health Maintenance Insurance [facility] Care Teams Cuff Knitter Relationship Specialty Start Date End Date Name, MD Erick [address] [place], [place] PCP - General Internal Medicine 05/28/19
--- OUTSIDE RECORDS SUMMARY | 2024-10-15 17:29 | XMS_ITS | Encounter Summary ---
Author Organization [employer] Address 75 [facility] [address] [place] [address] Care Team Providers Care Retail Link Analyst Name Role Phone Name, Erick CHOWDARY Primary Care Provider [phone] Encounter Details Date Type Department Care Team ([facility] st Contact Info) Description 10/15/2024 Telephone [facility] MEDICINE [address] [place] [address] Name, MD Erick [address] [place] [address] Social History Tobacco Use Types Packs/Day Years [...] Answer Date Recorded Patient Health Questionnaire-9 Score 7 10/15/2024 Patient Health Questionnaire-9 Score 7 10/15/2024 Last PHQ-9: Questionnaire Data Not on file 0 10/15/2024 Housing Stability Answer Date Recorded What is [...] Answer Date Recorded Patient Health Questionnaire-2 Score 2 10/15/2024 Comments Unknown Sex and Gender Information Value Date Recorded Sex Assigned at Female 04/16/2022 10:31 AM EDT Legal Sex Female 10:31 AM EDT Gender Identity Female 04/16/2022 10:31 AM EDT Sexual Orientation Straight 04/16/2022 10 :31 AM EDT documented as of this encounter Miscellaneous Notes * Telephone Encounter - Georgiana Santiago RN - 10/15/2024 12:33 PM EDT T/C to pt per pcp request to remind pt of need to have Hep A Antibody drawn. Pt states she will hot die picker lab order from [place] team front desk clerk tomorrow. documented in this encounter Plan of Treatment Upcoming Encounters Date Type Department Care Team (Late st Contact Info) Description 01/13/2025 3:00 PM EDT Office Visit [facility] OPTOMETRY [address] [place] [address] Lucy Allen, OD [address] [place] [address] documented as of this encounter Visit Diagnoses Not on filedocumented in this encounter Additional Health Concerns Assessment Noted Time PHQ-9 Depression Total Score: 7 10/16/19 25 10:10 AM EDT documented as of this encounter Care Teams Retail Link Analyst Relationship Specialty Start Date End Date Name, MD Erick [address] [place] [address] PCP - General Family Medicine 6/15/17 documented as of this encounter
--- OUTSIDE RECORDS SUMMARY | 2024-10-15 17:29 | XMS_ITS | Clinical Summary ---
Author Organization [employer] Address [address] [place] [address] [place] [address] Care Team Providers Care Civil Engineering Professor Name Role Phone Name, Erick CHOWDARY Primary Care Provider [phone] Allergies No known active allergies Medications clobetasol [...] 8 HOURS NEEDED FOR NAUSEA AND VOMITING 024 Active ferrous sulfate (Fe Tabs) 325 (65 Fe) MG EC tablet Take 1 tablet (325 mg) by mouth with breakfast. Do not crush, chew, or split. 30 tablet 11 024 2024 Active Multiple Vitamin (multivitamin) capsule Take 1 capsule by mouth Once per day. 30 capsule 11 024 2024 Active divalproex (Depakote) 500 MG EC tablet TAKE 1 TABLET BY MOUTH TWICE DAILY 60 tablet 5 024 Active melatonin 5 MG tablet TAKE 1 TABLET BY MOUTH IN THE EVENING NEEDED 30 tablet 3 024 Active atorvastatin (Lipitor) 20 MG tablet TAKE 1 TABLET BY MOUTH DAILY IN THE MORNING 30 tablet 11 024 Active tiZANidine (Zanaflex) 2 MG tabletIndications :Left sided sciatica Take 1 tablet (2 mg) by mouth every 6 (six) hours if needed for muscle spasms for up to 10 days. 30 tablet 024 Active baclofen (Lioresal) 20 MG tablet Take 1 tablet (20 mg) by mouth 2 times daily. 60 tablet 024 Active lisinopril-hydroC HLOROthiazide 20-25 MG tabletIndications [...] (four) hours if needed (asthma). 1 each 025 Active PARoxetine CR (Paxil-CR) 25 MG 24 hr tablet TAKE 2 TABLETS BY MOUTH EVERY DAY 60 tablet 025 Active barium sulfate (Readi-Cat 2) 2 % suspension Take 450 mL by mouth every 1 (one) hour. Take 1 bottle [address] scan and the 2nd bottle [address] scan. 900 mL 025 Active famotidine (Pepcid) 20 MG tablet Take 1 tablet (20 mg) by mouth 2 times daily. 60 tablet 11 025 2025 Active clotrimazole (Lotrimin) 1 % creamIndications: Pruritus of vagina Apply topically 2 times daily. 28 g 1 025 2024 Active fluconazole (Diflucan) 150 MG tablet Take 1 tablet (150 mg) by mouth 1 (one) time for 1 dose. 1 tablet 025 2024 Active mometasone (Elocon) 0.1 % ointmentIndicatio ns:Eczema, unspecified type Apply topically Once per day. 45 g 2 025 2025 Active mometasone (Elocon) 0.1 % ointmentIndicatio ns:Allergic contact dermatitis due to other agents Apply topically Once per day. 45 g 2 024 2024 Discontinued(R eorder (will not trigger notification to Pharmacy)) Nirmatrelvir&Trent navir 300/100 (Paxlovid, 300/100,) 20 x 150 MG & 10 x 100MG tablet therapy packIndications:A cute COVID-19 Take 1 Dose by mouth 2 times daily. Do not take atorvastatin while you are taking this medication. Resume taking atorvastatin 3 days after you finish this medication (around June 21, 2024.) 1 each 024 2024 Discontinued(T herapy completed) azithromycin (Zithromax Z-Alejandro) 250 MG tablet Take 2 tablets once on day 1, then 1 tablet 1x/day for 4 days. 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) (CMS/HCC) (Primary Dx); Pruritus of vagina; Vitiligo; Eczema, unspecified type; History of syphilis 10/15/2024 Telephone [facility] [address] [place] [address] Name, MD Erick 10/15/2024 Travel 2024 Telephone [facility] [address] [place] [address] Karely Rich MA chartprep 09/08/2024 Telephone [facility] [address] [place] [address] Prince Liz MA Scarlett recalls 08/28/2024 Telephone [facility] [address] [place] [phone] Delvis Leon MD 08/28/2024 Orders Only [facility] [address] [place] [phone] Delvis Leon MD 08/27/2024 Orders Only [facility] [address] [address] Delvis Leon MD 08/27/2024 Telephone [facility] [address] [place] [phone] Erick Zhou MD 08/26/2024 Orders Only [facility] [address] [address] Delvis Leon MD Pain of upper abdomen (Primary Dx) 08/24/2024 11:20 AM EDT Office Visit [facility] [address] [address] Delvis Leon MD UTI symptoms (Primary Dx); Pain of upper abdomen 08/20/2024 Refill [facility] [address] [place] [phone] Nasima Alaniz MD 08/12/2024 3:30 PM EST Office Visit [facility] [address] [place] [phone] Alejandro, Lucy, OD 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 Dx) 08/12/2024 Travel from Last 3 Months Immunizations Name Administration [...] Frequency of Binge Drinking Not on file 0812/2023 Score 0 01/22/2024 Depression Answer Date Recorded [...] Sign Reading Time Taken Comments Blood Pressure 112/62 10/15/2024 9:43 AM EDT Pulse 60 10/15/2024 9:43 AM EDT Temperature 36.7 ??C (98.1 ??F) 10/15/2024 9:43 AM ED T Respiratory Rate 18 10/15/2024 9:43 AM EDT Oxygen Saturation 98% 08/24/2024 11:00 AM EDT Inhaled Oxygen Concentration - - Weight 76.2 kg (168 lb) 10/15/2024 9:43 AM EDT Height 152.4 cm (5') 10/15/2024 9:43 AM EDT Body Mass Index 32.81 10/15/2024 9:43 AM EDT Plan of Treatment Upcoming Encounters Date Type Department Care Team (Late st Contact Info) Description 01/13/2025 3:00 PM EDT Office Visit [facility] [address] [place] [address] Alejandro, Lucy, OD [address] [place] [address] Health Maintenance Due Date Last Done Comments CT Colonography 1960 Dental X-Ray: Full Mouth 1962 FIT DNA/Cologuard 1960 FIT 1960 FOBT 1960 HIV Screening 1960 Sigmoidoscopy 1960 RSV Patients and Patients Aged 60 years or older (1 - Risk 60-74 years 1-dose series) 2022 COVID-19 Vaccine ( season) 2024 06/05/2022, 05/03/2021, 07/23/2020, Additional history exists Dental Oral Exam 05/23/2024 11/21/2023 Dental Prophylaxis 05/23/2024 11/21/2023 Hepatitis A Vaccines (2 of 2 - Risk 2-dose series) 07/24/2024 01/22/2024 Colonoscopy 10/10/2024 10/11/2023, 04/04/2016 Colorectal Cancer Screening 10/10/2024 Mammogram 10/20/2024 10/20/2022, 050 11/2022, 02/02/2021, Additional history exists SDOH Screening 10/23/2024 10/24/2023 Dental X-Ray: Bitewings 11/21/2024 11/21/2023 Alcohol/Substance Use Screening 01/21/2025 01/22/2024 Depression Screening 10/15/2025 10/15/2024, 10/16/19 25 Tobacco Screening 10/15/2025 10/15/2024 Cervical Cancer Screening 08/23/2026 HPV/Cotest 08/23/2026 08/23/2021 Pap Smear 08/23/2026 08/23/2021, 08/23/2021 Lipid Panel 09/29/2028 09/30/2023, 110 09/2022, 09/10/2022, Additional history exists DTaP/Tdap/Td Vaccines [...] PM EST Glaucoma suspect of both eyes Full PROPHYLAXIS - ADULT Routine 11/21/2023 1:00 [...] PM EDT) H pylori Ag Stool SEE [facility] Comment:HELICOBACTER PYLORI AG, EIA, STOOL Micro Number: [id number] Test Status: Final Specimen Source: Stool Specimen Quality: Adequate H.pylori Ag: Not Detected Antimicrobials, proton pump inhibitors, and bismuth preparations inhibit H. pylori and ingestion up to two weeks prior to testing may cause false negative results. If clinically indicated the test should be repeated on a new specimen obtained two weeks after discontinuing treatment. Reference Range: Not DetectedTHIS TEST WAS PERFORMED AT:[facility] [employer] [place] [phone] PAZ MD Stool Rectal contents / Unknown 09/01/2024 3:05 PM EDT 09/01/2024 4:28 PM EDT Delvis Leon MD LAB BODY FLUIDS AND STOOLS ORDER OMAR Final Result [facility] [address] [place] [phone] * CT Abdomen Pelvis w/ Contrast (08/28/2024 8:30 AM EDT) Anatomical Region Laterality Modality Body, Pelvis, Abdomen Computed T omography 08/28/2024 8:30 AM EDT Narrative 08/28/2024 9:23 AM EDT ? [facility] ?[address] ?[place] [address] ? CT Scan Report ? Signed ? Patient: Leanne Carey ?MR#: [id number] ?? [id number] ? : 1960 ?Acct:[id number] ? Age/Sex: 63 / F ?ADM Date: 03/14/25 ? Loc: HO.CT ? Attending Dr: Delvis Leon MD ? Ordering Physician: DELVIS LEON MD ?? Date of Service: 08/28/24 ?? Procedure(s): CT abdomen pelvis w IV con ?? Accession Number(s): [id number] ? cc: DELVIS LEON MD; Name,Erick CHOWDARY ? Report Number: ?? [id number]: Total DLP = ??395.00 mGy-cm ?? EXAMINATION: [...] DD/ 0830 ? TD/TT: 08/28/24 0845 ? It Sales Consultant: ? Procedure Note Vida Garces - 08/28/[address] [address] [address] Scan Report Signed Patient: Leanne Carey [facility]#: [id number] : 1960Acct:[id number] Age/Sex: 63 / FADM Date: 08/28/24 Loc: HO.CT Attending Dr: Delvis Leon MD Ordering Physician: DELVIS LEON MD Date of Service: 08/28/24 Procedure(s): CT abdomen pelvis w IV con Accession Number(s): [id number] cc: DELVIS LEON MD; Name,Erick Report Number: [id number]: Total DLP = 395.00 mGy-cm EXAMINATION: CT [...] scarring. 3. Fibroid uterus. Electronically signed by: Tio Felipe MD 08/28/2024 09:20 AM EDT RP Dictated By: Toi Felipe MD Signed By: <Electronically signed by Toi Felipe MD in OV> 08/28/24919 DD/ 9 TD/TT: 08/28/2445 It Sales Consultant: Delvis Leon MD IMG CT PROCEDURES Final Result * (ABNORMAL) Comprehensive Metabolic Panel (08/27/2024 11:28 AM EDT) Sodium 141 135 - 145 mmol/L [facility] Potassium 3.8 3.3 - 5.1 mmol/L [facility] Chloride 101 96 - 108 mmol/L [facility] Carbon Dioxide 32(H) 22 - 29 mmol/L [facility] Anion Gap 12 12 - 20 [facility] Urea Nitrogen (BUN) 18(H) 9 - 16 mg/dL [facility] Creatinine, Serum 0.83 0.5 - 1.4 mg/dL [facility] Estimated Glomerular Filt Rate >60 [facility] Comment:Chronic Kidney Disea se: Estimated GFR < 60 mL/min/1.94z7Libkgi Kidney Disease: Estimated GFR < 15 mL/min/1.73m2 Glucose 120(H) 60 - 115 mg/dL [facility] Calcium 9.0 8.4 - 10.2 mg/dL [facility] Bilirubin, Total 0.3 0.0 - 1.0 mg/dL [facility] Aspartate Amino Transferase 42(H) 5 - 31 U/L [facility] Alanine Aminotransferase 42(H) 0 - 31 U/L [facility] Total Protein 7.3 6.5 - 8.0 g/dL [facility] Albumin Level 4.1 3.5 - 5.0 g/dL [facility] Alkaline Phosphatase 125(H) 39 - 117 U/L [facility] Blood Venous blood specimen / Unknown 08/27/2024 11:28 AM EDT 08/27/2024 1:25 PM EDT Erick Zhou MD LAB BLOOD ORDERABLES Final Resul t Performing Organization Address [facility] Co de Phone Number [facility] [address] [place] [phone] * Culture, Urine, Routine (08/24/2024 12:42 PM EDT) Urine Urine specimen obtained by clean catch procedure / Unknown 08/24/2024 12:42 PM EDT 08/24/2024 5:07 PM EDT Comment:UACC Narrative [facility] - 08/26/2024 10:35 AM EDT Urine Culture Report Result Urine Culture 10,000 to 50,000 cfu/ml Urine Culture Mixed bacterial gina characteristic of Urine Culture urogenital contamination. Specimen Source: Urine clean catch Delvis Leon MD LAB MICROBIOLOGY - GENERAL ORDER OMAR Final Result Performing Organization Address [facility] Co de Phone Number [facility] [address] [place] [phone] * (ABNORMAL) POCT urinalysis dipstick manually [...] FIELD Edited Res ult - Final * Hepatitis C Antibody with Reflex to HCV, RNA, Quantitative, Real-Time PCR (10/25/2023 2:05 PM EDT) Hepatitis C Antibody Nonreactive Nonreactive [facility] Comment:Antibodies to HCV no t detected; does not exclude early acuteHCV infection. Blood Venous blood specimen / Unknown 10/25/2023 2:05 PM EDT 10/25/2023 3:55 PM EDT us Erick Zhou MD LAB BLOOD ORDERABLES Final Resul t Performing Organization Address City/[facility]/ZIP Co de Phone Number [facility] [address] [place] [phone] * (ABNORMAL) Hm Colonoscopy (10/11/2023) Colonoscopy Abnormal(A ) Normal us Erick hZou MD HEALTH MAINTENANCE Final Result * (ABNORMAL) Lipid Panel, Standard (09/30/2023 9:01 AM EDT) Triglycerides 133 <150 mg/dL [facility] Comment:Desirable Triglyceri de: less than 150 mg/dLBorderline High Triglyceride 150-199 mg/dLHigh Triglyceride: 200-499 mg/dLVery High Triglyceride: greater than or equal to 5OO mg/dL Cholesterol 153 <200 mg/dL [facility] Comment:Desirable Cholestero l: less than 200 mg/dLBorderline High Cholesterol: 200-239 mg/dLHigh Cholesterol: greater than 239 mg/dL LDL Cholesterol Calculated 90 <100 mg/dL [facility] Comment:Desirable LDL: less than 100 mg/dLNear Optimal/Above Optimal LDL: 110- 129 mg/dLBorderline High LDL: 130-159 mg/dLHigh LDL: 160-189 mg/dLVery High LDL: greater than or equal to 190 mg/dL HDL Cholesterol 37(L) >40 mg/dL [facility] Comment:Desirable HDL: great er than 40 mg/dL Note: This HDL assay may give artificially low results in patients with liver disease. Blood Venous blood specimen / Unknown 09/30/2023 9:01 AM EDT 09/30/2023 9:01 AM EDT us Erick Zhou MD LAB BLOOD ORDERABLES Final Resul t Performing Organization Address City/[facility]/ZIP Co de Phone Number [facility] [address] [place] [phone] * BI Mammogram Screening Tomosynthesis Bilateral (10/20/2022 9:00 AM EDT) Anatomical Region Laterality Modality Breast Bilateral Mammography 10/20/2022 9:00 AM EDT Narrative 10/23/2022 12:44 PM EDT ? [facility] ? [address] ?[place] [address] ? Mammography Report ? Signed ? Patient: Leanne Carey ?MR#: [id number] ?? [id number] ? : 1960 ?Acct:[id number] ? Age/Sex: 62 / F ?ADM Date: 10/20/22 ? Loc: HO.MAMMO ? Attending Dr: Erick Name MD ? Ordering Physician: Name,Erick MD ?Results: 2Benign Fi ?? ndings ? Date of Service: 10/20/22 ?Follow Up: 1 Year From Orig ?? inal Mammogram ? Procedure(s): MM tomosynthesis screening BI ?? Accession Number(s): [id number] ? cc: Name,Erick CHOWDARY ? EXAMINATION: ?? MM SCREENING DIGITAL BREAST TOMOSYNTHESIS, BILATERAL ? CLINICAL INFORMATION: ? Screening. Asymptomatic. ? The lifetime risk of breast cancer based on the Tyrer-Cuzick Model is ?? 6%. ? COMPARISON: ?? Mammography: 02/02/2021, 07/09/2019, 07/02/2018, 06/19/2018, ?? 12/10/2016; outside mammography 01/25/2016 ([facility]). ? TECHNIQUE: ?? Digital breast tomosynthesis [...] 1242 ? DD/ 0900 ? TD/TT: ? It Sales Consultant: ZAPATA ? Procedure Note Dez, Image - 12/13/2022 [facility] [address] [place] [address] Dr. [place], [place] [address] Mammography Report Signed Patient: Leanne Carey [facility]#: [id number] : 1960Acct:[id number] Age/Sex: 62 / FADM Date: 10/20/22 Loc: [place] Attending Dr: Erick Zhou MD Ordering Physician: Erick Zhouesults: 2[facility] Date of Service: 10/20/22Follow Up: 1 Year From Orig inal Mammogram Procedure(s): MM tomosynthesis screening BI Accession Number(s): [id number] cc: Name,Erick EXAMINATION: MM SCREENING DIGITAL BREAST TOMOSYNTHESIS, BILATERAL CLINICAL INFORMATION: Screening. Asymptomatic. The lifetime risk of breast cancer based on the Tyrer-Cuzick Model is 6%. COMPARISON: Mammography: 02/02/2021, 07/09/2019, 07/02/2018, 06/19/2018, 12/10/2016; outside mammography 01/25/2016 ([facility]). TECHNIQUE: Digital breast tomosynthesis is performed [...] in OV> 10/23/22 1242 DD/ 0900 TD/TT: It Sales Consultant: ZAPATA [facility] External Provider IMG BI PROCEDURES Final [...] has been evaluated with computer assisted technology. [employer] Field Marketing Representative: SEE COMMENT [facility] Comment: YP, CT(ASCP) CT screening location: [address] ??[address] HPV nRNA E6/E7 Not Detected Not Detected [facility] Comment: Methodology: Hide Buyer-Mediated Amplification This assay detects E6/E7 viral messenger RNA (mRNA) from 14 high-risk HPV types (16,18,31,33,35,39,45,51,52,56,58,59,66,68). ? The analytical performance characteristics of this assay have been determined by [employer]. The modifications have not been cleared or approved by the FDA. This assay has been validated pursuant to the CLIA regulations and is used for clinical purposes. ?? For additional information, please refer to http://education.[employer]faq/UHH948n4 (This link if provided for information/ educational purposes only.) Infection Shift in vaginal gina suggestive of bacterial vaginosis. [facility] [facility] Interpretation/Re sult: Negative for intraepithelial lesion or malignancy. [employer] [facility] LMP: 48 YRS OLD [facility] Prev. BX: NONE GIVEN [facility] Prev. PAP: NONE [facility]IVEN [facility] SOURCE: None given [facility] Statement Of Adequacy: SEE COMMENT [facility] Comment: Satisfactory for evaluation. Endocervical/transformation zone component absent. 08/23/2021 3:53 PM EST Ashley Oglesby CNM LAB PATHOLOGY ORDERABLES Final Result [employer] [facility] [address] * Pap Smear (08/23/2021) Pap smear Preformed us Historical Provider MD HEALTH MAINTENANCE Final Result from Last 3 Months or Most Recently Relevant to Health Maintenance Insurance [place] [facility] , [address] [place] [address] [place] [facility] [place], [place] * Guarantor: Leanne Carey Account Type Relation to Patient Date of Phone Billing Address Personal/Family Self [place], [place] * Guarantor: Leanne Carey Account Type Relation to Patient Date of Phone Billing Address Personal/Family Self [place], [place] Care Teams Civil Engineering Professor Relationship Specialty Start Date End Date Name, MD Erick [address] [place] [phone] PCP - General Family Medicine 11/29/16
--- OUTSIDE RECORDS SUMMARY | 2024-10-15 17:29 | XMS_ITS | Encounter Summary ---
Author Organization [facility] Address [address] [place] [address] Care Team Providers Care Tube And Manifold Builder Name Role Phone Name, Erick CHOWDARY Primary Care Provider [phone] Encounter Details Date Type Department Care Team (Latest Contact Info) Description 12/20/2020 Abstract [facility] CONVERSIONS Dental, Provider, DDS Social History Tobacco [...] Description 01/13/2025 3:00 PM EDT Office Visit [facility] [address] [place] [address] Alejandro, Lucy, OD [address] [place] [address] documented as of this encounter Visit Diagnoses Not on filedocumented in this encounter Care Teams Tube And Manifold Builder Relationship Specialty Start Date End Date Name, MD Erick [address] [place] [address] PCP - General Family Medicine 11/29/16 documented as of this encounter
--- OUTSIDE RECORDS SUMMARY | 2024-10-15 17:29 | XMS_ITS | Encounter Summary ---
Author Organization [employer] Address [address] [facility] [address] [place] [address] Care Team Providers Care Chief Nuclear Medicine Technologist Name Role Phone Name, Erick CHOWDARY Primary Care Provider [phone] Encounter Details Date Type Department Care Team (Latest Contact Info) Description 10/15/2024 Travel Social History Tobacco Use Types Packs/Day [...] Description 01/13/2025 3:00 PM EDT Office Visit [facility] [address] [place] [address] Alejandro, Lucy, OD [address] [place] [address] documented as of this encounter Visit Diagnoses Not on filedocumented in this encounter Additional Health Concerns Assessment Noted Time PHQ-9 Depression Total Score: 7 10/16/19 25 10:10 AM EDT documented as of this encounter Care Teams Chief Nuclear Medicine Technologist Relationship Specialty Start Date End Date Name, MD Erick [address] [place] [address] PCP - General Family Medicine 11/29/16 documented as of this encounter
--- OUTSIDE RECORDS SUMMARY | 2024-10-15 17:29 | XMS_ITS | Encounter Summary ---
Author Organization [email or web address] Address [address] [place] [address] Care Team Providers Care Spanish Linguist Name Role Phone Erick Zhou MD Primary Care Provider [phone] Reason for Referral * Consultation (Routine) - Authorized Specialty Diagnoses / Procedures Referred By Danisha pereyra Referred To Contact Family Medicine Diagnoses Vitiligo Erick Zhou MD [address] [place] [address] Phone: tel: fax: Referral ID Status Reason Start Date Expiration Date Visits Requested Visits Authorized [id number] Authorized Specialty Services Required 10/15/2024 10/15/2025 1 1 Reason for Visit * Reason Comments Follow-up Encounter Details Date Type Department Care Team (Late st Contact Info) Description 10/15/2024 9:45 AM EDT Office Visit [facility] [address] [place] [phone] Erick Zhou MD [address] [place] [phone] Liver cirrhosis secondary to LAKE (nonalcoholic steatohepatitis) (CMS/HCC) (Primary Dx); Pruritus of vagina; Vitiligo; Eczema, unspecified type; History of syphilis Social History Tobacco Use Types Packs/Day Years [...] 18 10/15/2024 9:43 AM EDT Oxygen Saturation - - Inhaled Oxygen Concentration - - Weight 76.2 kg (168 lb) 10/15/2024 9:43 AM EDT Height 152.4 cm (5') 10/15/2024 9:43 AM EDT Body Mass Index 32.81 10/15/2024 9:43 AM EDT documented in this encounter Progress Notes * Erick Zhou MD - 10/15/2024 9:45 AM EDT Subjective Patient ID: Leanne Carey is a 64 y.o. female who presents for Follow-up. Patient comes for a follow-up visit we discussed several issues. She has cirrhosis secondary to Lake. She does not drink alcohol. Recent CT scan of the abdomen was negative for any hepatic mass, she does not have ascites, she is now following at [facility]. She is up-to-date with hepatitis B vaccinations. Recent CMP showed only mild transaminitis. The patient denies any recurrent seizures in more than a year. She is in good spirits with her psychiatric medications prescribed elsewhere. Today today she complains hypopigmented macules consistent with vitiligo. She tells me she has a family history of vitiligo. She complains of a rash on the right wrist consistent with eczema. She had similar symptoms in the past. She also complains of recurrent problems with vaginal pruritus. She responds to treatment with oralfluconazole and topical clotrimazole. She is not sexually active. She does not have history of diabetes. Today she tells me she has a remote history of syphilis. She was treated with penicillin in the past twice. She has not been sexually active in years. She requested to recheck STI testing including RPR. Review of Systems Constitutional: Negative for chills and fever. HENT: Negative for sore throat. Respiratory: Negative for cough, shortness of breath and wheezing. Cardiovascular: Negative for chest pain, palpitations and leg swelling. Gastrointestinal: Negative for abdominal pain. Genitourinary: Recurrent vaginal pruritus. Skin: See HPI Visit Vitals BP 112/62 (BP Location: Left arm, Patient Position: Sitting, BP Cuff Size: Adult) Pulse 60 Temp 98.1 ??F (36.7 ??C) (Oral) Resp 18 Ht 5' (1.524 m) Wt 168 lb (76.2 kg) BMI 32.81 kg/m?? Smoking Status Never BSA 1.8 m?? Objective Physical Exam Constitutional: Appearance: Normal appearance. Cardiovascular: Rate and Rhythm: Normal rate and regular rhythm. Heart sounds: No murmur heard. No gallop. Pulmonary: Effort: Pulmonary effort is normal. No respiratory distress. Breath sounds: Normal breath sounds. No wheezing. Musculoskeletal: Right lower leg: No edema. Left lower leg: No edema. Skin: Comments: Eczematous rash on the right wrist. Multiple hypopigmented macules all over the body consistent with vitiligo. Neurological: Mental Status: She is alert. Assessment/Plan Diagnoses and all orders for this visit: Liver cirrhosis secondary to LAKE (nonalcoholic steatohepatitis) (CMS/HCC) Comments: Continue to avoid alcohol. I will obtain results of most recent blood work done at [facility]. Continue imaging surveillance every 6 months for HCC. Pruritus of vagina Comments: I will treat empirically for vaginal yeast infection, I will check her for diabetes and BV. Orders: - clotrimazole (Lotrimin) 1 % cream; Apply topically 2 times daily. - Bacterial Vaginosis - Basic Metabolic Panel; Future - Hemoglobin A1c; Future Vitiligo Comments: Referral to dermatology Orders: - Referral to [facility] Skin Adult; Future Eczema, unspecified type Comments: She was prescribed topical steroid to be applied on the right wrist area Orders: - mometasone (Elocon) 0.1 % ointment; Apply topically Once per day. History of syphilis Comments: She was treated with penicillin twice in the past for this several years ago. I will repeat RPR andSTI testing Orders: - HIV-1/2 Antigen and Antibodies, Fourth Generation, with Reflexes; Future - RPR (Monitor) with Reflex to Titer; Future - Chlamydia/N. Gonorrhoeae RNA, TMA, Urogenitial Other orders - fluconazole (Diflucan) 150 MG tablet; Take 1 tablet (150 mg) by mouth 1 (one) time for 1 dose. documented in this encounter Plan of Treatment Upcoming Encounters Date Type Department Care Team (Late st Contact Info) Description 01/13/2025 3:00 PM EDT Office Visit [facility] [address] [place], [place] [phone] Lucy Allen, OD [address] [facility] [place], [place] [phone] Scheduled Orders Name Type Priority Associated Diagnoses Orde r Schedule HIV-1/2 Antigen and Antibodies, Fourth Generation, with Reflexes Lab Routine History of syphilis Expected: 10/15/2024 (Approximate), Expires: 10/15/2025 RPR (Monitor) with Reflex to??Titer Lab Routine History of syphilis Expected: 10/15/2024, Expires: 10/15/2025 Chlamydia/N. Gonorrhoeae RNA, TMA, Urogenitial Microbiology Routine History of syphilis Ordered: 10/15/2024 Bacterial Vaginosis Microbiology Routine Pruritus of vagina Ordered: 10/15/2024 Basic Metabolic Panel Lab Routine Pruritus of vagina Expected: 10/15/2024 (Approximate), Expires: 10/15/2025 Hemoglobin A1c Lab Routine Pruritus of vagina Expected: 10/15/2024 (Approximate), Expires: 10/15/2025 Scheduled Referrals Name Type Priority Associated Diagnoses Orde r Schedule Referral to [facility] Skin Adult Outpatient Referral Routine Vitiligo Expected: 10/15/2024 (Approximate), Expires: 10/15/2025 documented as of this encounter Visit Diagnoses Diagnosis Liver cirrhosis secondary to LAKE (nonalcoholic steatohepatitis) (CMS/HCC)- Primary Pruritus of vagina Pruritus of genital organs Vitiligo Eczema, unspecified type History of syphilis documented in this encounter Additional Health Concerns Assessment Noted Time PHQ-9 Depression Total Score: 7 10/16/19 25 10:10 AM EDT documented as of this encounter Care Teams Spanish Linguist Relationship Specialty Start Date End Date Name, MD Erick [address] [place] [address] PCP - General Family Medicine 11/29/16 documented as of this encounter
--- OUTSIDE RECORDS SUMMARY | 2024-10-15 17:29 | XMS_ITS | Encounter Summary ---
Author Organization [employer] Address [address] [facility] [address] [place] [address] Care Team Providers Care Care Services Manager Name Role Phone Name, Erick CHOWDARY Primary Care Provider [phone] Encounter Details Date Type Department Care Team ([facility] st Contact Info) Description 08/28/2024 Orders Only [facility] [address] [place] [address] Delvis Leon MD [address] [place] [address] Social History Tobacco Use Types Packs/Day Years [...] Description 01/13/2025 3:00 PM EDT Office Visit [facility] [address] [place] [address] Alejandro, Lucy, OD [address] [place] [address] documented as of this encounter Visit Diagnoses Not on filedocumented in this encounter Additional Health Concerns Assessment Noted Time PHQ-9 Depression Total Score: 18 024 2:25 PM EDT documented as of this encounter Care Teams Care Services Manager Relationship Specialty Start Date End Date Name, MD Erick [address] [place] [address] PCP - General Family Medicine 11/29/16 documented as of this encounter
--- OUTSIDE RECORDS SUMMARY | 2024-10-15 17:29 | XMS_ITS | Encounter Summary ---
Author Organization [employer] Address [address] [facility] [address], [place] [address] Care Team Providers Care New Car Inspector Name Role Phone Name, Erick CHOWDARY Primary Care Provider [phone] Reason for Visit * Reason Onset Date Comments chartprep 2024 Encounter Details Date Type Department Care Team ([facility] st Contact Info) Description 2024 Telephone [facility] [address] [place] [address] Karely Rich [place] chartprep Social History Tobacco Use Types Packs/Day Years [...] encounter Miscellaneous Notes * Telephone Encounter - Karely Rich [place] - 2024 9:52 AM EDT Chart Prep Labs: done except BMP Images: done Referrals: complete Vaccines due: Hep A,covid Screenings: colonoscopy and mammogram due on 10/20/24 Overdue care gaps: PHQ-9, LG-7, and Disability screen documented in this encounter Plan of Treatment Upcoming Encounters Date Type Department Care Team (Late st Contact Info) Description 01/13/2025 3:00 PM EDT Office Visit [facility] [address] [place] [address] Alejandro, Luyc, OD [address] [place] [address] documented as of this encounter Visit Diagnoses Not on filedocumented in this encounter Additional Health Concerns Assessment Noted Time PHQ-9 Depression Total Score: 18 024 2:25 PM EDT documented as of this encounter Care Teams New Car Inspector Relationship Specialty Start Date End Date Name, MD Erick [address] [place] [address] PCP - General Family Medicine 11/29/16 documented as of this encounter
--- OUTSIDE RECORDS SUMMARY | 2024-10-15 17:29 | XMS_ITS | Encounter Summary ---
Author Organization [employer] [facility] Address [address] [place] [phone] Care Team Providers Care Sales And Service Advisor Name Role Phone Name, Erick CHOWDARY Primary Care Provider [phone] Reason for Visit * Reason Comments Med Refill Encounter Details Date Type Department Care Team (Late st Contact Info) Description 03/17/2023 Refill [facility] [address] [place] [address] Name, MD Erick [address] [place] [address] Social History Tobacco Use Types Packs/Day Years [...] Description 01/13/2025 3:00 PM EDT Office Visit [facility] [address] [place] [address] Lucy Allen, OD [address] [place] [address] documented as of this encounter Visit Diagnoses Not on filedocumented in this encounter Additional Health Concerns Assessment Noted Time PHQ-9 Depression Total Score: 14 023 9:49 AM EDT documented as of this encounter Care Teams Sales And Service Advisor Relationship Specialty Start Date End Date Name, MD Erick [address] [place] [address] PCP - General Family Medicine 11/29/16 documented as of this encounter
[2024-10-15 17:54] LABS: Bacterial Vaginosis PCR NEGATIVE (Negative); Candida Group PCR NOT DETECTED (Not Detect); Candida glab krusei PCR NOT DETECTED (Not Detect); Trichomonas vaginalis PCR NOT DETECTED (Not Detect)
[2024-10-15 18:28] LABS: CT PCR NOT DETECTED (Not Detect.); NG PCR NOT DETECTED (Not Detect.)
== END 2024-10-15 16:08 | disposition home or self-care (01) ==
LOC: HO.HHCLNP 16:07
PROVIDERS: Visit Provider Internal Medicine Geriatric Medicine
DX: N89.8 Other specified noninflammatory disorders of vagina (principal); Z86.19 Personal history of other infectious and parasitic diseases
CPT/HCPCS: 81515; 87491; 87591

== ENCOUNTER 2024-10-16 09:35 | Outpatient (REF) | payer OTHER, SELFPAY ==
--- OUTSIDE RECORDS SUMMARY | 2024-10-16 10:23 | XMS_ITS | Clinical Summary ---
Author Organization [employer] Address [address] [place] [address] [place] [address] Care Team Providers Care Boat Camp Operator Name Role Phone Name, Erick CHOWDARY Primary Care Provider Allergies No known active allergies Medications clobetasol [...] daily. 28 g 1 025 2024 Active mometasone (Elocon) 0.1 % [...] eorder (will not trigger notification to Pharmacy)) fluconazole (Diflucan) 150 MG tablet Take 1 tablet (150 mg) by mouth 1 (one) time for 1 dose. 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) (CMS/HCC) (Primary Dx); Pruritus of vagina; Vitiligo; Eczema, unspecified type; History of syphilis 10/15/2024 Telephone [facility] MEDICINE [address] [place] [address] Name, MD Erick 10/15/2024 Travel 2024 Telephone [facility] MEDICINE [address] [place] [address] Karely Rich MA chartprep 09/08/2024 Telephone [facility] MEDICINE [address] [place] [address] Prince Liz MA Scarlett recalls 08/28/2024 Telephone [facility] WALK-IN CENTER [address] [place] [phone] Delvis Leon MD 08/28/2024 Orders Only [facility] WALK[facility]IN CENTER [address] [place] [phone] Delvis Leon MD 08/27/2024 Orders Only [facility] WALK-IN [address] [address] Delvis Leon MD 08/27/2024 Telephone [facility] [address] [place] [phone] Erick Zhou MD 08/26/2024 Orders Only [facility] WALK-IN [address] [address] Delvis Leon MD Pain of upper abdomen (Primary Dx) 08/24/2024 11:20 AM EDT Office Visit [facility] WALK-IN [address] [address] Delvis Leon MD UTI symptoms (Primary Dx); Pain of upper abdomen 08/20/2024 Refill [facility] [address] [place] [address] Nasima Alaniz MD 08/12/2024 3:30 PM EST Office Visit [facility] OPTOMETRY [address] [place] [address] Alejandro, Lucy, OD Glaucoma suspect of both [...] 3:00 PM EDT Office Visit [facility] OPTOMETRY [address] [place] [address] Alejandro, Lucy, OD [address] [place] [address] Health Maintenance Due Date Last Done Comments [...] Procedure Name Priority Date/Time Associated Diagnosis Comments BACTERIAL VAGINOSIS PANEL Routine 10/15/2024 10:03 AM EDT Pruritus of vagina CHLAMYDIA/N. GONORRHOEAE RNA, TMA, UROGENITAL Routine 10/15/2024 10:01 AM EDT History of syphilis HELICOBACTER PYLORI AG, EIA, STOOL Routine 09/01/2024 [...] Recently Relevant to Health Maintenance Results * Bacterial Vaginosis (10/15/2024 10:03 AM EDT) TRICHOMONAS VAGINALIS DETECTION BY PCR NOT DETECTED Not Detect [facility] BACTERIAL VAGINOSIS DETECTION BY PCR NEGATIVE Negative [facility] Comment:The BV organism targ ets of the Xpert Xpress MVP test can becommensal in women; Xpert Xpress MVP positive results forbacterial vaginosis should be considered in conjunction withother clinical and patient information to determine thedisease status. Organisms that are not detected by the XpertXpress MVP test have also been reported to be associatedwith BV and aerobic vaginitis.The Xpert Xpress MVP test performance has not been evaluatedin patients under the age of 14. VA GROUP DETECTION BY PCR NOT DETECTED Not Detect [facility] Va glab krusei PCR NOT DETECTED Not Detect [facility] Swab Vaginal structure / Unknown 10/15/2024 10:03 AM EDT 10/15/2024 4:13 PM EDT us Erick Zhou MD LAB MICROBIOLOGY - GENERAL ORDER OMAR Final Result [facility] [address] [place] [phone] * Chlamydia/N. Gonorrhoeae RNA, TMA, Urogenitial (10/15/2024 10:01 AM EDT) CT PCR NOT DETECTED Not Detect. [facility] Comment:A not detected test result does not exclude the possibilityof infection because test results can be affected byimproper specimen collection, concurrent antibiotic therapy,or the number of organisms in the specimen which may bebelow the sensitivity of the test. As with many diagnostictests, results from the Xpert CT/NG assay should beinterpreted in conjunction with other laboratory andclinical data available to the clinician.Xpert CT/NG performance has not been evaluated in patientsless than 14 years of age. The assay should not be used forthe evaluationof suspected sexual abuse or for other medico-legalindications. Additional testing is recommended in anycircumstance when false positive or false negative resultscould lead to adverse medical, social or psychologicalconsequences. NG PCR NOT DETECTED Not Detect. [facility] Comment:A not detected test result does not exclude the possibilityof infection because test results can be affected byimproper specimen collection, concurrent antibiotic therapy,or the number of organisms in the specimen which may bebelow the sensitivity of the test. As with many diagnostictests, results from the Xpert CT/NG assay should beinterpreted in conjunction with other laboratory andclinical data available to the clinician.Xpert CT/NG performance has not been evaluated in patientsless than 14 years of age. The assay should not be used forthe evaluationof suspected sexual abuse or for other medico-legalindications. Additional testing is recommended in anycircumstance when false positive or false negative resultscould lead to adverse medical, social or psychologicalconsequences. Urine (Urine, Random) 10/15/2024 10:01 AM EDT 10/15/2024 4:08 PM EDT Narrative [facility] - 10/15/2024 6:29 PM EDT Urine us Erick Zhou MD LAB MICROBIOLOGY - GENERAL ORDER OMAR Final Result [facility] [address] [place] [phone] [phone] * Helicobacter pylori??Antigen, EIA, Stool (09/01/2024 3:05 PM EDT) H pylori Ag Stool SEE NOTE [facility] Comment:HELICOBACTER PYLORI AG, EIA, STOOL Micro Number: [id number] Test Status: Final Specimen Source: Stool Specimen Quality: Adequate H.pylori Ag: Not Detected Antimicrobials, proton pump inhibitors, and bismuth preparations inhibit H. pylori and ingestion up to two weeks prior to testing may cause false negative results. If clinically indicated the test should be repeated on a new specimen obtained two weeks after discontinuing treatment. Reference Range: Not DetectedTHIS TEST WAS PERFORMED AT:[facility] [place] [phone] PAZ MD Stool Rectal contents / Unknown 09/01/2024 3:05 PM EDT 09/01/2024 4:28 PM EDT Delvis Leon MD LAB BODY FLUIDS AND STOOLS ORDER OMAR Final Result [facility] [address] [place] [address] [phone] * CT Abdomen Pelvis w/ Contrast (08/28/2024 8:30 AM EDT) Anatomical Region Laterality Modality Body, Pelvis, Abdomen Computed T omography 08/28/2024 8:30 AM EDT Narrative 08/28/2024 9:23 AM EDT ? [facility] ?[address] ?[place] [address] ? CT Scan Report ? Signed ? Patient: Leanne Carey ?MR#: [id number] ?? [id number] ? : 1960 ?Acct:[id number] ? Age/Sex: 63 / F ?ADM Date: 03/14/25 ? Loc: HO.CT ? Attending Dr: Delvis Leon MD ? Ordering Physician: DELVIS LEON MD ?? Date of Service: 08/28/24 ?? Procedure(s): CT abdomen pelvis w IV con ?? Accession Number(s): [id number] ? cc: DELVIS LEON MD; Name,Erick CHOWDARY ? Report Number: ?? [id number]: Total DLP = ??395.00 mGy-cm ?? EXAMINATION: [...] DD/ 0830 ? TD/TT: 08/28/24 0845 ? Machine Printer: ? Procedure Note Azaelwilmanmaryjosh, Image - 08/28/[address] [place] [address] [address] Scan Report Signed Patient: Leanne Carey [facility]#: [id number] : 1960Acct:[id number] Age/Sex: 63 / FADM Date: 08/28/24 Loc: HO.CT Attending Dr: Delvis Leon MD Ordering Physician: DELVIS LEON MD Date of Service: 08/28/24 Procedure(s): CT abdomen pelvis w IV con Accession Number(s): [id number] cc: DELVIS LEON MD; Name,Erick CHOWDARY Report Number: [id number]: Total DLP = 395.00 mGy-cm EXAMINATION: CT [...] signed by Toi Felipe MD in OV> 08/28/2420 DD/ 0830 TD/TT: 08/28/24 0845 Machine Printer: Delvis Leon MD IMG CT PROCEDURES Final Result * (ABNORMAL) Comprehensive Metabolic Panel (08/27/2024 11:28 AM EDT) Sodium 141 135 - 145 mmol/L [facility] Potassium 3.8 3.3 - 5.1 mmol/L [facility] Chloride 101 96 - 108 mmol/L [facility] Carbon Dioxide 32(H) 22 - 29 mmol/L [facility] Anion Gap 12 12 - 20 [facility] Urea Nitrogen (BUN) 18(H) 9 - 16 mg/dL [facility] Creatinine, Serum 0.83 0.5 - 1.4 mg/dL [facility] Estimated Glomerular Filt Rate >60 [facility] Comment:Chronic Kidney Disea se: Estimated GFR < 60 mL/min/1.76t9Pozlds Kidney Disease: Estimated GFR < 15 mL/min/1.73m2 Glucose 120(H) 60 - 115 mg/dL [facility] Calcium 9.0 8.4 - 10.2 mg/dL [facility] Bilirubin, Total 0.3 0.0 - 1.0 mg/dL [facility] Aspartate Amino Transferase 42(H) 5 - 31 U/L [facility] Alanine Aminotransferase 42(H) 0 - 31 U/L [facility] Total Protein 7.3 6.5 - 8.0 g/dL [facility] Albumin Level 4.1 3.5 - 5.0 g/dL [facility] Alkaline Phosphatase 125(H) 39 - 117 U/L [facility] Blood Venous blood specimen / Unknown 08/27/2024 11:28 AM EDT 08/27/2024 1:25 PM EDT us Erick Zhou MD LAB BLOOD ORDERABLES Final Resul t Performing Organization Address [facility] Co de Phone Number [facility] [address] [place] [phone] * Culture, Urine, Routine (08/24/2024 12:42 PM EDT) Urine Urine specimen obtained by clean catch procedure / Unknown 08/24/2024 12:42 PM EDT 08/24/2024 5:07 PM EDT Comment:UACC Narrative [facility] - 08/26/2024 10:35 AM EDT Urine Culture Report Result Urine Culture 10,000 to 50,000 cfu/ml Urine Culture Mixed bacterial gina characteristic of Urine Culture urogenital contamination. Specimen Source: Urine clean catch us Delvis Leon MD LAB MICROBIOLOGY - GENERAL ORDER OMAR Final Result Performing Organization Address [facility] Co de Phone Number [facility] [address] [place] [phone] * (ABNORMAL) POCT urinalysis dipstick manually [...] exam and updated OCT in 12/2024. Lucy Alejandro OD OPHTH VISUAL FIELD Edited Res ult - Final * Hepatitis C Antibody with Reflex to HCV, RNA, Quantitative, Real-Time PCR (10/25/2023 2:05 PM EDT) Hepatitis C Antibody Nonreactive Nonreactive [facility] Comment:Antibodies to HCV no t detected; does not exclude early acuteHCV infection. Blood Venous blood specimen / Unknown 10/25/2023 2:05 PM EDT 10/25/2023 3:55 PM EDT Erick Zhou MD LAB BLOOD ORDERABLES Final Resul t [facility] [address] [place] [phone] * (ABNORMAL) Hm Colonoscopy (10/11/2023) Colonoscopy Abnormal(A ) Normal us Erick Zhou MD HEALTH MAINTENANCE Final Result * (ABNORMAL) Lipid Panel, Standard (09/30/2023 9:01 AM EDT) Triglycerides 133 <150 mg/dL [facility] Comment:Desirable Triglyceri de: less than 150 mg/dLBorderline High Triglyceride 150-199 mg/dLHigh Triglyceride: 200-499 mg/dLVery High Triglyceride: greater than or equal to 5OO mg/dL Cholesterol 153 <200 mg/dL [facility] Comment:Desirable Cholestero l: less than 200 mg/dLBorderline High Cholesterol: 200-239 mg/dLHigh Cholesterol: greater than 239 mg/dL LDL Cholesterol Calculated 90 <100 mg/dL [facility] Comment:Desirable LDL: less than 100 mg/dLNear Optimal/Above Optimal LDL: 110- 129 mg/dLBorderline High LDL: 130-159 mg/dLHigh LDL: 160-189 mg/dLVery High LDL: greater than or equal to 190 mg/dL HDL Cholesterol 37(L) >40 mg/dL [facility] Comment:Desirable HDL: great er than 40 mg/dL Note: This HDL assay may give artificially low results in patients with liver disease. Blood Venous blood specimen / Unknown 09/30/2023 9:01 AM EDT 09/30/2023 9:01 AM EDT us Erick Zhou MD LAB BLOOD ORDERABLES Final Resul t [facility] [address] [place] [phone] * BI Mammogram Screening Tomosynthesis Bilateral (10/20/2022 9:00 AM EDT) Anatomical Region Laterality Modality Breast Bilateral Mammography 10/20/2022 9:00 AM EDT Narrative 10/23/2022 12:44 PM EDT ? [facility] ? [address] ?[place] [address] ? Mammography Report ? Signed ? Patient: Carey,Muriel ?MR#: [id number] ?? [id number] ? : 1960 ?Acct:[id number] ? Age/Sex: 62 / F ?ADM Date: 10/20/22 ? Loc: HO.MAMMO ? Attending Dr: Erick Zhou MD ? Ordering Physician: Erick Zhou MD ?Results: 2Benign Fi ?? ndings ? Date of Service: 10/20/22 ?Follow Up: 1 Year From Orig ?? inal Mammogram ? Procedure(s): MM tomosynthesis screening BI ?? Accession Number(s): [id number] ? cc: Winnie,Erick CHOWDARY ? EXAMINATION: ?? MM SCREENING DIGITAL BREAST TOMOSYNTHESIS, BILATERAL ? CLINICAL INFORMATION: ? Screening. Asymptomatic. ? The lifetime risk of breast cancer based on the Tyrer-Cuzick Model is ?? 6%. ? COMPARISON: ?? Mammography: 02/02/2021, 07/09/2019, 07/02/2018, 06/19/2018, ?? 12/10/2016; outside mammography 01/25/2016 ([facility]). ? TECHNIQUE: ?? Digital breast [...] 1242 ? DD/ 0900 ? TD/TT: ? Machine Printer: ZAPATA ? Procedure Note Dez, Image - 12/13/2022 [facility] [address] [place], [place] [address] Mammography Report Signed Patient: Leanne Carey MMR#: [id number] : 1960Acct:[id number] Age/Sex: 62 / FADM Date: 10/20/22 Loc: [place] Attending Dr: Erick Zhou MD Ordering Physician: Erick Zhou MDResults: 2Benign Fi ndings Date of Service: 10/20/22Follow Up: 1 Year From Orig inal Mammogram Procedure(s): MM tomosynthesis screening BI Accession Number(s): [id number] cc: Erick Zhou MD EXAMINATION: MM SCREENING DIGITAL BREAST TOMOSYNTHESIS, BILATERAL CLINICAL INFORMATION: Screening. Asymptomatic. The lifetime risk of breast cancer based on the Tyrer-Cuzick Model is 6%. COMPARISON: Mammography: 02/02/2021, 07/09/2019, 07/02/2018, 06/19/2018, 12/10/2016; outside mammography 01/25/2016 ([facility]). TECHNIQUE: Digital breast tomosynthesis is [...] in OV> 10/23/22 1242 DD/ 0900 TD/TT: Machine Printer: ZAPATA [facility] External Provider IMG BI PROCEDURES Final Result * THINPREP TIS PAP AND HPV mRNA E6/E7 WITH REFLEX TO HPV 16,18/45 (08/23/2021 3:53 PM EST) Clinical Information: None given [facility] COMMENT SEE COMMENT [facility] ON [...] has been evaluated with computer assisted technology. [employer] SYSTEM Cyber Systems Administrator: SEE COMMENT [facility] Comment: YP, CT(ASCP) CT screening location: [address] ??[id number] HPV nRNA E6/E7 Not Detected Not Detected [facility] Comment: Methodology: Grey Stock Recorder-Mediated Amplification This assay detects E6/E7 viral messenger RNA (mRNA) from 14 high-risk HPV types (16,18,31,33,35,39,45,51,52,56,58,59,66,68). ? The analytical performance characteristics of this assay have been determined by [employer]. The modifications have not been cleared or approved by the FDA. This assay has been validated pursuant to the CLIA regulations and is used for clinical purposes. ?? For additional information, please refer to http://education.Arledia/faq/OAC714j3 (This link if provided for information/ educational purposes only.) Infection Shift in vaginal gina suggestive of bacterial vaginosis. [facility] Interpretation/Re sult: Negative for intraepithelial lesion or malignancy. [facility] LMP: 48 YRS OLD [facility] Prev. BX: NONE GIVEN [facility] Prev. PAP: NONE GIVEN [facility] SOURCE: None given [facility] Statement Of Adequacy: SEE COMMENT [facility] Comment: Satisfactory for evaluation. Endocervical/transformation zone component absent. 08/23/2021 3:53 PM EST Ashley HUMPHREYS LAB PATHOLOGY ORDERABLES Final Result [facility] [address] * Pap Smear (08/23/2021) Pap smear Preformed us Historical Provider MD HEALTH MAINTENANCE Final Result from Last 3 Months or Most Recently Relevant to Health Maintenance Insurance [facility] , [address] [place] [address] [place], [place] [facility] [place], [place] * Guarantor: Cherry Muriel Account Type Relation to Patient Date of Phone Billing Address Personal/Family Self [place], [place] * Guarantor: Cherry Muriel Account Type Relation to Patient Date of Phone Billing Address Personal/Family Self [place], [place] * Guarantor: Leanne Carey Account Type Relation to Patient Date of Phone Billing Address Personal/Family Self [place], [place] Care Teams Boat Camp Operator Relationship Specialty Start Date End Date Name, MD Erick [address] [place] [address] PCP - General Family Medicine 11/29/16
--- OUTSIDE RECORDS SUMMARY | 2024-10-16 10:23 | XMS_ITS | Encounter Summary ---
Author Organization [employer] Address [address] [facility] 7[address] [place] [address] Care Team Providers Care Data Operations Director Name Role Phone Name, Erick CHOWDARY Primary Care Provider [phone] Encounter Details Date Type Department Care Team ([facility] st Contact Info) Description 08/28/2024 Orders Only [facility] [address] [place] [address] Delvis Leon MD [address] [place] [address] Social History Tobacco Use Types Packs/Day Years [...] Description 01/13/2025 3:00 PM EDT Office Visit [facility] OPT[facility]ET[facility] [address] [place] [address] Alejandro, Lucy, OD [address] [place] [address] documented as of this encounter Visit Diagnoses Not on filedocumented in this encounter Additional Health Concerns Assessment Noted Time PHQ-9 Depression Total Score: 18 024 2:25 PM EDT documented as of this encounter Care Teams Data Operations Director Relationship Specialty Start Date End Date Name, MD Erick [address] [place] [address] PCP - General Family Medicine 11/29/16 documented as of this encounter
--- OUTSIDE RECORDS SUMMARY | 2024-10-16 10:23 | XMS_ITS | Encounter Summary ---
Author Organization [employer] Address [address] [facility] [address], [place] [address] Care Team Providers Care Bending Frame Operator Name Role Phone Name, Erick CHOWDARY Primary Care Provider Reason for Visit * Reason Onset Date Comments chartprep 2024 Encounter Details Date Type Department Care Team ([facility] st Contact Info) Description 2024 Telephone [facility] MEDICINE [address] [place] [address] Karely Rich [place] chartprep Social History Tobacco [...] Visit [facility] OPTOMETRY [address] [place] [address] Alejandro, Lucy, OD [address] [place] [address] documented as of this encounter Visit Diagnoses Not on filedocumented in this encounter Additional Health Concerns Assessment Noted Time PHQ-9 Depression Total Score: 18 024 2:25 PM EDT documented as of this encounter Care Teams Bending Frame Operator Relationship Specialty Start Date End Date Name, MD Erick [address] [place] [address] PCP - General Family Medicine 11/29/16 documented as of this encounter
--- OUTSIDE RECORDS SUMMARY | 2024-10-16 10:23 | XMS_ITS | Encounter Summary ---
Author Organization [employer] Address [address] [facility] [address] [place] [address] Care Team Providers Care Appliance Installer Name Role Phone Name, Erick CHOWDARY Primary Care Provider [phone] Encounter Details Date Type Department Care Team ([facility] st Contact Info) Description 10/15/2024 Telephone [facility] [address] [place] [address] Name, MD Erick [address] [place] [address] Social History Tobacco Use Types Packs/Day Years [...] A Antibody drawn. 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 documented in this encounter Plan of Treatment Upcoming Encounters Date Type Department Care Team (Late st Contact Info) Description 01/13/2025 3:00 PM EDT Office Visit [facility] OPTOMETRY [address] [place] [address] Lucy Allen, OD [address] [place] [address] documented as of this encounter Visit Diagnoses Not on filedocumented in this encounter Additional Health Concerns Assessment Noted Time PHQ-9 Depression Total Score: 7 10/16/19 25 10:10 AM EDT documented as of this encounter Care Teams Appliance Installer Relationship Specialty Start Date End Date Name, MD Erick [address] [place] [address] PCP - General Family Medicine 6/15/17 documented as of this encounter
--- OUTSIDE RECORDS SUMMARY | 2024-10-16 10:23 | XMS_ITS | Encounter Summary ---
Author Organization [facility] Address [address] [place] [address] Care Team Providers Care Ear Muff Assembler Name Role Phone Name, Erick CHOWDARY Primary Care Provider [phone] Encounter Details Date Type Department Care Team (Late Contact Info) Description 11/02/2022 Abstract [facility] MED[facility] [address] [place] [address] Name, MD Erick [address] [place] [address] Social History Tobacco Use Types Packs/Day Years [...] Description 01/13/2025 3:00 PM EDT Office Visit [facility] OPTOMETRY [address] [place] [address] AlejandroLucy dawson, OD [address] [place] [address] documented as of this encounter Procedures Procedure [...] documented as of this encounter Care Teams Ear Muff Assembler Relationship Specialty Start Date End Date Name, MD Erick [address] [place] [address] PCP - General Family Medicine 11/29/16 documented as of this encounter
--- OUTSIDE RECORDS SUMMARY | 2024-10-16 10:23 | XMS_ITS | Encounter Summary ---
Author Organization [employer] Address [address] [facility] 7t [place] [address] Care Team Providers Care Leveling Machine Operator Name Role Phone Name, Erick CHOWDARY Primary Care Provider [phone] Encounter Details Date Type Department Care Team [...] Description 01/13/2025 3:00 PM EDT Office Visit [facility] OPTOMETRY [address] [place] [address] Alejandro, Lucy, OD [address] [place] [address] documented as of this encounter Visit Diagnoses Not on filedocumented in this encounter Additional Health Concerns Assessment Noted Time PHQ-9 Depression Total Score: 7 10/16/19 25 10:10 AM EDT documented as of this encounter Care Teams Leveling Machine Operator Relationship Specialty Start Date End Date Name, MD Erick [address] [place] [address] PCP - General Family Medicine 11/29/16 documented as of this encounter
--- OUTSIDE RECORDS SUMMARY | 2024-10-16 10:23 | XMS_ITS | Encounter Summary ---
Author Organization [employer] Address [address] [place] [address] Care Team Providers Care Claim Approver Name Role Phone Erick Zhou MD Primary Care Provider [phone] Reason for Referral * Consultation (Routine) - Authorized Specialty Diagnoses / Procedures Referred By Danisha pereyra Referred To Contact Family Medicine Diagnoses Vitiligo Erick Zhou MD [address] [place] [address] Phone: tel: fax: Referral ID Status Reason Start Date Expiration Date Visits Requested Visits Authorized [id number] Authorized Specialty Services Required 10/15/2024 10/15/2025 1 1 Reason for Visit * Reason Comments Follow-up Encounter Details Date Type Department Care Team (Late st Contact Info) Description 10/15/2024 9:45 AM EDT Office Visit [facility] MEDICINE [address] [place] [phone] Erick Zhou MD [address] [place] [address] Liver cirrhosis secondary to LAKE (nonalcoholic steatohepatitis) [...] have ascites, she is now following at [facility]. She is up-to-date with hepatitis B [...] of most recent blood work done at [facility]. Continue imaging surveillance every 6 months for HCC. Pruritus of vagina Comments: I will treat empirically for vaginal yeast infection, I will check her for diabetes and BV. Orders: - clotrimazole (Lotrimin) 1 % cream; Apply topically 2 times daily. - Bacterial Vaginosis - Basic Metabolic Panel; Future - Hemoglobin A1c; Future Vitiligo Comments: Referral to dermatology Orders: - Referral to [facility] Derm Skin Adult; Future Eczema, unspecified type [...] 3:00 PM EDT Office Visit [facility] OPTOMETRY [address] [place], [place] [phone] Lucy Allen, OD [address] [facility] [place], [place] [phone] Scheduled Orders Name Type Priority Associated Diagnoses Orde r Schedule HIV-1/2 Antigen and Antibodies, Fourth Generation, with Reflexes Lab Routine History of syphilis Expected: 10/15/2024 (Approximate), Expires: 10/15/2025 RPR (Monitor) with Reflex to??Titer Lab Routine History of syphilis Expected: 10/15/2024, Expires: 10/15/2025 Basic Metabolic Panel Lab Routine Pruritus of vagina Expected: 10/15/2024 (Approximate), Expires: 10/15/2025 Hemoglobin A1c Lab Routine Pruritus of vagina Expected: 10/15/2024 (Approximate), Expires: 10/15/2025 Scheduled Referrals Name Type Priority Associated Diagnoses Orde r Schedule Referral to [facility] Derm Skin Adult Outpatient Referral Routine Vitiligo Expected: 10/15/2024 (Approximate), Expires: 10/15/2025 documented as of this encounter Procedures Procedure Name Priority Date/Time Associated Diagnosis Comments BACTERIAL VAGINOSIS PANEL Routine 10/15/2024 10:03 AM EDT Pruritus of vagina CHLAMYDIA/N. GONORRHOEAE RNA, TMA, UROGENITAL Routine 10/15/2024 10:01 AM EDT History of syphilis documented in this encounter Results * Bacterial Vaginosis (10/15/2024 10:03 AM EDT) TRICHOMONAS VAGINALIS DETECTION BY PCR NOT DETECTED Not Detect [facility] BACTERIAL VAGINOSIS DETECTION BY PCR NEGATIVE Negative [facility] Comment:The BV organism targ ets of [...] DETECTION BY PCR NOT DETECTED Not Detect [facility] Va glab krusei PCR NOT DETECTED Not Detect [facility] Swab Vaginal structure / Unknown 10/15/2024 10:03 AM EDT 10/15/2024 4:13 PM EDT us Erick Winnie CHOWDARY LAB MICROBIOLOGY - GENERAL ORDER OAMR Final Result [facility] [address] [place] [phone] * Chlamydia/N. Gonorrhoeae RNA, TMA, Urogenitial (10/15/2024 10:01 AM EDT) CT PCR NOT DETECTED Not Detect. [facility] Comment:A not detected test result does [...] psychologicalconsequences. NG PCR NOT DETECTED Not Detect. [facility] Comment:A not detected test result does [...] AM EDT 10/15/2024 4:08 PM EDT Narrative [facility] - 10/15/2024 6:29 PM EDT Urine us Erick Zhou MD LAB MICROBIOLOGY - GENERAL ORDER OMAR Final Result [facility] [address] [place] [phone] documented in this encounter Visit Diagnoses Diagnosis Liver cirrhosis secondary to LAKE (nonalcoholic steatohepatitis) (CMS/HCC)- Primary Pruritus of vagina Pruritus of genital organs Vitiligo Eczema, unspecified type History of syphilis documented in this encounter Additional Health Concerns Assessment Noted Time PHQ-9 Depression Total Score: 7 10/16/19 25 10:10 AM EDT documented as of this encounter Care Teams Claim Approver Relationship Specialty Start Date End Date Name, MD Erick [address] [place] [address] PCP - General Family Medicine 11/29/16 documented as of this encounter
--- OUTSIDE RECORDS SUMMARY | 2024-10-16 10:23 | XMS_ITS | Encounter Summary ---
Author Organization [facility] [facility] Address [address] [place] [id number] Care Team Providers Care Extruder Operator Vertical Name Role Phone Name, Erick CHOWDARY Primary Care Provider [phone] Reason for Visit * Reason Comments Med Refill Encounter Details Date Type Department Care Team (Late st Contact Info) Description 03/17/2023 Refill [facility] MEDICINE [address] [place] [address] Name, MD Erick [address] [place] [address] Social History Tobacco Use Types Packs/Day Years [...] Description 01/13/2025 3:00 PM EDT Office Visit [facility] OPTOMETRY [address] [place] [address] Lucy Allen, OD [address] [place] [address] documented as of this encounter Visit Diagnoses Not on filedocumented in this encounter Additional Health Concerns Assessment Noted Time PHQ-9 Depression Total Score: 14 023 9:49 AM EDT documented as of this encounter Care Teams Extruder Operator Vertical Relationship Specialty Start Date End Date Name, MD Erick [address] [place] [address] PCP - General Family Medicine 11/29/16 documented as of this encounter
--- OUTSIDE RECORDS SUMMARY | 2024-10-16 10:23 | XMS_ITS | Clinical Summary ---
Author Organization [facility] Address [address] [place] [address] Phone Care Team Providers Care Skin Care Technician Name Role Phone Name, Erick CHOWDARY Primary Care Provider [phone] Allergies No known active allergies Medications atorvastatin [...] Team Description 08/06/2024 Telephone Bariatric Surgery - [place] [address] [place] [address] Gonzalez Williamson MD prior auth (Prior auth) 07/28/2024 4:00 PM EST Office Visit [facility] - [place] [address] [place] [address] Gonzalez Williamson MD Class 1 obesity due to excess calories with serious comorbidity and body mass index (BMI) of 33.0 to 33.9 in adult (Primary Dx) from Last 3 Months Immunizations Name Administration Dates Next Due Hepatitis B (Qzitkea-G-Oyjwa , Recombivax HB-Adult) 19yo and older 07/03/2017,02/26/2017,12/24/2016 [...] PM EDT Office Visit [facility] - [place] [address] [address] [place] [phone] Gonzalez Williamson MD [address] [address] [place] [address] [place] [address] 01/05/2025 8:45 AM EDT Office Visit [facility] [place] [address] [place] [address] Renee Hargrove, JOSTIN [address] [place] [address] Health Maintenance Due Date Last Done Comments [...] Results * Cervical Cancer Screening: HPV (12/16/2023) [facility] Cervical Cancer Screening: HPV Negative, Abstracted Result [facility] Provider HEALTH MAINTENANCE Final Result * Colonoscopy (10/11/2023) [facility] Colonoscopy No Interpretation , Abstracted Anatomical Region Laterality Modality Other Result [facility] Provider HEALTH MAINTENANCE Final Result * Depression Screening (06/27/2023) [facility] Depression Screening Abstracted Result [facility] Provider HEALTH MAINTENANCE Final Result * HIV Screening (12/17/2016) [facility] HIV Screening Abstracted Result [facility] Provider HEALTH MAINTENANCE Final Result * Hepatitis C Screening (12/17/2016) [facility] Hepatitis C Screening Abstracted Result [facility] Provider HEALTH MAINTENANCE Final Result * Annual BMP Blood Test (02/16/2012) [facility] Annual BMP Blood Test Abstracted [facility] Provider HEALTH MAINTENANCE Final Result * (ABNORMAL) Lipid panel (02/16/2012) [facility] LDL/HDL Ratio 4 0 - 4 Triglycerides 82 0 - 150 mg/dL Cholesterol 187 0 - 200 mg/dL HDL 53 >=40 mg/dL LDL Cholesterol 118(A) 0 - 100 mg/dL Blood Venous blood specimen / Unknown us Historical Provider LAB BLOOD ORDERABLES Lorrie l Result from Last 3 Months or Most Recently Relevant to Health Maintenance Insurance [facility] Care Teams Skin Care Technician Relationship Specialty Start Date End Date Name, MD Erick [address] [place], [place] PCP - General Internal Medicine 05/28/19
--- OUTSIDE RECORDS SUMMARY | 2024-10-16 10:23 | XMS_ITS | Encounter Summary ---
Author Organization [employer] [facility] Address [address] [place] [address] Care Team Providers Care Farm Mechanic Apprentice Name Role Phone Name, Erick CHOWDARY Primary Care Provider [phone] Encounter Details Date Type Department Care Team (Latest Contact Info) Description 12/20/2020 Abstract [facility] CONVERSIONS Dental, Provider, DDS Social History [...] Description 01/13/2025 3:00 PM EDT Office Visit [facility] OPTOMETRY [address] [place] [address] Alejandro, Lucy, OD [address] [place] [address] documented as of this encounter Visit Diagnoses Not on filedocumented in this encounter Care Teams Farm Mechanic Apprentice Relationship Specialty Start Date End Date Name, MD Erick [address] [place] [address] PCP - General Family Medicine 11/29/16 documented as of this encounter
[2024-10-16 11:37] LABS: Anion Gap 12 (12-20); Blood Urea Nitrogen 12 mg/dL (9-16); Calcium 9.5 mg/dL (8.4-10.2); Carbon Dioxide 28 mmol/L (22-29); Chloride 107 mmol/L (96-108); Estimated Glomerular Filt Rate > 60; Glucose Random 97 mg/dL (60-115); Potassium 3.8 mmol/L (3.3-5.1); Sodium 143 mmol/L (135-145)
[2024-10-16 11:48] LABS: Estimated Average Glucose 117 mg/dL; Hemoglobin A1C 143.7989 umol/L; Hemoglobin A1c % 5.7 % (<6.0); Total Hemoglobin (HGBA1C) 3717.2359 umol/L
[2024-10-16 11:54] LABS: HIV AB/AG Nonreactive (Nonreactive)
[2024-10-19 08:09] LABS: RPR Rapid Plasma Reagin REACTIVE (NON-REACTIVE)
== END 2024-10-16 09:36 | disposition home or self-care (01) ==
LOC: HO.HHCL 09:35
PROVIDERS: Visit Provider Internal Medicine Geriatric Medicine
DX: Z13.1 Encounter for screening for diabetes mellitus (principal); N89.8 Other specified noninflammatory disorders of vagina; Z86.19 Personal history of other infectious and parasitic diseases
CPT/HCPCS: 36415; 80048; 83036; 86592; 86593; 87389

== ENCOUNTER 2025-01-02 13:32 | Outpatient (REF) | payer OTHER, SELFPAY ==
--- OUTSIDE RECORDS SUMMARY | 2025-01-02 13:34 | XMS_ITS | Clinical Summary ---
Author Organization [address] [place] [address] Address [address] [place] [address] Phone Care Team Providers Care Professor Of Radiology Name Role Phone Name, Erick CHOWDARY Primary Care Provider [phone] Allergies No known active allergies Medications atorvastatin (LIPITOR) 20 mg tablet TAKE 1 TABLET BY MOUTH DAILY IN THE MORNING 06/14/2023 Active cholecalciferol (VITAMIN D-3) 50 mcg (2,000 unit) capsule TAKE 1 CAPSULE EVERY DAY 01/14/2018 Active divalproex (DEPAKOTE) [address] tablet TAKE 1 TABLET BY MOUTH TWICE DAILY 05/08/2021 Active ferrous sulfate 325 mg (65 mg elemental iron) tablet Take 1 tablet by mouth 2 times daily. 09/02/2012 Active lisinopriL (PRINIVIL,ZESTRI L) 2.5 mg tablet Take 1 Tab by mouth daily. 11/12/2012 Active lisinopril-hydro CHLOROthiazide (PRINZIDE,ZESTOR ETIC) 20-25 mg per tablet Take 1 tablet by mouth daily. 05/08/2021 Active PARoxetine (PAXIL) 40 mg tablet TAKE 1 TABLET BY MOUTH AT BEDTIME 05/08/2021 Active topiramate (TOPAMAX) 50 mg tablet TAKE 2 TABLETS BY MOUTH EVERY DAY 02/24/2024 Active tirzepatide, weight loss, (Zepbound) 7.5 mg/0.5 mL injectionIndicat ions:Class 1 obesity due to excess calories with body mass index (BMI) of 32.0 to 32.9 in adult, unspecified whether serious comorbidity present Inject 0.5 mL (7.5 mg total) under the skin every 7 (seven) days. 2 mL 11/26/2024 Active Active Problems Problem Noted Date Diagnosed Date Other complications of gastric band procedure Shoulder pain, bilateral 02/12/2011 IVA (obstructive sleep apnea) 04/05/2010 Edema 11/30/2009 Hypercholesteremia 09/08/2008 Iron deficiency anemia 12/20/2006 Class 1 obesity with body ma ss index (BMI) of 33.0 to 33.9 in adult 12/20/2006 Essential hypertension, benign 10/22/2006 Encounters Date Type Department Care Team Description 11/26/2024 4:15 PM EDT Office Visit Bariatric Surgery - [address] [place] [address] Gonzalez Williamson MD Class 1 obesity due to excess calories with body mass index (BMI) of 32.0 to 32.9 in adult, unspecified whether serious comorbidity present (Primary Dx) from Last 3 Months Immunizations Name Administration Dates Next Due Hepatitis B (Rnpadpl-B-Neuns , Recombivax HB-Adult) 19yo and older 07/03/2017,02/26/2017,12/24/2016 [...] Sign Reading Time Taken Comments Blood Pressure 135/78 11/26/2024 4:03 PM EDT Pulse 81 11/26/2024 4:03 PM EDT Temperature 36.6 C (97.8 F) 11/26/2024 4:03 PM EDT Respiratory Rate - - Oxygen Saturation - - Inhaled Oxygen Concentration - - Weight 76.2 kg (168 lb) 11/26/2024 4:03 PM EDT Height 152.4 cm (5') 11/26/2024 4:03 PM EDT Body Mass Index 32.81 11/26/2024 4:03 PM EDT Plan of Treatment Upcoming Encounters Date Type Department Care Team (Late st Contact Info) Description 06/03/2025 4:15 PM EST Office Visit Bariatric Surgery - [place] [address] [facility] [address] [place] [phone] Gonzalez Williamson MD [address] [facility] [address] [place] [address] Health Maintenance Due Date Last Done Comments Social Influencers of Health Screening 05/15/2022 RSV Immunization Adult Patients (1 - Risk 60-74 years 1-dose series) 2022 COVID-19 Vaccine ( season) 2024 06/05/2022, 05/03/2021, 07/23/2020, Additional history exists Depression Screening 06/17/2024 06/27/2023 Hepatitis A Vaccines (2 of 2 - Risk 2-dose series) 07/24/2024 01/22/2024 Breast Cancer Screening 10/20/2024 10/20/2022 Influenza Vaccine (#1) 2025 4, 04/01/2023, 04/25/2021, Additional history exists Hypertension/CHF/CAD Annual BMP Blood Test 10/16/2025 10/16/2024, 08/27/2024, 02/16/2012 Cholesterol Screening (Lipid Panel) 09/29/2028 09/30/2023, 02/16/2012 Cervical Cancer Screening: HPV 12/15/2028 12/16/2023 DTaP,Tdap,and Td Vaccines (3 - Td or Tdap) 08/01/2031 08/01/2021, 11/02/2002 Colorectal Cancer Screening: Colonoscopy 10/10/2033 10/11/2023 Zoster Vaccines Completed 10/12/2021, 08/01/2021 Hepatitis C Screening Completed 10/25/2023, 017 Hepatitis B Vaccines Completed 01/22/2024, 07/03/2017, 02/26/2017, Additional history exists Pneumococcal Vaccine: 50+ Years Completed 04/22/2024 HIV Screening Completed 10/16/2024, 12/17/2016 HIB Vaccines Aged Out No longer eligi [...] Results * Cervical Cancer Screening: HPV (12/16/2023) [facility] Cervical Cancer Screening: HPV Negative, Abstracted [facility] Provider HEALTH MAINTENANCE Final Result * Colonoscopy (10/11/2023) [facility] Colonoscopy No Interpretation , Abstracted Anatomical Region Laterality Modality Other Result [facility] Provider HEALTH MAINTENANCE Final Result * Depression Screening (06/27/2023) [facility] Depression Screening Abstracted [facility] Provider HEALTH MAINTENANCE Final Result * HIV Screening (12/17/2016) [facility] HIV Screening Abstracted Result [facility] Provider HEALTH MAINTENANCE Final Result * Hepatitis C Screening (12/17/2016) [facility] Hepatitis C Screening Abstracted [facility] Provider HEALTH MAINTENANCE Final Result * Annual BMP Blood Test (02/16/2012) [facility] Annual BMP Blood Test Abstracted Result [facility] Provider HEALTH MAINTENANCE Final Result * (ABNORMAL) Lipid panel (02/16/2012) [facility] LDL/HDL Ratio 4 0 - 4 Triglycerides 82 0 - 150 mg/dL Cholesterol 187 0 - 200 mg/dL HDL 53 >=40 mg/dL LDL Cholesterol 118(A) 0 - 100 mg/dL Blood Venous blood specimen / Unknown Result [facility] Provider LAB BLOOD ORDERABLES Lorrie l Result from Last 3 Months or Most Recently Relevant [place] [id number] [facility] Care Teams Professor Of Radiology Relationship Specialty Start Date End Date Name, MD Erick [address] [place], [place] PCP - General Internal Medicine 05/28/19
== END 2025-01-02 13:33 | disposition home or self-care (01) ==
LOC: HO.HHCLNP 13:32
PROVIDERS: Visit Provider Internal Medicine
DX: N30.01 Acute cystitis with hematuria (principal)
CPT/HCPCS: 87086

== ENCOUNTER 2025-01-15 16:45 | Outpatient (REF) | payer OTHER, SELFPAY | END 2025-01-15 16:46 | disposition home or self-care (01) | LOC: HO.HHCLNP 16:45 | PROVIDERS: Visit Provider Nurse Practitioner | DX: R39.9 Unspecified symptoms and signs involving the genitourinary system (principal) | CPT/HCPCS: 87086 ==

== ENCOUNTER 2025-02-02 08:57 | Outpatient (REF) | payer OTHER, SELFPAY ==
--- OUTSIDE RECORDS SUMMARY | 2025-02-02 09:49 | XMS_ITS | Clinical Summary ---
Author Organization [address] [place] [address] Address [address] [place] [address] Phone Care Team Providers Care Technician Biological Health Name Role Phone Name, Erick CHWODARY Primary Care Provider [phone] Allergies No known active allergies Medications atorvastatin [...] BY MOUTH EVERY DAY 024 Active Zepbound 7.5 mg/0.5 mL injectionIndic ations:Class 1 obesity due to excess calories with body mass index (BMI) of 32.0 to 32.9 in adult, unspecified whether serious comorbidity present INJECT ONE PEN (=7.5MG) SUBCUTANEOUSLY ONCE A WEEK DIRECTED 2 mL 025 Active tirzepatide, weight loss, (Zepbound) 7.5 mg/0.5 mL injectionIndic ations:Class 1 obesity due to excess calories with body mass index (BMI) of 32.0 to 32.9 in adult, unspecified whether serious comorbidity present Inject 0.5 mL (7.5 mg total) under the skin every 7 (seven) days. 2 mL 025 2024 Discontinued Active Problems [...] PM EDT Office Visit Bariatric Surgery - [address] [place] [phone] Gonzalez Williamson MD Class 1 obesity due to excess calories with body mass index (BMI) of 32.0 to 32.9 in adult, unspecified whether serious comorbidity present (Primary Dx) from Last 3 Months Immunizations Name Administration Dates Next Due Hepatitis B (Tnwbgpr-Y-Rgvlr , Recombivax HB-Adult) 19yo and older 07/03/2017,02/26/2017,12/24/2016 [...] PM EST Office Visit Bariatric Surgery - [place] [address] [facility] [address] [place] [phone] Gonzalez Williamson MD 175 [facility] [address] [place] [address] Health Maintenance Due Date Last Done Comments Social Influencers of Health Screening 05/15/2022 RSV Immunization Adult Patients (1 - Risk 60-74 years 1-dose series) 2022 COVID-19 Vaccine ( season) 2024 06/05/2022, 05/03/2021, 07/23/2020, Additional history exists Depression Screening 06/17/2024 06/27/2023 Hepatitis A Vaccines (2 of 2 - Risk 2-dose series) 07/24/2024 01/22/2024 Breast Cancer Screening 10/20/2024 10/20/2022 Influenza Vaccine (#1) 2025 , 04/01/2023, 04/25/2021, Additional history exists Hypertension/CHF/CAD Annual [...] Center Cervical Cancer Screening: HPV Negative, Abstracted [facility] Provider HEALTH MAINTENANCE Final Result * Colonoscopy (10/11/2023) [facility] Colonoscopy No Interpretation , Abstracted Anatomical Region Laterality Modality Other [facility] Provider HEALTH MAINTENANCE Final Result * Depression Screening (06/27/2023) [facility] Depression Screening Abstracted [facility] Provider HEALTH MAINTENANCE Final Result * HIV Screening (12/17/2016) [facility] HIV Screening Abstracted [facility] Provider HEALTH MAINTENANCE Final Result * Hepatitis C Screening (12/17/2016) [facility] Hepatitis C Screening Abstracted [facility] Provider HEALTH MAINTENANCE Final Result * Annual BMP Blood Test (02/16/2012) [facility] Annual BMP Blood Test Abstracted [facility] Provider HEALTH MAINTENANCE Final Result * (ABNORMAL) Lipid panel (02/16/2012) [facility] LDL/HDL Ratio 4 0 - 4 Triglycerides 82 0 - 150 mg/dL Cholesterol 187 0 - 200 mg/dL HDL 53 >=40 mg/dL LDL Cholesterol 118(A) 0 - 100 mg/dL Blood Venous blood specimen / Unknown us Historical Provider LAB BLOOD ORDERABLES Lorrie l Result from Last 3 Months or Most Recently Relevant to Health Maintenance Insurance [facility] Care Teams Technician Biological Health Relationship Specialty Start Date End Date Name, MD Erick [address] [place], [place] PCP - General Internal Medicine 05/28/19
--- OUTSIDE RECORDS SUMMARY | 2025-02-02 09:49 | XMS_ITS | Encounter Summary ---
Author Organization [employer] Address [address] [place] [address] Care Team Providers Care Agricultural Adviser Name Role Phone Name, Erick CHOWDARY Primary Care Provider [phone] Reason for Visit * Reason Comments Med Refill Encounter Details Date Type Department Care Team (Late Contact Info) Description 03/17/2023 Refill [facility] MEDICINE [address] [place] [address] Name, MD Erick [address] [place] [address] Social History Tobacco Use Types Packs/Day Years [...] Department Care Team (Late Contact Info) Description 07/16/2025 3:30 PM EST Office Visit [facility] OPTOMETRY [address] [place] [address] Lucy Allen, OD [address] [place] [address] documented as of this encounter Visit Diagnoses Not on filedocumented in this encounter Additional Health Concerns Assessment Noted Time PHQ-9 Depression Total Score: 14 023 9:49 AM EDT documented as of this encounter Care Teams Agricultural Adviser Relationship Specialty Start Date End Date Name, MD Erick [address] [place] [address] PCP - General Family Medicine 11/29/16 documented as of this encounter
[2025-02-02 11:37] LABS: Alanine Aminotransferase 50 U/L (0-31); Albumin Level 4.6 g/dL (3.5-5.0); Alkaline Phosphatase 122 U/L (39-117); Anion Gap 10 (12-20); Aspartate Amino Transferase 52 U/L (5-31); Blood Urea Nitrogen 17 mg/dL (9-16); Calcium 9.4 mg/dL (8.4-10.2); Carbon Dioxide 32 mmol/L (22-29); Chloride 104 mmol/L (96-108); Cholesterol 122 mg/dL (<200); Estimated Glomerular Filt Rate 59; HDL Cholesterol 34 mg/dL (>40); Potassium 3.7 mmol/L (3.3-5.1); Sodium 142 mmol/L (135-145); Total Protein 7.5 g/dL (6.5-8.0); Triglycerides 102 mg/dL (<150)
[2025-02-03 15:53] LABS: Rapid Plasma Reagin Ab Titer 1:2
== END 2025-02-02 08:58 | disposition home or self-care (01) ==
LOC: HO.HHCL 08:57
PROVIDERS: PCP Internal Medicine Geriatric Medicine; Visit Provider Internal Medicine Geriatric Medicine
DX: I10 Essential (primary) hypertension (principal); E78.00 Pure hypercholesterolemia, unspecified; Z86.19 Personal history of other infectious and parasitic diseases
CPT/HCPCS: 36415; 80053; 80061; 86592; 86593

== ENCOUNTER 2025-03-10 15:38 | Outpatient (REF) | payer OTHER, SELFPAY ==
--- OUTSIDE RECORDS SUMMARY | 2025-03-05 09:00 | XMS_ITS | Encounter Summary ---
Author Organization [employer] Address [address] [place] [address] 7 [place] [address] Care Team Providers Care Uke Operator Name Role Phone Name, Erick CHOWDARY Primary Care Provider [phone] Encounter Details Date Type Department Care Team ([facility] st Contact Info) Description 03/05/2025 9:00 AM EDT Office Visit [facility] MEDICINE [address] [place] [address] Lashaun Ramsay MD [address] [place] [address] Vitiligo (Primary Dx); Lichen sclerosus Social History Tobacco Use Types Packs/Day Years Used Date Smoking Tobacco: Former Cigarettes Passive Smoke Exposure: Past Smokeless Tobacco: Former Alcohol Use Standard Drinks/Week Comments Never 0 [...] housing situation today? I have sammy bingham 01/25/[address] you li ve. Do you have problems with any of the following? None of the above 01/25/2025 Food Insecurity Answer Date Recorded Within the past 12 months, y ou worried that your food would run out before you got money to buy more: Never True 01/25/2025 Within the past 12 months,th e food you bought just didn't last and you didn't have enough money to get more: Never True 04/2025 Transportation Answer Date Recorded In the past 12 months, has l ack of transportation kept you from medical appts, meetings, work or from getting things needed for daily living? No 01/25/2025 Utilities Answer Date Recorded In the past 12 months, has t he electric, gas, oil or water company threatened to shut off services in your home? No 01/25/2025 Depression Answer Date Recorded Patient Health Questionnaire-2 Score 2 10/15/2024 Internet Access Answer Date Recorded Internet Access Q1 Yes 01/25/2025 Internet Access Q2 Not on file 01/25/2025 Comments No Sex and Gender Information Value Date Recorded Sex Assigned at Female 04/16/2022 10:31 AM EDT Legal Sex Female 10:31 AM EDT Gender Identity Female 04/16/2022 10:31 AM EDT Sexual Orientation Straight 04/16/2022 10 :31 AM EDT documented as of this encounter Last Filed Vital Signs Vital Sign Reading Time Taken Comments Blood Pressure 110/70 03/05/2025 9:13 AM EDT Pulse 66 03/05/2025 9:13 AM EDT Temperature 37.1 C (98.7 F) 03/05/2025 9:13 AM EDT Respiratory Rate 16 03/05/2025 9:13 AM EDT Oxygen Saturation - - Inhaled Oxygen Concentration - - Weight 71.6 kg (157 lb 12.8 oz) 03/05/2025 9:13 AM EDT Height 152.5 cm (5' 0.04 ) 03/05/2025 9:13 AM ED T Body Mass Index 30.78 03/05/2025 9:13 AM EDT documented in this encounter Progress Notes * Lashaun Ramsay MD - 03/05/2025 9:00 AM EDT Subjective Patient ID: Leanne Carey is a 64 y.o. female who presents for No chief complaint on file.. HPI 64 yr old woman with hx of lichen sclerosus here today for follow up. She reports lesion on labia is stable. She has been applying Tacrolimus ointment as well clobetasol ointment as needed for itching However she started to develop hypopigmented patched on her hand dorsi as well waist line and back. Family hx is positive for such condition in her brother. Review of Systems Constitutional: Negative for diaphoresis, fatigue and fever. HENT: Negative for ear discharge, ear pain, facial swelling and hearing loss. Respiratory: Negative for cough, choking, chest tightness and shortness of breath. Cardiovascular: Negative for chest pain and leg swelling. Gastrointestinal: Negative for abdominal distention, abdominal pain and anal bleeding. Endocrine: Negative for cold intolerance and heat intolerance. Genitourinary: Negative for enuresis, flank pain and frequency. Musculoskeletal: Negative for arthralgias, back pain and gait problem. Neurological: Negative for dizziness, facial asymmetry and headaches. Psychiatric/Behavioral: Negative for agitation, behavioral problems and confusion. Objective Physical Exam Constitutional: Appearance: Normal appearance. HENT: Head: Normocephalic and atraumatic. Nose: Nose normal. Eyes: Pupils: Pupils are equal, round, and reactive to light. Pulmonary: Effort: Pulmonary effort is normal. Musculoskeletal: General: Normal range of motion. Cervical back: Normal range of motion. Skin: Comments: Labia majora: hypopigmented lesion , normal edges not raised. Amelanotic lesions/patches on hand dorsi , lower abdomen, back, upper abdomen, Neurological: General: No focal deficit present. Mental Status: She is alert. Assessment/Plan Diagnoses and all orders for this visit: Vitiligo Reviewed condition with patient Positive family hx in her brother Advised to start using tacrolimus ointment, will try for the next 6 months If no satisfying results would discuss alternatives Sunscreen advised Lichen sclerosus On Labia majora Stable No changes Continue to use Temovate ointment + Protopic ointment as needed for itching Report any change documented in this encounter Plan of Treatment Upcoming Encounters Date Type Department Care Team (Late st Contact Info) Description 07/16/2025 3:30 PM EST Office Visit [facility] OPTOMETRY [address] [place] [id number] Lucy Allen, OD [address] [place] [address] documented as of this encounter Visit Diagnoses Diagnosis Vitiligo- Primary Lichen sclerosus Circumscribed scleroderma documented in this encounter Additional Health Concerns Assessment Noted Time PHQ-9 Depression Total Score: 7 10/16/19 25 10:10 AM EDT documented as of this encounter Care Teams Uke Operator Relationship Specialty Start Date End Date Name, MD Erick [address] [place] [address] PCP - General Family Medicine 11/29/16 documented as of this encounter
--- OUTSIDE RECORDS SUMMARY | 2025-03-10 17:52 | XMS_ITS | Encounter Summary ---
Author Organization [employer] Address [address] [facility] [address] [place] [address] Care Team Providers Care Philosophy Lecturer Name Role Phone Name, Erick CHOWDARY Primary Care Provider [phone] Encounter Details Date Type Department Care Team ([facility] st Contact Info) Description 08/28/2024 Orders Only [facility] WALK-IN CENTER [address] [place] [address] Delvis Leon MD [address] [place] [address] Social History Tobacco Use Types Packs/Day Years [...] Description 07/16/2025 3:30 PM EST Office Visit [facility] OPTOMETRY [address] [place] [address] Alejandro, Lucy, OD [address] [place] [address] documented as of this encounter Visit Diagnoses Not on filedocumented in this encounter Additional Health Concerns Assessment Noted Time PHQ-9 Depression Total Score: 18 024 2:25 PM EDT documented as of this encounter Care Teams Philosophy Lecturer Relationship Specialty Start Date End Date Name, MD Erick [address] [place] [address] PCP - General Family Medicine 11/29/16 documented as of this encounter
--- OUTSIDE RECORDS SUMMARY | 2025-03-10 17:52 | XMS_ITS | Encounter Summary ---
Author Organization [employer] Address [address] [place] [address] Care Team Providers Care Big Data Solutions Architect Name Role Phone Name, Erick CHOWDARY Primary Care Provider [phone] Reason for Visit * Reason Comments Med Refill Encounter Details Date Type Department Care Team (Late Contact Info) Description 03/17/2023 Refill [facility] MEDICINE [address] [place] [address] Name, MD Erick [address] [place] [address] Social History Tobacco Use Types Packs/Day Years [...] Description 07/16/2025 3:30 PM EST Office Visit [facility] OPTOMETRY [address] [place] [address] Lucy Allen, OD [address] [place] [address] documented as of this encounter Visit Diagnoses Not on filedocumented in this encounter Additional Health Concerns Assessment Noted Time PHQ-9 Depression Total Score: 14 023 9:49 AM EDT documented as of this encounter Care Teams Big Data Solutions Architect Relationship Specialty Start Date End Date Name, MD Erick [address] [place] [address] PCP - General Family Medicine 11/29/16 documented as of this encounter
--- OUTSIDE RECORDS SUMMARY | 2025-03-10 17:52 | XMS_ITS | Encounter Summary ---
Author Organization [employer] Address [address] [place] [address] 7 [place] [address] Care Team Providers Care Culinary Intern Name Role Phone Name, Erick CHOWDARY Primary Care Provider [phone] Encounter Details Date Type Department Care Team (Latest Contact Info) Description 02/12/2025 Results Follow-Up [facility] MEDICINE [address] [place] [address] Name, MD Erick [address] [place] [address] Comprehensive Metabolic Panel, Lipid Panel, Standard, RPR (Monitor) with Reflex to Titer Social History Tobacco Use Types Packs/Day Years [...] PM EST Office Visit [facility] OPTOMETRY [address] [place] [address] Lucy Allen, OD [address] [place] [address] documented as of this encounter Visit Diagnoses Not on filedocumented in this encounter Additional Health Concerns Assessment Noted Time PHQ-9 Depression Total Score: 7 10/16/19 25 10:10 AM EDT documented as of this encounter Care Teams Culinary Intern Relationship Specialty Start Date End Date Name, MD Erick [address] [place] [address] PCP - General Family Medicine 11/29/16 documented as of this encounter
--- OUTSIDE RECORDS SUMMARY | 2025-03-10 17:52 | XMS_ITS | Encounter Summary ---
Author Organization [employer] Address [address] [place] [address] [place] [address] Care Team Providers Care Singer Songwriter Name Role Phone Name, Erick CHOWDARY Primary Care Provider [phone] Reason for Visit * Reason Comments Med Refill Encounter Details Date Type Department Care Team ([facility] st Contact Info) Description 01/14/2025 Refill [facility] MEDICINE [address] [place] [address] Name, MD Erick [address] [place] [address] Eczema, unspecified type Social History Tobacco Use Types Packs/Day Years [...] Patient Health Questionnaire-2 Score 2 10/15/2024 Comments No Sex and Gender Information Value [...] Description 07/16/2025 3:30 PM EST Office Visit [facility] OPTOMETRY [address] [place] [address] Alejandro, Lucy, OD [address] [place] [address] documented as of this encounter Visit Diagnoses Diagnosis Eczema, unspecified type documented in this encounter Additional Health Concerns Assessment Noted Time PHQ-9 Depression Total Score: 7 10/16/19 25 10:10 AM EDT documented as of this encounter Care Teams Singer Songwriter Relationship Specialty Start Date End Date Name, MD Erick [address] [place] [address] PCP - General Family Medicine 11/29/16 documented as of this encounter
--- OUTSIDE RECORDS SUMMARY | 2025-03-10 17:53 | XMS_ITS | Encounter Summary ---
Author Organization [email or web address] Address [address] [place] [id number] Care Team Providers Care Informatics Scientist Name Role Phone Name, Erick CHOWDARY Primary Care Provider [phone] Encounter Details Date Type Department Care Team (Latest Contact Info) Description 12/20/2020 Abstract [facility] Dental, Provider, DDS Social History Tobacco [...] Description 07/16/2025 3:30 PM EST Office Visit [facility] OPTOMETRY [address] [place] [address] Alejandro, Lucy, OD [address] [place] [address] documented as of this encounter Visit Diagnoses Not on filedocumented in this encounter Care Teams Informatics Scientist Relationship Specialty Start Date End Date Name, MD Erick [address] [place] [address] PCP - General Family Medicine 11/29/16 documented as of this encounter
--- OUTSIDE RECORDS SUMMARY | 2025-03-10 17:53 | XMS_ITS | Encounter Summary ---
Author Organization [employer] Address [address] [place] [address] [address] [place] [address] Care Team Providers Care Record Center Coordinator Name Role Phone Name, Erick CHOWDARY Primary Care Provider [phone] Encounter Details Date Type Department Care Team (Latest Contact Info) Description 03/05/2025 Travel Social History Tobacco Use Types Packs/Day [...] Description 07/16/2025 3:30 PM EST Office Visit [facility] OPTOMETRY [address] [place] [address] Alejandro, Lucy, OD [address] [place] [address] documented as of this encounter Visit Diagnoses Not on filedocumented in this encounter Additional Health Concerns Assessment Noted Time PHQ-9 Depression Total Score: 7 10/16/19 25 10:10 AM EDT documented as of this encounter Care Teams Record Center Coordinator Relationship Specialty Start Date End Date Name, MD Erick [address] [place] [address] PCP - General Family Medicine 11/29/16 documented as of this encounter
--- OUTSIDE RECORDS SUMMARY | 2025-03-10 17:53 | XMS_ITS | Encounter Summary ---
Author Organization [employer] Address [address] [place] [address] Care Team Providers Care Water Safety Teacher Name Role Phone Name, Erick CHOWDARY Primary Care Provider [phone] Encounter Details Date Type Department Care Team (Late Contact Info) Description 11/02/2022 Abstract [facility] MEDICINE [address] [place] [address] Name, MD Erick [address] [place] [address] Social History Tobacco Use Types Packs/Day Years [...] Description 07/16/2025 3:30 PM EST Office Visit [facility] OPTOMETRY [address] [place], [place] [phone] AlejandroLucy dawson, OD [address] [place] [address] documented as of this encounter Procedures Procedure Name Priority Date/Time Associated Diagnosis Comments HM MAMMOGRAPHY Routine 10/20/2022 11:30 AM EDT COLONOSCOPY [...] documented as of this encounter Care Teams Water Safety Teacher Relationship Specialty Start Date End Date Name, MD Erick [address] [place] [address] PCP - General Family Medicine 11/29/16 documented as of this encounter
--- OUTSIDE RECORDS SUMMARY | 2025-03-10 17:53 | XMS_ITS | Clinical Summary ---
Author Organization [employer] Address [address] [place] [address] [place] [address] Care Team Providers Care Dock Pumper Name Role Phone Name, Erick CHOWDARY Primary Care Provider [phone] Allergies No known active allergies Medications clobetasol [...] by mouth in the morning. 024 Active topiramate 50 MG tablet Take 1 tablet by mouth in the morning. 024 Active ondansetron ODT (Zofran-ODT) 4 MG disintegrating tablet TAKE 1 TAB ORALLY EVERY 6 TO 8 HOURS NEEDED FOR NAUSEA AND VOMITING 024 Active melatonin 5 MG tablet TAKE 1 TABLET BY MOUTH IN THE EVENING NEEDED 30 tablet 3 Active atorvastatin (Lipitor) 20 MG tablet TAKE 1 TABLET BY MOUTH DAILY IN THE MORNING 30 tablet 11 Active tiZANidine (Zanaflex) 2 MG tabletIndications :Left sided sciatica Take 1 tablet (2 mg) by mouth every 6 (six) hours if needed for muscle spasms for up to 10 days. 30 tablet Active baclofen (Lioresal) 20 MG tablet Take 1 tablet (20 mg) by mouth 2 times daily. 60 tablet Active Spacer/Aero-Holdi ng Chambers (OptiChamber Randa) misc 1 each every 4 (four) hours if needed (asthma). 1 each Active barium sulfate (Readi-Cat 2) 2 % suspension Take 450 mL by mouth every 1 (one) hour. Take 1 bottle [address] scan and the 2nd bottle [address] scan. 900 mL Active famotidine (Pepcid) 20 MG tablet Take 1 tablet (20 mg) by mouth 2 times daily. 60 tablet 2025 Active lisinopril-hydroC HLOROthiazide 20-25 MG tabletIndications :Essential hypertension TAKE 1 TABLET BY MOUTH ONCE DAILY 30 tablet 3 Active albuterol 108 (90 Base) MCG/ACT inhaler INHALE 2 PUFFS BY MOUTH EVERY 4 HOURS NEEDED FOR WHEEZING OR SHORTNESS OF BREATH 18 g 3 Active Zepbound 7.5 MG/0.5ML solution auto-injector INJECT ONE PEN (=7.5MG) SUBCUTANEOUSLY ONCE A WEEK DIRECTED Active Multiple Vitamin (Multivitamin) tablet TAKE 1 TABLET BY MOUTH EVERY DAY 30 tablet Active ferrous sulfate 325 (65 Fe) MG EC tablet TAKE 1 TABLET BY MOUTH EVERY DAY WITH BREAKFAST DO NOT BREAK, CRUSH, DISSOLVE OR CHEW 30 tablet Active divalproex (Depakote) 500 MG EC tablet TAKE 1 TABLET BY MOUTH TWICE DAILY 60 tablet 11 Active mometasone (Elocon) 0.1 % ointmentIndicatio ns:Eczema, unspecified type APPLY TOPICALLY ONCE DAILY 45 g 2 025 Active clotrimazole (Lotrimin) 1 % creamIndications: Pruritus of vagina APPLY TOPICALLY TO THE AFFECTED AREA(S) TWICE DAILY 30 g 11 025 Active PARoxetine CR (Paxil-CR) 25 MG 24 hr tablet TAKE 2 TABLETS BY MOUTH EVERY DAY 60 tablet 025 Active PARoxetine CR (Paxil-CR) 25 MG 24 hr tablet TAKE 2 TABLETS BY MOUTH EVERY DAY 60 tablet 025 2024 Discontinued Active Problems Problem Noted Date Diagnosed Date Acute cystitis with hematuria 01/02/2025 Abdominal pain 10/31/2023 Benign paroxysmal positional vertigo [...] Encounters Date Type Department Care Team Description 03/05/2025 9:00 AM EDT Office Visit [address] [address] Lashaun Ramsay MD Vitiligo (Primary Dx); Lichen sclerosus 03/05/2025 Travel 02/23/2025 Refill [facility] [address] [place] [phone] Erick Zhou MD 02/12/2025 Results Follow-Up [address] [address] Erick Zhou MD Comprehensive Metabolic Panel, Lipid Panel, Standard, RPR (Monitor) with Reflex to Titer 02/02/[address] [address] Erick Zhou MD Eczema, unspecified type; Pruritus of vagina 02/01/2025 10:15 AM EDT Office Visit [address] [address] Erick Zhou MD PE (physical exam), routine (Primary Dx); Essential hypertension; High cholesterol; History of syphilis; Encounter for screening mammogram for malignant neoplasm of breast; Colonoscopy refused; Obesity (BMI 30-39.9); Vitiligo 02/01/2025 Travel 01/29/[address] [address] Izabel Ireland [place] Chart Prep 01/25/2025 Patient Outreach [facility] [address] [place], [place] [phone] Erick Zhou MD Pre-visit Planning (SDOH negative, Tobacco screening negative. ) 01/22/2025 Refill [facility] [address] [place] [address] Erick Zhou MD 01/20/[address] [place] [address] Erick Zhou MD telephone call 01/15/2025 1:20 PM EDT Office Visit [facility] [address] [place] [phone] Flora Mackay NP Acute cystitis with hematuria (Primary Dx); UTI symptoms; Bilirubin in urine 01/15/2025 Travel 01/15/2025 Refill [facility] MEDICINE [address] [place] [phone] Erick Zhou MD Pruritus of vagina 01/14/2025 Refill [facility] MED[facility] [address] [place] [phone] Erick Zhou MD Eczema, unspecified type 01/13/2025 3:00 PM EDT Office Visit [facility] OPTOMETRY [address] [place] [phone] Alejandro, Lucy, OD 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 Dx); Age-related nuclear cataract of both eyes; Presbyopia 01/13/2025 Travel 01/06/2025 Telephone [facility] [address] [place] [address] Erick Zhou MD 01/02/2025 9:00 AM EDT Office Visit [facility] WALKIN [address] [address] Deena Hernandez MD Acute cystitis with hematuria (Primary Dx) 01/02/2025 Travel 12/24/2024 Refill [facility] [address] [place] [phone] Delvis Leon MD 12/21/2024 Refill [facility] MEDIC[facility] [address] [place] [phone] Erick Zhou MD Pruritus of vagina from Last 3 Months Immunizations Immunization Administration Dates Next Due Hep A, Adult [...] Passive Smoke Exposure: Past Smokeless Tobacco: Former Tobacco Cessation:Counseling Given: Not Answered Alcohol Use [...] 16 03/05/2025 9:13 AM EDT Oxygen Saturation 98% 02/01/2025 10: 15 AM EDT Inhaled Oxygen Concentration - - Weight 71.6 kg (157 lb 12.8 oz) 03/05/2025 9:13 AM EDT Height 152.5 cm (5' 0.04 ) 03/05/2025 9:13 AM ED T Body Mass Index 30.78 03/05/2025 9:13 AM EDT Plan of Treatment Upcoming Encounters Date Type Department Care Team (Late st Contact Info) Description 07/16/2025 3:30 PM EST Office Visit [facility] OPTOMETRY [address] [place] [address] Alejandro, Lucy, OD [address] [place] [address] Health Maintenance Due Date Last Done Comments CT Colonography 1960 Dental X-Ray: Full Mouth 1960 FIT DNA/Cologuard 1960 FIT 1960 FOBT 1960 Sigmoidoscopy 1960 RSV Patients and Patients Aged 60 years or older (1 - Risk 60-74 years 1-dose series) 2022 Dental Oral Exam 05/23/2024 11/21/2023 Dental Prophylaxis 05/23/2024 11/21/2023 Hepatitis A Vaccines (2 of 2 - Risk 2-dose series) 07/24/2024 01/22/2024 Colonoscopy 10/10/2024 10/11/2023, 04/04/2016 Colorectal Cancer Screening 10/10/2024 Mammogram 10/20/2024 10/20/2022, 05/0 11/2022, 02/02/2021, Additional history exists Dental X-Ray: Bitewings 11/21/2024 11/21/2023 COVID-19 Vaccine ( season) 2025 06/05/2022, 05/03/2021, 07/23/2020, Additional history exists Influenza Vaccine (#1) 2025 , 04/01/2023, 04/25/2021, Additional history exists Depression Screening 10/15/2025 10/15/2024, 10/16/19 25 Disability Screening 10/15/2025 10/15/2024 Diabetes: Hemoglobin A1C 10/16/2025 025, 10/14/2020, 10/14/2020 SDOH Screening 01/25/2026 01/25/2025 Alcohol/Substance Use Screening 02/01/2026 02/01/2025 Tobacco Screening 02/01/2026 02/01/2025 Cervical Cancer Screening 08/23/2026 HPV/Cotest 08/23/2026 08/23/2021 Pap Smear 08/23/2026 08/23/2021, 08/23/2021 Lipid Panel 02/02/2030 02/02/2025, 09/15, 04/20/2023, Additional history exists DTaP/Tdap/Td Vaccines (2 - Td or Tdap) 08/01/2031 08/01/2021, 11/02/2002, 11/02/2002 Zoster Vaccines Completed 10/12/2021, 08/01/2021 Hepatitis C Screening Completed 10/25/2023, 018 Hepatitis B Vaccines Completed 01/22/2024, 07/03/2017, 02/26/2017, Additional history exists Pneumococcal Vaccine: 50+ Years Completed 04/22/2024 HIV Screening Completed 10/16/2024 HIB Vaccines Aged Out No longer eligi [...] Procedure Name Priority Date/Time Associated Diagnosis Comments RPR (MONITOR) W/REFL TITER Routine 02/02/2025 9:00 AM EDT History of syphilis LIPID PANEL, STANDARD Routine 02/02/2025 9:00 AM EDT Essential hypertension High cholesterol COMPREHENSIVE METABOLIC PANEL Routine 02/02/2025 9:00 AM EDT Essential hypertension CULTURE, URINE, ROUTINE Routine 01/15/2025 1:31 PM EDT UTI symptoms POCT URINALYSIS DIPSTICK Routine 01/15/2025 1:28 PM EDT UTI symptoms OCT, OPTIC NERVE - OU - BOTH EYES Routine 01/13/2025 3:00 PM EDT Glaucoma 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 both eyes POCT URINALYSIS DIPSTICK Routine 01/02/2025 9:46 AM EDT Acute cystitis with hematuria CULTURE, URINE, ROUTINE Routine 01/02/2025 9:30 AM EDT Acute cystitis with hematuria HIV 1/2 ANTIGEN/ANTIBODY, FOURTH GENERATION W/RFL Routine 10/16/2024 9:34 AM EDT History of syphilis HEMOGLOBIN A1C Routine 10/16/2024 9:34 AM EDT Pruritus of vagina Full PROPHYLAXIS - ADULT Routine 11/21/2023 1:00 [...] ascites Acute anemia HM COLONOSCOPY Routine 10/11/2023 BI MAMMOGRAM SCREENING TOMOSYNTHESIS BILATERAL Routine 10/20/2022 9:00 AM EDT THINPREP IMAGING PAP AND HPV MRNA E6/E7 WITH REFLEX TO HPV 16,18/45 Routine 08/23/2021 3:53 PM EST HM PAP/HPV Routine 08/23/2021 from Last 3 Months or Most Recently Relevant to Health Maintenance Results * (ABNORMAL) RPR (Monitor) with Reflex to??Titer (02/02/2025 9:00 AM EDT) RPR (Monitor) w/Refl Titer REACTIVE( A) NON-REACT JOSE [facility] Comment:The RPR is a non-mariano ponemal-specific test; therefore,a treponemal- specific confirmatory test should beperformed unless prior syphilis infection has beendocumented for this patient.THIS TEST WAS PERFORMED AT:[facility] [id number] [place] [phone] PAZ MD Rapid Plasma Reagin Ab Titer 1:2(A) [facility] Comment:THIS TEST WAS PERFOR MED AT:[facility] [id number] [place] [phone] PAZ MD Blood Venous blood specimen / Unknown 02/02/2025 9:00 AM EDT 02/02/2025 10:58 AM EDT us Erick Zhou MD LAB BLOOD ORDERABLES Final Resul t Performing Organization Address [facility]/ZIP Co de Phone Number [facility] [address] [place] [phone] * (ABNORMAL) Lipid Panel, Standard (02/02/2025 9:00 AM EDT) Triglycerides 102 <150 mg/dL [facility] Comment:Desirable Triglyceri de: less than 150 mg/dLBorderline High Triglyceride 150-199 mg/dLHigh Triglyceride: 200-499 mg/dLVery High Triglyceride: greater than or equal to 5OO mg/dL Cholesterol 122 <200 mg/dL [facility] Comment:Desirable Cholestero l: less than 200 mg/dLBorderline High Cholesterol: 200-239 mg/dLHigh Cholesterol: greater than 239 mg/dL LDL Cholesterol Calculated 68 <100 mg/dL [facility] Comment:Desirable LDL: less than 100 mg/dLNear Optimal/Above Optimal LDL: 110- 129 mg/dLBorderline High LDL: 130-159 mg/dLHigh LDL: 160-189 mg/dLVery High LDL: greater than or equal to 190 mg/dL HDL Cholesterol 34(L) >40 mg/dL [facility] Comment:Desirable HDL: great er than 40 mg/dL Note: This HDL assay may give artificially low results in patients with liver disease. Blood Venous blood specimen / Unknown 02/02/2025 9:00 AM EDT 02/02/2025 10:58 AM EDT us Erick Zhou MD LAB BLOOD ORDERABLES Final Resul t Performing Organization Address City/[facility]/ZIP Co de Phone Number [facility] [address] [place] [address] [phone] * (ABNORMAL) Comprehensive Metabolic Panel (02/02/2025 9:00 AM EDT) Sodium 142 135 - 145 mmol/L [facility] Potassium 3.7 3.3 - 5.1 mmol/L [facility] Chloride 104 96 - 108 mmol/L [facility] Carbon Dioxide 32(H) 22 - 29 mmol/L [facility] Anion Gap 10(L) 12 - 20 [facility] Urea Nitrogen (BUN) 17(H) 9 - 16 mg/dL [facility] Creatinine, Serum 0.96 0.5 - 1.4 mg/dL [facility] Estimated Glomerular Filt Rate 59 [facility] Comment:Chronic Kidney Disea se: Estimated GFR < 60 mL/min/1.54n4Cbsspq Kidney Disease: Estimated GFR < 15 mL/min/1.73m2 Glucose 81 60 - 115 mg/dL [facility] Calcium 9.4 8.4 - 10.2 mg/dL [facility] Bilirubin, Total 0.4 0.0 - 1.0 mg/dL [facility] Aspartate Amino Transferase 52(H) 5 - 31 U/L [facility] Alanine Aminotransferase 50(H) 0 - 31 U/L [facility] Total Protein 7.5 6.5 - 8.0 g/dL [facility] Albumin Level 4.6 3.5 - 5.0 g/dL [facility] Alkaline Phosphatase 122(H) 39 - 117 U/L [facility] Blood Venous blood specimen / Unknown 02/02/2025 9:00 AM EDT 02/02/2025 10:58 AM EDT us Erick Zhou MD LAB BLOOD ORDERABLES Final Resul t [facility] [address] [place] [phone] * Culture, Urine, Routine (01/15/2025 1:31 PM EDT) Only the most recent of2 resultswithin the time period is included. Urine Urine specimen obtained by clean catch procedure / Unknown 01/15/2025 1:31 PM EDT 01/15/2025 4:45 PM EDT Comment:UACC Narrative [facility] - 01/17/2025 8:56 AM EDT Urine Culture Report Result Urine Culture 50,000 to 100,000 cfu/ml Urine Culture Mixed bacterial gina characteristic of Urine Culture urogenital contamination. Specimen Source: Urine clean catch Flora Mackay NP LAB MICROBIOLOGY - GENERAL FITZ JENNINGS Final Result [facility] [address] [place] [phone] * (ABNORMAL) POCT urinalysis dipstick manually resulted (01/15/2025 1:28 PM EDT) Only the most recent of2 resultswithin the time period is included. Color, UA Red Clarity, UA Clear Glucose, UA 3+ 500+++ Comment:250Mg Bilirubin, UA Moderate Ketones, UA Positive Comment:Trace Spec Grav, UA 1.020 Blood, UA Positive(A) Negative, None Detected Comment:Small pH, UA 5.0 Protein, UA 3+ 500+++ Comment:300mg Urobilinogen, UA >=8.0 Leukocytes, UA Many(A) Negative, Rare, Trace Comment:Large Nitrite, UA Positive(A) Negative, None Detected Appearance, UA OK Urine 01/15/2025 1:28 PM EDT us Flora Mackay NP POINT OF CARE TEST ENTER/EDIT O RDERABLES Final Result * OCT, Optic Nerve - OU - Both Eyes (01/13/2025 3:00 PM EDT) Narrative Lucy Allen, OD - 02/01/2025 10:00 AM EDT Images from the original result were not included. Right Eye Images reviewed. To assess optic nerve function and for use in future follow-up. Reliability: borderline. Left Eye Images reviewed. To assess optic nerve function and for use in future follow-up. Reliability: borderline. Notes OCT OPTIC NERVE INTERPRETATION Optical Coherence Tomography Interpretation Report Test Details: Measurements: OD OS C/D Horizontal 0.87 0.76 C/D Vertical 0.86 0.75 Disc area 2.06mm 2 2.17mm 2 RNFL Average 90microns 97microns Test findings: OD: Normal RNFL thickness in all quadrants. OS: Normal RNFL thickness in all quadrants. Impression and Plan: Right: Stable to 12/2023 scan Left: Stable to 12/2023 scan The patient continues to be a glaucoma suspect secondary to enlarged optic nerve cupping OD > OS. Will have her return for an updated visual field test and Goldmann IOP check in 6 months. Lucy Allen OD OPHTH TOMOGRAPHY Edited Resul t - Final * HIV-1/2 Antigen and Antibodies, Fourth Generation, with Reflexes (10/16/2024 9:34 AM EDT) HIV AB/AG Nonreactive Nonreactive [facility] Comment:HIV-1 p24 Ag and/or HIV-1/HIV-2 Ab not detected.A test result that is nonreactive does not exclude thepossibility of exposure to or infection with HIV-1 and/orHIV-2. Nonreactive results in this assay for individualswith prior exposure to HIV-1 and/or HIV-2 may be due toantigen and antibody levels that are below the limit ofdetection of this assay.The [employer]Factor HIV Ag/Ab Combo assay result andsupplemental assay results should be interpreted inconjunction with the patient's clinical presentation,history and other laboratory results. If the results areinconsistent with clinical evidence, additional testing issuggested to confirm the result. Blood Venous blood specimen / Unknown 10/16/2024 9:34 AM EDT 10/16/2024 11:08 AM EDT us Erick Zhou MD LAB BLOOD ORDERABLES Final Resul t [facility] [address] [place] [phone] * Hemoglobin A1c (10/16/2024 9:34 AM EDT) Hemoglobin A1c 5.7 <6.0 % [facility] Comment:Hemoglobin A1C Refer ence Range Adults: 4.8 - 6.0 % Non diabetic: < 6.0 % Goal: < 7.0 %Additional Action Suggested: > 8.0 %Note: Hemoglobin A1c results are invalid for patients with abnormal amounts of HbF. Blood transfusions may impact the HbA1c concentration in the patient sample. Estimated Average Glucose 117 mg/dL [facility] Comment:eAG = Estimated ave rage glucose which is %A1C expressed asaverage glucose, using the formula of the G1Q-GvmerxqJkvqbwv Glucose study (ADAG), Diabetes Care, Vol.31,#8,2007 Blood Venous blood specimen / Unknown 10/16/2024 9:34 AM EDT 10/16/2024 11:12 AM EDT us Erick Zhou MD LAB BLOOD ORDERABLES Final Resul t Performing Organization Address [facility] Co de Phone Number [facility] [address] [place] [phone] * Hepatitis C Antibody with Reflex to HCV, RNA, Quantitative, Real-Time PCR (10/25/2023 2:05 PM EDT) Hepatitis C Antibody Nonreactive Nonreactive [facility] Comment:Antibodies to HCV no t detected; does not exclude early acuteHCV infection. Blood Venous blood specimen / Unknown 10/25/2023 2:05 PM EDT 10/25/2023 3:55 PM EDT us Erick Zhou MD LAB BLOOD ORDERABLES Final Resul t Performing Organization Address [facility] Co de Phone Number [facility] [address] [place] [phone] * (ABNORMAL) Hm Colonoscopy (10/11/2023) Colonoscopy Abnormal(A ) Normal us Erick Zhou MD HEALTH MAINTENANCE Final Result * BI Mammogram Screening Tomosynthesis Bilateral (10/20/2022 9:00 AM EDT) Anatomical Region Laterality Modality Breast Bilateral Mammography 10/20/2022 9:00 AM EDT Narrative 10/23/2022 12:44 PM EDT [facility] [address] [place] [address] Dr. King, [place] [address] Mammography Report Signed Patient: Leanne Carey MR#: [id number] : 1960 Acct:[id number] Age/Sex: 62 / F ADM Date: 10/20/22 Loc: HO.MAMMO Attending Dr: Erick Zhou MD Ordering Physician: Erick Zhou MD Results: 2Benign Fi ndings Date of Service: 10/20/22 Follow Up: 1 Year From Orig ina Mammogram Procedure(s): MM tomosynthesis screening BI Accession Number(s): [id number] cc: Name,Erick CHOWDARY EXAMINATION: MM SCREENING DIGITAL BREAST TOMOSYNTHESIS, BILATERAL CLINICAL INFORMATION: Screening. Asymptomatic. The lifetime risk of breast cancer based on the Tyrer-Cuzick Model is 6%. COMPARISON: Mammography: 02/02/2021, 07/09/2019, 07/02/2018, 06/19/2018, 12/10/2016; outside mammography 01/25/2016 ([facility]). TECHNIQUE: Digital breast tomosynthesis is performed in [...] in OV> 10/23/22 1242 DD/ 0900 TD/TT: Cosmetic Assembler: BENNY Procedure Note Donotuseinterpreter, Image - 12/13/2022 [facility] [address] [place] [address] Mammography Report Signed Patient: Leanne Carey MMR#: [id number] : 1960Acct:[id number] Age/Sex: 62 / FADM Date: 10/20/22 Loc: HO.MAMMO Attending Dr: Erick Zhou MD Ordering Physician: Erick Zhou MDResults: 2Benign Fi ndings Date of Service: 10/20/22Follow Up: 1 Year From Orig inal Mammogram Procedure(s): MM tomosynthesis screening BI Accession Number(s): [id number] cc: Erick Zhou MD EXAMINATION: MM SCREENING DIGITAL BREAST TOMOSYNTHESIS, BILATERAL CLINICAL INFORMATION: Screening. Asymptomatic. The lifetime risk of breast cancer based on the Tyrer-Cuzick Model is 6%. COMPARISON: Mammography: 02/02/2021, 07/09/2019, 07/02/2018, 06/19/2018, 12/10/2016; outside mammography 01/25/2016 ([facility]). TECHNIQUE: Digital breast tomosynthesis is performed in [...] in OV> 10/23/22 1242 DD/ 0900 TD/TT: Cosmetic Assembler: ZAPATA [facility] External Provider IMG BI PROCEDURES Final Result * THINPREP TIS PAP AND HPV mRNA E6/E7 WITH REFLEX TO HPV 16,18/45 (08/23/2021 3:53 PM EST) Clinical Information: None given [facility] COMMENT SEE COMMENT [facility] Comment: EXPLANATORY NOTE: The Pap is a screening test for cervical cancer. It is not a diagnostic test and is subject to false negative and false positive results. It is most reliable when a satisfactory sample, regularly obtained, is submitted with relevant clinical findings and history, and when the Pap result is evaluated along with historic and current clinical information. COMMENT: This Pap test has been evaluated with computer assisted technology. [employer] [facility] Foot Doctor: SEE COMMENT [facility] Comment: YP, CT(ASCP) CT screening location: [place] [address] HPV nRNA E6/E7 Not Detected Not Detected [facility] [employer] Comment: Methodology: Cdl Flatbed Truck Driver-Mediated Amplification This assay detects E6/E7 viral messenger RNA (mRNA) from 14 high-risk HPV types (16,18,31,33,35,39,45,51,52,56,58,59,66,68). The analytical performance characteristics of this assay have been determined by [employer]. The modifications have not been cleared or approved by the FDA. This assay has been validated pursuant to the CLIA regulations and is used for clinical purposes. For additional information, please refer to http://education.[employer]Omnistream/faq/QRB556f0 (This link if provided for information/ educational purposes only.) Infection Shift in vaginal gina suggestive of bacterial vaginosis. [employer] [facility] Interpretation/Re sult: Negative for intraepithelial lesion or malignancy. [employer] [facility] LMP: 48 YRS OLD [facility] Prev. BX: NONE GIVEN [facility] Prev. PAP: NONE GIVEN [facility] SOURCE: None given [facility] Statement Of Adequacy: SEE COMMENT [facility] Comment: Satisfactory for evaluation. Endocervical/transformation zone component absent. 08/23/2021 3:53 PM EST Ashley Oglesby CNM LAB PATHOLOGY ORDERABLES Final Result [facility] [address] * Hm Pap Smear (08/23/2021) HM Pap smear Preformed Historical Provider MD HEALTH MAINTENANCE Final Result from Last 3 Months or Most Recently Relevant to Health Maintenance Insurance [facility] , [facility] [address] [place] [address] DENTAL - [facility] * Guarantor: Leanne Carey Account Type Relation to Patient Date of Phone Billing Address Personal/Family Self [place], [place] * Guarantor: Leanne Carey Account Type Relation to Patient Date of Phone Billing Address Personal/Family Self [place], [place] * Guarantor: Leanne Carey Account Type Relation to Patient Date of Phone Billing Address Personal/Family Self [place], [place] Care Teams Dock Pumper Relationship Specialty Start Date End Date Name, MD Erick [address] [place] [phone] PCP - General Family Medicine 11/29/16
--- OUTSIDE RECORDS SUMMARY | 2025-03-10 17:53 | XMS_ITS | Clinical Summary ---
Author Organization [address] [place] [address] Address [address] [place] [address] Phone Care Team Providers Care Appeals Writer Name Role Phone Name, Erick CHOWDARY Primary Care Provider [phone] Allergies No known active allergies Medications atorvastatin [...] DAY 4 Active tirzepatide, weight loss, (Zepbound) 10 mg/0.5 mL injectionIndicat ions:Class 1 obesity due to excess calories with body mass index (BMI) of 32.0 to 32.9 in adult, unspecified whether serious comorbidity present Inject 0.5 mL (10 mg total) under the skin every 7 (seven) days. 2 mL 5 03/07/20 25 Active Problems Problem Noted Date Diagnosed Date Other complications of gastric band procedure Shoulder pain, bilateral 02/12/2011 IVA (obstructive sleep apnea) 04/05/2010 Edema 11/30/2009 Hypercholesteremia 09/08/2008 Iron deficiency anemia 12/20/2006 Class 1 obesity with body ma ss index (BMI) of 33.0 to 33.9 in adult 12/20/2006 Essential hypertension, benign 10/22/2006 Immunizations Name Administration Dates Next Due Hepatitis B (Tjxjvpk-D-Dsxjk , Recombivax HB-Adult) 19yo and older 07/03/2017,02/26/2017,12/24/2016 [...] PM EST Office Visit Bariatric Surgery - [address] [place] [address] Gonzalez Williamson MD [address] [place] [phone] Health Maintenance Due Date Last Done Comments Social Influencers of Health Screening 05/15/2022 RSV Immunization Adult Patients (1 - Risk 60-74 years 1-dose series) 2022 Depression Screening 06/17/2024 06/27/2023 Hepatitis A Vaccines (2 of 2 - Risk 2-dose series) 07/24/2024 01/22/2024 Breast Cancer Screening 10/20/2024 10/20/2022 COVID-19 Vaccine ( season) 2025 06/05/2022, 05/03/2021, [...] Results * Cervical Cancer Screening: HPV (12/16/2023) Cervical Cancer Screening: HPV Negative, Abstracted Result [facility] Provider HEALTH MAINTENANCE Final Result * Colonoscopy (10/11/2023) Pathologist [facility] Colonoscopy No Interpretation , Abstracted Anatomical Region Laterality Modality Other Result [facility] Provider HEALTH MAINTENANCE Final Result * Depression Screening (06/27/2023) Pathologist [facility] Depression Screening Abstracted Result [facility] Provider HEALTH MAINTENANCE Final Result * HIV Screening (12/17/2016) [facility] HIV Screening Abstracted Result [facility] Provider HEALTH MAINTENANCE Final Result * Hepatitis C Screening (12/17/2016) [facility] Hepatitis C Screening Abstracted Result [facility] Provider HEALTH MAINTENANCE Final Result * Annual BMP Blood Test (02/16/2012) Pathologist [facility] Annual BMP Blood Test Abstracted Result [facility] Provider HEALTH MAINTENANCE Final Result * (ABNORMAL) Lipid panel (02/16/2012) [facility] LDL/HDL Ratio 4 0 - 4 Triglycerides 82 0 - 150 mg/dL Cholesterol 187 0 - 200 mg/dL HDL 53 >=40 mg/dL LDL Cholesterol 118(A) 0 - 100 mg/dL Blood Venous blood specimen / Unknown Result [facility] Provider LAB BLOOD ORDERABLES Lorrie l Result from Last 3 Months or Most Recently Relevant to Health Maintenance Insurance [facility] [address] [place] [address] Care Teams Appeals Writer Relationship Specialty Start Date End Date Name, MD Erick 4 [facility] [place] PCP - General Internal Medicine 05/28/19
[2025-03-10 18:57] LABS: Anion Gap 14 (12-20); Blood Urea Nitrogen 11 mg/dL (9-16); Calcium 9.5 mg/dL (8.4-10.2); Carbon Dioxide 29 mmol/L (22-29); Chloride 104 mmol/L (96-108); Estimated Glomerular Filt Rate > 60; Potassium 3.5 mmol/L (3.3-5.1); Sodium 143 mmol/L (135-145)
[2025-03-10 19:07] LABS: Uric Acid 4.2 mg/dL (2.4-5.7)
== END 2025-03-10 15:39 | disposition home or self-care (01) ==
LOC: HO.HHCL 15:38
PROVIDERS: PCP Internal Medicine Geriatric Medicine; Visit Provider Internal Medicine Nephrology
DX: I10 Essential (primary) hypertension (principal)
CPT/HCPCS: 36415; 80051; 82310; 82565; 84520; 84550

== ENCOUNTER 2025-03-11 08:28 | Outpatient (REF) | payer OTHER, SELFPAY ==
--- OUTSIDE RECORDS SUMMARY | 2025-03-11 09:01 | XMS_ITS | Encounter Summary ---
Author Organization [facility] Address [address] [place] [address] [place] [address] Care Team Providers Care Sensor Technician Name Role Phone Name, Erick CHOWDARY Primary Care Provider [phone] Reason for Visit * Reason Comments Med Refill Encounter Details Date Type Department Care Team ([facility] st Contact Info) Description 01/14/2025 Refill [facility] MEDICINE [address] [place] [address] Name, MD Erick [address] [place] [address] Eczema, unspecified type Social History Tobacco Use [...] 3:30 PM EST Office Visit [facility] OPTOMETRY [address] [place] [address] Alejandro, Lucy, OD [address] [place] [address] documented as of this encounter Visit Diagnoses Diagnosis Eczema, unspecified type documented in this encounter Additional Health Concerns Assessment Noted Time PHQ-9 Depression Total Score: 7 10/16/19 25 10:10 AM EDT documented as of this encounter Care Teams Sensor Technician Relationship Specialty Start Date End Date Name, MD Erick [address] [place] [address] PCP - General Family Medicine 11/29/16 documented as of this encounter
--- OUTSIDE RECORDS SUMMARY | 2025-03-11 09:01 | XMS_ITS | Encounter Summary ---
Author Organization [employer] Address [address] [place] [address] Care Team Providers Care Agent Telegrapher Name Role Phone Name, Erick CHOWDARY Primary Care Provider [phone] Encounter Details Date Type Department Care Team (Late Contact Info) Description 11/02/2022 Abstract [facility] MEDICINE [address] [place] [address] Name, MD Erick [address] [place] [address] Social History Tobacco Use Types Packs/Day Years [...] Description 07/16/2025 3:30 PM EST Office Visit [facility] OPTOMETRY [address] [place], [place] [address] AlejandroLucy dawson, OD [address] [place] [address] documented as of this encounter Procedures Procedure [...] documented as of this encounter Care Teams Agent Telegrapher Relationship Specialty Start Date End Date Name, MD Erick [address] [place] [address] PCP - General Family Medicine 11/29/16 documented as of this encounter
--- OUTSIDE RECORDS SUMMARY | 2025-03-11 09:01 | XMS_ITS | Encounter Summary ---
Author Organization [employer] Address [address] [place] [address] Care Team Providers Care Speech And Drama Teacher Name Role Phone Name, Erick CHOWDARY Primary Care Provider [phone] Reason for Visit * Reason Comments Med Refill Encounter Details Date Type Department Care Team (Late Contact Info) Description 03/17/[address] [facility] MEDICINE [address] [place] [address] Name, MD Erick [address] [place] [address] Social History Tobacco Use Types Packs/Day Years [...] Description 07/16/2025 3:30 PM EST Office Visit [facility] OPTOMETRY [address] [place] [address] Lucy Allen, OD [address] [place] [address] documented as of this encounter Visit Diagnoses Not on filedocumented in this encounter Additional Health Concerns Assessment Noted Time PHQ-9 Depression Total Score: 14 023 9:49 AM EDT documented as of this encounter Care Teams Speech And Drama Teacher Relationship Specialty Start Date End Date Name, MD Erick [address] [place] [address] PCP - General Family Medicine 11/29/16 documented as of this encounter
--- OUTSIDE RECORDS SUMMARY | 2025-03-11 09:01 | XMS_ITS | Clinical Summary ---
Author Organization [address] [place] [address] [place] [phone] Phone Care Team Providers Care Clam Picker Name Role Phone Name, Erick CHOWDARY Primary Care Provider [phone] Allergies No known active allergies Medications atorvastatin [...] Name Administration Dates Next Due Hepatitis B (Lromikc-F-Fwjgn , Recombivax HB-Adult) 19yo and older 07/03/2017,02/26/2017,12/24/2016 [...] PM EST Office Visit Bariatric Surgery - [address] [place] [address] Gonzalez Williamson MD [address] [place] [phone] Health Maintenance Due Date Last Done [...] Cervical Cancer Screening: HPV Negative, Abstracted Result [facility] Provider HEALTH MAINTENANCE Final Result * Colonoscopy (10/11/2023) [facility] Colonoscopy No Interpretation , Abstracted Anatomical Region Laterality Modality Other Result [facility] Provider HEALTH MAINTENANCE Final Result * Depression Screening (06/27/2023) [facility] Depression Screening Abstracted Result [facility] Provider HEALTH MAINTENANCE Final Result * HIV Screening (12/17/2016) [facility] HIV Screening Abstracted Result [facility] Provider HEALTH MAINTENANCE Final Result * Hepatitis C Screening (12/17/2016) [facility] Hepatitis C Screening Abstracted Result [facility] Provider HEALTH MAINTENANCE Final Result * Annual BMP Blood Test (02/16/2012) [facility] Annual BMP Blood Test Abstracted Result [facility] Provider HEALTH MAINTENANCE Final Result * (ABNORMAL) Lipid panel (02/16/2012) [facility] LDL/HDL Ratio 4 0 - 4 Triglycerides 82 0 - 150 mg/dL Cholesterol 187 0 - 200 mg/dL HDL 53 >=40 mg/dL LDL Cholesterol 118(A) 0 - 100 mg/dL Blood Venous blood specimen / Unknown Result [facility] Provider LAB BLOOD ORDERABLES Lorrie l Result from Last 3 Months or Most Recently Relevant to Health Maintenance Insurance [facility] [address] [place] [address] Care Teams Clam Picker Relationship Specialty Start Date End Date Name, MD Erick 4 [facility] [place] PCP - General Internal Medicine 05/28/19
--- OUTSIDE RECORDS SUMMARY | 2025-03-11 09:01 | XMS_ITS | Encounter Summary ---
Author Organization [employer] Address [address] [place] [address] [address] [place] [address] Care Team Providers Care Sewing Trimmer Name Role Phone Name, Erick CHOWDARY Primary Care Provider [phone] Encounter Details Date Type Department Care Team (Late st Contact Info) Description 03/10/2025 Orders Only GENERIC EXTERNAL DATA DEPARTMENT Provider, Generic External Data Social History Tobacco Use Types Packs/Day Years [...] Description 07/16/2025 3:30 PM EST Office Visit [facility] OPTOMETRY [address] [place] [address] Alejandro, Lucy, OD [address] [place] [address] documented as of this encounter Procedures Procedure Name Priority Date/Time Associated Diagnosis Comments CREATININE, SERUM Routine 03/10/2025 3:4 1 PM EDT URIC ACID Routine 03/10/2025 3:41 PM EDT UREA NITROGEN (BUN) Routine 03/10/2025 3 :41 PM EDT CALCIUM Routine 03/10/2025 3:41 PM EDT ELECTROLYTE PANEL Routine 03/10/2025 3:4 1 PM EDT documented in this encounter Results * Uric acid (03/10/2025 3:41 PM EDT) Uric Acid 4.2 2.4 - 5.7 mg/dL [facility] 03/10/2025 3:41 PM EDT 03/10/2025 6:20 PM EDT us Generic External Data Provider LAB BLOOD ORDERAB LES Final Result Performing Organization Address [facility] Co de Phone Number [facility] [address] [place] [phone] * Calcium (03/10/2025 3:41 PM EDT) Calcium 9.5 8.4 - 10.2 mg/dL [facility] 03/10/2025 3:41 PM EDT 03/10/2025 6:20 PM EDT Generic External Data Provider LAB BLOOD ORDERAB LES Final Result Performing Organization Address [facility] Co de Phone Number [facility] [address] [place] [phone] * Creatinine, Serum (03/10/2025 3:41 PM EDT) Creatinine, Serum 0.85 0.5 - 1.4 mg/dL [facility] Estimated Glomerular Filt Rate >60 [facility] Comment:Chronic Kidney Disea se: Estimated GFR < 60 mL/min/[id number] Kidney Disease: Estimated GFR < 15 mL/min/1.73m2 03/10/2025 3:41 PM EDT 03/10/2025 6:20 PM EDT us Generic External Data Provider LAB BLOOD ORDERAB LES Final Result Performing Organization Address [facility] Co de Phone Number [facility] [address] [place] [phone] * BUN (Blood Urea Nitrogen) (03/10/2025 3:41 PM EDT) Urea Nitrogen (BUN) 11 9 - 16 mg/dL [facility] 03/10/2025 3:41 PM EDT 03/10/2025 6:20 PM EDT us Generic External Data Provider LAB BLOOD ORDERAB LES Final Result Performing Organization Address [facility] Co de Phone Number [facility] [address] [place] [phone] * Electrolyte Panel (03/10/2025 3:41 PM EDT) Sodium 143 135 - 145 mmol/L [facility] Potassium 3.5 3.3 - 5.1 mmol/L [facility] Chloride 104 96 - 108 mmol/L [facility] Carbon Dioxide 29 22 - 29 mmol/L [facility] Anion Gap 14 12 - 20 [facility] 03/10/2025 3:41 PM EDT 03/10/2025 6:20 PM EDT us Generic External Data Provider LAB BLOOD ORDERAB LES Final Result Performing Organization Address [facility] de Phone Number [facility] [address] [place] [phone] documented in this encounter Visit Diagnoses Not on filedocumented in this encounter Additional Health Concerns Assessment Noted Time PHQ-9 Depression Total Score: 7 10/16/19 25 10:10 AM EDT documented as of this encounter Care Teams Sewing Trimmer Relationship Specialty Start Date End Date Name, MD Erick [address] [place] [phone] PCP - General Family Medicine 11/29/16 documented as of this encounter
--- OUTSIDE RECORDS SUMMARY | 2025-03-11 09:01 | XMS_ITS | Encounter Summary ---
Author Organization [employer] Address [address] [place] [address] Care Team Providers Care Payroll Processor Name Role Phone Name, Erick CHOWDARY Primary Care Provider [phone] Encounter Details Date Type Department Care Team [...] Description 07/16/2025 3:30 PM EST Office Visit [facility] OPTOMETRY [address] [place] [address] Alejandro, Lucy, OD [address] [place] [address] documented as of this encounter Visit Diagnoses Not on filedocumented in this encounter Care Teams Payroll Processor Relationship Specialty Start Date End Date Name, MD Erick [address] [place] [address] PCP - General Family Medicine 11/29/16 documented as of this encounter
--- OUTSIDE RECORDS SUMMARY | 2025-03-11 09:01 | XMS_ITS | Encounter Summary ---
Author Organization [employer] Address [address] [place] [address] [address] [place] [address] Care Team Providers Care Clay Temperer Name Role Phone Name, Erick CHOWDARY Primary Care Provider [phone] Encounter Details Date Type Department Care Team (Latest Contact Info) Description 02/12/2025 Results Follow-Up [facility] MEDICINE [address] [place] [address] Name, MD Erick [address] [place] [address] Comprehensive Metabolic Panel, Lipid Panel, Standard, RPR [...] EST Office Visit [facility] OPTOMETRY [address] [place] [address] Lucy Allen, OD [address] [place] [address] documented as of this encounter Visit Diagnoses Not on filedocumented in this encounter Additional Health Concerns Assessment Noted Time PHQ-9 Depression Total Score: 7 10/16/19 25 10:10 AM EDT documented as of this encounter Care Teams Clay Temperer Relationship Specialty Start Date End Date Name, MD Erick [address] [place] [address] PCP - General Family Medicine 11/29/16 documented as of this encounter
--- OUTSIDE RECORDS SUMMARY | 2025-03-11 09:01 | XMS_ITS | Clinical Summary ---
Author Organization [employer] Address [address] [place] [address] [place] [address] Care Team Providers Care Straightedge Machine Operator Helper Name Role Phone Name, Erick CHOWDARY Primary Care Provider [phone] Allergies No known active allergies Medications clobetasol [...] Encounters Date Type Department Care Team Description 03/10/2025 Orders Only GENERIC EXTERNAL DATA DEPARTMENT Provider, Generic External Data 03/05/2025 9:00 AM EDT Office Visit [facility] [address] [place] [phone] Lashaun Ramsay MD Vitiligo (Primary Dx); Lichen sclerosus 03/05/2025 Travel 02/23/2025 Refill [facility] [address] [place] [address] Erick Zhou MD 02/12/2025 Results Follow-Up [address] [address] Erick Zhou MD Comprehensive Metabolic Panel, Lipid Panel, Standard, RPR (Monitor) with Reflex to Titer 02/02/[address] [address] Erick Zhou MD Eczema, unspecified type; Pruritus of vagina 02/01/2025 10:15 AM EDT Office Visit [address] [address] Erick Zhou MD PE (physical exam), routine (Primary Dx); Essential hypertension; High cholesterol; History of syphilis; Encounter for screening mammogram for malignant neoplasm of breast; Colonoscopy refused; Obesity (BMI 30-39.9); Vitiligo 02/01/2025 Travel 01/29/[address] [address] Izabel Ireland [place] Chart Prep 01/25/2025 Patient Outreach [facility] [address] [place], [place] [phone] Erick Zhou MD Pre-visit Planning (SDOH negative, Tobacco screening negative. ) 01/22/2025 Refill [facility] [address] [place] [address] Eirck Zhou MD 01/20/2025 Telephone [facility] [address] [place] [address] Erick Zhou MD telephone call 01/15/2025 1:20 PM EDT Office Visit [facility] [address] [place] [phone] Flora Mackay NP Acute cystitis with hematuria (Primary Dx); UTI symptoms; Bilirubin in urine 01/15/2025 Travel 01/15/2025 Refill [facility] [address] [place] [address] Erick Zhou MD Pruritus of vagina 01/14/2025 Refill [facility] [address] [place] [address] Erick Zhou MD Eczema, unspecified type 01/13/2025 3:00 PM EDT Office Visit [facility] OPTOMETRY [address] [place] [address] Alejandro, Lucy, OD 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 Dx); Age-related nuclear cataract of both eyes; Presbyopia 01/13/2025 Travel 01/06/2025 Telephone [facility] [address] [place] [address] Erick Zhou MD 01/02/2025 9:00 AM EDT Office Visit [facility] [address] [place] [address] Deena Hernandez MD Acute cystitis with hematuria (Primary Dx) 01/02/2025 Travel 12/24/2024 Refill [facility] [address] [place] [address] Delvis Leon MD 12/21/2024 Refill [facility] [address] [place] [address] Erick Zhou MD Pruritus of vagina from [...] 3:30 PM EST Office Visit [facility] OPTOM[facility] [address] [place] [address] Alejandro, Lucy, OD [address] [place] [address] Health Maintenance Due Date Last Done Comments [...] 10/12/2021, 08/01/2021 Hepatitis C Screening Completed 10/25/2023, 05/04/2 018 Hepatitis B Vaccines Completed 01/22/2024, 07/03/2017, [...] Procedure Name Priority Date/Time Associated Diagnosis Comments URIC ACID Routine 03/10/2025 3:41 PM EDT CALCIUM Routine 03/10/2025 3:41 PM EDT CREATININE, SERUM Routine 03/10/2025 3:4 1 PM EDT UREA NITROGEN (BUN) Routine 03/10/2025 3 :41 PM EDT ELECTROLYTE PANEL Routine 03/10/2025 3:4 1 PM EDT RPR (MONITOR) W/REFL TITER Routine 02/02/2025 9:00 [...] Recently Relevant to Health Maintenance Results * Creatinine, Serum (03/10/2025 3:41 PM EDT) Creatinine, Serum 0.85 0.5 - 1.4 mg/dL [facility] Estimated Glomerular Filt Rate >60 [facility] Comment:Chronic Kidney Disea se: Estimated GFR < 60 mL/min/1.44l8Edanln Kidney Disease: Estimated GFR < 15 mL/min/1.73m2 03/10/2025 3:41 PM EDT 03/10/2025 6:20 PM EDT us Generic External Data Provider LAB BLOOD ORDERAB LES Final Result Performing Organization Address City/[facility]/ZIP Co de Phone Number [facility] [address] [place] [phone] * Uric acid (03/10/2025 3:41 PM EDT) Uric Acid 4.2 2.4 - 5.7 mg/dL [facility] 03/10/2025 3:41 PM EDT 03/10/2025 6:20 PM EDT us Generic External Data Provider LAB BLOOD ORDERAB LES Final Result Performing Organization Address [facility] Co de Phone Number [facility] [address] [place] [phone] * BUN (Blood Urea Nitrogen) (03/10/2025 3:41 PM EDT) Urea Nitrogen (BUN) 11 9 - 16 mg/dL [facility] 03/10/2025 3:41 PM EDT 03/10/2025 6:20 PM EDT us Generic External Data Provider LAB BLOOD ORDERAB LES Final Result Performing Organization Address [facility] Co de Phone Number [facility] [address] [place] [phone] * Calcium (03/10/2025 3:41 PM EDT) Calcium 9.5 8.4 - 10.2 mg/dL [facility] 03/10/2025 3:41 PM EDT 03/10/2025 6:20 PM EDT Generic External Data Provider LAB BLOOD ORDERAB LES Final Result Performing Organization Address [facility] Co de Phone Number [facility] [address] [place] [phone] * Electrolyte Panel (03/10/2025 3:41 PM EDT) Sodium 143 135 - 145 mmol/L [facility] Potassium 3.5 3.3 - 5.1 mmol/L [facility] Chloride 104 96 - 108 mmol/L [facility] Carbon Dioxide 29 22 - 29 mmol/L [facility] Anion Gap 14 12 - 20 [facility] 03/10/2025 3:41 PM EDT 03/10/2025 6:20 PM EDT Generic External Data Provider LAB BLOOD ORDERAB LES Final Result Performing Organization Address [facility] de Phone Number [facility] [address] [place] [phone] * (ABNORMAL) RPR (Monitor) with Reflex to??Titer (02/02/2025 9:00 AM EDT) RPR (Monitor) w/Refl Titer REACTIVE( A) NON-REACT JOSE [facility] Comment:The RPR is a non-mariano ponemal-specific test; therefore,a treponemal- specific confirmatory test should beperformed unless prior syphilis infection has beendocumented for this patient.THIS TEST WAS PERFORMED AT:[facility] [address] [id number] PAZ MD Rapid Plasma Reagin Ab Titer 1:2(A) [facility] Comment:THIS TEST WAS PERFOR MED AT:[facility] [address] [id number] PAZ MD Blood Venous blood specimen / Unknown 02/02/2025 9:00 AM EDT 02/02/2025 10:58 AM EDT us Erick Zhou MD LAB BLOOD ORDERABLES Final Resul t Performing Organization Address [facility] Co de Phone Number [facility] [address] [place] [phone] * (ABNORMAL) Lipid Panel, Standard (02/02/2025 9:00 AM EDT) Triglycerides 102 <150 mg/dL [facility] Comment:Desirable Triglyceri de: less than 150 mg/dLBorderline High Triglyceride 150-199 mg/dLHigh Triglyceride: 200-499 mg/dLVery High Triglyceride: greater than or equal to 5OO mg/dL Cholesterol 122 <200 mg/dL [facility] Comment:Desirable Cholestero l: less than 200 mg/dLBorderline High Cholesterol: 200-239 mg/dLHigh Cholesterol: greater than 239 mg/dL LDL Cholesterol Calculated 68 <100 mg/dL [facility] Comment:Desirable LDL: less than 100 mg/dLNear Optimal/Above Optimal LDL: 110- 129 mg/dLBorderline High LDL: 130-159 mg/dLHigh LDL: 160-189 mg/dLVery High LDL: greater than or equal to 190 mg/dL HDL Cholesterol 34(L) >40 mg/dL [facility] Comment:Desirable HDL: great er than 40 mg/dL Note: This HDL assay may give artificially low results in patients with liver disease. Blood Venous blood specimen / Unknown 02/02/2025 9:00 AM EDT 02/02/2025 10:58 AM EDT us Erick Zhou MD LAB BLOOD ORDERABLES Final Resul t Performing Organization Address [facility] Co de Phone Number [facility] [address] [place] [phone] * (ABNORMAL) Comprehensive Metabolic Panel (02/02/2025 9:00 AM EDT) Sodium 142 135 - 145 mmol/L [facility] Potassium 3.7 3.3 - 5.1 mmol/L [facility] Chloride 104 96 - 108 mmol/L [facility] Carbon Dioxide 32(H) 22 - 29 mmol/L [facility] Anion Gap 10(L) 12 - 20 [facility] Urea Nitrogen (BUN) 17(H) 9 - 16 mg/dL [facility] Creatinine, Serum 0.96 0.5 - 1.4 mg/dL [facility] Estimated Glomerular Filt Rate 59 [facility] Comment:Chronic Kidney Disea se: Estimated GFR < 60 mL/min/1.57j1Dnedor Kidney Disease: Estimated GFR < 15 mL/min/1.73m2 Glucose 81 60 - 115 mg/dL [facility] Calcium 9.4 8.4 - 10.2 mg/dL [facility] Bilirubin, Total 0.4 0.0 - 1.0 mg/dL [facility] Aspartate Amino Transferase 52(H) 5 - 31 U/L [facility] Alanine Aminotransferase 50(H) 0 - 31 U/L [facility] Total Protein 7.5 6.5 - 8.0 g/dL [facility] Albumin Level 4.6 3.5 - 5.0 g/dL [facility] Alkaline Phosphatase 122(H) 39 - 117 U/L [facility] Blood Venous blood specimen / Unknown 02/02/2025 9:00 AM EDT 02/02/2025 10:58 AM EDT us Erick Zhou MD LAB BLOOD ORDERABLES Final Resul t [facility] [address], [place] [phone] * Culture, Urine, Routine (01/15/2025 1:31 PM EDT) Only the most recent of2 resultswithin the time period is included. Urine Urine specimen obtained by clean catch procedure / Unknown 01/15/2025 1:31 PM EDT 01/15/2025 4:45 PM EDT Comment:UACC Narrative [facility] - 01/17/2025 8:56 AM EDT Urine Culture Report Result Urine Culture 50,000 to 100,000 cfu/ml Urine Culture Mixed bacterial gina characteristic of Urine Culture urogenital contamination. Specimen Source: Urine clean catch us Flora Mackay NP LAB MICROBIOLOGY - GENERAL FITZ JENNINGS Final Result [facility] [address], [place] [phone] * (ABNORMAL) POCT urinalysis dipstick manually [...] 9:34 AM EDT) HIV AB/AG Nonreactive Nonreactive [facility] Comment:HIV-1 p24 Ag and/or HIV-1/HIV-2 Ab not detected.A test result that is nonreactive does not exclude thepossibility of exposure to or infection with HIV-1 and/orHIV-2. Nonreactive results in this assay for individualswith prior exposure to HIV-1 and/or HIV-2 may be due toantigen and antibody levels that are below the limit ofdetection of this assay.The Upfront Chromatography HIV Ag/Ab Combo assay result andsupplemental assay results should be interpreted inconjunction with the patient's clinical presentation,history and other laboratory results. If the results areinconsistent with clinical evidence, additional testing issuggested to confirm the result. Blood Venous blood specimen / Unknown 10/16/2024 9:34 AM EDT 10/16/2024 11:08 AM EDT us Erick Zhou MD LAB BLOOD ORDERABLES Final Resul t [facility] [address], [place] [phone] * Hemoglobin A1c (10/16/2024 9:34 AM EDT) Hemoglobin A1c 5.7 <6.0 % [facility] Comment:Hemoglobin A1C Refer ence Range Adults: 4.8 - 6.0 % Non diabetic: < 6.0 % Goal: < 7.0 %Additional Action Suggested: > 8.0 %Note: Hemoglobin A1c results are invalid for patients with abnormal amounts of HbF. Blood transfusions may impact the HbA1c concentration in the patient sample. Estimated Average Glucose 117 mg/dL [facility] Comment:eAG = Estimated ave rage glucose which is %A1C expressed asaverage glucose, using the formula of the E3Y-LdpnsvbWwzawlv Glucose study (ADAG), Diabetes Care, Vol.31,#8,2007 Blood Venous blood specimen / Unknown 10/16/2024 9:34 AM EDT 10/16/2024 11:12 AM EDT us Erick Zhou MD LAB BLOOD ORDERABLES Final Resul t Performing Organization Address [facility] Co de Phone Number [facility] [address] [place] [phone] * Hepatitis C Antibody with Reflex [...] ORDERABLES Final Resul t Performing Organization Address [facility] Co de Phone Number [facility] [address] [place] [phone] * (ABNORMAL) Hm Colonoscopy (10/11/2023) Colonoscopy Abnormal(A ) Normal us Erick Zhou MD HEALTH MAINTENANCE Final Result * BI Mammogram Screening Tomosynthesis Bilateral (10/20/2022 9:00 AM EDT) Anatomical Region Laterality Modality Breast Bilateral Mammography 10/20/2022 9:00 AM EDT Narrative 10/23/2022 12:44 PM EDT [facility] [address] [place], [place] [address] Mammography Report Signed Patient: Leanne Carey MR#: [id number] : 1960 Acct:[id number] Age/Sex: 62 / F ADM Date: 10/20/22 Loc: HO.MAMMO Attending Dr: Erick Zhou MD Ordering Physician: Erick Zhou MD Results: 2Benign Fi ndings Date of Service: 10/20/22 Follow Up: 1 Year From Orig ina Mammogram Procedure(s): MM tomosynthesis screening BI Accession Number(s): [id number] cc: Erick Zhou MD EXAMINATION: MM SCREENING DIGITAL BREAST TOMOSYNTHESIS, BILATERAL CLINICAL INFORMATION: Screening. Asymptomatic. The lifetime risk of breast cancer based on the Tyrer-Cuzick Model is 6%. COMPARISON: Mammography: 02/02/2021, 07/09/2019, 07/02/2018, 06/19/2018, 12/10/2016; outside mammography 01/25/2016 ([facility]). TECHNIQUE: Digital breast tomosynthesis is [...] in OV> 10/23/22 1242 DD/ 0900 TD/TT: Lip Cutter And Scorer: BENNY Procedure Note Donotuseinterpreter, Image - 12/13/2022 [facility] [address] [place], [place] [address] Mammography Report Signed Patient: Leanne Carey MMR#: [id number] : 1960Acct:[id number] Age/Sex: 62 / FADM Date: 10/20/22 Loc: HO.MAMMO Attending Dr: Erick Zhou MD Ordering Physician: Erick Zhou MDResults: 2Benign Fi ndings Date of Service: 10/20/22Follow Up: 1 Year From Orig inal Mammogram Procedure(s): MM tomosynthesis screening BI Accession Number(s): [id number] cc: Erick Zhou MD EXAMINATION: MM SCREENING DIGITAL BREAST TOMOSYNTHESIS, BILATERAL CLINICAL INFORMATION: Screening. Asymptomatic. The lifetime risk of breast cancer based on the Tyrer-Cuzick Model is 6%. COMPARISON: Mammography: 02/02/2021, 07/09/2019, 07/02/2018, 06/19/2018, 12/10/2016; outside mammography 01/25/2016 ([facility]). TECHNIQUE: Digital breast tomosynthesis is [...] in OV> 10/23/22 1242 DD/ 0900 TD/TT: Lip Cutter And Scorer: ZAPATA [facility] External Provider IMG BI PROCEDURES Final [...] has been evaluated with computer assisted technology. [facility] Applied Researcher: SEE COMMENT [facility] Comment: YP, CT(ASCP) CT screening location: [place] [address] HPV nRNA E6/E7 Not Detected Not Detected [facility] Comment: Methodology: Cake Icer And Packer-Mediated Amplification This assay detects E6/E7 viral messenger RNA (mRNA) from 14 high-risk HPV types (16,18,31,33,35,39,45,51,52,56,58,59,66,68). The analytical performance characteristics of this assay have been determined by [employer]. The modifications have not been cleared or approved by the FDA. This assay has been validated pursuant to the CLIA regulations and is used for clinical purposes. For additional information, please refer to http://education.[employer]/faq/QNM750a5 (This link if provided for information/ educational purposes only.) Infection Shift in vaginal gina suggestive of bacterial vaginosis. [facility] Interpretation/Re sult: Negative for intraepithelial lesion or malignancy. [facility] LMP: 48 YRS OLD [facility] Prev. BX: NONE GIVEN [facility] Prev. PAP: NONE GIVEN [facility] SOURCE: None given [facility] Statement Of Adequacy: SEE COMMENT [facility] Comment: Satisfactory for evaluation. Endocervical/transformation zone component absent. 08/23/2021 3:53 PM EST Ashley Oglesby CNM LAB PATHOLOGY ORDERABLES Final Result [facility] [address] * Pap Smear (08/23/2021) Pap smear Preformed Historical Provider MD HEALTH MAINTENANCE Final Result from Last 3 Months or Most Recently Relevant to Health Maintenance Insurance , [address] [place] [phone] [facility] [place], [place] * Guarantor: Leanne Carey Account Type Relation to Patient Date of Phone Billing Address Personal/Family Self [place], [place] * Guarantor: Leanne Carey Account Type Relation to Patient Date of Phone Billing Address Personal/Family Self [place], [place] * Guarantor: Leanne Carey Account Type Relation to Patient Date of Phone Billing Address Personal/Family Self [place], [place] Care Teams Straightedge Machine Operator Helper Relationship Specialty Start Date End Date Name, MD Erick [address] [place] [phone] PCP - General Family Medicine 11/29/16
--- OUTSIDE RECORDS SUMMARY | 2025-03-11 09:01 | XMS_ITS | Encounter Summary ---
Author Organization [employer] Address [address] [facility] [address] [place] [address] Care Team Providers Care Theology Professor Name Role Phone Name, Erick CHOWDARY Primary Care Provider [phone] Encounter Details Date Type Department Care Team ([facility] st Contact Info) Description 08/28/2024 Orders Only [facility] [address] [place] [address] Delvis Leon MD [address] [place] [address] Social History Tobacco Use Types Packs/Day Years [...] PM EST Office Visit [facility] OPTOMETRY [address] [place] [address] Alejandro, Lucy, OD [address] [place] [address] documented as of this encounter Visit Diagnoses Not on filedocumented in this encounter Additional Health Concerns Assessment Noted Time PHQ-9 Depression Total Score: 18 024 2:25 PM EDT documented as of this encounter Care Teams Theology Professor Relationship Specialty Start Date End Date Name, MD Erick [address] [place] [address] PCP - General Family Medicine 11/29/16 documented as of this encounter
[2025-03-11 11:19] LABS: Appearance Urine Cloudy; Glucose Urine UA Negative (Negative); PH 5.5 (5.0-9.0); Specific Gravity - Urine >= 1.030 (1.005-1.025); UMIC TRIGGER UA YES
[2025-03-11 12:01] LABS: Protein/Creatinine Ratio, Ur 0.08 (<0.2); Total Protein Urine Random 16 mg/dL (<12)
== END 2025-03-11 08:29 | disposition home or self-care (01) ==
LOC: HO.HHCL 08:28
PROVIDERS: PCP Internal Medicine Geriatric Medicine; Visit Provider Internal Medicine Nephrology
DX: I10 Essential (primary) hypertension (principal)
CPT/HCPCS: 81001; 81003; 82570; 84156

== ENCOUNTER 2025-03-12 14:10 | Outpatient (AMB) | payer OTHER, SELFPAY ==
--- NOTE | 2025-03-12 14:14 | HO.NEPHOV ---
Vital Signs 03/12/25 14:15 Height 5 ft Weight 158 lb 4 oz BMI 30.9 BP 114/82 Blood Pressure Location Lt brachial Position Sitting Pulse 82 Pulse Source Pulse Oximeter Pulse Oximetry (%) 96 Oxygen Delivery Method Room Air Intake Visit Reasons: 6 MO FU-[facility] Occupational Health Nurse Required: No Accompanied by: Self / Same As Patient Allergies No Known Allergies (No Known Allergies*) Allergy (Mild, Verified 03/12/25 14:15) NOT APPLICABLE HPI Comments Details: Leanne was seen for follow up regarding extensive right renal scarring with a recent elevated BUN. She denied any childhood UTI's but had very frequent UTI as well pyelonephritis during her 2nd and 3rd decades of life. She developed hypertension during her fourth decade of life and has been on medication since. She takes lisinopril-hctz 20mg-25mg PO daily with good control of her blood pressure. She has no H/O small kidney or proteinuria. She is not a diabetic but has CLEMENTS. She denies any hematuria, renal calculus, flank pain or any interventions. Her serum creatinine is normal and did not have any systemic complaints at the time of this office visit. States she feels well. [facility] Medical History (Updated 09/09/24 @ 22:02 by Paresh Fajardo MD) Liver cirrhosis secondary to CLEMENTS (nonalcoholic steatohepatitis) Tubular adenoma of colon Positive serological reaction for syphilis Obesity Family history of colon cancer Depression Chronic low back pain with right-sided sciatica Benign paroxysmal positional vertigo Abdominal pain Other cirrhosis of liver High cholesterol Dental abscess Severe dental caries Seizure disorder Recurrent major depression in partial remission Obstructive sleep apnea syndrome LFT elevation Hypertension Hemoperitoneum Surgical History History of tubal ligation Personal history of gastric banding Social History Household Members: Family Housing: House Do you presently have visiting nurse or other home services: No Alcohol intake: never Patient Tobacco Use Status: Never used Tobacco service: No Review of Systems Const All systems reviewed & are unremarkable except as noted in HPI and below Physical Exam Vital Signs: Last Vital Signs Pulse 82 03/12/25 14:15 BP 114/82 03/12/25 14:15 Pulse Ox 96 03/12/25 14:15 Oxygen Delivery Method Room Air 03/12/25 14:15 BMI result Body Mass Index 30.9 Const General: comfortable and no acute distress Orientation/consciousness: patient oriented x3 HEENT Head: Yes normocephalic Mouth: Normal oral and palatal mucosa present Eyes EOM: EOMs intact bilaterally Neck Neck: Yes supple Resp Auscultation: clear to auscultation bilaterally Cardio Jugular venous distension: no JVD Rate: regular rate Heart sounds: Murmur heart sound present GI Palpation (GI): Soft to palpation Auscultation: normal bowel sounds General: Yes no CVA tenderness Back/Spine/Pelvis Back: no CVA tenderness Skin General skin exam: no rashes or lesions noted Neuro General: patient oriented x3 and moves all extremities Extrem General: Yes no pedal edema Results Reviewed Nephrology Results: Sodium, (135-145) 143 mmol/L 03/10/25 Potassium, (3.3-5.1) 3.5 mmol/L 03/10/25 Chloride, (96-108) 104 mmol/L 03/10/25 Carbon Dioxide, (22-29) 29 mmol/L 03/10/25 BUN, (9-16) 11 mg/dL 03/10/25 Creatinine, (0.5-1.4) 0.85 mg/dL 03/10/25 Calcium, (8.4-10.2) 9.5 mg/dL 03/10/25 Urine Protein, (Neg-Trace) Trace mg/dL 03/11/25 Urine Creatinine 204.13 mg/dL 03/11/25 Protein/Creatinin Ratio, (<0.2) 0.08 03/11/25 Assessment & Plan Assessment & Plan (1) Hypertension: Code(s): I10 - Essential (primary) hypertension Category: Medical Qualifiers: Hypertension type: primary hypertension Qualified Code(s): I10 - Essential (primary) hypertension (2) Renal scarring: Code(s): N28.89 - Other specified disorders of kidney and ureter Category: Medical Plan She has renal scarring likely from pyelonephritis in the past. Whether she had any mild reflux nephropathy as child needs to be thought of. Her renal function is normal but has hypertension. She probably has hypertension secondary to her renal insult in the past. She has no proteinuria or hematuria. She should maintain good hydration and avoid excessive NSAID's. She should minimize salt in her diet and lose some weight. She is tolerating ACEI. If her BUN rises, we need to cut back on HCTZ. Her blood pressure is well controlled. For now she should continue lisinopril-hctz 20mg-25mg PO daily. Ordered follow up labs and answered all questions. Follow up in 1 year. Orders: Orders Basic Metabolic Panel 1 Year I10 - Essential (primary) hypertension, N28.89 - Other specified disorders of kidney and ureter UA w Microscopic 1 Year I10 - Essential (primary) hypertension, N28.89 - Other specified disorders of kidney and ureter Coding Level of Care Code Est Pt Level 4 (10109) Diagnoses Primary hypertension I10 Hypertension type: primary hypertension Renal scarring N28.89
[2025-03-12 14:15] VITALS: BP 114/82; PULSE 82; O2SAT 96; BMI 30.9
--- OUTSIDE RECORDS SUMMARY | 2025-03-12 15:17 | XMS_ITS | Encounter Summary ---
Author Organization [employer] Address [address] [place] [address] Care Team Providers Care Sheet Metal Duct Worker Supervisor Name Role Phone Name, Erick CHOWDARY Primary Care Provider [phone] Reason for Visit * Reason Comments Med Refill Encounter Details Date Type Department Care Team (Late Contact Info) Description 03/17/[address] [facility] MEDICINE [address] [place] [address] Name, MD Erick [address] [place] [address] Social History Tobacco Use Types Packs/Day Years [...] 3:30 PM EST Office Visit [facility] OPTOMETRY [address] [place] [address] Lucy Allen, OD [address] [place] [address] documented as of this encounter Visit Diagnoses Not on filedocumented in this encounter Additional Health Concerns Assessment Noted Time PHQ-9 Depression Total Score: 14 023 9:49 AM EDT documented as of this encounter Care Teams Sheet Metal Duct Worker Supervisor Relationship Specialty Start Date End Date Name, MD Erick [address] [place] [address] PCP - General Family Medicine 11/29/16 documented as of this encounter
--- OUTSIDE RECORDS SUMMARY | 2025-03-12 15:17 | XMS_ITS | Encounter Summary ---
Author Organization [employer] Address [address] [place] [id number] Care Team Providers Care Grinding And Spraying Supervisor Name Role Phone Name, Erick CHOWDARY Primary Care Provider [phone] Encounter Details Date Type Department Care Team [...] 07/16/2025 3:30 PM EST Office Visit [facility] OPTOMETRY [address] [place] [address] Alejandro, Lucy, OD [address] [place] [address] documented as of this encounter Visit Diagnoses Not on filedocumented in this encounter Care Teams Grinding And Spraying Supervisor Relationship Specialty Start Date End Date Name, MD Erick [address] [place] [address] PCP - General Family Medicine 11/29/16 documented as of this encounter
--- OUTSIDE RECORDS SUMMARY | 2025-03-12 15:17 | XMS_ITS | Encounter Summary ---
Author Organization [employer] Address [address] [place] [address] [address] [place] [address] Care Team Providers Care Management Scientist Name Role Phone Name, Erick CHOWDARY Primary Care Provider [phone] Encounter Details Date Type Department Care Team (Latest Contact Info) Description 02/12/2025 Results Follow-Up [facility] MEDICINE [address] [place] [address] Name, MD Erick [address] [place] [address] Comprehensive Metabolic Panel, Lipid Panel, Standard, RPR [...] EST Office Visit [facility] OPTOMETRY [address] [place] [address] Lucy Allen, OD [address] [place] [address] documented as of this encounter Visit Diagnoses Not on filedocumented in this encounter Additional Health Concerns Assessment Noted Time PHQ-9 Depression Total Score: 7 10/16/19 25 10:10 AM EDT documented as of this encounter Care Teams Management Scientist Relationship Specialty Start Date End Date Name, MD Erick [address] [place] [address] PCP - General Family Medicine 11/29/16 documented as of this encounter
--- OUTSIDE RECORDS SUMMARY | 2025-03-12 15:17 | XMS_ITS | Encounter Summary ---
Author Organization [employer] Address [address] [place] [address] [address] [place] [address] Care Team Providers Care Cigar Making Machine Supervisor Name Role Phone Name, Erick CHOWDARY Primary Care Provider [phone] Encounter Details Date Type Department Care Team (Late st Contact Info) Description 03/11/2025 Orders Only GENERIC EXTERNAL DATA DEPARTMENT Provider, [...] Description 07/16/2025 3:30 PM EST Office Visit [facility] OPTOMETRY [address] [place] [address] AlejandroLucy, OD [address] [place] [address] documented as of this encounter Procedures Procedure Name Priority Date/Time Associated Diagnosis Comments PROTEIN CREATININE RATIO, URINE Routine 03/11/2025 8:37 AM EDT URINALYSIS, COMPLETE Routine 03/11/2025 8:37 AM EDT documented in this encounter Results * (ABNORMAL) Protein Creatinine Ratio, Urine (03/11/2025 8:37 AM EDT) Creatinine, Urine 204.13 mg/dL [facility] Protein, Total, Random Urine 16(H) <12 mg/dL [facility] Protein/Creati nine Ratio, Ur 0.08 <0.2 [facility] Comment:The spot urine prote in:creatinine ratio may increase to 0.3during normal . 03/11/2025 8:37 AM EDT 03/11/2025 10:57 AM EDT us Generic External Data Provider LAB URINE ORDERAB LES Final Result Performing Organization Address City/[facility]/ZIP Co de Phone Number [facility] [address] [place] [address] [phone] * (ABNORMAL) Urinalysis Complete (03/11/2025 8:37 AM EDT) Color Urine Dark Yellow [facility] Appearance Urine Cloudy [facility] PH 5.5 5.0 - 9.0 [facility] Glucose Urine UA Negative Negative mg/dL [facility] Urine Blood Negative Negative [facility] Specific Shirley - Urine >=1.030(H) 1.005 - 1.025 [facility] Urine Protein Trace Neg-Trace mg/dL [facility] Urine Ketones Trace Negative mg/dL [facility] Nitrite Urine Negative Negative [facility] Leukocyte Esterase Urine Small (1+)(A) Negative [facility] RBC Urine 0-2 0 - 2 /HPF [facility] Urine WBC 0-5 0 - 5 /HPF [facility] Urine Squamous Epithelial Cell 11-20 0 - 2 /HPF [facility] CALCIUM OXALATE CRYSTAL, UR Present [facility] Urine Bacteria 1+ None Seen [facility] Hyaline Casts, Urine 0-2 0 - 2 /LPF [facility] Urine Yeast Present [facility] 03/11/2025 8:37 AM EDT 03/11/2025 10:57 AM EDT us Generic External Data Provider LAB URINE ORDERAB LES Final Result Performing Organization Address City/[facility]/ZIP Co de Phone Number [facility] [address] [place] [address] [phone] documented in this encounter Visit Diagnoses Not on filedocumented in this encounter Additional Health Concerns Assessment Noted Time PHQ-9 Depression Total Score: 7 10/16/19 10:10 AM EDT documented as of this encounter Care Teams Cigar Making Machine Supervisor Relationship Specialty Start Date End Date Name, MD Erick [address] [place] [address] PCP - General Family Medicine 11/29/16 documented as of this encounter
--- OUTSIDE RECORDS SUMMARY | 2025-03-12 15:17 | XMS_ITS | Encounter Summary ---
Author Organization [employer] Address [address] [place] [address] Care Team Providers Care Clinic Supervisor Name Role Phone Name, Erick CHOWDARY Primary Care Provider [phone] Encounter Details Date Type Department Care Team (Late Contact Info) Description 11/02/2022 Abstract [facility] MEDICINE [address] [place] [address] Name, MD Erick [address] [place] [address] Social History Tobacco Use Types Packs/Day Years [...] 3:30 PM EST Office Visit [facility] OPTOMETRY [address] [place], [place] [id number] AlejandroLucy dawson, OD [address] [place] [address] documented as of this encounter Procedures Procedure [...] documented as of this encounter Care Teams Clinic Supervisor Relationship Specialty Start Date End Date Name, MD Erick [address] [place] [address] PCP - General Family Medicine 11/29/16 documented as of this encounter
--- OUTSIDE RECORDS SUMMARY | 2025-03-12 15:17 | XMS_ITS | Clinical Summary ---
Author Organization [employer] Address [address] [place] [address] [place] [address] Care Team Providers Care Boiler Engineer Name Role Phone Name, Erick CHWODARY Primary Care Provider [phone] Allergies No known active allergies Medications clobetasol [...] Encounters Date Type Department Care Team Description 03/11/2025 Orders Only GENERIC EXTERNAL DATA DEPARTMENT Provider, Generic External Data 03/10/2025 Orders Only GENERIC EXTERNAL DATA DEPARTMENT Provider, Generic External Data 03/05/2025 9:00 AM EDT Office Visit [address] [address] Lashaun Ramsay MD Vitiligo (Primary Dx); Lichen sclerosus 03/05/2025 Travel 02/23/2025 Refill [facility] [address] [place] [address] Erick Zhou MD 02/12/2025 Results Follow-Up [address] [address] Erick Zhou MD Comprehensive Metabolic Panel, Lipid Panel, Standard, RPR (Monitor) with Reflex to Titer 02/02/[address] [address] Erick Zhou MD Eczema, unspecified type; Pruritus of vagina 02/01/2025 10:15 AM EDT Office Visit [address] [address] Erick Zhou MD PE (physical exam), routine (Primary Dx); Essential hypertension; High cholesterol; History of syphilis; Encounter for screening mammogram for malignant neoplasm of breast; Colonoscopy refused; Obesity (BMI 30-39.9); Vitiligo 02/01/2025 Travel 01/29/[address] [address] Izabel Ireland MA Chart Prep 01/25/2025 Patient Outreach [facility] [address] [place], [place] [phone] Erick Zhou MD Pre-visit Planning (SDOH negative, Tobacco screening negative. ) 01/22/2025 Refill [facility] [address] [place] [address] Erick Zhou MD 01/20/2025 Telephone [facility] [address] [place] [phone] Erick Zhou MD telephone call 01/15/2025 1:20 PM EDT Office Visit [facility] [address] [place] [address] Flora Mackay NP Acute cystitis with hematuria (Primary Dx); UTI symptoms; Bilirubin in urine 01/15/2025 Travel 01/15/2025 Refill [facility] [address] [place] [address] Erick Zhou MD Pruritus of vagina 01/14/2025 Refill [facility] [address] [place] [address] Erick Zhou MD Eczema, unspecified type 01/13/2025 3:00 PM EDT Office Visit [facility] [address] [place] [address] Alejandro, Lucy, OD 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 Dx); Age-related nuclear cataract of both eyes; Presbyopia 01/13/2025 Travel 01/06/2025 Telephone [facility] [address] [place] [address] Erick Zhou MD 01/02/2025 9:00 AM EDT Office Visit [facility] [address] [place] [address] Deena Hernandez MD Acute cystitis with hematuria (Primary Dx) 01/02/2025 Travel 12/24/2024 Refill [facility] [address] [place] [address] Delvis Leon MD 12/21/2024 Refill [facility] [address] [place] [address] Erick Zhou MD Pruritus of vagina from [...] [facility] [address] [place] [address] Alejandro, Lucy, OD [address] [place] [address] Health Maintenance Due Date Last Done Comments [...] history exists Depression Screening 10/15/2025 10/15/2024, 10/16/19 Disability Screening 10/15/2025 10/15/2024 Diabetes: Hemoglobin A1C [...] URINALYSIS, COMPLETE Routine 03/11/2025 8:37 AM EDT URIC ACID Routine 03/10/2025 3:41 PM [...] Relevant to Health Maintenance Results * (ABNORMAL) Protein Creatinine Ratio, Urine (03/11/2025 8:37 AM EDT) Creatinine, Urine 204.13 mg/dL [facility] Protein, Total, Random Urine 16(H) <12 mg/dL [facility] Protein/Creati nine Ratio, Ur 0.08 <0.2 [facility] Comment:The spot urine prote in:creatinine ratio may increase to 0.3during normal . 03/11/2025 8:37 AM EDT 03/11/2025 10:57 AM EDT us Generic External Data Provider LAB URINE ORDERAB LES Final Result [facility] [address] [place] [phone] * (ABNORMAL) Urinalysis Complete (03/11/2025 8:37 AM EDT) Color Urine Dark Yellow [facility] Appearance Urine Cloudy [facility] PH 5.5 5.0 - 9.0 [facility] Glucose Urine UA Negative Negative mg/dL [facility] Urine Blood Negative Negative [facility] Specific [place] - Urine >=1.030(H) 1.005 - 1.025 [facility] Urine Protein Trace Neg-Trace mg/dL [facility] Urine Ketones Trace Negative mg/dL [facility] Nitrite Urine Negative Negative [facility] Leukocyte Esterase Urine Small (1+)(A) Negative [facility] RBC Urine 0-2 0 - 2 /HPF [facility] Urine WBC 0-5 0 - 5 /HPF [facility] Urine Squamous Epithelial Cell 11-20 0 - 2 /HPF [facility] CALCIUM OXALATE CRYSTAL, UR Present [facility] Urine Bacteria 1+ None Seen [facility] Hyaline Casts, Urine 0-2 0 - 2 /LPF [facility] Urine Yeast Present [facility] 03/11/2025 8:37 AM EDT 03/11/2025 10:57 AM EDT us Generic External Data Provider LAB URINE ORDERAB LES Final Result Performing Organization Address [facility] Co de Phone Number [facility] [address] [place] [phone] * Creatinine, Serum (03/10/2025 3:41 PM EDT) Creatinine, Serum 0.85 0.5 - 1.4 mg/dL [facility] Estimated Glomerular Filt Rate >60 [facility] Comment:Chronic Kidney Disea se: Estimated GFR < 60 mL/min/[id number] Kidney Disease: Estimated GFR < 15 mL/min/1.73m2 03/10/2025 3:41 PM EDT 03/10/2025 6:20 PM EDT us Generic External Data Provider LAB BLOOD ORDERAB LES Final Result Performing Organization Address [facility] Co de Phone Number [facility] [address] [place] [phone] * Uric acid (03/10/2025 3:41 PM EDT) Uric Acid 4.2 2.4 - 5.7 mg/dL [facility] 03/10/2025 3:41 PM EDT 03/10/2025 6:20 PM EDT us Generic External Data Provider LAB BLOOD ORDERAB LES Final Result Performing Organization Address [facility] Co de Phone Number [facility] [address] [place] [phone] * BUN (Blood Urea Nitrogen) (03/10/2025 3:41 PM EDT) Urea Nitrogen (BUN) 11 9 - 16 mg/dL [facility] 03/10/2025 3:41 PM EDT 03/10/2025 6:20 PM EDT Generic External Data Provider LAB BLOOD ORDERAB LES Final Result Performing Organization Address [facility] Co de Phone Number [facility] [address] [place] [phone] * Calcium (03/10/2025 3:41 PM EDT) Pathologist [facility] Calcium 9.5 8.4 - 10.2 mg/dL [facility] 03/10/2025 3:41 PM EDT 03/10/2025 6:20 PM EDT Generic External Data Provider LAB BLOOD ORDERAB LES Final Result Performing Organization Address [facility] Phone Number [facility] [address] [place] [phone] * Electrolyte Panel (03/10/2025 3:41 PM EDT) [facility] Sodium 143 135 - 145 mmol/L [facility] Potassium 3.5 3.3 - 5.1 mmol/L [facility] Chloride 104 96 - 108 mmol/L [facility] Carbon Dioxide 29 22 - 29 mmol/L [facility] Anion Gap 14 12 - 20 [facility] 03/10/2025 3:41 PM EDT 03/10/2025 6:20 PM EDT Generic External Data Provider LAB BLOOD ORDERAB LES Final Result Performing Organization Address [facility] de Phone Number [facility] [address] [place] [phone] * (ABNORMAL) RPR (Monitor) with Reflex to??Titer (02/02/2025 9:00 AM EDT) Pathologist [facility] RPR (Monitor) w/Refl Titer REACTIVE( A) NON-REACT JOSE [facility] Comment:The RPR is a non-mariano ponemal-specific test; therefore,a treponemal- specific confirmatory test should beperformed unless prior syphilis infection has beendocumented for this patient.THIS TEST WAS PERFORMED AT:[facility] [address] [phone] APZ MD Rapid Plasma Reagin Ab Titer 1:2(A) [facility] Comment:THIS TEST WAS PERFOR MED AT:[facility] [address] [phone] PAZ MD Blood Venous blood specimen / Unknown 02/02/2025 9:00 AM EDT 02/02/2025 10:58 AM EDT us Erick Name LAB BLOOD ORDERABLES Final Resul t [facility] [address] [place] [phone] * (ABNORMAL) Lipid Panel, Standard (02/02/2025 9:00 AM EDT) Triglycerides 102 <150 mg/dL [facility] Comment:Desirable Triglyceri de: less than 150 mg/dLBorderline High Triglyceride 150-199 mg/dLHigh Triglyceride: 200-499 mg/dLVery High Triglyceride: greater than or equal to 5OO mg/dL Cholesterol 122 <200 mg/dL [facility] Comment:Desirable Cholestero l: less than 200 mg/dLBorderline High Cholesterol: 200-239 mg/dLHigh Cholesterol: greater than 239 mg/dL LDL Cholesterol Calculated 68 <100 mg/dL [facility] Comment:Desirable LDL: less than 100 mg/dLNear Optimal/Above Optimal LDL: 110- 129 mg/dLBorderline High LDL: 130-159 mg/dLHigh LDL: 160-189 mg/dLVery High LDL: greater than or equal to 190 mg/dL HDL Cholesterol 34(L) >40 mg/dL [facility] Comment:Desirable HDL: great er than 40 mg/dL Note: This HDL assay may give artificially low results in patients with liver disease. Blood Venous blood specimen / Unknown 02/02/2025 9:00 AM EDT 02/02/2025 10:58 AM EDT us Erick Zhou MD LAB BLOOD ORDERABLES Final Resul t [facility] [address] [place] [phone] * (ABNORMAL) Comprehensive Metabolic Panel (02/02/2025 9:00 AM EDT) Sodium 142 135 - 145 mmol/L [facility] Potassium 3.7 3.3 - 5.1 mmol/L [facility] Chloride 104 96 - 108 mmol/L [facility] Carbon Dioxide 32(H) 22 - 29 mmol/L [facility] Anion Gap 10(L) 12 - 20 [facility] Urea Nitrogen (BUN) 17(H) 9 - 16 mg/dL [facility] Creatinine, Serum 0.96 0.5 - 1.4 mg/dL [facility] Estimated Glomerular Filt Rate 59 [facility] Comment:Chronic Kidney Disea se: Estimated GFR < 60 mL/min/1.69t3Ncfiib Kidney Disease: Estimated GFR < 15 mL/min/1.73m2 Glucose 81 60 - 115 mg/dL [facility] Calcium 9.4 8.4 - 10.2 mg/dL [facility] Bilirubin, Total 0.4 0.0 - 1.0 mg/dL [facility] Aspartate Amino Transferase 52(H) 5 - 31 U/L [facility] Alanine Aminotransferase 50(H) 0 - 31 U/L [facility] Total Protein 7.5 6.5 - 8.0 g/dL [facility] Albumin Level 4.6 3.5 - 5.0 g/dL [facility] Alkaline Phosphatase 122(H) 39 - 117 U/L [facility] Blood Venous blood specimen / Unknown 02/02/2025 9:00 AM EDT 02/02/2025 10:58 AM EDT us Erick Zhou MD LAB BLOOD ORDERABLES Final Resul t Performing Organization Address [facility] Co de Phone Number [facility] [address] [place] [phone] * Culture, Urine, Routine (01/15/2025 1:31 PM EDT) Only the most recent of2 resultswithin the time period is included. Urine Urine specimen obtained by clean catch procedure / Unknown 01/15/2025 1:31 PM EDT 01/15/2025 4:45 PM EDT Comment:UACC Narrative [facility] - 01/17/2025 8:56 AM EDT Urine Culture Report Result Urine Culture 50,000 to 100,000 cfu/ml Urine Culture Mixed bacterial gina characteristic of Urine Culture urogenital contamination. Specimen Source: Urine clean catch Flora Mackay NP LAB MICROBIOLOGY - GENERAL ORDE RABLES Final Result Performing Organization Address [facility] Co de Phone Number [facility] [address] [place] [phone] * (ABNORMAL) POCT urinalysis dipstick manually [...] Urine 01/15/2025 1:28 PM EDT us Flora Appram BIOLOGICAL TECHNICIAN POINT OF CARE TEST ENTER/EDIT O RDERABLES Final Result * OCT, Optic Nerve - OU - Both Eyes (01/13/2025 3:00 PM EDT) Lucy Dickinson, OD - 02/01/2025 10:00 AM EDT Images [...] Generation, with Reflexes (10/16/2024 9:34 AM EDT) [facility] HIV AB/AG Nonreactive Nonreactive [facility] Comment:HIV-1 p24 Ag and/or HIV-1/HIV-2 Ab not detected.A test result that is nonreactive does not exclude thepossibility of exposure to or infection with HIV-1 and/orHIV-2. Nonreactive results in this assay for individualswith prior exposure to HIV-1 and/or HIV-2 may be due toantigen and antibody levels that are below the limit ofdetection of this assay.[employer] HIV Ag/Ab Combo assay result andsupplemental assay results should be interpreted inconjunction with the patient's clinical presentation,history and other laboratory results. If the results areinconsistent with clinical evidence, additional testing issuggested to confirm the result. Blood Venous blood specimen / Unknown 10/16/2024 9:34 AM EDT 10/16/2024 11:08 AM EDT us Erick Zhou MD LAB BLOOD ORDERABLES Final Resul t Performing Organization Address [facility] de Phone Number [facility] [address] [place] [phone] * Hemoglobin A1c (10/16/2024 9:34 AM EDT) Hemoglobin A1c 5.7 <6.0 % [facility] Comment:Hemoglobin A1C Refer ence Range Adults: 4.8 - 6.0 % Non diabetic: < 6.0 % Goal: < 7.0 %Additional Action Suggested: > 8.0 %Note: Hemoglobin A1c results are invalid for patients with abnormal amounts of HbF. Blood transfusions may impact the HbA1c concentration in the patient sample. Estimated Average Glucose 117 mg/dL [facility] Comment:eAG = Estimated ave rage glucose which is %A1C expressed asaverage glucose, using the formula of the O7B-CvcpkroSnardjt Glucose study (ADAG), Diabetes Care, Vol.31,#8,Jan. 2007 Blood Venous blood specimen / Unknown 10/16/2024 9:34 AM EDT 10/16/2024 11:12 AM EDT us Erick Zhou MD LAB BLOOD ORDERABLES Final Resul t Performing Organization Address [facility] de Phone Number [facility] [address] [place] [phone] * Hepatitis C Antibody with Reflex to HCV, RNA, Quantitative, Real-Time PCR (10/25/2023 2:05 PM EDT) Hepatitis C Antibody Nonreactive Nonreactive [facility] Comment:Antibodies to HCV no t detected; does not exclude early acuteHCV infection. Blood Venous blood specimen / Unknown 10/25/2023 2:05 PM EDT 10/25/2023 3:55 PM EDT Erick Zhou MD LAB BLOOD ORDERABLES Final Resul t [facility] [address] [place] [phone] * (ABNORMAL) Hm Colonoscopy (10/11/2023) Colonoscopy Abnormal(A ) Normal Erick Zhou MD HEALTH MAINTENANCE Final Result * BI Mammogram Screening Tomosynthesis Bilateral (10/20/2022 9:00 AM EDT) Anatomical Region Laterality Modality Breast Bilateral Mammography 10/20/2022 9:00 AM EDT Narrative 10/23/2022 12:44 PM EDT [address] [place] [address] Mammography Report Signed Patient: Leanne Carey MR#: [id number] : 1960 Acct:[id number] Age/Sex: 62 / F ADM Date: 10/20/22 Loc: HO.MAMMO Attending Dr: Erick Zhou MD Ordering Physician: Erick Zohu MD Results: 2Benign Fi ndings Date of Service: 10/20/22 Follow Up: 1 Year From Orig ina Mammogram Procedure(s): MM tomosynthesis screening BI Accession Number(s): [id number] cc: Erick Zhou MD EXAMINATION: MM SCREENING [...] in OV> 10/23/22 1242 DD/ 0900 TD/TT: Dairy Store Manager: BENNY Procedure Note Donotuseinterpreter, Image - 12/13/2022 [facility] [address] [place] [address] Mammography Report Signed Patient: Leanne Carey MMR#: [id number] : 1960Acct:[id number] Age/Sex: 62 / FADM Date: 10/20/22 Loc: [place] Attending Dr: Erick Zhou MD Ordering Physician: Erick Zhou MDResults: 2Benign Fi ndings Date of Service: 10/20/22Follow Up: 1 Year From Orig inal Mammogram Procedure(s): MM tomosynthesis screening BI Accession Number(s): [id number] cc: Erick Zhou MD EXAMINATION: MM SCREENING [...] in OV> 10/23/22 1242 DD/ 0900 TD/TT: Dairy Store Manager: ZAPATA [facility] External Provider IMG BI PROCEDURES Final Result * THINPREP TIS PAP AND HPV mRNA E6/E7 WITH REFLEX TO HPV 16,18/45 (08/23/2021 3:53 PM EST) Clinical Information: None given [facility] COMMENT SEE COMMENT [facility] [...] has been evaluated with computer assisted technology. [facility] C2 Tactical Analysis Technician: SEE COMMENT [facility] Comment: YP, CT(ASCP) CT screening location: [place] [address] HPV nRNA E6/E7 Not Detected Not Detected [facility] Comment: Methodology: Bark Scaler-Mediated Amplification This assay detects E6/E7 viral messenger RNA (mRNA) from 14 high-risk HPV types (16,18,31,33,35,39,45,51,52,56,58,59,66,68). The analytical performance characteristics of this assay have been determined by [employer]. The modifications have not been cleared or approved by the FDA. This assay has been validated pursuant to the CLIA regulations and is used for clinical purposes. For additional information, please refer to http://education.[employer]faq/LJX148z0 (This link if provided for information/ educational purposes only.) Infection Shift in vaginal gina suggestive of bacterial vaginosis. [facility] Interpretation/Re sult: Negative for intraepithelial lesion or malignancy. [facility] LMP: 48 YRS OLD [facility] Prev. BX: NONE GIVEN [facility] Prev. PAP: NONE GIVEN [facility] SOURCE: None given [facility] Statement Of Adequacy: SEE COMMENT [facility] Comment: Satisfactory for evaluation. Endocervical/transformation zone component absent. 08/23/2021 3:53 PM EST Ashley Oglesby CNM LAB PATHOLOGY ORDERABLES Final Result Performing Organization Address City/State/[facility] Co de Phone Number [facility] [address] * Pap Smear (08/23/2021) HM Pap smear Preformed Historical Provider MD HEALTH MAINTENANCE Final Result from Last 3 Months or Most Recently Relevant to Health Maintenance Insurance , [address] [place] [address] [place] [facility] - [facility] [place], [place] * Guarantor: Leanne Carey Account Type Relation to Patient Date of Phone Billing Address Personal/Family Self [place], [place] * Guarantor: Leanne Carey Account Type Relation to Patient Date of Phone Billing Address Personal/Family Self [place], [place] * Guarantor: Leanne Carey Account Type Relation to Patient Date of Phone Billing Address Personal/Family Self [place], [place] Care Teams Boiler Engineer Relationship Specialty Start Date End Date Name, MD Erick [address] [place] [address] PCP - General Family Medicine 11/29/16
--- OUTSIDE RECORDS SUMMARY | 2025-03-12 15:17 | XMS_ITS | Clinical Summary ---
Author Organization [address] [place] [address] Address [address] [place] [address] Phone Care Team Providers [employer] Name Role Phone Name, Erick CHOWDARY Primary Care Provider [phone] Allergies No known active allergies Medications atorvastatin [...] Name Administration Dates Next Due Hepatitis B (Ljagozd-V-Mhzzl , Recombivax HB-Adult) 19yo and older 07/03/2017,02/26/2017,12/24/2016 [...] PM EST Office Visit Bariatric Surgery - [address] [place] [phone] Gonzalez Williamson MD [address] [place] [phone] Health Maintenance Due Date Last Done [...] Cervical Cancer Screening: HPV Negative, Abstracted Result [facility] Provider HEALTH MAINTENANCE Final Result * Colonoscopy (10/11/2023) Pathologist [facility] Colonoscopy No Interpretation , Abstracted Anatomical Region Laterality Modality Other Result [facility] Provider HEALTH MAINTENANCE Final Result * Depression Screening (06/27/2023) Pathologist [facility] Depression Screening Abstracted Result [facility] Provider HEALTH MAINTENANCE Final Result * HIV Screening (12/17/2016) [facility] HIV Screening Abstracted Result [facility] Provider HEALTH MAINTENANCE Final Result * Hepatitis C Screening (12/17/2016) [facility] Hepatitis C Screening Abstracted Result [facility] Provider HEALTH MAINTENANCE Final Result * Annual BMP Blood Test (02/16/2012) Pathologist [facility] Annual BMP Blood Test Abstracted Result [facility] Provider HEALTH MAINTENANCE Final Result * (ABNORMAL) Lipid panel (02/16/2012) [facility] LDL/HDL Ratio 4 0 - 4 Triglycerides 82 0 - 150 mg/dL Cholesterol 187 0 - 200 mg/dL HDL 53 >=40 mg/dL LDL Cholesterol 118(A) 0 - 100 mg/dL Blood Venous blood specimen / Unknown Result [facility] Provider LAB BLOOD ORDERABLES Lorrie l Result from Last 3 Months or Most Recently Relevant to Health Maintenance Insurance [facility] [address] [place] [address] Care Teams [employer] Relationship Specialty Start Date End Date Name, MD Erick [address] [facility] [place] PCP - General Internal Medicine 05/28/19
--- OUTSIDE RECORDS SUMMARY | 2025-03-12 15:17 | XMS_ITS | Encounter Summary ---
Author Organization [employer] Address [address] [facility] [address] [place] [address] Care Team Providers Care Customer Associate Name Role Phone Name, Erick CHOWDARY Primary Care Provider [phone] Encounter Details Date Type Department Care Team ([facility] st Contact Info) Description 08/28/[address] [facility] [address] [place] [address] Delvis Leon MD [address] [place] [address] Social History Tobacco Use Types Packs/Day Years [...] PM EST Office Visit [facility] [address] [place] [address] Alejandro, Lucy, OD [address] [place] [address] documented as of this encounter Visit Diagnoses Not on filedocumented in this encounter Additional Health Concerns Assessment Noted Time PHQ-9 Depression Total Score: 18 024 2:25 PM EDT documented as of this encounter Care Teams Customer Associate Relationship Specialty Start Date End Date Name, MD Erick [address] [place] [address] PCP - General Family Medicine 11/29/16 documented as of this encounter
--- OUTSIDE RECORDS SUMMARY | 2025-03-12 15:17 | XMS_ITS | Encounter Summary ---
Author Organization [employer] Address [address] [place] [address] [place] [address] Care Team Providers Care Material Damage Appraiser Name Role Phone Name, Erick CHOWDARY Primary Care Provider [phone] Reason for Visit * Reason Comments Med Refill Encounter Details Date Type Department Care Team ([facility] st Contact Info) Description 01/14/2025 Refill [facility] [address] [place] [address] Name, MD Erick [address] [place] [address] Eczema, unspecified type Social History Tobacco Use [...] Description 07/16/2025 3:30 PM EST Office Visit [facility] [address] [place] [address] Alejandro, Lucy, OD [address] [place] [address] documented as of this encounter Visit Diagnoses Diagnosis Eczema, unspecified type documented in this encounter Additional Health Concerns Assessment Noted Time PHQ-9 Depression Total Score: 7 10/16/19 25 10:10 AM EDT documented as of this encounter Care Teams Material Damage Appraiser Relationship Specialty Start Date End Date Name, MD Erick [address] [place] [address] PCP - General Family Medicine 11/29/16 documented as of this encounter
--- OUTSIDE RECORDS SUMMARY | 2025-03-12 15:17 | XMS_ITS | Encounter Summary ---
Author Organization [employer] Address [address] [place] [address] 7 [place] [address] Care Team Providers Care Military Pilot Name Role Phone Name, Erick CHOWDARY Primary Care Provider [phone] Encounter Details Date Type Department Care Team [...] Description 07/16/2025 3:30 PM EST Office Visit [facility] [address] [place] [address] Alejandro, Lucy, OD [address] [place] [address] documented as of this encounter Procedures Procedure [...] Uric Acid 4.2 2.4 - 5.7 mg/dL [facility] 03/10/2025 3:41 PM EDT 03/10/2025 6:20 PM EDT us Generic External Data Provider LAB BLOOD ORDERAB LES Final Result Performing Organization Address [facility] Co de Phone Number [facility] [address] [place] [phone] * Calcium (03/10/2025 3:41 PM EDT) Calcium 9.5 8.4 - 10.2 mg/dL [facility] 03/10/2025 3:41 PM EDT 03/10/2025 6:20 PM EDT Generic External Data Provider LAB BLOOD ORDERAB LES Final Result Performing Organization Address [facility] Co de Phone Number [facility] [address] [place] [phone] * Creatinine, Serum (03/10/2025 3:41 PM EDT) Creatinine, Serum 0.85 0.5 - 1.4 mg/dL [facility] Estimated Glomerular Filt Rate >60 [facility] Comment:Chronic Kidney Disea se: Estimated GFR < 60 mL/min/[id number] Kidney Disease: Estimated GFR < 15 mL/min/1.73m2 03/10/2025 3:41 PM EDT 03/10/2025 6:20 PM EDT us Generic External Data Provider LAB BLOOD ORDERAB LES Final Result Performing Organization Address [facility] Co de Phone Number [facility] [address] [place] [phone] * BUN (Blood Urea Nitrogen) (03/10/2025 3:41 PM EDT) Urea Nitrogen (BUN) 11 9 - 16 mg/dL [facility] 03/10/2025 3:41 PM EDT 03/10/2025 6:20 PM EDT us Generic External Data Provider LAB BLOOD ORDERAB LES Final Result Performing Organization Address [facility] Co de Phone Number [facility] [address] [place] [phone] * Electrolyte Panel (03/10/2025 3:41 PM EDT) Sodium 143 135 - 145 mmol/L [facility] Potassium 3.5 3.3 - 5.1 mmol/L [facility] Chloride 104 96 - 108 mmol/L [facility] Carbon Dioxide 29 22 - 29 mmol/L [facility] Anion Gap 14 12 - 20 [facility] 03/10/2025 3:41 PM EDT 03/10/2025 6:20 PM EDT us Generic External Data Provider LAB BLOOD ORDERAB LES Final Result Performing Organization Address [facility] de Phone Number [facility] [address] [place] [phone] documented in this encounter Visit Diagnoses Not on filedocumented in this encounter Additional Health Concerns Assessment Noted Time PHQ-9 Depression Total Score: 7 10/16/19 25 10:10 AM EDT documented as of this encounter Care Teams Military Pilot Relationship Specialty Start Date End Date Name, MD Erick [address] [place] [address] PCP - General Family Medicine 11/29/16 documented as of this encounter
== END 2025-03-12 14:26 | disposition home or self-care (01) ==
LOC: HO.HKA 14:10
PROVIDERS: PCP Internal Medicine Geriatric Medicine; Visit Provider Internal Medicine Nephrology
DX: I10 Essential (primary) hypertension (principal); N28.89 Other specified disorders of kidney and ureter
CPT/HCPCS: 99214

== ENCOUNTER 2025-03-20 09:40 | Outpatient (REF) | payer OTHER, SELFPAY ==
--- OUTSIDE RECORDS SUMMARY | 2025-03-20 09:44 | XMS_ITS | Encounter Summary ---
Author Organization [employer] Address [address] [place] [id number] Care Team Providers Care Piping Designer Name Role Phone Name, Erick CHOWDARY Primary Care Provider [phone] Encounter Details Date Type Department Care Team (Late Contact Info) Description 11/02/2022 Abstract [facility] [address] [place] [address] Name, MD Erick [address] [place] [address] Social History Tobacco Use Types Packs/Day Years [...] Description 07/16/2025 3:30 PM EST Office Visit [facility] [address] [place], [place] [phone] AlejandroLucy dawson, OD [address] [place] [address] documented as of this encounter Procedures Procedure [...] documented as of this encounter Care Teams Piping Designer Relationship Specialty Start Date End Date Name, MD Erick [address] [place] [address] PCP - General Family Medicine 11/29/16 documented as of this encounter
--- OUTSIDE RECORDS SUMMARY | 2025-03-20 09:44 | XMS_ITS | Encounter Summary ---
Author Organization [employer] Address [address] [place] [address] [place] [address] Care Team Providers Care Practice Clinician Name Role Phone Name, Erick CHOWDARY Primary Care Provider [phone] Reason for Visit * Reason Comments Med Refill Encounter Details Date Type Department Care Team ([facility] st Contact Info) Description 01/14/2025 Refill [facility] [address] [place] [address] Name, MD Erick [address] [place] [address] Eczema, unspecified type Social History Tobacco Use [...] Description 07/16/2025 3:30 PM EST Office Visit [facility] [address] [place] [address] Alejandro, Lucy, OD [address] [place] [address] documented as of this encounter Visit Diagnoses Diagnosis Eczema, unspecified type documented in this encounter Additional Health Concerns Assessment Noted Time PHQ-9 Depression Total Score: 7 10/16/19 25 10:10 AM EDT documented as of this encounter Care Teams Practice Clinician Relationship Specialty Start Date End Date Name, MD Erick [address] [place] [address] PCP - General Family Medicine 11/29/16 documented as of this encounter
--- OUTSIDE RECORDS SUMMARY | 2025-03-20 09:44 | XMS_ITS | Clinical Summary ---
Author Organization [address] [place] [address] Address [address] [place] [address] Phone Care Team Providers Care Universal Branch Consultant Name Role Phone Name, Erick CHOWDARY Primary Care Provider [phone] Allergies No known active allergies Medications atorvastatin [...] BY MOUTH EVERY DAY 024 Active Zepbound 10 mg/0.5 mL injectionIndic ations:Class 1 obesity due to excess calories with body mass index (BMI) of 32.0 to 32.9 in adult, unspecified whether serious comorbidity present INJECT ONE PEN (=10MG) SUBCUTANEOUSLY ONCE A WEEK DIRECTED 2 mL 025 Active tirzepatide, weight loss, (Zepbound) 10 mg/0.5 mL injectionIndic ations:Class 1 obesity due [...] adult 12/20/2006 Essential hypertension, benign 10/22/2006 Immunizations Immunization Administration Dates Next Due Hepatitis B ([id number] , Recombivax HB-Adult) 19yo and older 07/03/2017,02/26/2017,12/24/2016 [...] is IVA (obstructive sleep apnea) 04/05/2010 DX :IAV (obstructive sleep apnea) Family History Medical History [...] PM EST Office Visit Bariatric Surgery - [address] [place] [phone] Gonzalez Williamson MD [address] [place] [phone] Health Maintenance Due Date Last Done [...] Results * Cervical Cancer Screening: HPV (12/16/2023) [facility] Cervical Cancer Screening: HPV Negative, Abstracted [facility] Provider HEALTH MAINTENANCE Final Result * Colonoscopy (10/11/2023) [facility] Colonoscopy No Interpretation , Abstracted Anatomical Region Laterality Modality Other [facility] Provider HEALTH MAINTENANCE Final Result * Depression Screening (06/27/2023) [facility] Depression Screening Abstracted Result [facility] Provider HEALTH MAINTENANCE Final Result * HIV Screening (12/17/2016) [facility] HIV Screening Abstracted Result [facility] Provider HEALTH MAINTENANCE Final Result * Hepatitis C Screening (12/17/2016) [facility] Hepatitis C Screening Abstracted Result [facility] Provider HEALTH MAINTENANCE Final Result * Annual BMP Blood Test (02/16/2012) [facility] Annual BMP Blood Test Abstracted Result [facility] Provider HEALTH MAINTENANCE Final Result * (ABNORMAL) Lipid panel (02/16/2012) [facility] LDL/HDL Ratio 4 0 - 4 Triglycerides 82 0 - 150 mg/dL Cholesterol 187 0 - 200 mg/dL HDL 53 >=40 mg/dL LDL Cholesterol 118(A) 0 - 100 mg/dL Blood Venous blood specimen / Unknown Result [facility] Provider LAB BLOOD ORDERABLES Lorrie l Result from Last 3 Months or Most Recently Relevant to Health Maintenance Insurance [facility] Care Teams Universal Branch Consultant Relationship Specialty Start Date End Date Name, MD Erick [address] [place], [place] PCP - General Internal Medicine 05/28/19
--- OUTSIDE RECORDS SUMMARY | 2025-03-20 09:44 | XMS_ITS | Encounter Summary ---
Author Organization [employer] Address [address] [place] [address] [place] [address] Care Team Providers Care Director [employer] Name Role Phone Name, Erick CHOWDARY Primary Care Provider [phone] Reason for Visit * Reason Comments Med Refill Encounter Details Date Type Department Care Team ([facility] st Contact Info) Description 03/17/2025 Refill [facility] [address] [place] [address] Name, MD Erick [address] [place] [address] Social History Tobacco Use Types Packs/Day Years [...] EST Office Visit [facility] [address] [place] [address] Lucy Allen, OD [address] [place] [address] documented as of this encounter Visit Diagnoses Not on filedocumented in this encounter Additional Health Concerns Assessment Noted Time PHQ-9 Depression Total Score: 7 10/16/19 25 10:10 AM EDT documented as of this encounter Care Teams Director [employer] Relationship Specialty Start Date End Date Name, MD Erick [address] [place] [address] PCP - General Family Medicine 11/29/16 documented as of this encounter
--- OUTSIDE RECORDS SUMMARY | 2025-03-20 09:44 | XMS_ITS | Clinical Summary ---
Author Organization [employer] Address [address] [place] [address] [place] [address] Care Team Providers Care Welder Production Line Arc Name Role Phone Name, Erick CHOWDARY Primary Care Provider [phone] Allergies No known active allergies Medications clobetasol [...] THE EVENING NEEDED 30 tablet 3 Active tiZANidine (Zanaflex) 2 MG tabletIndications :Left [...] mouth 2 times daily. 60 tablet 11 2025 Active lisinopril-hydroC HLOROthiazide 20-25 MG tabletIndications [...] APPLY TOPICALLY ONCE DAILY 45 g 2 Active clotrimazole (Lotrimin) 1 % creamIndications: Pruritus of vagina APPLY TOPICALLY TO THE AFFECTED AREA(S) TWICE DAILY 30 g 11 025 Active PARoxetine CR (Paxil-CR) 25 MG 24 hr tablet TAKE 2 TABLETS BY MOUTH EVERY DAY 60 tablet 025 Active atorvastatin (Lipitor) 20 MG tablet TAKE 1 TABLET BY MOUTH EVERY DAY IN THE MORNING 30 tablet 11 025 Active atorvastatin (Lipitor) 20 MG tablet TAKE 1 TABLET BY MOUTH DAILY IN THE MORNING 30 tablet 11 024 2024 Discontinued PARoxetine CR (Paxil-CR) 25 MG 24 hr [...] caries 09/13/2022 Dental abscess 09/13/2022 Seizure disorder (CMS/HCC) 05/22/2022 Other complications of gastric band procedure [...] Encounters Date Type Department Care Team Description 03/17/2025 Refill [facility] [address] [place] [phone] Erick Zhou MD 03/11/2025 Orders Only GENERIC EXTERNAL DATA DEPARTMENT Provider, Generic External Data 03/10/2025 Orders Only GENERIC EXTERNAL DATA DEPARTMENT Provider, Generic External Data 03/05/2025 9:00 AM EDT Office Visit [address] [address] Lashaun Ramsay MD Vitiligo (Primary Dx); Lichen sclerosus 03/05/2025 Travel 02/23/2025 Refill [facility] [address] [place] [address] Erick Zhou MD 02/12/2025 Results Follow-Up [address] [address] Erick Zhou MD Comprehensive Metabolic Panel, Lipid Panel, Standard, RPR (Monitor) with Reflex to Titer 02/02/[address] [address] Erick Zhou MD Eczema, unspecified type; Pruritus of vagina 02/01/2025 10:15 AM EDT Office Visit [address] [address] Erikc Zhou MD PE (physical exam), routine (Primary Dx); Essential hypertension; High cholesterol; History of syphilis; Encounter for screening mammogram for malignant neoplasm of breast; Colonoscopy refused; Obesity (BMI 30-39.9); Vitiligo 02/01/2025 Travel 01/29/[address] [address] Izabel Ireland [place] Chart Prep 01/25/2025 Patient Outreach [facility] [address] [place] [address] Erick Zhou MD Pre-visit Planning (SDOH negative, Tobacco screening negative. ) 01/22/2025 Refill [facility] [address] [place] [address] Erick Zhou MD 01/20/2025 Telephone [facility] [address] [place] [phone] Erick Zhou MD telephone call 01/15/2025 1:20 PM EDT Office Visit [facility] [address] [place] [phone] Flora Mackay NP Acute cystitis with hematuria (Primary Dx); UTI symptoms; Bilirubin in urine 01/15/2025 Travel 01/15/2025 Refill [facility] [address] [place] [address] Erick Zhou MD Pruritus of vagina 01/14/2025 Refill [facility] [address] [place] [address] Erick Zhou MD Eczema, unspecified type 01/13/2025 3:00 PM EDT Office Visit [facility] [address] [place] [address] Alejandro, Lucy, OD 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 Dx); Age-related nuclear cataract of both eyes; Presbyopia 01/13/2025 Travel 01/06/2025 Telephone [facility] [address] [place] [address] Erick Zhou MD 01/02/2025 9:00 AM EDT Office Visit [facility] [address] [place] [phone] Deena Hernandez MD Acute cystitis with hematuria (Primary Dx) 01/02/2025 Travel 12/24/2024 Refill [facility] [address] [place] [address] Delvis Leon MD 12/21/2024 Refill [facility] [address] [place] [phone] Name, MD Erick Pruritus of vagina from Last 3 Months [...] EST Office Visit [facility] [address] [place] [address] Lucy Allen, OD [address] [place] [address] Health Maintenance Due Date Last Done Comments [...] Colorectal Cancer Screening 10/10/2024 Mammogram 10/20/2024 10/20/2022, 0511/2022, 02/02/2021, Additional history exists Dental X-Ray: [facility] 11/21/2024 11/21/2023 COVID-19 Vaccine ( season) 2025 06/05/2022, 05/03/2021, 07/23/2020, Additional history exists Influenza Vaccine (#1) 2025 , 04/01/2023, 04/25/2021, Additional history exists Depression Screening 10/15/2025 10/15/2024, 10/16/19 25 Disability Screening 10/15/2025 10/15/2024 Diabetes: Hemoglobin A1C 10/16/2025 05 025, 10/14/2020, 10/14/2020 SDOH Screening 01/25/2026 01/25/2025 [...] 8:37 AM EDT) Creatinine, Urine 204.13 mg/dL [facility] Protein, Total, Random Urine 16(H) <12 mg/dL [facility] Protein/Creati nine Ratio, Ur 0.08 <0.2 [facility] Comment:The spot urine prote in:creatinine ratio may increase to 0.3during normal . 03/11/2025 8:37 AM EDT 03/11/2025 10:57 AM EDT us Generic External Data Provider LAB URINE ORDERAB LES Final Result [facility] [address] [place] [phone] * (ABNORMAL) Urinalysis Complete (03/11/2025 8:37 AM EDT) Color Urine Dark Yellow [facility] Appearance Urine Cloudy [facility] PH 5.5 5.0 - 9.0 [facility] Glucose Urine UA Negative Negative mg/dL [facility] Urine Blood Negative Negative [facility] Specific Melvin - Urine >=1.030(H) 1.005 - 1.025 [facility] Urine Protein Trace Neg-Trace mg/dL [facility] Urine Ketones Trace Negative mg/dL [facility] Nitrite Urine Negative Negative [facility] Leukocyte Esterase Urine Small (1+)(A) Negative [facility] RBC Urine 0-2 0 - 2 /HPF [facility] Urine WBC 0-5 0 - 5 /HPF [facility] Urine Squamous Epithelial Cell 11-20 0 - 2 /HPF [facility] CALCIUM OXALATE CRYSTAL, UR Present [facility] Urine Bacteria 1+ None Seen [facility] Hyaline Casts, Urine 0-2 0 - 2 /LPF [facility] Urine Yeast Present [facility] 03/11/2025 8:37 AM EDT 03/11/2025 10:57 AM EDT us Generic External Data Provider LAB URINE ORDERAB LES Final Result Performing Organization Address [facility] Co de Phone Number [facility] [address] [place] [phone] * Creatinine, Serum (03/10/2025 3:41 PM EDT) Creatinine, Serum 0.85 0.5 - 1.4 mg/dL [facility] Estimated Glomerular Filt Rate >60 [facility] Comment:Chronic Kidney Disea se: Estimated GFR < 60 mL/min/1.54l0Nkwgov Kidney Disease: Estimated GFR < 15 mL/min/1.73m2 03/10/2025 3:41 PM EDT 03/10/2025 6:20 PM EDT us Generic External Data Provider LAB BLOOD ORDERAB LES Final Result Performing Organization Address [facility] Co de Phone Number [facility] [address] [place] [phone] * Uric acid (03/10/2025 3:41 PM EDT) Uric Acid 4.2 2.4 - 5.7 mg/dL [facility] 03/10/2025 3:41 PM EDT 03/10/2025 6:20 PM EDT us Generic External Data Provider LAB BLOOD ORDERAB LES Final Result Performing Organization Address City/[facility] Co de Phone Number [facility] [address] [place] [phone] * BUN (Blood Urea Nitrogen) (03/10/2025 3:41 PM EDT) Urea Nitrogen (BUN) 11 9 - 16 mg/dL [facility] 03/10/2025 3:41 PM EDT 03/10/2025 6:20 PM EDT us Generic External Data Provider LAB BLOOD ORDERAB LES Final Result Performing Organization Address [facility] Co de Phone Number [facility] [address] [place] [phone] * Calcium (03/10/2025 3:41 PM EDT) Calcium 9.5 8.4 - 10.2 mg/dL [facility] 03/10/2025 3:41 PM EDT 03/10/2025 6:20 PM EDT Generic External Data Provider LAB BLOOD ORDERAB LES Final Result Performing Organization Address [facility] de Phone Number [facility] [address] [place] [phone] * Electrolyte Panel (03/10/2025 3:41 PM EDT) Sodium 143 135 - 145 mmol/L [facility] Potassium 3.5 3.3 - 5.1 mmol/L [facility] Chloride 104 96 - 108 mmol/L [facility] Carbon Dioxide 29 22 - 29 mmol/L [facility] Anion Gap 14 12 - 20 [facility] 03/10/2025 3:41 PM EDT 03/10/2025 6:20 PM EDT us Generic External Data Provider LAB BLOOD ORDERAB LES Final Result Performing Organization Address [facility]/State/ZIP Co de Phone Number [facility] [address] [place] [phone] * (ABNORMAL) RPR (Monitor) with Reflex to??Titer (02/02/2025 9:00 AM EDT) RPR (Monitor) w/Refl Titer REACTIVE( A) NON-REACT JOSE [facility] Comment:The RPR is a non-mariano ponemal-specific test; therefore,a treponemal- specific confirmatory test should beperformed unless prior syphilis infection has beendocumented for this patient.THIS TEST WAS PERFORMED AT:[employer] [address] [phone] PAZ MD Rapid Plasma Reagin Ab Titer 1:2(A) [facility] Comment:THIS TEST WAS PERFOR MED AT:[employer] [address] [phone] PAZ MD Blood Venous blood specimen / Unknown 02/02/2025 9:00 AM EDT 02/02/2025 10:58 AM EDT us Erick Name LAB BLOOD ORDERABLES Final Resul t [facility] [address] [place] [phone] * (ABNORMAL) Lipid Panel, Standard (02/02/2025 9:00 AM EDT) Triglycerides 102 <150 mg/dL [facility] Comment:Desirable Triglyceri de: less than 150 mg/dLBorderline High Triglyceride 150-199 mg/dLHigh Triglyceride: 200-499 mg/dLVery High Triglyceride: greater than or equal to 5OO mg/dL Cholesterol 122 <200 mg/dL [facility] Comment:Desirable Cholestero l: less than 200 mg/dLBorderline High Cholesterol: 200-239 mg/dLHigh Cholesterol: greater than 239 mg/dL LDL Cholesterol Calculated 68 <100 mg/dL [facility] Comment:Desirable LDL: less than 100 mg/dLNear Optimal/Above Optimal LDL: 110- 129 mg/dLBorderline High LDL: 130-159 mg/dLHigh LDL: 160-189 mg/dLVery High LDL: greater than or equal to 190 mg/dL HDL Cholesterol 34(L) >40 mg/dL [facility] Comment:Desirable HDL: great er than 40 mg/dL Note: This HDL assay may give artificially low results in patients with liver disease. Blood Venous blood specimen / Unknown 02/02/2025 9:00 AM EDT 02/02/2025 10:58 AM EDT us Erick Name MD LAB BLOOD ORDERABLES Final Resul t [facility] [address] [place] [phone] * (ABNORMAL) Comprehensive Metabolic Panel (02/02/2025 9:00 AM EDT) Sodium 142 135 - 145 mmol/L [facility] Potassium 3.7 3.3 - 5.1 mmol/L [facility] Chloride 104 96 - 108 mmol/L [facility] Carbon Dioxide 32(H) 22 - 29 mmol/L [facility] Anion Gap 10(L) 12 - 20 [facility] Urea Nitrogen (BUN) 17(H) 9 - 16 mg/dL [facility] Creatinine, Serum 0.96 0.5 - 1.4 mg/dL [facility] Estimated Glomerular Filt Rate 59 [facility] Comment:Chronic Kidney Disea se: Estimated GFR < 60 mL/min/1.57x3Lbdnht Kidney Disease: Estimated GFR < 15 mL/min/1.73m2 Glucose 81 60 - 115 mg/dL [facility] Calcium 9.4 8.4 - 10.2 mg/dL [facility] Bilirubin, Total 0.4 0.0 - 1.0 mg/dL [facility] Aspartate Amino Transferase 52(H) 5 - 31 U/L [facility] Alanine Aminotransferase 50(H) 0 - 31 U/L [facility] Total Protein 7.5 6.5 - 8.0 g/dL [facility] Albumin Level 4.6 3.5 - 5.0 g/dL [facility] Alkaline Phosphatase 122(H) 39 - 117 U/L [facility] Blood Venous blood specimen / Unknown 02/02/2025 9:00 AM EDT 02/02/2025 10:58 AM EDT Erick Zhou MD LAB BLOOD ORDERABLES Final Resul t Performing Organization Address [facility] Co de Phone Number [facility] [address] [place] [phone] * Culture, Urine, Routine (01/15/2025 1:31 PM EDT) Only the most recent of2 resultswithin the time period is included. Urine Urine specimen obtained by clean catch procedure / Unknown 01/15/2025 1:31 PM EDT 01/15/2025 4:45 PM EDT Comment:UACC Narrative [facility] - 01/17/2025 8:56 AM EDT Urine Culture Report Result Urine Culture 50,000 to 100,000 cfu/ml Urine Culture Mixed bacterial gina characteristic of Urine Culture urogenital contamination. Specimen Source: Urine clean catch Flora Mackay NP LAB MICROBIOLOGY - GENERAL FITZ JENNINGS Final Result Performing Organization Address [facility] Co de Phone Number [facility] [address] [place] [phone] * (ABNORMAL) POCT urinalysis dipstick manually [...] UA OK Urine 01/15/2025 1:28 PM EDT Flora Mackay NP POINT OF CARE TEST [...] 9:34 AM EDT) HIV AB/AG Nonreactive Nonreactive [facility] Comment:HIV-1 p24 Ag and/or HIV-1/HIV-2 Ab not detected.A test result that is nonreactive does not exclude thepossibility of exposure to or infection with HIV-1 and/orHIV-2. Nonreactive results in this assay for individualswith prior exposure to HIV-1 and/or HIV-2 may be due toantigen and antibody levels that are below the limit ofdetection of this assay.The [employer] HIV Ag/Ab Combo assay result andsupplemental assay results should be interpreted inconjunction with the patient's clinical presentation,history and other laboratory results. If the results areinconsistent with clinical evidence, additional testing issuggested to confirm the result. Blood Venous blood specimen / Unknown 10/16/2024 9:34 AM EDT 10/16/2024 11:08 AM EDT us Erick Zhou MD LAB BLOOD ORDERABLES Final Resul t Performing Organization Address [facility] de Phone Number [facility] [address] [place] [phone] * Hemoglobin A1c (10/16/2024 9:34 AM EDT) Hemoglobin A1c 5.7 <6.0 % [facility] Comment:Hemoglobin A1C Refer ence Range Adults: 4.8 - 6.0 % Non diabetic: < 6.0 % Goal: < 7.0 %Additional Action Suggested: > 8.0 %Note: Hemoglobin A1c results are invalid for patients with abnormal amounts of HbF. Blood transfusions may impact the HbA1c concentration in the patient sample. Estimated Average Glucose 117 mg/dL [facility] Comment:eAG = Estimated ave rage glucose which is %A1C expressed asaverage glucose, using the formula of the A0Q-JocsnapJbedawm Glucose study (ADAG), Diabetes Care, Vol.31,#8,Jan. 2007 Blood Venous blood specimen / Unknown 10/16/2024 9:34 AM EDT 10/16/2024 11:12 AM EDT us Erick Zhou MD LAB BLOOD ORDERABLES Final Resul t Performing Organization Address [facility] de Phone Number [facility] [address] [place] [phone] * Hepatitis C Antibody with Reflex to HCV, RNA, Quantitative, Real-Time PCR (10/25/2023 2:05 PM EDT) Hepatitis C Antibody Nonreactive Nonreactive [facility] Comment:Antibodies to HCV no t detected; does not exclude early acuteHCV infection. Blood Venous blood specimen / Unknown 10/25/2023 2:05 PM EDT 10/25/2023 3:55 PM EDT us Erick Zhou MD LAB BLOOD ORDERABLES Final Resul t [facility] [address] [place] [phone] * (ABNORMAL) Hm Colonoscopy (10/11/2023) Colonoscopy Abnormal(A ) Normal Erick Zhou MD HEALTH MAINTENANCE Final Result * BI Mammogram Screening Tomosynthesis Bilateral (10/20/2022 9:00 AM EDT) Anatomical Region Laterality Modality Breast Bilateral Mammography 10/20/2022 9:00 AM EDT Narrative 10/23/2022 12:44 PM EDT [address] [place] [address] Mammography Report Signed Patient: Leanne Carey MR#: [id number] : 1960 Acct:[id number] Age/Sex: 62 / F ADM Date: 10/20/22 Loc: HO.MAMMO Attending Dr: Erick Zhou MD Ordering Physician: Erick Zhou MD [facility] of Service: 10/20/22 Follow Up: 1 Year From Orig [facility] Mammogram Procedure(s): MM tomosynthesis screening BI Accession Number(s): [id number] cc: Erick Zhou MD EXAMINATION: MM SCREENING DIGITAL BREAST TOMOSYNTHESIS, BILATERAL CLINICAL INFORMATION: Screening. Asymptomatic. The lifetime risk of breast cancer based on the Tyrer-Cuzick Model is 6%. COMPARISON: Mammography: 02/02/2021, 07/09/2019, 07/02/2018, 06/19/2018, 12/10/2016; outside mammography 01/25/2016 ([facility] TECHNIQUE: Digital breast tomosynthesis is performed in [...] in OV> 10/23/22 1242 DD/ 0900 TD/TT: Filter Tender: ZAPATA Procedure Note Donotuseinterpreter, Image - 12/13/2022 Christine [facility] [address] [place] [address] Mammography Report Signed Patient: Leanne Carey MMR#: [id number] : 1960Acct:[id number] Age/Sex: 62 / FADM Date: 10/20/22 Loc: [place] Attending Dr: Erick Zhou MD Ordering Physician: Erick Zhou MDResults: 2Benign Fi ndings Date of Service: 10/20/22Follow Up: 1 Year From Orig inal Mammogram Procedure(s): MM tomosynthesis screening BI Accession Number(s): [id number] cc: Erick Zhou MD EXAMINATION: MM SCREENING DIGITAL BREAST TOMOSYNTHESIS, BILATERAL CLINICAL INFORMATION: Screening. Asymptomatic. The lifetime risk of breast cancer based on the Tyrer-Cuzick Model is 6%. COMPARISON: Mammography: 02/02/2021, 07/09/2019, 07/02/2018, 06/19/2018, 12/10/2016; outside mammography 01/25/2016 ([facility]). TECHNIQUE: Digital breast tomosynthesis is performed in [...] in OV> 10/23/22 1242 DD/ 0900 TD/TT: Filter Tender: ZAPATA [facility] External Provider IMG BI PROCEDURES Final Result * THINPREP TIS PAP AND HPV mRNA E6/E7 WITH REFLEX TO HPV 16,18/45 (08/23/2021 3:53 PM EST) Clinical Information: None given [facility] COMMENT SEE COMMENT FOUNDAT[facility] ON [...] been evaluated with computer assisted technology. [facility] Wind Operations Manager: SEE COMMENT [facility] Comment: YP, CT(ASCP) CT screening location: [place] [address] HPV nRNA E6/E7 Not Detected Not Detected [facility] Comment: Methodology: Management And Budget Analyst-Mediated Amplification This assay detects E6/E7 viral messenger RNA (mRNA) from 14 high-risk HPV types (16,18,31,33,35,39,45,51,52,56,58,59,66,68). The analytical performance characteristics of this assay have been determined by [employer]. The modifications have not been cleared or approved by the FDA. This assay has been validated pursuant to the CLIA regulations and is used for clinical purposes. For additional information, please refer to http://education.Appature/faq/URW499b8 (This link if provided for information/ educational purposes only.) Infection Shift in vaginal gina suggestive of bacterial vaginosis. [facility] Interpretation/Re sult: Negative for intraepithelial lesion or malignancy. [facility] LMP: 48 YRS OLD [facility] Prev. BX: NONE GIVEN [facility] Prev. PAP: NONE GIVEN [facility] SOURCE: None given [facility] Statement Of Adequacy: SEE COMMENT [facility] Comment: Satisfactory for evaluation. Endocervical/transformation zone component absent. 08/23/2021 3:53 PM EST Ashley Oglesby CNM LAB PATHOLOGY ORDERABLES Final Result [facility] [address] * Pap Smear (08/23/2021) Pap smear Preformed Historical Provider HEALTH MAINTENANCE Final Result from Last 3 Months or Most Recently Relevant to Health Maintenance Insurance , [address] [place] [address] [facility]ENTAL - [facility] Care Teams Welder Production Line Arc Relationship Specialty Start Date End Date Name, MD Erick [address] [place] [address] PCP - General Family Medicine 11/29/16
--- OUTSIDE RECORDS SUMMARY | 2025-03-20 09:44 | XMS_ITS | Encounter Summary ---
Author Organization [employer] Address [address] [place] [address] 7 [place] [address] Care Team Providers Care Criminal Researcher Name Role Phone Name, Erick CHOWDARY Primary Care Provider [phone] Encounter Details Date Type Department Care Team (Latest Contact Info) Description 02/12/2025 Results Follow-Up [facility] [address] [place] [address] Name, MD Erick [address] [place] [address] Comprehensive Metabolic Panel, Lipid Panel, Standard, RPR [...] EST Office Visit [facility] [address] [place] [address] Lucy Allne, OD [address] [place] [address] documented as of this encounter Visit Diagnoses Not on filedocumented in this encounter Additional Health Concerns Assessment Noted Time PHQ-9 Depression Total Score: 7 10/16/19 25 10:10 AM EDT documented as of this encounter Care Teams Criminal Researcher Relationship Specialty Start Date End Date Name, MD Erick [address] [place] [address] PCP - General Family Medicine 11/29/16 documented as of this encounter
--- OUTSIDE RECORDS SUMMARY | 2025-03-20 09:44 | XMS_ITS | Encounter Summary ---
Author Organization [employer] Address [address] [place] [address] Care Team Providers Care Tone Artist Apprentice Name Role Phone Name, Erick CHOWDARY Primary Care Provider [phone] Encounter Details Date Type Department Care Team [...] PM EST Office Visit [facility] [address] [place] [address] Alejandro, Lucy, OD [address] [place] [address] documented as of this encounter Visit Diagnoses Not on filedocumented in this encounter Care Teams Tone Artist Apprentice Relationship Specialty Start Date End Date Name, MD Erick [address] [place] [address] PCP - General Family Medicine 11/29/16 documented as of this encounter
--- OUTSIDE RECORDS SUMMARY | 2025-03-20 09:44 | XMS_ITS | Encounter Summary ---
Author Organization [employer] Address [address] [place] [address] Care Team Providers Care Electronic Prepress Operator Name Role Phone Name, Erick CHOWDARY Primary Care Provider [phone] Reason for Visit * Reason Comments Med Refill Encounter Details Date Type Department Care Team (Late Contact Info) Description 03/17/2023 Refill [facility] [address] [place] [address] Name, MD Erick [address] [place] [address] Social History Tobacco Use Types Packs/Day Years [...] Description 07/16/2025 3:30 PM EST Office Visit [facility] [address] [place] [address] Lucy Allen, OD [address] [place] [address] documented as of this encounter Visit Diagnoses Not on filedocumented in this encounter Additional Health Concerns Assessment Noted Time PHQ-9 Depression Total Score: 14 023 9:49 AM EDT documented as of this encounter Care Teams Electronic Prepress Operator Relationship Specialty Start Date End Date Name, MD Erick [address] [place] [address] PCP - General Family Medicine 11/29/16 documented as of this encounter
--- OUTSIDE RECORDS SUMMARY | 2025-03-20 09:44 | XMS_ITS | Encounter Summary ---
Author Organization [employer] Address [address] [facility] 7t [place] [address] Care Team Providers Care Automatic Oven Operator Name Role Phone Name, Erick CHOWDARY Primary Care Provider [phone] Encounter Details Date Type Department Care Team ([facility] st Contact Info) Description 08/28/[address] [facility] [address] [place] [address] Delvis Leon MD [address] [place] [address] Social History Tobacco Use Types Packs/Day Years [...] PM EST Office Visit [facility] OPTOMETRY [address] [place] [address] Alejandro, Lucy, OD [address] [place] [address] documented as of this encounter Visit Diagnoses Not on filedocumented in this encounter Additional Health Concerns Assessment Noted Time PHQ-9 Depression Total Score: 18 024 2:25 PM EDT documented as of this encounter Care Teams Automatic Oven Operator Relationship Specialty Start Date End Date Name, MD Erick [address] [place] [address] PCP - General Family Medicine 11/29/16 documented as of this encounter
== END 2025-03-20 09:41 | disposition home or self-care (01) ==
LOC: HO.MAMMO 09:40
PROVIDERS: PCP Internal Medicine Geriatric Medicine; Visit Provider Internal Medicine Geriatric Medicine
DX: Z12.31 Encounter for screening mammogram for malignant neoplasm of breast (principal)
CPT/HCPCS: 77063; 77067

== ENCOUNTER → 2025-03-20 10:00 | Outpatient (BNV) | payer OTHER, SELFPAY | PROVIDERS: PCP Internal Medicine Geriatric Medicine; Visit Provider Internal Medicine | DX: Z12.31 Encounter for screening mammogram for malignant neoplasm of breast (principal) | CPT/HCPCS: 77063; 77067 ==

== ENCOUNTER 2025-05-05 10:08 | Outpatient (REF) | payer OTHER, SELFPAY ==
--- NOTE | ~2025-05-05 | XR_ITS ---
EXAMINATION: XR LUMBOSACRAL SPINE CLINICAL INFORMATION: atraumatic left LBP with left radiculopathy COMPARISON: None available. TECHNIQUE: Three views of the lumbosacral spine. 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 Which appears to represent a hair pain projecting in one of the lateral images was most likely external to the patient. Mildly exaggerated lumbar lordosis. Grade 1 anterolisthesis of L4 on L5 and L5 on S1. No compression fracture. Small marginal osteophytes at multiple levels. Sacroiliac joints are intact. XR/XR lumbar spine 2-3V IMPRESSION: Mild multilevel degenerative changes. Grade 1 anterolisthesis of L4 on L5 and L5 on S1. Electronically signed by: Karla Krause MD 05/05/2025 11:00 AM S[facility]
--- OUTSIDE RECORDS SUMMARY | 2025-05-05 09:40 | XMS_ITS | Encounter Summary ---
Author Organization [employer] Address [address] [place] [address] Care Team Providers Care Youth Specialist Name Role Phone Name, Erick CHOWDARY Primary Care Provider [phone] Reason for Referral * Consultation (Routine) - Pending Review Specialty Diagnoses / Procedures Referred By Danisha pereyra Referred To Contact Physical Therapy Diagnoses Acute left-sided low back pain with left-sided sciatica Delvis Lopez MD [address] [place] [address] Phone: tel: fax: Referral ID Status Reason Start Date Expiration Date Visits Requested Visits Authorized [id number] Pending Review Specialty Services Required 05/05/2026 1 1 Reason for Visit * Reason Comments Leg Pain Encounter Details Date Type Department Care Team (Late st Contact Info) Description 05/05/2025 9:40 AM EST Office Visit [facility] [address] [place] [address] Delvis Lopez MD [address] [place] [address] Acute left-sided low back pain with left-sided sciatica (Primary Dx); Hypertension, unspecified type; Left sided sciatica Social History Tobacco Use Types Packs/Day Years [...] housing situation today? I have sammy otilia 01/25/[address] you li [...] Sign Reading Time Taken Comments Blood Pressure 169/98 05/05/2025 9:38 AM EST Pulse 73 05/05/2025 9:38 AM EST Temperature 36.7 C (98.1 F) 05/05/2025 9:38 AM EST Respiratory Rate 18 05/05/2025 9:38 AM EST Oxygen Saturation 100% 05/05/2025 9:38 AM EST Inhaled Oxygen Concentration - - Weight 72.1 kg (159 lb) 05/05/2025 9:38 AM EST Height - - Body Mass Index 31.01 03/05/2025 9:13 AM EDT documented in this encounter Progress Notes * Delvis Lopez MD - 05/05/2025 9:40 AM EST Subjective Patient ID: Leanne Carey is a 64 y.o. female. HPI Leanne had onset 3 days ago of left low back pain radiating down the left lateral leg to the knee, worse with ambulation, changing position in bed. Has tried Tylenol with little relief. Heat helps a little Denies fever, chills, abd. pain, urinary sx, bowel or bladder dysfunction, saddle anesthesia, extremity weakness or numbness. History of chronic low back pain in Epic with left radiculopathy noted at [facility] visits several years ago.. States last episode of low back pain was 2 years ago when MRI of lumbar spine was ordered but was not done. Physical therapy helped resolve the back pain. Lumbar spine x-rays done March 2020 and April 2021 were read as mild degenerative changes of lumbar spine. Lives with daughter. Works in [facility] [employer]. Never smoked. LMP= years ago. Patient Active Problem List Diagnosis Date Noted Acute cystitis with hematuria 01/02/2025 Abdominal pain 10/31/2023 Benign paroxysmal positional vertigo 10/31/2023 Chronic low back pain with right-sided sciatica 10/31/2023 Depression 10/31/2023 Family history of colon cancer 10/31/2023 Hemoperitoneum 10/31/2023 Class 1 obesity 10/31/2023 Obesity 10/31/2023 Personal history of gastric banding 10/31/2023 Positive serological reaction for syphilis 10/31/2023 Pre-op examination 10/31/2023 Tubular adenoma of colon 10/31/2023 Hypertension 10/31/2023 Liver cirrhosis secondary to CLEMENTS (nonalcoholic steatohepatitis) (HCC) 10/31/2023 Other cirrhosis of liver (HCC) 10/24/2023 High cholesterol 06/24/2023 Severe dental caries 09/13/2022 Dental abscess 09/13/2022 Seizure disorder (CMS/HCC) (HCC) 05/22/2022 Other complications of gastric band procedure 08/13/2019 Obstructive sleep apnea syndrome 02/04/2018 LFT elevation 10/16/2017 Essential hypertension 12/04/2016 Recurrent major depression in partial remission ([facility]) 12/04/2016 Shoulder pain, bilateral 02/12/2011 IVA (obstructive sleep apnea) 04/05/2010 Edema 11/30/2009 Hypercholesteremia 09/08/2008 Iron deficiency anemia 12/20/2006 Class 1 obesity with body mass index (BMI) of 33.0 to 33.9 in adult 12/20/2006 Essential hypertension, benign 10/22/2006 The following portions of the chart were reviewed this encounter and updated as appropriate: Tobacco Allergies Meds Problems Med Hx Surg Hx Fam Hx Review of Systems Constitutional: Negative for fever. Respiratory: Negative for shortness of breath. Cardiovascular: Negative for chest pain. Gastrointestinal: Negative for abdominal pain. Musculoskeletal: Positive for back pain. Skin: Negative for rash. Neurological: Negative for headaches. Objective Physical Exam Vitals and nursing note reviewed. Constitutional: Appearance: Normal appearance. HENT: Head: Normocephalic and atraumatic. Right Ear: Tympanic membrane, ear canal and [...] is normal. Breath sounds: Normal breath sounds. Musculoskeletal: General: Normal range of motion. Cervical back: No tenderness. Comments: No tenderness over back. Slight antalgic gait. Skin: General: Skin is warm and dry. Findings: No rash. Neurological: Mental Status: She is alert. Gait: Gait is intact. Psychiatric: Mood and Affect: Mood and affect normal. Behavior: Behavior normal. Procedures Assessment/Plan Diagnoses and all orders for this visit: Acute left-sided low back pain with left-sided sciatica Not consistent with cauda equina syndrome Refilled tizanidine. Prescribed lidocaine patches and ibuprofen. Continue heat. Lumbar spine x-rays done in [facility] appear to show no acute finding when I reviewed images. Will call pt if radiologist reading differs. Referred back to physical therapy. - XR Lumbar Spine 2-3 Views; Future Hypertension, unspecified type Ran out of lisinopril-hydrochlorothiazide 3 days ago. 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 States when taking meds, home BP readings are in normal range. Orders: - tiZANidine (Zanaflex) 2 MG tablet; Take 1 tablet (2 mg) by mouth if needed in the morning and at bedtime for muscle spasms. Other orders - lidocaine (Lidoderm) 5 % patch; Apply 1 patch topically Once per day. Remove & discard patch within 12 hours or as directed by MD. - ibuprofen 400 MG tablet; Take 1 tablet (400 mg) by mouth every 6 (six) hours if needed for moderate pain or fever for up to 30 doses. documented in this encounter Plan of Treatment Upcoming Encounters Date Type Department Care Team (Late st Contact Info) Description 07/16/2025 3:30 PM EST Office Visit [facility] OPTOMETRY [address] [place] [address] Alejandro, Lucy, OD [address] [place] [address] Scheduled Referrals Name Type Priority Associated Diagnoses Orde r Schedule Referral to Physical Therapy Outpatient Referral Routine Acute left-sided low back pain with left-sided sciatica Expected: 05/05/2025 (Approximate), Expires: 05/05/2026 documented as of this encounter Procedures Procedure Name Priority Date/Time Associated Diagnosis Comments XR LUMBAR SPINE 2-3 VIEWS Routine 05/05/2025 10:32 AM EST Acute left-sided low back pain with left-sided sciatica documented in this encounter Results * XR Lumbar Spine 2-3 Views (05/05/2025 10:32 AM EST) Anatomical Region Laterality Modality Spine, L-spine Radiographic Alix ging 05/05/2025 10:3 2 AM EST Narrative 05/05/2025 11:03 AM EST [address] [address] XRay Report Signed Patient: Leanne Carey MR#: [id number] : 1960 Acct:[id number] Age/Sex: 64 / F ADM Date: 05/05/25 Loc: HO.CX Attending Dr: Delvis Lopez MD Ordering Physician: DELVIS LOPEZ MD Date of Service: 05/05/25 Procedure(s): XR lumbar spine 2-3V Accession Number(s): [id number] cc: DELVIS LOPEZ MD Reason for Exam: atraumatic left LBP with left radiculopathy EXAMINATION: XR LUMBOSACRAL SPINE CLINICAL INFORMATION: atraumatic left LBP with left radiculopathy COMPARISON: None available. TECHNIQUE: Three views of the lumbosacral spine. 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 Which appears to represent a hair pain projecting in one of the lateral images was most likely external to the patient. Mildly exaggerated lumbar lordosis. Grade 1 anterolisthesis of L4 on L5 and L5 on S1. No compression fracture. Small marginal osteophytes at multiple levels. Sacroiliac joints are intact. XR/XR lumbar spine 2-3V IMPRESSION: Mild multilevel degenerative changes. Grade 1 anterolisthesis of L4 on L5 and L5 on S1. Electronically signed by: Karla Krause MD 05/05/2025 11:[address] [facility] Dictated By: Karla Krause MD Signed By: <Electronically signed by Karla Krause MD in OV> 05/05/25 1100 DD/ 1032 TD/TT: 05/05/25 1048 Cargo Inspector: Procedure Note Donotuseinterpreter, Image - 05/05/[address] [address] XRay Report Signed Patient: Leanne Carey MMR#: [id number] : 1960Acct:[id number] Age/Sex: 64 / FADM Date: 05/05/25 Loc: HO.HHCX Attending Dr: Delvis Lopez MD Ordering Physician: DELVIS LOPEZ MD Date of Service: 05/05/25 Procedure(s): XR lumbar spine 2-3V Accession Number(s): [id number] cc: DELVIS LOPEZ MD Reason for Exam: atraumatic left LBP with left radiculopathy EXAMINATION: XR LUMBOSACRAL SPINE CLINICAL INFORMATION: atraumatic left LBP with left radiculopathy COMPARISON: None available. TECHNIQUE: Three views of the lumbosacral spine. 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 Which appears to represent a hair pain projecting in one of the lateral images was most likely external to the patient. Mildly exaggerated lumbar lordosis. Grade 1 anterolisthesis of L4 on L5 and L5 on S1. No compression fracture. Small marginal osteophytes at multiple levels. Sacroiliac joints are intact. XR/XR lumbar spine 2-3V IMPRESSION: Mild multilevel degenerative changes. Grade 1 anterolisthesis of L4 on L5 and L5 on S1. Electronically signed by: Karla Krause MD 05/05/2025 11:[address] [facility] Dictated By: Karla Krause MD Signed By: <Electronically signed by Karla Krause MD in OV> 05/05/25 1100 DD/ 1032 TD/TT: 05/05/25 1048 Cargo Inspector: Delvis Lopez MD IMG XR PROCEDURES Edited Result - Final documented in this encounter Visit Diagnoses Diagnosis Acute left-sided low back pain with left-sided sciatica- Primary Hypertension, unspecified type Left sided sciatica Sciatica documented in this encounter Additional Health Concerns Assessment Noted Time PHQ-9 Depression Total Score: 7 10/16/19 25 10:10 AM EDT documented as of this encounter Care Teams Youth Specialist Relationship Specialty Start Date End Date Name, MD Erick [address] [place] [address] PCP - General Family Medicine 11/29/16 documented as of this encounter
--- OUTSIDE RECORDS SUMMARY | 2025-05-05 19:12 | XMS_ITS | Clinical Summary ---
Author Organization [facility] Address [address] [place] [address] Phone Care Team Providers Care Medicare Specialist Name Role Phone Name, Erick CHOWDARY Primary Care Provider [phone] Allergies No known active allergies Medications atorvastatin [...] MOUTH EVERY DAY 02/24/20 24 Active Zepbound 10 mg/0.5 mL injectionIndica tions:Class 1 obesity due to excess calories with body mass index (BMI) of 32.0 to 32.9 in adult, unspecified whether serious comorbidity present INJECT ONE PEN (=10MG) SUBCUTANEOUSLY ONCE A WEEK DIRECTED 2 mL 03/19/20 25 Active Active Problems Problem Noted Date Diagnosed Date Other complications of gastric band procedure Shoulder pain, bilateral 02/12/2011 IVA (obstructive sleep apnea) 04/05/2010 Edema 11/30/2009 Hypercholesteremia 09/08/2008 Iron deficiency anemia 12/20/2006 Class 1 obesity with body ma ss index (BMI) of 33.0 to 33.9 in adult 12/20/2006 Essential hypertension, benign 10/22/2006 Immunizations Immunization Administration Dates Next Due Hepatitis B (Wugrqia-Y-Xktst , Recombivax HB-Adult) 19yo and older 07/03/2017,02/26/2017,12/24/2016 [...] PM EST Office Visit Bariatric Surgery - [address] [place] [address] Gonzalez Williamson MD [address] [place] [phone] Health Maintenance Due Date Last Done Comments RSV Immunization Adult Patients (1 - Risk 50-74 years 1-dose series) 2012 Social Influencers of Health Screening 05/15/2022 Depression Screening 06/17/2024 06/27/2023 Hepatitis A Vaccines [...] (12/16/2023) Cervical Cancer Screening: HPV Negative, Abstracted Historical Provider MD HEALTH MAINTENANCE Final Result * Colonoscopy (10/11/2023) [facility] Colonoscopy No Interpretation , Abstracted Anatomical Region Laterality Modality Other [facility] Provider HEALTH MAINTENANCE Final Result * Depression Screening (06/27/2023) [facility] Depression Screening Abstracted [facility] Provider HEALTH MAINTENANCE Final Result * HIV Screening (12/17/2016) [facility] HIV Screening Abstracted [facility] Provider HEALTH MAINTENANCE Final Result * Hepatitis C Screening (12/17/2016) [facility] Hepatitis C Screening Abstracted Result [facility] Provider HEALTH MAINTENANCE Final Result * Annual BMP Blood Test (02/16/2012) Pathologist [facility] Annual BMP Blood Test Abstracted Result [facility] Provider HEALTH MAINTENANCE Final Result * (ABNORMAL) Lipid panel (02/16/2012) [facility] LDL/HDL Ratio 4 0 - 4 Triglycerides 82 0 - 150 mg/dL Cholesterol 187 0 - 200 mg/dL HDL 53 >=40 mg/dL LDL Cholesterol 118(A) 0 - 100 mg/dL Blood Venous blood specimen / Unknown Result [facility] Provider LAB BLOOD ORDERABLES Lorrie l Result from Last 3 Months or Most Recently Relevant to Health Maintenance Insurance [facility] Care Teams Medicare Specialist Relationship Specialty Start Date End Date Name, MD Erick [address] [place], [place] PCP - General Internal Medicine 05/28/19
--- OUTSIDE RECORDS SUMMARY | 2025-05-05 19:12 | XMS_ITS | Encounter Summary ---
Author Organization [employer] Address [address] [place] [address] Care Team Providers Care Gate Person Name Role Phone Name, Erick CHOWDARY Primary Care Provider [phone] Encounter Details Date Type Department Care Team [...] 3:30 PM EST Office Visit [facility] OPTOMETRY [address] [place] [address] Alejandro, Lucy, OD [address] [place] [address] documented as of this encounter Visit Diagnoses Not on filedocumented in this encounter Care Teams Gate Person Relationship Specialty Start Date End Date Name, MD Erick [address] [place] [address] PCP - General Family Medicine 11/29/16 documented as of this encounter
--- OUTSIDE RECORDS SUMMARY | 2025-05-05 19:12 | XMS_ITS | Encounter Summary ---
Author Organization [employer] Address [address] [place] [address] Care Team Providers Care Resort Housekeeper Name Role Phone Name, Erick CHOWDARY Primary Care Provider [phone] Encounter Details Date Type Department Care Team (Late Contact Info) Description 11/02/2022 Abstract [facility] [address] [place] [address] Name, MD Erick [address] [place] [address] Social History Tobacco Use Types Packs/Day Years [...] Description 07/16/2025 3:30 PM EST Office Visit [facility] OPTOMETRY [address] [place], [place] [phone] AlejandroLucy dawson, OD [address] [place] [address] documented as of this encounter Procedures Procedure [...] documented as of this encounter Care Teams Resort Housekeeper Relationship Specialty Start Date End Date Name, MD Erick [address] [place] [address] PCP - General Family Medicine 11/29/16 documented as of this encounter
--- OUTSIDE RECORDS SUMMARY | 2025-05-05 19:12 | XMS_ITS | Encounter Summary ---
Author Organization [employer] Address [address] [place] [address] [place] [address] Care Team Providers Care Egyptologist Name Role Phone Name, Erick CHOWDARY Primary Care Provider [phone] Reason for Visit * Reason Comments Med Refill Encounter Details Date Type Department Care Team ([facility] st Contact Info) Description 01/14/2025 Refill [facility] [address] [place] [address] Name, MD Erick [address] [place] [address] Eczema, unspecified type Social History Tobacco Use [...] Description 07/16/2025 3:30 PM EST Office Visit [facility] OPTOMETRY [address] [place] [address] Alejandro, Lucy, OD [address] [place] [address] documented as of this encounter Visit Diagnoses Diagnosis Eczema, unspecified type documented in this encounter Additional Health Concerns Assessment Noted Time PHQ-9 Depression Total Score: 7 10/16/19 25 10:10 AM EDT documented as of this encounter Care Teams Egyptologist Relationship Specialty Start Date End Date Name, MD Erick [address] [place] [address] PCP - General Family Medicine 11/29/16 documented as of this encounter
--- OUTSIDE RECORDS SUMMARY | 2025-05-05 19:12 | XMS_ITS | Encounter Summary ---
Author Organization [employer] Address [address] [place] [address] Care Team Providers Care Molecular Modeler Name Role Phone Name, Erick CHOWDARY Primary Care Provider [phone] Reason for Visit * Reason Comments Med Refill Encounter Details Date Type Department Care Team (Late Contact Info) Description 03/17/2023 Refill [facility] [address] [place] [address] Name, MD Erick [address] [place] [address] Social History Tobacco Use Types Packs/Day Years [...] Description 07/16/2025 3:30 PM EST Office Visit [facility] OPTOMETRY [address] [place] [address] Lucy Allen, OD [address] [place] [address] documented as of this encounter Visit Diagnoses Not on filedocumented in this encounter Additional Health Concerns Assessment Noted Time PHQ-9 Depression Total Score: 14 023 9:49 AM EDT documented as of this encounter Care Teams Molecular Modeler Relationship Specialty Start Date End Date Name, MD Erick [address] [place] [address] PCP - General Family Medicine 11/29/16 documented as of this encounter
--- OUTSIDE RECORDS SUMMARY | 2025-05-05 19:12 | XMS_ITS | Encounter Summary ---
Author Organization [employer] Address [address] [facility] [address] [place] [address] Care Team Providers Care Materials Management Manager Name Role Phone Name, Erick CHOWDARY Primary Care Provider [phone] Encounter Details Date Type Department Care Team ([facility] st Contact Info) Description 08/28/[address] [facility] [address] [place] [address] Delvis Leon MD [address] [place] [address] Social History Tobacco Use Types Packs/Day Years [...] PM EST Office Visit C OPTOMETRY [address] [place] [address] Alejandro, Lucy, OD [address] [place] [address] documented as of this encounter Visit Diagnoses Not on filedocumented in this encounter Additional Health Concerns Assessment Noted Time PHQ-9 Depression Total Score: 18 024 2:25 PM EDT documented as of this encounter Care Teams Materials Management Manager Relationship Specialty Start Date End Date Name, MD Erick [address] [place] [address] PCP - General Family Medicine 11/29/16 documented as of this encounter
--- OUTSIDE RECORDS SUMMARY | 2025-05-05 19:12 | XMS_ITS | Clinical Summary ---
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 30 g 2 022 Active tacrolimus (Protopic) 0.1 % ointmentIndicati ons:Lichen sclerosus Apply topically in the morning and at bedtime. 30 g 2 022 Active gabapentin (Neurontin) 100 MG capsuleIndicatio ns:Chronic back pain, unspecified back location, unspecified back [...] THE EVENING NEEDED 30 tablet 3 Active baclofen (Lioresal) 20 MG tablet Take 1 tablet (20 mg) by mouth 2 times daily. 60 tablet Active Spacer/Aero-Hold ing Chambers (OptiChamber Randa) misc 1 each every [...] daily. 60 tablet 11 025 2025 Active lisinopril-hydro CHLOROthiazide 20-25 MG tabletIndication s:Essential hypertension TAKE 1 TABLET BY MOUTH ONCE DAILY 30 tablet 3 05/05/20 25 3:46 PM EST Active albuterol 108 (90 Base) MCG/ACT inhaler INHALE 2 PUFFS BY MOUTH EVERY 4 HOURS NEEDED FOR WHEEZING OR SHORTNESS OF BREATH 18 g 3 Active Zepbound 7.5 MG/0.5ML solution auto-injector INJECT ONE PEN (=7.5MG) SUBCUTANEOUSLY ONCE A WEEK DIRECTED Active Multiple Vitamin (Multivitamin) tablet TAKE 1 TABLET BY MOUTH EVERY DAY 30 tablet 11 Active ferrous sulfate 325 (65 Fe) MG EC tablet TAKE 1 TABLET BY MOUTH EVERY DAY WITH BREAKFAST DO NOT BREAK, CRUSH, DISSOLVE OR CHEW 30 tablet Active divalproex (Depakote) 500 MG EC tablet TAKE 1 TABLET BY MOUTH TWICE DAILY 60 tablet Active mometasone (Elocon) 0.1 % ointmentIndicati ons:Eczema, unspecified type APPLY TOPICALLY ONCE DAILY 45 g 2 Active clotrimazole (Lotrimin) 1 % creamIndications :Pruritus of vagina APPLY TOPICALLY TO THE AFFECTED AREA(S) TWICE DAILY 30 g Active atorvastatin (Lipitor) 20 MG tablet TAKE 1 TABLET BY MOUTH EVERY DAY IN THE MORNING 30 tablet 11 025 Active PARoxetine CR (Paxil-CR) 25 MG 24 hr tablet TAKE 2 TABLETS BY MOUTH EVERY DAY 60 tablet 025 Active tiZANidine (Zanaflex) 2 MG tabletIndication s:Left sided sciatica Take 1 tablet (2 mg) by mouth if needed in the morning and at bedtime for muscle spasms. 30 tablet 05/05/20 25 3:46 PM EST Active lidocaine (Lidoderm) 5 % patch Apply 1 patch topically Once per day. Remove & discard patch within 12 hours or as directed by MD. 30 patch 2 05/05/20 25 3:46 PM EST 025 2025 Active ibuprofen 400 MG tablet Take 1 tablet (400 mg) by mouth every 6 (six) hours if needed for moderate pain or fever for up to 30 doses. 20 tablet 05/05/20 25 3:46 PM EST 025 Active tiZANidine (Zanaflex) 2 MG tabletIndication s:Left sided sciatica Take 1 tablet (2 mg) by mouth every 6 (six) hours if needed for muscle spasms for up to 10 days. 30 tablet 024 2024 Discontinued(R eorder (will not trigger [...] Encounters Date Type Department Care Team Description 05/05/2025 9:40 AM EST Office Visit [facility] [address] [place] [phone] Delvis Lopez MD Acute left-sided low back pain with left-sided sciatica (Primary Dx); Hypertension, unspecified type; Left sided sciatica 05/05/2025 Travel 04/05/2025 Refill [facility] [address] [place] [phone] Name, MD Erick 03/17/2025 Refill [facility] MEDICINE [address] [place] [phone] Name, MD Erick 03/11/2025 Orders Only GENERIC EXTERNAL DATA DEPARTMENT Provider, Generic External Data 03/10/2025 Orders Only GENERIC EXTERNAL DATA DEPARTMENT Provider, Generic External Data 03/05/2025 9:00 AM EDT Office Visit [facility] MEDICINE [address] [place] [phone] Lashaun Ramsay MD Vitiligo (Primary Dx); Lichen sclerosus 03/05/2025 Travel 02/23/2025 Refill [facility] [address] [place] [address] Erick Zhou MD 02/12/2025 Results Follow-Up [facility] [address] [place] [address] Erick Zhou MD Comprehensive Metabolic Panel, Lipid Panel, Standard, RPR (Monitor) with Reflex to Titer 02/02/2025 Refill [facility] [address] [place] [address] Erick Zhou MD Eczema, unspecified type; Pruritus of vagina from Last 3 Months [...] (159 lb) 05/05/2025 9:38 AM EST Height 152.5 cm (5' 0.04 ) 03/05/2025 9:13 AM ED T Body Mass Index 31.01 03/05/2025 9:13 AM EDT Plan of Treatment Upcoming Encounters Date Type Department Care Team (Late st Contact Info) Description 07/16/2025 3:30 PM EST Office Visit [facility] OPTOMETRY [address] [place] [address] Alejandro, Lucy, OD [address] [place] [address] Health Maintenance Due Date Last Done Comments CT Colonography 1962 Dental X-Ray: Full Mouth 1962 FIT DNA/Cologuard 1962 FIT 1962 FOBT 1960 Sigmoidoscopy 1960 RSV Patients and Patients Aged 60 years or older (1 - Risk 50-74 years 1-dose series) 2012 Dental Oral Exam 05/23/2024 11/21/2023 Dental Prophylaxis 05/23/2024 11/21/2023 Hepatitis A Vaccines (2 of 2 - Risk 2-dose series) 07/24/2024 01/22/2024 Colonoscopy 10/10/2024 10/11/2023, 04/04/2016 Colorectal Cancer Screening 10/10/2024 Dental X-Ray: Bitewings 11/21/2024 11/21/2023 COVID-19 Vaccine ( season) 2025 06/05/2022, 05/03/2021, 07/23/2020, Additional history exists Influenza Vaccine (#1) 2025 , 04/01/2023, 04/25/2021, Additional history exists Depression Screening 10/15/2025 10/15/2024, 10/16/19 Disability Screening 10/15/2025 10/15/2024 Diabetes: Hemoglobin A1C 10/16/2025 025, 10/14/2020, 10/14/2020 SDOH Screening 01/25/2026 01/25/2025 Alcohol/Substance Use Screening 02/01/2026 02/01/2025 Tobacco Screening 05/05/2026 05/05/2025 Cervical Cancer Screening 08/23/2026 HPV/Cotest 08/23/2026 08/23/2021 Pap Smear 08/23/2026 08/23/2021, 08/23/2021 Mammogram 03/20/2027 03/20/2025, 05/0 11/2022, 10/20/2022, Additional history exists Lipid Panel 02/02/2030 02/02/2025, 041 10/2023, 04/20/2023, Additional history exists DTaP/Tdap/Td Vaccines (2 [...] left-sided low back pain with left-sided sciatica BI MAMMOGRAM SCREENING TOMOSYNTHESIS BILATERAL Routine 03/20/2025 9:45 AM EDT Encounter for screening mammogram for malignant neoplasm of breast PROTEIN CREATININE RATIO, URINE Routine 03/11/2025 8:37 [...] Routine 02/02/2025 9:00 AM EDT Essential hypertension HIV 1/2 ANTIGEN/ANTIBODY, FOURTH GENERATION W/RFL Routine [...] ascites Acute anemia HM COLONOSCOPY Routine 10/11/2023 THINPREP IMAGING PAP AND HPV MRNA E6/E7 WITH REFLEX TO HPV 16,18/45 Routine 08/23/2021 3:53 PM EST HM PAP/HPV Routine 08/23/2021 from Last 3 Months or Most Recently Relevant to Health Maintenance Results * XR Lumbar Spine 2-3 Views (05/05/2025 10:32 AM EST) Anatomical Region Laterality Modality Spine, L-spine Radiographic Alix ging 05/05/2025 10:3 2 AM EST Narrative 05/05/2025 11:03 AM EST [facility] [address] [place] [address] XRay Report Signed Patient: Leanne Carey MR#: [id number] : 1960 Acct:[id number] Age/Sex: 64 / F ADM Date: 05/05/25 Loc: HO.HHCX Attending Dr: Delvis Lopez MD Ordering Physician: DELVIS LOPEZ MD Date of Service: 05/05/25 Procedure(s): XR lumbar spine 2-3V Accession Number(s): [id number] cc: DELVIS LOPEZ MD Reason for Exam: atraumatic left LBP with left radiculopathy EXAMINATION: XR LUMBOSACRAL SPINE CLINICAL INFORMATION: atraumatic left LBP with left radiculopathy COMPARISON: None available. TECHNIQUE: Three views of the lumbosacral spine. FINDINGS: packing machine tender, likely gastric lap band is partially seen [...] by: Karla Krause MD 05/05/2025 11:00 AM EST Dictated By: Karla Krause MD Signed By: <Electronically signed by Karla Krause MD in OV> 05/05/25 1100 DD/ 1032 TD/TT: 05/05/25 1048 Sewing Supervisor: Procedure Note Donotmaryinterpreter, Image - 05/05/2025 [facility] [address] [place] [address] XRay Report Signed Patient: Leanne Carey MMR#: [id number] : 1960Acct:[id number] Age/Sex: 64 / FADM Date: 05/05/25 Loc: HO.HHCX Attending Dr: Delvis Lopez MD Ordering Physician: DELVIS LOPEZ MD Date of Service: 05/05/25 Procedure(s): XR lumbar spine 2-3V Accession Number(s): [id number] cc: DELVIS LOPEZ MD Reason for Exam: atraumatic left LBP with left radiculopathy EXAMINATION: XR LUMBOSACRAL SPINE CLINICAL INFORMATION: atraumatic left LBP with left radiculopathy COMPARISON: None available. TECHNIQUE: Three views of the lumbosacral spine. FINDINGS: packing machine tender, likely gastric lap band is partially seen [...] by: Karla Krause MD 05/05/2025 11:00 AM [facility] Dictated By: Karla Krause MD Signed By: <Electronically signed by Karla Krause MD in OV> 05/05/25 1100 DD/ 1032 TD/TT: 05/05/25 1048 Sewing Supervisor: Delvis Lopez MD IMG XR PROCEDURES Edited Result - Final * BI Mammogram Screening Tomosynthesis Bilateral (03/20/2025 9:45 AM EDT) Anatomical Region Laterality Modality Breast Bilateral Mammography 03/20/2025 9:45 AM EDT Narrative 03/28/2025 2:25 PM EDT [facility] [address] [place] [address] Mammography Report Signed Patient: Leanne Carey MR#: [id number] : 1960 Acct:[id number] Age/Sex: 64 / F ADM Date: 03/20/25 Loc: HO.MAMMO Attending Dr: Erick Zhou MD Ordering Physician: Erick Zhou MD Results: 1Negative Date of Service: 03/20/25 Follow Up: 1 Year From Orig inal Mammogram Procedure(s): MM tomosynthesis screening BI Accession Number(s): [id number] cc: Erick Zhou MD Reason For Exam: screening for breast cancer EXAMINATION: MM SCREENING DIGITAL BREAST TOMOSYNTHESIS, BILATERAL CLINICAL INFORMATION: Screening. Asymptomatic. COMPARISON: Mammography: Comparison is made with available priors TECHNIQUE: Digital breast mammography with tomosynthesis is performed in both the craniocaudal and mediolateral oblique views along with computer-aided detection (CAD). FINDINGS: The breasts are heterogeneously dense, which may obscure small masses. There are no significant masses, abnormal calcifications, or other abnormalities. MM/MM tomosynthesis screening BI IMPRESSION: No mammographic evidence of malignancy. ASSESSMENT: BI-RADS Category 1: Negative RECOMMENDATION: Routine annual mammography screening. 1 year F/U This examination should not preclude the clinical evaluation of a suspicious palpable abnormality. This patient's information was entered into a reminder system with a target due date for their next mammogram. Electronically signed by: Marii George DO 03/28/2025 02:22 PM EDT Dictated By: Marii George DO Signed By: <Electronically signed by Marii George DO in OV> 03/28/25 1422 DD/ 0945 TD/TT: 03/20/25 1000 Sewing Supervisor: Procedure Note Donotuseinterpreter, Image - 03/28/[address] [facility] [address] [place], [place] [address] Mammography Report Signed Patient: Leanne Carey MMR#: [id number] : 1960Acct:[id number] Age/Sex: 64 / FADM Date: 03/20/25 Loc: HO.MAMMO Attending Dr: Erick Zhou MD Ordering Physician: Erick Zhou MDResults: 1Negative Date of Service: 03/20/25Follow Up: 1 Year From Orig ina Mammogram Procedure(s): MM tomosynthesis screening BI Accession Number(s): [id number] cc: Erick Zhou MD Reason For Exam: screening for breast cancer EXAMINATION: MM SCREENING DIGITAL BREAST TOMOSYNTHESIS, BILATERAL CLINICAL INFORMATION: Screening. Asymptomatic. COMPARISON: Mammography: Comparison is made with available priors TECHNIQUE: Digital breast mammography with tomosynthesis is performed in both the craniocaudal and mediolateral oblique views along with computer-aided detection (CAD). FINDINGS: The breasts are heterogeneously dense, which may obscure small masses. There are no significant masses, abnormal calcifications, or other abnormalities. MM/MM tomosynthesis screening BI IMPRESSION: No mammographic evidence of malignancy. ASSESSMENT: BI-RADS Category 1: Negative RECOMMENDATION: Routine annual mammography screening. 1 year F/U This examination should not preclude the clinical evaluation of a suspicious palpable abnormality. This patient's information was entered into a reminder system with a target due date for their next mammogram. Electronically signed by: Marii George DO 03/28/2025 02:22 PM EDT Dictated By: Marii George DO Signed By: <Electronically signed by Marii George DO in OV> 03/28/25 1422 DD/ 0945 TD/TT: 03/20/25 1000 Sewing Supervisor: Erick Zhou MD IM BI PROCEDURES Edited Result - Final * (ABNORMAL) Protein Creatinine Ratio, Urine (03/11/2025 8:37 AM EDT) Creatinine, Urine 204.13 mg/dL [facility] Protein, Total, Random Urine 16(H) <12 mg/dL [facility] Protein/Creati nine Ratio, Ur 0.08 <0.2 [facility] Comment:The spot urine prote in:creatinine ratio may increase to 0.3during normal . 03/11/2025 8:37 AM EDT 03/11/2025 10:57 AM EDT us Generic External Data Provider LAB URINE ORDERAB LES Final Result [facility] [address] [place] [phone] * (ABNORMAL) Urinalysis Complete (03/11/2025 8:37 AM EDT) Color Urine Dark Yellow [facility] Appearance Urine Cloudy [facility] PH 5.5 5.0 - 9.0 [facility] Glucose Urine UA Negative Negative mg/dL [facility] Urine Blood Negative Negative [facility] Specific Crowley - Urine >=1.030(H) 1.005 - 1.025 [facility] Urine Protein Trace Neg-Trace mg/dL [facility] Urine Ketones Trace Negative mg/dL [facility] Nitrite Urine Negative Negative [facility] Leukocyte Esterase Urine Small (1+)(A) Negative [facility] RBC Urine 0-2 0 - 2 /HPF [facility] Urine WBC 0-5 0 - 5 /HPF [facility] Urine Squamous Epithelial Cell 11-20 0 - 2 /HPF [facility] CALCIUM OXALATE CRYSTAL, UR Present [facility] Urine Bacteria 1+ None Seen [facility] Hyaline Casts, Urine 0-2 0 - 2 /LPF [facility] Urine Yeast Present [facility] 03/11/2025 8:37 AM EDT 03/11/2025 10:57 AM EDT us Generic External Data Provider LAB URINE ORDERAB LES Final Result Performing Organization Address [facility] Co de Phone Number [facility] [address] [place] [address] [phone] * Creatinine, Serum (03/10/2025 3:41 PM EDT) Creatinine, Serum 0.85 0.5 - 1.4 mg/dL [facility] Estimated Glomerular Filt Rate >60 [facility] Comment:Chronic Kidney Disea se: Estimated GFR < 60 mL/min/[id number] Kidney Disease: Estimated GFR < 15 mL/min/1.73m2 03/10/2025 3:41 PM EDT 03/10/2025 6:20 PM EDT us Generic External Data Provider LAB BLOOD ORDERAB LES Final Result Performing Organization Address [facility] Co de Phone Number [facility] [address] [place] [address] [phone] * Uric acid (03/10/2025 3:41 PM EDT) Uric Acid 4.2 2.4 - 5.7 mg/dL [facility] 03/10/2025 3:41 PM EDT 03/10/2025 6:20 PM EDT us Generic External Data Provider LAB BLOOD ORDERAB LES Final Result Performing Organization Address [facility] Co de Phone Number [facility] [address] [place] [address] [phone] * BUN (Blood Urea Nitrogen) (03/10/2025 3:41 PM EDT) Urea Nitrogen (BUN) 11 9 - 16 mg/dL [facility] 03/10/2025 3:41 PM EDT 03/10/2025 6:20 PM EDT us Generic External Data Provider LAB BLOOD ORDERAB LES Final Result Performing Organization Address [facility] de Phone Number [facility] [address] [place] [address] [phone] * Calcium (03/10/2025 3:41 PM EDT) [facility] Calcium 9.5 8.4 - 10.2 mg/dL [facility] 03/10/2025 3:41 PM EDT 03/10/2025 6:20 PM EDT Generic External Data Provider LAB BLOOD ORDERAB LES Final Result Performing Organization Address [facility] de Phone Number [facility] [address] [place] [address] [phone] * Electrolyte Panel (03/10/2025 3:41 PM EDT) [facility] Sodium 143 135 - 145 mmol/L [facility] Potassium 3.5 3.3 - 5.1 mmol/L [facility] Chloride 104 96 - 108 mmol/L [facility] Carbon Dioxide 29 22 - 29 mmol/L [facility] Anion Gap 14 12 - 20 [facility] 03/10/2025 3:41 PM EDT 03/10/2025 6:20 PM EDT Generic External Data Provider LAB BLOOD ORDERAB LES Final Result Performing Organization Address [facility] Co de Phone Number [facility] [address] [place] [address] [phone] * (ABNORMAL) RPR (Monitor) with Reflex to??Titer (02/02/2025 9:00 AM EDT) [facility] RPR (Monitor) w/Refl Titer REACTIVE( A) NON-REACT JOSE [facility] Comment:The RPR is a non-mariano ponemal-specific test; therefore,a treponemal- specific confirmatory test should beperformed unless prior syphilis infection has beendocumented for this patient.THIS TEST WAS PERFORMED AT:[employer] [address] [phone] APZ MD Rapid Plasma Reagin Ab Titer 1:2(A) [facility] Comment:THIS TEST WAS PERFOR MED AT:[facility] [address] [phone] PAZ MD Blood Venous blood specimen / Unknown 02/02/2025 9:00 AM EDT 02/02/2025 10:58 AM EDT us Erick Name LAB BLOOD ORDERABLES Final Resul t [facility] [address] [place] [phone] * (ABNORMAL) Lipid Panel, Standard (02/02/2025 9:00 AM EDT) Triglycerides 102 <150 mg/dL [facility] Comment:Desirable Triglyceri de: less than 150 mg/dLBorderline High Triglyceride 150-199 mg/dLHigh Triglyceride: 200-499 mg/dLVery High Triglyceride: greater than or equal to 5OO mg/dL Cholesterol 122 <200 mg/dL [facility] Comment:Desirable Cholestero l: less than 200 mg/dLBorderline High Cholesterol: 200-239 mg/dLHigh Cholesterol: greater than 239 mg/dL LDL Cholesterol Calculated 68 <100 mg/dL [facility] Comment:Desirable LDL: less than 100 mg/dLNear Optimal/Above Optimal LDL: 110- 129 mg/dLBorderline High LDL: 130-159 mg/dLHigh LDL: 160-189 mg/dLVery High LDL: greater than or equal to 190 mg/dL HDL Cholesterol 34(L) >40 mg/dL [facility] Comment:Desirable HDL: great er than 40 mg/dL Note: This HDL assay may give artificially low results in patients with liver disease. Blood Venous blood specimen / Unknown 02/02/2025 9:00 AM EDT 02/02/2025 10:58 AM EDT us Erick Zhou MD LAB BLOOD ORDERABLES Final Resul t Performing Organization Address City/[facility]/ZIP Co de Phone Number [facility] [address] [place] [phone] * (ABNORMAL) Comprehensive Metabolic Panel (02/02/2025 9:00 AM EDT) Sodium 142 135 - 145 mmol/L [facility] Potassium 3.7 3.3 - 5.1 mmol/L [facility] Chloride 104 96 - 108 mmol/L [facility] Carbon Dioxide 32(H) 22 - 29 mmol/L [facility] Anion Gap 10(L) 12 - 20 [facility] Urea Nitrogen (BUN) 17(H) 9 - 16 mg/dL [facility] Creatinine, Serum 0.96 0.5 - 1.4 mg/dL [facility] Estimated Glomerular Filt Rate 59 [facility] Comment:Chronic Kidney Disea se: Estimated GFR < 60 mL/min/[id number] Kidney Disease: Estimated GFR < 15 mL/min/1.73m2 Glucose 81 60 - 115 mg/dL [facility] Calcium 9.4 8.4 - 10.2 mg/dL [facility] Bilirubin, Total 0.4 0.0 - 1.0 mg/dL [facility] Aspartate Amino Transferase 52(H) 5 - 31 U/L [facility] Alanine Aminotransferase 50(H) 0 - 31 U/L [facility] Total Protein 7.5 6.5 - 8.0 g/dL [facility] Albumin Level 4.6 3.5 - 5.0 g/dL [facility] Alkaline Phosphatase 122(H) 39 - 117 U/L [facility] Blood Venous blood specimen / Unknown 02/02/2025 9:00 AM EDT 02/02/2025 10:58 AM EDT us Erick Zhou MD LAB BLOOD ORDERABLES Final Resul t [facility] [address] [place] [phone] * HIV-1/2 Antigen and Antibodies, Fourth Generation, with Reflexes (10/16/2024 9:34 AM EDT) HIV AB/AG Nonreactive Nonreactive [facility] Comment:HIV-1 p24 Ag and/or HIV-1/HIV-2 Ab not detected.A test result that is nonreactive does not exclude thepossibility of exposure to or infection with HIV-1 and/orHIV-2. Nonreactive results in this assay for individualswith prior exposure to HIV-1 and/or HIV-2 may be due toantigen and antibody levels that are below the limit ofdetection of this assay.The [employer] HIV Ag/Ab Combo assay result andsupplemental assay results should be interpreted inconjunction with the patient's clinical presentation,history and other laboratory results. If the results areinconsistent with clinical evidence, additional testing issuggested to confirm the result. Blood Venous blood specimen / Unknown 10/16/2024 9:34 AM EDT 10/16/2024 11:08 AM EDT us Erick Zhou MD LAB BLOOD ORDERABLES Final Resul t [facility] [address] [place] [phone] * Hemoglobin A1c (10/16/2024 9:34 AM EDT) Hemoglobin A1c 5.7 <6.0 % [facility] Comment:Hemoglobin A1C Refer ence Range Adults: 4.8 - 6.0 % Non diabetic: < 6.0 % Goal: < 7.0 %Additional Action Suggested: > 8.0 %Note: Hemoglobin A1c results are invalid for patients with abnormal amounts of HbF. Blood transfusions may impact the HbA1c concentration in the patient sample. Estimated Average Glucose 117 mg/dL [facility] Comment:eAG = Estimated ave rage glucose which is %A1C expressed asaverage glucose, using the formula of the I2B-ImzhypcOzxbxlm Glucose study (ADAG), Diabetes Care, Vol.31,#8,2007 Blood Venous blood specimen / Unknown 10/16/2024 9:34 AM EDT 10/16/2024 11:12 AM EDT us Erick Zhou MD LAB BLOOD ORDERABLES Final Resul t Performing Organization Address [facility] Co de Phone Number [facility] [address] [place] [phone] * Hepatitis C Antibody with Reflex to HCV, RNA, Quantitative, Real-Time PCR (10/25/2023 2:05 PM EDT) Hepatitis C Antibody Nonreactive Nonreactive [facility] Comment:Antibodies to HCV no t detected; does not exclude early acuteHCV infection. Blood Venous blood specimen / Unknown 10/25/2023 2:05 PM EDT 10/25/2023 3:55 PM EDT us Erick Zhou MD LAB BLOOD ORDERABLES Final Resul t Performing Organization Address [facility] de Phone Number [facility] [address] [place] [phone] * (ABNORMAL) Hm Colonoscopy (10/11/2023) Colonoscopy Abnormal(A ) Normal Result [facility] us Erick Zhou MD HEALTH MAINTENANCE Final Result * THINPREP TIS PAP AND [...] has been evaluated with computer assisted technology. [facility] Vocational Instructor: SEE COMMENT [facility] Comment: YP, CT(ASCP) CT screening location: [address] [address] HPV nRNA E6/E7 Not Detected Not Detected [facility] Comment: Methodology: Gas Welder-Mediated Amplification This assay detects E6/E7 viral messenger RNA (mRNA) from 14 high-risk HPV types (16,18,31,33,35,39,45,51,52,56,58,59,66,68). The analytical performance characteristics of this assay have been determined by [facility]. The modifications have not been cleared or approved by the FDA. This assay has been validated pursuant to the CLIA regulations and is used for clinical purposes. For additional information, please refer to http://education.Bocada/faq/DFR151y2 (This link if provided for information/ educational purposes only.) Infection Shift in vaginal gina suggestive of bacterial vaginosis. [facility] Interpretation/Re sult: Negative for intraepithelial lesion or malignancy. [facility] LMP: 48 YRS OLD [facility] Prev. BX: NONE GIVEN [facility] Prev. PAP: NONE GIVEN [facility] SOURCE: None given [facility] Statement Of Adequacy: SEE COMMENT [facility] Comment: Satisfactory for evaluation. Endocervical/transformation zone component absent. 08/23/2021 3:53 PM EST Ashley Oglesby CNM LAB PATHOLOGY ORDERABLES Final Result [facility] [address] * Pap Smear (08/23/2021) HM Pap smear Preformed Historical Provider HEALTH MAINTENANCE Final Result from Last 3 Months or Most Recently Relevant to Health Maintenance Insurance [facility] , [address] [place] [address] DENTAL - [facility] * Guarantor: Leanne Carey Account Type Relation to Patient Date of Phone Billing Address Personal/Family Self [place], [place] Care Teams Restaurant Cashier Relationship Specialty Start Date End Date Name, MD Erick [address] [place] [address] PCP - General Family Medicine 11/29/16
--- OUTSIDE RECORDS SUMMARY | 2025-05-05 19:12 | XMS_ITS | Encounter Summary ---
Author Organization [employer] Address [address] [place] [address] 7[address] [place] [address] Care Team Providers Care Setter Off Name Role Phone Name, Erick CHOWDARY Primary Care Provider [phone] Encounter Details Date Type Department Care Team (Latest Contact Info) Description 05/05/2025 Travel Social History Tobacco Use Types Packs/Day [...] Description 07/16/2025 3:30 PM EST Office Visit [facility] OPTOMETRY [address] [place] [address] Alejandro, Lucy, OD [address] [place] [address] documented as of this encounter Visit Diagnoses Not on filedocumented in this encounter Additional Health Concerns Assessment Noted Time PHQ-9 Depression Total Score: 7 10/16/19 25 10:10 AM EDT documented as of this encounter Care Teams Setter Off Relationship Specialty Start Date End Date Name, MD Erick [address] [place] [address] PCP - General Family Medicine 11/29/16 documented as of this encounter
== END 2025-05-05 10:09 | disposition home or self-care (01) ==
LOC: HO.HHCX 10:08
PROVIDERS: Visit Provider Emergency Medicine
DX: M54.42 Lumbago with sciatica, left side (principal); M54.16 Radiculopathy, lumbar region
CPT/HCPCS: 72100

== ENCOUNTER → 2025-05-05 10:08 | Outpatient (BNV) | payer OTHER, SELFPAY | PROVIDERS: Visit Provider Radiology Body Imaging | DX: M47.26 Other spondylosis with radiculopathy, lumbar region (principal) | CPT/HCPCS: 72100 ==

== ENCOUNTER 2025-06-09 15:09 | Outpatient (REF) | payer OTHER, SELFPAY ==
--- OUTSIDE RECORDS SUMMARY | 2025-06-09 10:40 | XMS_ITS | Encounter Summary ---
Author Organization [email or web address] Address [address] [place] [address] 7 [place] [address] Care Team Providers Care Bottle Label Inspector Name Role Phone Name, Erick CHOWDARY Primary Care Provider [phone] Reason for Visit * Reason Comments UTI Encounter Details Date Type Department Care Team ([facility] Contact Info) Description 06/09/2025 10:40 AM EST Office Visit [facility] [address] [place] [address] Marietta Davison, QUINTON [address] [place] [address] Dysuria Social History Tobacco Use Types Packs/Day Years [...] Sign Reading Time Taken Comments Blood Pressure 106/67 06/09/2025 10:44 AM EST Pulse 90 06/09/2025 10:44 AM EST Temperature 36.6 C (97.8 F) 06/09/2025 10:44 AM EST Respiratory Rate 16 06/09/2025 10:44 AM EST Oxygen Saturation 98% 06/09/2025 10:44 AM EST Inhaled Oxygen Concentration - - Weight 72.8 kg (160 lb 9.6 oz) 06/09/2025 10:44 AM EST Height 152.5 cm (5' 0.04 ) 06/09/2025 10:[address] Body Mass Index 31.32 06/09/2025 10:44 AM EST documented in this encounter Progress Notes * QUINTON Khalil - 06/09/2025 10:40 AM EST SUBJECTIVE Leanne Carey is a 64 y.o. female who presents for UTI. - Increased urinary frequency since June 05, 2025 (Saturday) - Onset of suprapubic pain and urinary urgency on June 04, 2025 (Saturday) while working - Unable to hold urine, with episodes of incontinence since onset - Nocturia, waking up two to three times nightly to urinate since onset - Denies vaginal discharge, fever, chills and nausea - History of recurrent UTI, with current episode being the third occurrence this year - Previous pelvic examination performed a few years ago due to itching - Intermittent genital itching persists - Follow-up appointments with die set up worker every six months for ongoing evaluation of genital symptoms Review of Systems Constitutional: Negative for chills and fever. Respiratory: Negative for cough, chest tightness, shortness of breath and wheezing. Cardiovascular: Negative for chest pain and palpitations. Psychiatric/Behavioral: Negative for suicidal ideas. Allergies[1] OBJECTIVE Vitals: 06/09/25 1044 BP: 106/67 BP Location: Left arm Patient Position: Sitting BP Cuff Size: Adult Pulse: 90 Resp: 16 Temp: 97.8 ??F (36.6 ??C) TempSrc: Temporal SpO2: 98% Weight: 160 lb 9.6 oz (72.8 kg) Height: 5' 0.04 (1.525 m) Physical Exam Vitals reviewed. Constitutional: Appearance: Normal appearance. HENT: Head: Atraumatic. Cardiovascular: Rate and Rhythm: Normal rate and regular rhythm. Pulses: Normal pulses. Heart sounds: Normal heart sounds. No murmur heard. Pulmonary: Effort: Pulmonary effort is normal. Breath sounds: Normal breath sounds. No wheezing. Abdominal: Tenderness: There is no abdominal tenderness. There is no right CVA tenderness or left CVA tenderness. Neurological: Mental Status: She is alert and oriented to person, place, and time. Psychiatric: Mood and Affect: Mood normal. Behavior: Behavior normal. Assessment/Plan Dysuria: Visit Diagnoses Dysuria - Dysuria likely due to urinary tract infection. Differential diagnosis includes possible bladder or uterine prolapse if symptoms are recurrent and do not resolve with treatment. - Prescribed antibiotic treatment for five days. Sent urine for culture. Advised to return for evaluation if symptoms persist. Provided instructions on hydration, proper perineal hygiene, and not holding urine during work. Relevant Medications nitrofurantoin, macrocrystal-monohydrate, (Macrobid) 100 MG capsule Other Relevant Orders Culture, Urine, Routine POCT urinalysis dipstick manually resulted (CPT 69045) (Completed) This note was drafted using Ambient (AI) technology. The patient/patient's guardian has been informed and has consented to the use of this technology: Yes Future Appointments Date Time Provider Department Center 07/06/2025 9:00 AM Lucy Allen, OD V[facility] 09/10/2025 10:15 AM Lashaun Ramsay MD MEDICINE [facility] [1] No Known Allergies documented in this encounter Plan of Treatment Upcoming Encounters Date Type Department Care Team (Late st Contact Info) Description 07/06/2025 9:00 AM EST Office Visit [facility] OPTOMETRY [address] [place], [place] [phone] Lucy Allen, OD [address] [place] [address] 09/10/2025 10:15 AM EDT Office Visit [facility] [address] [place] [address] Lashaun Ramsay MD [address] [place] [address] Scheduled Orders Name Type Priority Associated Diagnoses Orde r Schedule Culture, Urine, Routine Microbiology Routine Dysuria Ordered: 06/09/2025 documented as of this encounter Procedures Procedure Name Priority Date/Time Associated Diagnosis Comments POCT URINALYSIS DIPSTICK Routine 06/09/2025 10:50 AM EST Dysuria documented in this encounter Results * (ABNORMAL) POCT urinalysis dipstick manually resulted (CPT 24519) (06/09/2025 10:50 AM EST) Color, UA Yellow Clarity, UA Clear Glucose, UA Negative Bilirubin, UA Negative Ketones, UA Negative Spec Grav, UA 1.025 Blood, UA Positive(A) Negative, None Detected Comment:large pH, UA 6.0 Protein, UA Trace Comment:300 mg/dl Urobilinogen, UA 1.0 Leukocytes, UA Moderate(A) Negative, Rare, Trace, 1+ (17), 2+ (35), 3+ (70), Trace (15) Nitrite, UA Negative Negative, None Detected Urine (Urine, Random) 06/09/2025 10:50 AM EST Marietta Davison PHARMACY LABORATORY TECHNICIAN POINT OF CARE TEST ENTER/EDIT ORDERABLES Final Result documented in this encounter Visit Diagnoses Diagnosis Dysuria documented in this encounter Additional Health Concerns Assessment Noted Time PHQ-9 Depression Total Score: 7 10/16/19 25 10:10 AM EDT documented as of this encounter Care Teams Bottle Label Inspector Relationship Specialty Start Date End Date Name, MD Erick [address] [place] [address] PCP - General Family Medicine 11/29/16 documented as of this encounter
--- OUTSIDE RECORDS SUMMARY | 2025-06-09 15:11 | XMS_ITS | Encounter Summary ---
Author Organization [employer] Address [address] [place] [address] Care Team Providers Care Press Operator Carbon Blocks Name Role Phone Name, Erick CHOWDARY Primary Care Provider [phone] Reason for Visit * Reason Comments Med Refill Encounter Details Date Type Department Care Team (Late Contact Info) Description 03/17/2023 Refill [facility] [address] [place] [address] Name, MD Erick [address] [place] [address] Social History Tobacco Use Types Packs/Day Years [...] Department Care Team (Late Contact Info) Description 07/06/2025 9:00 AM EST Office Visit [facility] OPTOMETRY [address] [place] [address] Lucy Allen, OD [address] [place] [address] 09/10/2025 10:15 AM EDT Office Visit [facility] [address] [place] [address] Lashaun Ramsay MD [address] [place] [address] documented as of this encounter Visit Diagnoses Not on filedocumented in this encounter Additional Health Concerns Assessment Noted Time PHQ-9 Depression Total Score: 14 023 9:49 AM EDT documented as of this encounter Care Teams Press Operator Carbon Blocks Relationship Specialty Start Date End Date Name, MD Erick [address] [place] [address] PCP - General Family Medicine 11/29/16 documented as of this encounter
--- OUTSIDE RECORDS SUMMARY | 2025-06-09 15:12 | XMS_ITS | Encounter Summary ---
Author Organization [employer] Address [address] [place] [address] [place] [address] Care Team Providers Care Thoroughbred Horse Farm Manager Name Role Phone Name, Erick CHOWDARY Primary Care Provider [phone] Reason for Visit * Reason Comments Med Refill Encounter Details Date Type Department Care Team ([facility] st Contact Info) Description 06/04/2025 Refill [facility] [address] [place] [address] Name, MD Erick [address] [place] [address] Social History Tobacco Use Types Packs/Day Years [...] Description 07/06/2025 9:00 AM EST Office Visit [facility] OPTOMETRY [address] [place] [address] Lucy Allen, OD [address] [place] [address] 09/10/2025 10:15 AM EDT Office Visit [facility] MEDICINE [address] [place] [address] Lashaun Ramsay MD [address] [place] [address] documented as of this encounter Visit Diagnoses Not on filedocumented in this encounter Additional Health Concerns Assessment Noted Time PHQ-9 Depression Total Score: 7 10/16/19 10:10 AM EDT documented as of this encounter Care Teams Thoroughbred Horse Farm Manager Relationship Specialty Start Date End Date Name, MD Erick [address] [place] [address] PCP - General Family Medicine 11/29/16 documented as of this encounter
--- OUTSIDE RECORDS SUMMARY | 2025-06-09 15:12 | XMS_ITS | Clinical Summary ---
Author Organization [address] [place] [address] Address [address] [place] [address] Phone Care Team Providers Care Drop Forge Hand Name Role Phone Name, Erick CHOWDARY Primary Care Provider [phone] Allergies No known active allergies Medications atorvastatin [...] BY MOUTH EVERY DAY 02/24/20 24 Active tirzepatide, weight loss, (Zepbound) 12.5 mg/0.5 mL injectionIndica tions:Class 1 obesity due to excess calories with body mass index (BMI) of 30.0 to 30.9 in adult, unspecified whether serious comorbidity present Inject 0.5 mL (12.5 mg total) under the skin every 7 (seven) days. 2 mL 2 06/03/20 25 026 Active Zepbound 10 mg/0.5 mL injectionIndica tions:Class 1 obesity due to excess calories with body mass index (BMI) of 32.0 to 32.9 in adult, unspecified whether serious comorbidity present INJECT ONE PEN (=10MG) SUBCUTANEOUSLY ONCE A WEEK DIRECTED 2 mL 03/19/20 25 025 Discontin ued(Dose adjustmen t) Active Problems Problem Noted Date Diagnosed Date Other complications of gastric band procedure Shoulder pain, bilateral 02/12/2011 IVA (obstructive sleep apnea) 04/05/2010 Edema 11/30/2009 Hypercholesteremia 09/08/2008 Iron deficiency anemia 12/20/2006 Class 1 obesity with body ma ss index (BMI) of 33.0 to 33.9 in adult 12/20/2006 Essential hypertension, benign 10/22/2006 Encounters Date Type Department Care Team Description 06/03/2025 4:15 PM EST Office Visit Bariatric Surgery - [address] [place] [address] Gonzalez Williamson MD Class 1 obesity due to excess calories with body mass index (BMI) of 30.0 to 30.9 in adult, unspecified whether serious comorbidity present (Primary Dx) from Last 3 Months Immunizations Immunization Administration Dates Next Due Hepatitis B (Cmzcgkh-P-Teukw , Recombivax HB-Adult) 19yo and older 07/03/2017,02/26/2017,12/24/2016 [...] on file Sexual Orientation Not on file Last Filed Vital Signs Vital Sign Reading Time Taken Comments Blood Pressure 115/74 06/03/2025 4:06 PM EST Pulse 77 06/03/2025 4:06 PM EST Temperature 36.6 C (97.8 F) 06/03/2025 4:06 PM EST Respiratory Rate - - Oxygen Saturation - - Inhaled Oxygen Concentration - - Weight 71.7 kg (158 lb) 06/03/2025 4:06 PM EST Height 152.4 cm (5') 06/03/2025 4:06 PM EST Body Mass Index 30.86 06/03/2025 4:06 PM EST Plan of Treatment Upcoming Encounters Date Type Department Care Team (Late st Contact Info) Description 12/16/2025 3:45 PM EDT Office Visit Bariatric Surgery - [address] [place] [address] Gonzalez Williamson MD [address] [place] [phone] Health Maintenance Due Date Last Done [...] BMP Blood Test 10/16/2025 10/16/2024, 08/27/2024, 02/16/2012 Cervical Cancer Screening: HPV 12/15/2028 12/16/2023 Cholesterol Screening (Lipid Panel) 02/02/2030 02/02/2025, 09/30/2023, 02/16/2012 DTaP,Tdap,and Td Vaccines (3 - Td or [...] Results * Cervical Cancer Screening: HPV (12/16/2023) [facility] Cervical Cancer Screening: HPV Negative, Abstracted Result [facility] HEALTH MAINTENANCE Final Result * Colonoscopy (10/11/2023) [facility] Colonoscopy No Interpretation , Abstracted Anatomical Region Laterality Modality Other [facility] HEALTH MAINTENANCE Final Result * Depression Screening (06/27/2023) [facility] Depression Screening Abstracted Result [facility] HEALTH MAINTENANCE Final Result * HIV Screening (12/17/2016) [facility] HIV Screening Abstracted Result [facility] HEALTH MAINTENANCE Final Result * Hepatitis C Screening (12/17/2016) [facility] Hepatitis C Screening Abstracted Result [facility] HEALTH MAINTENANCE Final Result * Annual BMP Blood Test (02/16/2012) Pathologist [facility] Annual BMP Blood Test Abstracted [facility] HEALTH MAINTENANCE Final Result * (ABNORMAL) Lipid panel (02/16/2012) [facility] LDL/HDL Ratio 4 0 - 4 Triglycerides 82 0 - 150 mg/dL Cholesterol 187 0 - 200 mg/dL HDL 53 >=40 mg/dL LDL Cholesterol 118(A) 0 - 100 mg/dL Blood Venous blood specimen / Unknown us Historical Provider LAB BLOOD ORDERABLES Lorrie l Result from Last 3 Months or Most Recently Relevant to Health Maintenance Insurance [facility] Care Teams Drop Forge Hand Relationship Specialty Start Date End Date Name, MD Erick [address] [place], [place] PCP - General Internal Medicine 05/28/19
--- OUTSIDE RECORDS SUMMARY | 2025-06-09 15:12 | XMS_ITS | Encounter Summary ---
Author Organization [employer] Address [address] [place] [address] Care Team Providers Care Salvage Inspector Name Role Phone Name, Erick CHOWDARY Primary Care Provider [phone] Encounter Details Date Type Department Care Team (Late Contact Info) Description 11/02/2022 Abstract [facility] MEDICINE [address] [place] [address] Name, MD Erick [address] [place] [address] Social History Tobacco Use Types Packs/Day Years [...] Description 07/06/2025 9:00 AM EST Office Visit [facility] OPTOMETRY [address] [place] [id number] AlejandroLucy dawson, OD [address] [place] [address] 09/10/2025 10:15 AM EDT Office Visit [facility] [address] [place] [address] Lashaun Ramsay MD [address] [place] [address] documented as of this encounter Procedures Procedure [...] documented as of this encounter Care Teams Salvage Inspector Relationship Specialty Start Date End Date Name, MD Erick [address] [facility] [place] [address] PCP - General Family Medicine 11/29/16 documented as of this encounter
--- OUTSIDE RECORDS SUMMARY | 2025-06-09 15:12 | XMS_ITS | Encounter Summary ---
Author Organization [employer] Address [address] [place] [address] [place] [address] Care Team Providers Care Supervisor Livestock Yard Name Role Phone Name, Erick CHOWDARY Primary Care Provider [phone] Reason for Visit * Reason Comments Med Refill Encounter Details Date Type Department Care Team ([facility] st Contact Info) Description 01/14/2025 Refill [facility] [address] [place] [address] Name, MD Erick [address] [place] [address] Eczema, unspecified type Social History Tobacco Use [...] 9:00 AM EST Office Visit [facility] OPTOMETRY [address] [place] [address] Alejandro, Lucy, OD [address] [place] [address] 09/10/2025 10:15 AM EDT Office Visit [facility] [address] [place] [address] Lashaun Ramsay MD [address] [place] [address] documented as of this encounter Visit Diagnoses Diagnosis Eczema, unspecified type documented in this encounter Additional Health Concerns Assessment Noted Time PHQ-9 Depression Total Score: 7 10/16/19 25 10:10 AM EDT documented as of this encounter Care Teams Supervisor Livestock Yard Relationship Specialty Start Date End Date Name, MD Erick [address] [place] [address] PCP - General Family Medicine 11/29/16 documented as of this encounter
--- OUTSIDE RECORDS SUMMARY | 2025-06-09 15:12 | XMS_ITS | Clinical Summary ---
Author Organization [employer] Address [address] [place] [address] [place] [address] Care Team Providers Care Computer Applications Developer Name Role Phone Name, Erick CHOWDARY Primary Care Provider [phone] Allergies No known active allergies Medications clobetasol [...] daily. 60 tablet 11 025 2025 Active albuterol 108 (90 Base) MCG/ACT inhaler [...] 60 tablet Active mometasone (Elocon) 0.1 % ointmentIndicatio ns:Eczema, unspecified type APPLY TOPICALLY ONCE DAILY 45 g 2 Active clotrimazole (Lotrimin) 1 % creamIndications: Pruritus of vagina APPLY TOPICALLY TO THE AFFECTED AREA(S) TWICE DAILY 30 g Active atorvastatin (Lipitor) 20 MG tablet TAKE 1 TABLET BY MOUTH EVERY DAY IN THE MORNING 30 tablet 11 Active tiZANidine (Zanaflex) 2 MG tabletIndications :Left sided sciatica Take 1 tablet (2 mg) by mouth if needed in the morning and at bedtime for muscle spasms. 30 tablet 05/05/20 3:46 PM EST Active lidocaine (Lidoderm) 5 % patch Apply 1 patch topically Once per day. Remove & discard patch within 12 hours or as directed by MD. 30 patch 2 05/05/20 3:46 PM EST 025 2025 Active ibuprofen 400 MG tablet Take 1 tablet (400 mg) by mouth every 6 (six) hours if needed for moderate pain or fever for up to 30 doses. 20 tablet 05/05/20 3:46 PM EST Active lisinopril-hydroC HLOROthiazide 20-25 MG tabletIndications :Essential hypertension TAKE 1 TABLET BY MOUTH EVERY DAY 30 tablet 3 06/04/20 3:14 PM EST Active PARoxetine CR (Paxil-CR) 25 MG 24 hr tablet TAKE 2 TABLETS BY MOUTH EVERY DAY 60 tablet 1 Active nitrofurantoin, macrocrystal-mono hydrate, (Macrobid) 100 MG capsuleIndication s:Dysuria Take 1 capsule (100 mg) by mouth 2 times daily for 5 days. 10 capsule 06/09/20 2:09 PM EST 2024 Active lisinopril-hydroC HLOROthiazide 20-25 MG tabletIndications :Essential hypertension TAKE 1 TABLET BY MOUTH ONCE DAILY 30 tablet 3 05/05/20 3:46 PM EST 025 2024 Discontinued PARoxetine CR (Paxil-CR) 25 MG [...] anemia) 10/31/2023 01/23/2024 Acute hyperglycemia 10/31/2023 01/23/20 24 Other ascites 10/24/2023 01/22/2024 Shoulder pain 02/07/2018 09/17/2023 Encounters Date Type Department Care Team Description 06/09/2025 10:40 AM EST Office Visit [facility] [address] [place] [phone] Marietta Davison FNP Dysuria 06/09/2025 Travel 06/04/2025 Refill [facility] [address] [place] [address] [phone] Erick Zhou MD 05/28/2025 Travel 05/28/2025 Refill [facility] [address] [place] [address] [phone] Erick Zhou MD Essential hypertension 05/17/2025 Telephone [facility] [address] [place] [address] [phone] Prince Liz MA dec recall 05/05/2025 9:40 AM EST Office Visit [facility] [address] [place] [address] Delvis Lopez MD Acute left-sided low back pain with left-sided sciatica (Primary Dx); Hypertension, unspecified type; Left sided sciatica 05/05/2025 Travel 04/05/2025 Refill [facility] [address] [place] [address] NameErick MD 03/17/2025 Refill [facility] [address] [place] [address] NameErick MD 03/11/2025 Orders Only GENERIC EXTERNAL DATA DEPARTMENT Provider, Generic External Data 03/10/2025 Orders Only GENERIC EXTERNAL DATA DEPARTMENT Provider, Generic External Data from Last 3 Months Immunizations Immunization Administration [...] Mass Index 31.32 06/09/2025 10:44 AM EST Plan of Treatment Upcoming Encounters Date Type Department Care Team (Late st Contact Info) Description 07/06/2025 9:00 AM EST Office Visit [facility] [address] [place] [address] AlejandroLucy dawson, OD [address] [place] [address] 09/10/2025 10:15 AM EDT Office Visit [facility] [address] [place] [address] Lashaun Ramsay MD [address] [place] [address] Health Maintenance Due Date Last Done Comments [...] Additional history exists Influenza Vaccine (#1) 2025 4, 04/01/2023, 04/25/2021, Additional history exists Depression Screening 10/15/2025 10/15/2024, 10/16/19 Disability Screening 10/15/2025 10/15/2024 Diabetes: Hemoglobin A1C 10/16/2025 025, 10/14/2020, 10/14/2020 SDOH Screening 01/25/2026 01/25/2025 Alcohol/Substance Use Screening 02/01/2026 02/01/2025 Tobacco Screening 06/09/2026 06/09/2025 Cervical Cancer Screening 08/23/2026 HPV/Cotest 08/23/2026 08/23/2021 Pap Smear 08/23/2026 08/23/2021, 08/23/2021 Mammogram 03/20/2027 03/20/2025, 05/0 11/2022, 10/20/2022, Additional history exists Lipid Panel 02/02/2030 02/02/2025, 04/1 10/2023, 04/20/2023, Additional history exists DTaP/Tdap/Td Vaccines [...] DIPSTICK Routine 06/09/2025 10:50 AM EST Dysuria XR LUMBAR SPINE 2-3 VIEWS Routine 05/05/2025 10:32 AM EST Acute left-sided low back pain with left-sided sciatica BI MAMMOGRAM SCREENING TOMOSYNTHESIS BILATERAL Routine 03/20/2025 9:45 AM EDT Encounter for screening mammogram for malignant neoplasm of breast PROTEIN CREATININE RATIO, URINE Routine 03/11/2025 8:37 AM EDT URINALYSIS, COMPLETE (INCLUDES MACRO AND MICRO) Routine 03/11/2025 8:37 AM EDT URIC ACID Routine 03/10/2025 3:41 PM EDT CALCIUM Routine 03/10/2025 3:41 PM EDT CREATININE, SERUM Routine 03/10/2025 3:4 1 PM EDT UREA NITROGEN (BUN) Routine 03/10/2025 3 :41 PM EDT ELECTROLYTE PANEL Routine 03/10/2025 3:4 1 PM EDT LIPID PANEL, STANDARD Routine 02/02/2025 9:00 AM EDT Essential hypertension High cholesterol HIV 1/2 ANTIGEN/ANTIBODY, FOURTH GENERATION W/RFL Routine [...] Other ascites Acute anemia COLONOSCOPY Routine 10/11/2023 THINPREP IMAGING PAP AND HPV MRNA E6/E7 WITH REFLEX TO HPV 16,18/45 Routine 08/23/2021 3:53 PM EST HM PAP/HPV Routine 08/23/2021 from Last 3 Months or Most Recently Relevant to Health Maintenance Results * (ABNORMAL) POCT urinalysis dipstick manually resulted (CPT 66851) (06/09/2025 10:50 AM EST) Color, UA Yellow [...] Random) 06/09/2025 10:50 AM EST Marietta Davison HEM MARKER POINT OF CARE TEST ENTER/EDIT ORDERABLES Final Result * XR Lumbar Spine 2-3 Views (05/05/2025 10:32 AM EST) Anatomical Region Laterality Modality Spine, L-spine Radiographic Alix ging 05/05/2025 10:3 2 AM EST Narrative 05/05/2025 11:03 AM EST [address] [address] XRay Report Signed Patient: Leanne Carey MR#: [id number] : 1960 Acct:[id number] Age/Sex: 64 / F ADM Date: 05/05/25 Loc: [place] Attending Dr: Delvis Lopez MD Ordering Physician: DELVIS LOPEZ MD Date of Service: 05/05/25 Procedure(s): XR lumbar spine 2-3V Accession Number(s): [id number] cc: DELVIS LOPEZ MD Reason for Exam: atraumatic left LBP with left radiculopathy EXAMINATION: XR LUMBOSACRAL SPINE CLINICAL INFORMATION: atraumatic left LBP with left radiculopathy COMPARISON: None available. TECHNIQUE: Three views of the lumbosacral spine. FINDINGS: table inspector, likely gastric lap band is partially seen [...] by: Karla Krause MD 05/05/2025 11:00 AM [facility] Dictated By: Karla Krause MD Signed By: <Electronically signed by Karla Krause MD in OV> 05/05/25 1100 DD/ 1032 TD/TT: 05/05/25 1048 Claims Auditor: Procedure Note Donotuseinterpreter, Image - 05/05/[address] [address] XRay Report Signed Patient: Leanne Carey MMR#: [id number] : 1960Acct:[id number] Age/Sex: 64 / FADM Date: 05/05/25 Loc: [facility] Attending Dr: Delvis Lopez MD Ordering Physician: DELVIS LOPEZ MD Date of Service: 05/05/25 Procedure(s): XR lumbar spine 2-3V Accession Number(s): [id number] cc: DELVIS LOPEZ MD Reason for Exam: atraumatic left LBP with left radiculopathy EXAMINATION: XR LUMBOSACRAL SPINE CLINICAL INFORMATION: atraumatic left LBP with left radiculopathy COMPARISON: None available. TECHNIQUE: Three views of the lumbosacral spine. FINDINGS: table inspector, likely gastric lap band is partially seen [...] by: Karla Krause MD 05/05/2025 11:00 AM [facility] Dictated By: Karla Krause MD Signed By: <Electronically signed by Karla Krause MD in OV> 05/05/25 1100 DD/ 1032 TD/TT: 05/05/25 1048 Claims Auditor: Delvis Lopez MD IMG XR PROCEDURES Edited Result - Final * BI Mammogram Screening Tomosynthesis Bilateral (03/20/2025 9:45 AM EDT) Anatomical Region Laterality Modality Breast Bilateral Mammography 03/20/2025 9:45 AM EDT Narrative 03/28/2025 2:25 PM EDT [facility] [address] [place] [address] Mammography Report Signed Patient: Leanne Carey MR#: [id number] : 1960 Acct:[id number] Age/Sex: 64 / F ADM Date: 03/20/25 Loc: [place] Attending Dr: Erick Zhou MD Ordering Physician: Erick Zhou MD Results: 1Negative Date of Service: 03/20/25 Follow Up: 1 Year From Orig inal Mammogram Procedure(s): MM tomosynthesis screening BI Accession Number(s): [id number] cc: Erick Zhou MD Reason For Exam: [...] 03/28/25 1422 DD/ 0945 TD/TT: 03/20/25 1000 Claims Auditor: Procedure Note Donotuseinterpreter, Image - 03/28/2025 [place] [facility] [address] [place] [address] Mammography Report Signed Patient: Leanne Carey MMR#: [id number] : 1960Acct:[id number] Age/Sex: 64 / FADM Date: 03/20/25 Loc: [place] Attending Dr: Erick Zhou MD Ordering Physician: Erick Zhouesults: 1Negative Date of Service: 03/20/25Follow Up: 1 Year From Orig inal Mammogram Procedure(s): MM tomosynthesis screening BI Accession Number(s): [id number] cc: Erick Zhou MD Reason For Exam: [...] 03/28/25 1422 DD/ 0945 TD/TT: 03/20/25 1000 Claims Auditor: Erick Zhou MD IM BI PROCEDURES Edited Result - Final * (ABNORMAL) Protein Creatinine Ratio, Urine (03/11/2025 8:37 AM EDT) Creatinine, Urine 204.13 mg/dL [facility] Protein, Total, Random Urine 16(H) <12 mg/dL [facility] Protein/Creati nine Ratio, Ur 0.08 <0.2 [facility] Comment:The spot urine prote in:creatinine ratio may increase to 0.3during normal . 03/11/2025 8:37 AM EDT 03/11/2025 10:57 AM EDT us Generic External Data Provider LAB URINE ORDERAB LES Final Result [facility] [address] [place] [phone] * (ABNORMAL) Urinalysis Complete (03/11/2025 8:37 AM EDT) Color Urine Dark Yellow [facility] Appearance Urine Cloudy [facility] PH 5.5 5.0 - 9.0 [facility] Glucose Urine UA Negative Negative mg/dL [facility] Urine Blood Negative Negative [facility] Specific [place] - Urine >=1.030(H) 1.005 - 1.025 [facility] Urine Protein Trace Neg-Trace mg/dL [facility] Urine Ketones Trace Negative mg/dL [facility] Nitrite Urine Negative Negative [facility] Leukocyte Esterase Urine Small (1+)(A) Negative [facility] RBC Urine 0-2 0 - 2 /HPF [facility] Urine WBC 0-5 0 - 5 /HPF [facility] Urine Squamous Epithelial Cell 11-20 0 - 2 /HPF [facility] CALCIUM OXALATE CRYSTAL, UR Present [facility] Urine Bacteria 1+ None Seen [facility] Hyaline Casts, Urine 0-2 0 - 2 /LPF [facility] Urine Yeast Present [facility] 03/11/2025 8:37 AM EDT 03/11/2025 10:57 AM EDT us Generic External Data Provider LAB URINE ORDERAB LES Final Result [facility] [address] [place] [phone] * Creatinine, Serum (03/10/2025 3:41 PM EDT) Creatinine, Serum 0.85 0.5 - 1.4 mg/dL [facility] Estimated Glomerular Filt Rate >60 [facility] Comment:Chronic Kidney Disea se: Estimated GFR < 60 mL/min/[id number] Kidney Disease: Estimated GFR < 15 mL/min/1.73m2 03/10/2025 3:41 PM EDT 03/10/2025 6:20 PM EDT us Generic External Data Provider LAB BLOOD ORDERAB LES Final Result Performing Organization Address [facility] Co de Phone Number [facility] [address] [place] [phone] * Uric acid (03/10/2025 3:41 PM EDT) Uric Acid 4.2 2.4 - 5.7 mg/dL [facility] 03/10/2025 3:41 PM EDT 03/10/2025 6:20 PM EDT us Generic External Data Provider LAB BLOOD ORDERAB LES Final Result Performing Organization Address [facility] de Phone Number [facility] [address] [place] [phone] * BUN (Blood Urea Nitrogen) (03/10/2025 3:41 PM EDT) Urea Nitrogen (BUN) 11 9 - 16 mg/dL [facility] 03/10/2025 3:41 PM EDT 03/10/2025 6:20 PM EDT us Generic External Data Provider LAB BLOOD ORDERAB LES Final Result Performing Organization Address [facility] Co de Phone Number [facility] [address] [place] [phone] * Calcium (03/10/2025 3:41 PM EDT) Calcium 9.5 8.4 - 10.2 mg/dL [facility] 03/10/2025 3:41 PM EDT 03/10/2025 6:20 PM EDT us Generic External Data Provider LAB BLOOD ORDERAB LES Final Result Performing Organization Address [facility]/ZIP Co de Phone Number [facility] [address] [place] [address] [phone] * Electrolyte Panel (03/10/2025 3:41 PM EDT) Sodium 143 135 - 145 mmol/L [facility] Potassium 3.5 3.3 - 5.1 mmol/L [facility] Chloride 104 96 - 108 mmol/L [facility] Carbon Dioxide 29 22 - 29 mmol/L [facility] Anion Gap 14 12 - 20 [facility] 03/10/2025 3:41 PM EDT 03/10/2025 6:20 PM EDT us Generic External Data Provider LAB BLOOD ORDERAB LES Final Result Performing Organization Address [facility] Co de Phone Number [facility] [address] [place] [address] [phone] * (ABNORMAL) Lipid Panel, Standard (02/02/2025 9:00 AM EDT) Triglycerides 102 <150 mg/dL [facility] Comment:Desirable Triglyceri de: less than 150 mg/dLBorderline High Triglyceride 150-199 mg/dLHigh Triglyceride: 200-499 mg/dLVery High Triglyceride: greater than or equal to 5OO mg/dL Cholesterol 122 <200 mg/dL [facility] Comment:Desirable Cholestero l: less than 200 mg/dLBorderline High Cholesterol: 200-239 mg/dLHigh Cholesterol: greater than 239 mg/dL LDL Cholesterol Calculated 68 <100 mg/dL [facility] Comment:Desirable LDL: less than 100 mg/dLNear Optimal/Above Optimal LDL: 110- 129 mg/dLBorderline High LDL: 130-159 mg/dLHigh LDL: 160-189 mg/dLVery High LDL: greater than or equal to 190 mg/dL HDL Cholesterol 34(L) >40 mg/dL [facility] Comment:Desirable HDL: great er than 40 mg/dL Note: This HDL assay may give artificially low results in patients with liver disease. Blood Venous blood specimen / Unknown 02/02/2025 9:00 AM EDT 02/02/2025 10:58 AM EDT us Erick Zhou MD LAB BLOOD ORDERABLES Final Resul t Performing Organization Address [facility]/ZIP Co de Phone Number [facility] [address] [place] [phone] [phone] * HIV-1/2 Antigen and Antibodies, Fourth Generation, with Reflexes (10/16/2024 9:34 AM EDT) HIV AB/AG Nonreactive Nonreactive [facility] Comment:HIV-1 p24 Ag and/or HIV-1/HIV-2 Ab not detected.A test result that is nonreactive does not exclude thepossibility of exposure to or infection with HIV-1 and/orHIV-2. Nonreactive results in this assay for individualswith prior exposure to HIV-1 and/or HIV-2 may be due toantigen and antibody levels that are below the limit ofdetection of this assay.The [employer] HIV Ag/Ab Combo assay result andsupplemental assay results should be interpreted inconjunction with the patient's clinical presentation,history and other laboratory results. If the results areinconsistent with clinical evidence, additional testing issuggested to confirm the result. Blood Venous blood specimen / Unknown 10/16/2024 9:34 AM EDT 10/16/2024 11:08 AM EDT us Erick Zhou MD LAB BLOOD ORDERABLES Final Resul t Performing Organization Address City/[facility]/ZIP Co de Phone Number [facility] [address] [place] [phone] [phone] * Hemoglobin A1c (10/16/2024 9:34 AM EDT) Hemoglobin A1c 5.7 <6.0 % [facility] Comment:Hemoglobin A1C Refer ence Range Adults: 4.8 - 6.0 % Non diabetic: < 6.0 % Goal: < 7.0 %Additional Action Suggested: > 8.0 %Note: Hemoglobin A1c results are invalid for patients with abnormal amounts of HbF. Blood transfusions may impact the HbA1c concentration in the patient sample. Estimated Average Glucose 117 mg/dL [facility] Comment:eAG = Estimated ave rage glucose which is %A1C expressed asaverage glucose, using the formula of the E6N-YzklfjgNinnirw Glucose study (ADAG), Diabetes Care, Vol.31,#8,2007 Blood Venous blood specimen / Unknown 10/16/2024 9:34 AM EDT 10/16/2024 11:12 AM EDT us Erick Zhou MD LAB BLOOD ORDERABLES Final Resul t Performing Organization Address [facility] Co de Phone Number [facility] [address] [place] [phone] * Hepatitis C Antibody with Reflex to HCV, RNA, Quantitative, Real-Time PCR (10/25/2023 2:05 PM EDT) Hepatitis C Antibody Nonreactive Nonreactive [facility] Comment:Antibodies to HCV no t detected; does not exclude early acuteHCV infection. Blood Venous blood specimen / Unknown 10/25/2023 2:05 PM EDT 10/25/2023 3:55 PM EDT us Erick Zhou MD LAB BLOOD ORDERABLES Final Resul t Performing Organization Address [facility] Co de Phone Number [facility] [address] [place] [phone] * (ABNORMAL) Hm Colonoscopy (10/11/2023) Colonoscopy Abnormal(A ) Normal Result Isabella Zhou MD HEALTH MAINTENANCE Final Result * [...] along with historic and current clinical information. Comment: This Pap test has been evaluated with computer assisted technology. [facility] Search Marketing Coordinator: SEE COMMENT [facility] Comment: YP, CT(ASCP) CT screening location: [place] [address] HPV nRNA E6/E7 Not Detected Not Detected [facility] Comment: Methodology: Wastewater Engineer-Mediated Amplification This assay detects E6/E7 viral messenger RNA (mRNA) from 14 high-risk HPV types (16,18,31,33,35,39,45,51,52,56,58,59,66,68). The analytical performance characteristics of this assay have been determined by [employer]. The modifications have not been cleared or approved by the FDA. This assay has been validated pursuant to the CLIA regulations and is used for clinical purposes. For additional information, please refer to http://education.[employer]/faq/FAK422s4 (This link if provided for information/ educational purposes only.) Infection Shift in vaginal gina suggestive of bacterial vaginosis. [facility] Interpretation/Re sult: Negative for intraepithelial lesion or malignancy. [facility] LMP: 48 YRS OLD [facility] Prev. BX: NONE GIVEN [facility] Prev. PAP: NONE GIVEN [facility] SOURCE: None given [facility] Statement Of Adequacy: SEE COMMENT [facility] Comment: Satisfactory for evaluation. Endocervical/transformation zone component absent. 08/23/2021 3:53 PM EST us Ashley Oglesby CNM LAB PATHOLOGY ORDERABLES Final Result [facility] [address] * Pap Smear (08/23/2021) Pap smear Preformed Historical Provider HEALTH MAINTENANCE Final Result from Last 3 Months or Most Recently Relevant to Health Maintenance Insurance [place] [facility] [address] [place] [address] [place], [place] [facility] [place], [place] * Guarantor: Leanne Carey Account Type Relation to Patient Date of Phone Billing Address Personal/Family Self [place], [place] * Guarantor: Leanne Carey Account Type Relation to Patient Date of Phone Billing Address Personal/Family Self [place], [place] Care Teams Computer Applications Developer Relationship Specialty Start Date End Date Name, MD Erick [address] [place] [phone] PCP - General Family Medicine 11/29/16
--- OUTSIDE RECORDS SUMMARY | 2025-06-09 15:12 | XMS_ITS | Encounter Summary ---
Author Organization [employer] Address [address] [place] [address] [address] [place] [address] Care Team Providers Care Cake Mixer Name Role Phone Name, Erick CHOWDARY Primary Care Provider [phone] Encounter Details Date Type Department Care Team (Latest Contact Info) Description 06/09/2025 Travel Social History Tobacco Use Types Packs/Day [...] Description 07/06/2025 9:00 AM EST Office Visit [facility] [address] [place] [address] Alejandro, Lucy, OD [address] [place] [address] 09/10/2025 10:15 AM EDT Office Visit [facility] [address] [place] [address] Lashaun Ramsay MD [address] [place] [address] documented as of this encounter Visit Diagnoses Not on filedocumented in this encounter Additional Health Concerns Assessment Noted Time PHQ-9 Depression Total Score: 7 10/16/19 10:10 AM EDT documented as of this encounter Care Teams Cake Mixer Relationship Specialty Start Date End Date Name, MD Erick [address] [place] [address] PCP - General Family Medicine 11/29/16 documented as of this encounter
--- OUTSIDE RECORDS SUMMARY | 2025-06-09 15:12 | XMS_ITS | Encounter Summary ---
Author Organization [employer] Address [address] [facility] [address] [place] [address] Care Team Providers Care Mortgage Consultant Name Role Phone Name, Erick CHOWDARY Primary Care Provider [phone] Encounter Details Date Type Department Care Team ([facility] st Contact Info) Description 08/28/2024 Orders Only [facility] [address] [place] [address] Delvis Leon MD [address] [place] [address] Social History Tobacco Use Types Packs/Day Years [...] Description 07/06/2025 9:00 AM EST Office Visit [facility] [address] [place] [address] Alejandro, Lucy, OD [address] [place] [address] 09/10/2025 10:15 AM EDT Office Visit [facility] [address] [place] [address] Lashaun Ramsay MD [address] [place] [address] documented as of this encounter Visit Diagnoses Not on filedocumented in this encounter Additional Health Concerns Assessment Noted Time PHQ-9 Depression Total Score: 18 024 2:25 PM EDT documented as of this encounter Care Teams Mortgage Consultant Relationship Specialty Start Date End Date Name, MD Erick [address] [place] [address] PCP - General Family Medicine 11/29/16 documented as of this encounter
--- OUTSIDE RECORDS SUMMARY | 2025-06-09 15:12 | XMS_ITS | Encounter Summary ---
Author Organization [employer] Address [address] [place] [address] Care Team Providers Care Rug Layer Name Role Phone Name, Erick CHOWDARY Primary Care Provider [phone] Encounter Details Date Type Department Care Team (Latest Contact Info) Description 12/20/2020 Abstract [facility] CONVERSIONS Dental, Provider, DDS Social History [...] Care Team ( st Contact Info) Description 07/06/2025 9:00 AM EST Office Visit [facility] OPTOMETRY [address] [place] [address] AlejandroLucy dawson, OD [address] [place] [address] 09/10/2025 10:15 AM EDT Office Visit [facility] MEDICINE [address] [place] [address] Lsahaun Ramsay MD [address] [place] [address] documented as of this encounter Visit Diagnoses Not on filedocumented in this encounter Care Teams Rug Layer Relationship Specialty Start Date End Date Name, MD Erick [address] [place] [address] PCP - General Family Medicine 11/29/16 documented as of this encounter
== END 2025-06-09 15:10 | disposition home or self-care (01) ==
LOC: HO.HHCLNP 15:09
PROVIDERS: Visit Provider Nurse Practitioner Family
DX: R30.0 Dysuria (principal)
CPT/HCPCS: 87086